=== PATIENT | male | born 1950 | race Caucasian/White ===

== ENCOUNTER → 2017-03-21 10:11 | Day surgery (SDC) | payer OTHER ==
[~2017-03-21 10:11] MED LIST: Adenosine* 3 MG/ML VIAL ONE; Heparin 2 UNITS/ML IVPREMIX* 1,000 ML IV ONE; Heparin 2 UNITS/ML IVPREMIX* 3,000 ML IV ONE; Heparin(*) 1000 UNIT/ML 10 ML VIAL CATH LAB IV ONE; Iohexol 350 (CONTRAST) 200 ML MDV IV ONE; Lidocaine 1% INJ* 10 MG/ML 30 ML SDV ONE; Midazolam* 1 MG/ML 10 ML VIAL (10 MG) ONE; NS 0.9% 1000 ML* 1,000 ML IV SCH; VERAPAMIL 2.5 MG/ML 4 ML VIAL ONE; fentaNYL* 50 MCG/ML 2 ML VIAL (100 MCG VIAL) ONE; nitroGLYCERIN DRIP* 25,000 MCG/250 ML BTL ONE
[2017-03-21 17:07] VITALS: BP 148/91
--- NOTE | 2017-03-28 17:22 | CATH ---
CC: Terry Aguirre DO; Dr. Kathia Flor, * CATH REPORT: DATE OF PROCEDURE: 03/21/17 - [facility] CATH PRIMARY CARE PROVIDER: Dr. Jacobson. PLATEN BUILDER UP: Terry Aguirre DO PROCEDURE: 1. Right radial artery access. 2. Bilateral selective coronary cineangiography. 3. Left heart catheterization. 4. Left ventriculography. 5. Right heart catheterization. 6. FFR evaluation distal LAD, FFR evaluation ramus branch. HISTORY: A 67-year-old male with prior coronary intervention, 1 year ago he had moderate left main with normal FFR of 0.85, had FFR-guided revascularization of the LAD and ramus. LV gram then showed EF of approximately 50%. He now returns with progressively increasing exertional dyspnea, high burden of PVCs, he is anticipating EP ablation. Because of his progressive exertional dyspnea and the known moderate previous left main, he is referred for repeat catheterization to rule out progressional left main disease and to rule out restenosis. PROCEDURE ACCESS: Right radial artery, right antecubital vein. Sheath; 6F Slender right radial artery, 5F right antecubital vein. Catheters; 5F [place] Good catheter, 5F TIG4, 6FL4. MEDICATIONS: 1. Subcu lidocaine. 2. IV Versed. 3. IV fentanyl. 4. Heparin 3000 units. 5. Verapamil 3 mg. 6. Nitroglycerin 300 mcg IA. 7. Heparin 2000 units IV for FFR. 8. Intraarterial nitroglycerin LCA 150 mcg pre-FFR. 9. FFR of distal LAD and ramus was evaluated using a Comet pressure wire with IV adenosine infusion. After the distal LAD lesion was crossed, IV infusion was started, after 3 minutes FFR was recorded. The wire was then redirected into the ramus branch, adenosine was restarted, after 3 minutes FFR was recorded. HEMODYNAMICS: Initial BP 181/117. Resting right-sided pressures RA mean 7, RV 51/8-10, wedge mean 18, PA 51/23, mean 36. FFR in LAD 0.99. FFR ramus with IV adenosine . LV pressure 133/9-18, no aortic valve gradient on pullback. ANGIOGRAPHY: RCA: The RCA is large, dominant, with a large distribution, it has minor luminal irregularity, supplies a large PDA and several moderate posterolaterals. There is a right ventricular free wall branch that is occluded which is unchanged. The RCA has no significant flow limiting stenosis. Left Main: The left main is relatively long, has proximal half 50% stenosis as before. LAD: The LAD is large, extends past the apex, the previously placed proximal LAD stents are widely patent, there is a 60% stenosis in the LAD at the junction of the mid and distal thirds, which was evaluated with FFR. Circumflex: The circumflex is not dominant, supplies a very large ramus which bifurcates, the proximal ramus has a 50% to 60% stenosis which was evaluated with FFR, the side branch of the ramus stented last year is patent without restenosis. continuation of the circumflex has an eccentric 60% stenosis before a small marginal branch which has proximal 60% stenosis, it supplies a relatively small amount of myocardium, reference diameter is approximately 2 mm , this was not treated and is unchanged. Anatomy is unchanged after FFR evaluation of the ramus and LAD. LV Gram: There was ectopy with the ventriculogram, there is global hypokinesis , I estimated LVEF around 35%. Decreased from 1 year ago. CONCLUSION: 1. Moderate left main and distal LAD stenosis, insignificant by FFR. 2. Moderate proximal ramus stenosis, insignificant by FFR. 3. The circumflex has a moderate proximal stenosis, was not evaluated with FFR as it supplies a very small amount of myocardium. 4. Severe left ventricular systolic dysfunction. 5. Moderate pulmonary hypertension with upper limit of normal filling pressures. [id number]/[facility] #: [id number] [facility] HOSPITALValerie
== END | disposition home or self-care (01) ==
LOC: CHICATH 10:11
PROVIDERS: ATTEND Internal Medicine Cardiovascular Disease
DX: I25.10 Atherosclerotic heart disease of native coronary artery without angina pectoris (principal); I25.2 Old myocardial infarction; Z95.5 Presence of coronary angioplasty implant and graft; Z95.1 Presence of aortocoronary bypass graft; I10 Essential (primary) hypertension; I51.9 Heart disease, unspecified; I27.20 Pulmonary hypertension, unspecified; Z79.82 Long term (current) use of aspirin; Z79.899 Other long term (current) drug therapy; E78.5 Hyperlipidemia, unspecified; E03.9 Hypothyroidism, unspecified; I42.9 Cardiomyopathy, unspecified
CPT/HCPCS: 93460; 99156; 99157; C1887; J0153; J1644; J2250; J3010

== ENCOUNTER 2017-10-19 11:13 | Emergency (ER) | payer OTHER ==
[2017-10-19] MEDS ORDERED: Cefepime(*) 2 GM in NS 0.9% 50 ML* 50 ML IVPB ONE (11:44)
[2017-10-19] MEDS ORDERED: metroNIDAZOLE IV 500 MG/100ML* 500 MG/100 ML BAG IVPB ONE (11:44)
[2017-10-19] MEDS ORDERED: NS 0.9% 1000 ML* 1,000 ML IV ONE ×2 (11:45→13:23)
--- NOTE | 2017-10-19 11:51 | ED ---
Skin Complaint - HPI Summary HPI Summary: Patient is a 67-year-old male with a history of diabetes presenting to the ED with right foot and ankle erythema, warmth, swelling and weeping. Symptoms have been present 2 days. He endorses not wearing shoes 4 days ago and sustained a series of very small abrasions to the right heel. He has 2 chronic wounds to the anterior portion of the right lower leg. He states he has several complications with his right leg in general and recently received a steroid injection by Dr. Lopez on Saturday. Denies any history of RA/OA or gout. Denies any fevers, sweats, chills. He states he is feeling otherwise at his baseline. - History of Current Complaint Chief Complaint: EDExtremityLower Time Seen by Provider: 10/19/17 11:37 Stated Complaint: RT FOOT SWELLING Hx Obtained From: Patient Onset/Duration: Started Days Ago Skin Exposure Onset/Duration: Days Ago Timing: Constant Onset Severity: Moderate Current Severity: Moderate Pain Intensity: 6 Pain Scale Used: 0-10 Numeric Aggravating Symptom(s): Nothing Alleviating Symptom(s): Nothing Related History: Trauma - small abrasions to the area - since healed - Allergy/Home Medications Allergies/Adverse Reactions: Allergies Allergy/AdvReac Type Severity Reaction Status Date / Time atorvastatin [From Lipitor] Allergy Pain Verified 10/19/17 11:31 hydrochlorothiazide Allergy Swelling Verified 10/19/17 11:31 Of Face,Lips,& Throat simvastatin [From Zocor] Allergy Rash Verified 10/19/17 11:31 spironolactone Allergy Swelling Verified 10/19/17 11:31 Of Face,Lips,& Throat sumatriptan [From Imitrex] Allergy Shakes Verified 10/19/17 11:31 valsartan Allergy Headache Verified 10/19/17 11:31 Home Medications: Home Medications Candesartan Cilexetil 1 tab PO DAILY 10/19/17 [History Confirmed 10/19/17] Hydrocodone/Acetaminophen [Hydrocodone-Acetamin 7.5-300] 1 tab PO BID PRN [History Confirmed 10/19/17] Metformin HCl 500 mg PO BID 10/19/17 [History Confirmed 10/19/17] Omeprazole 20 mg PO DAILY 10/19/17 [History Confirmed 10/19/17] Prasugrel (NF) [Effient (NF)] 5 mg PO DAILY 10/19/17 [History Confirmed 10/19/17 ] Vitamin B12 TAB* 1,000 mg PO DAILY 10/19/17 [History Confirmed 10/19/17] amLODIPine TAB* [Norvasc 5 mg TAB*] 5 mg PO DAILY 10/19/17 [History Confirmed ] predniSONE TAB* [Deltasone 10 MG TAB*] 30 mg PO DAILY 10/19/17 [History Confirmed 10/19/17] PMH/Surg Hx/FS Hx/Imm Hx Previously Healthy: No - comorbidities include diabetes and pvd Endocrine/Hematology History: Reports: Hx Diabetes Cardiovascular History: Reports: Hx Angina, Hx Coronary Artery Disease - Stent LAd,RCA, Hx Hypercholesterolemia, Hx Hypertension, Hx Myocardial Infarction Denies: Hx Valvular Heart Disease History: Reports: Hx Benign Prostatic Hyperplasia Denies: Hx Dialysis, Hx Renal Disease Musculoskeletal History: Reports: Hx Arthritis - neck, back, knees, shoulders, Hx Back Problems Sensory History: Reports: Hx Contacts or Glasses - reading glasses Opthamlomology History: Reports: Hx Contacts or Glasses - reading glasses Neurological History: Reports: Hx Headaches - Surgical History Surgery Procedure, Year, and Place: femur fracture repair , bladder biopsy (benign) Cardiac stents. lop sensor implanted one week ago. heart cath done one week ago-- - Immunization History Hx Pertussis Vaccination: No Immunizations Up to Date: Unable to Obtain/Confirm Infectious Disease History: No Infectious Disease History: Denies: Traveled Outside the [place] in Last 30 Days - Family History Known Family History: Positive: Cardiac Disease - Social History Occupation: Unemployed Lives: With Family Alcohol Use: Rare Hx Substance Use: No Substance Use Type: Reports: None Hx Tobacco Use: Yes Smoking Status (MU): Former Smoker Type: Cigarettes Amount Used/How Often: 1pck/d Length of Time of Smoking/Using Tobacco: 27 Have You Smoked in the Last Year: No Review of Systems Constitutional: Negative Negative: Fever, Chills, Fatigue Negative: Palpitations, Chest Pain Negative: Shortness Of Breath, Cough Genitourinary: Negative Positive: no symptoms reported, see HPI Positive: Arthralgia - baseline - R hip Positive: Other Neurological: Negative All Other Systems Reviewed And Are Negative: Yes Physical Exam Triage Information Reviewed: Yes Vital Signs On Initial Exam: Initial Vitals Temp Pulse Resp BP Pulse Ox 97.9 F 86 18 175/104 93 10/19/17 11:14 10/19/17 11:14 10/19/17 11:14 10/19/17 11:14 10/19/17 11:14 Vital Signs Reviewed: Yes Appearance: Positive: Well-Appearing, Well-Nourished Skin: Positive: Warm, Skin Color Reflects Adequate Perfusion, Other - erythema, warmth and swelling over the medial malleolus extending just superiorly to above the ankle with small 1cm round area to the anterior lower chau with white epithelialization overlying purulent material. Head/Face: Positive: Normal Head/Face Inspection Eyes: Positive: EOMI, YULIYA, Conjunctiva Clear Neck: Positive: Supple, No Lymphadenopathy Respiratory/Lung Sounds: Positive: Clear to Auscultation, Breath Sounds Present Cardiovascular: Positive: RRR, Pulses are Symmetrical in both Upper and Lower Extremities Musculoskeletal: Positive: Normal, Strength/ROM Intact - baseline for patient - chronic hip pain Neurological: Positive: Sensory/Motor Intact, Speech Normal Psychiatric: Positive: Normal, Affect/Mood Appropriate Diagnostics - Vital Signs Vital Signs Temp Pulse Resp BP Pulse Ox 10/19/17 11:14 97.9 F 86 18 175/104 93 - Laboratory Result Diagrams: 10/19/17 12:05 10/19/17 12:05 Lab Statement: Any lab studies that have been ordered have been reviewed, and results considered in the medical decision making process. Course/Dx - Course Course Of Treatment: During the course treatment, the patient's evaluated for acute cellulitis to the right lower extremity 4 days. He states he feels otherwise at his baseline, only he endorses pain, swelling, erythema and warmth to the area without streaking up the leg. X-ray obtained which shows no acute findings consistent with osteomyelitis. Labs obtained which show a 12.0 leukocytosis without fever, sweats, chills. CRP 148, ESR 51. Lactic is 2.9 and patient is given 1.5 bolus NS. Wound culture grew staph aureus positive, MRSA negative. Patient is placed on Keflex 500 mg 4 times daily 10 days. He will follow up with his PCP, Dr. Jacobson on Saturday. He is to elevate the leg, the area was gauze and Jeet wraps to apply pressure. VS remain stable. Vancomycin and cefepime given in ED. His first dose of Keflex will be this evening. He has comorbidities of diabetes, COPD, hypertension and possibly some undiagnosed PVD based on exam, however at this time I feel he is safe for discharge with by mouth antibiotics and he is given strict return precautions and voices no concerns. - Differential Diagnoses - Skin Complaint Differential Diagnoses: Other - Cellulitis, chronic wound, PVD, PAD, MRSA, MSSA - Diagnoses Provider Diagnoses: Cellulitis of right ankle Discharge - Sign-Out/Discharge Documenting (check all that apply): Discharge/Admit/Transfer - Discharge Plan Condition: Stable Disposition: HOME Prescriptions: Cephalexin CAP* [Keflex CAP*] 500 mg PO QID #40 cap MDD 4 Patient Education Materials: Cellulitis (ED) Referrals: Toya Jacobson MD [Primary Care Provider] - 1 Day (2-3 days for wound check) Additional Instructions: Elevate the leg as much as possible Keep the area Jeet wrapped Keflex 500mg four times daily Follow up with Dr. Jacobson on Saturday If he develop any streaking up the leg, fevers, sweats, chills, return to the ED immediately - Billing Disposition and Condition Condition: STABLE Disposition: Home
[2017-10-19] MEDS ORDERED: Vancomycin(*) 1,750 MG in NS 0.9% 500 ML* 500 ML IVPB ONE (12:00)
[2017-10-19] MEDS ORDERED: Vancomycin(*) 1,000 MG VIAL IVPB SCH (12:00)
[2017-10-19 12:15] LABS: Hematocrit 41 % (42-52); Hemoglobin 13.6 g/dl (14.0-18.0); Mean Corpuscular HGB Conc 33 g/dl (31-36); Mean Corpuscular Hemoglobin 30 pg (27-31); Mean Corpuscular Volume 93 fL (80-94); Mean Platelet Volume 6.8 um3 (7.4-10.4); Platelet Count 201 10^3/ul (150-450); Red Blood Count 4.46 10^6/ul (4.00-5.40); Red Cell Distribution Width 15 % (10.5-15)
[2017-10-19] MEDS ORDERED: CEFEPIME* 2 GM in Dextrose* 50 ml IV ONE (12:15)
[2017-10-19 12:34] LABS: EGFR Non-African American 106.5 (>60)
[2017-10-19 12:45] LABS: ABS Basophils 0 10^3/ul (0-0.2); ABS Eosinophils 0 10^3/ul (0-0.6); ABS Lymphocytes 0.5 10^3/ul (1.0-4.8); ABS Monocytes 0.3 10^3/ul (0-0.8); ABS Nucleated RBC 0 10^3/ul; Eosinophil % 0.3 % (0-6); Lymphocyte % 4.3 % (25-47); Nucleated Red Blood Cells % 0.1
--- NOTE | 2017-10-19 13:34 | RAD ---
Indication: Right ankle injury. 3 views of the right ankle demonstrates no fracture. Ankle mortise is intact. No other bone or joint abnormality is noted. IMPRESSION: No fracture of the right ankle is noted.
[2017-10-19 15:59] VITALS: BP 153/89
--- NOTE | 2017-10-21 08:47 | PN ---
Progress Note - Progress Note Date of Service: 10/19/17 Note: Wound culture grew MRSA negative, staph aureus positive as well as Enterobacter Patient was placed on Keflex prior to discharge We'll await sensitivities at this time
== END 2017-10-19 15:45 | disposition home or self-care (01) ==
LOC: ED 11:13
DX: L03.115 Cellulitis of right lower limb (principal)
CPT/HCPCS: 36415; 80053; 83605; 85025; 85652; 86140; 87040; 87070; 87077; 87186; 87205; 87640; 87641; 96365; 96366; 99284; J0692; J3370

== ENCOUNTER 2017-10-21 15:41 | Inpatient (IN) | payer OTHER ==
[2017-10-21] MEDS ORDERED: ceFAZolin 1 GM ADVAN(*) 1 GM in NS 0.9% 50 ML* 50 ML IVPB ONE (15:53)
[2017-10-21] MEDS ORDERED: Clindamycin 600 MG IVPREMIX(* 600 MG/50 ML SDV IV ONE (15:53)
[2017-10-21] MEDS ORDERED: Ondansetron INJ* 2 MG/ML VIAL IV ONE (15:56)
[2017-10-21] MEDS ORDERED: Morphine VIAL* 4 MG/ML VIAL (1 ml vial) IV ONE (15:56)
[2017-10-21 15:59] LABS: Hematocrit 43 % (42-52); Hemoglobin 14.1 g/dl (14.0-18.0); Mean Corpuscular HGB Conc 33 g/dl (31-36); Mean Corpuscular Hemoglobin 31 pg (27-31); Mean Corpuscular Volume 94 fL (80-94); Mean Platelet Volume 6.7 um3 (7.4-10.4); Platelet Count 224 10^3/ul (150-450); Red Blood Count 4.61 10^6/ul (4.00-5.40); Red Cell Distribution Width 15 % (10.5-15); White Blood Count 11.2 10^3/ul (3.5-10.8)
--- NOTE | 2017-10-21 16:05 | ED ---
Shortness of Breath - HPI Summary HPI Summary: Patient is a 67-year-old male with a history of significant pulmonary fibrosis who was seen here in the ED 2 days ago with a right lower extremity cellulitis presenting today from his doctor's office, Dr. Toya Jacobson with significant shortness of breath. He states he was moderately short of breath yesterday, but today severely worsened. At home O2 is typically at 2L, however at Dr. Jacobson's office, noted a drop to 84% and patient states at home he had dropped to a significant 56% and almost syncopized. Previously on visit he had an elevated lactic of 2.9 and given 1.5L bolus, and a CRP of 148. Admission was offered, however patient declined as we would try a course of PO abx and would have close follow up with PCP. He states the leg has drastically improved, but his SOB has worsened. On arrival he is at 79% on 4L and increased BP of 188/ 110. He is also in 10/10 pain to his left upper leg (baseline for patient) however he feels this has worsened just today since he began walking on the leg again d/t improvement of the lower extremity cellulitis. Denies chest pain, CHURCH , N/V/C/D/ or abd pain. Denies urinary symptoms. Period of bedrest d/t pain in his leg. - History of Current Complaint Chief Complaint: EDShortnessOfBreath Time Seen by Provider: 10/21/17 15:42 Hx Obtained From: Patient Onset/Duration: Gradual Onset Timing: Constant Current Severity: Mild Dyspnea At: Rest Alleviating Factors: Oxygen - 2L - Risk Factors Pulmonary Embolism: Negative Cardiac: Negative Pseudomonas: Chronic Lung Disease - and repeated abx - Allergy/Home Medications Allergies/Adverse Reactions: Allergies Allergy/AdvReac Type Severity Reaction Status Date / Time atorvastatin [From Lipitor] Allergy Pain Verified 10/21/17 16:05 hydrochlorothiazide Allergy Swelling Verified 10/21/17 16:05 Of Face,Lips,& Throat simvastatin [From Zocor] Allergy Rash Verified 10/21/17 16:05 spironolactone Allergy Swelling Verified 10/21/17 16:05 Of Face,Lips,& Throat sumatriptan [From Imitrex] Allergy Shakes Verified 10/21/17 16:05 valsartan Allergy Headache Verified 10/21/17 16:05 Home Medications: Home Medications [id number] Es (Nf) [Excedrin Extra Strength 250-250-65 mg (NF)] 3 tab PO DAILY PRN 10/21/17 [History Confirmed 10/21/17] Candesartan Cilexetil [Atacand] 8 mg PO DAILY 10/21/17 [History Confirmed ] Cyanocobalamin TAB* [Vitamin B12 TAB*] 1,000 mcg PO DAILY 10/21/17 [History Confirmed 10/21/17] Levothyroxine TAB* [Synthroid TAB*] 200 mcg PO DAILY 10/21/17 [History Confirmed 10/21/17] Omeprazole CAP* [Prilosec CAP* 20 MG] 20 mg PO DAILY 10/21/17 [History Confirmed 10/21/17] metFORMIN* [Glucophage 500 MG TAB *] 500 mg PO BID 10/21/17 [History Confirmed 10/21/17] PMH/Surg Hx/FS Hx/Imm Hx Previously Healthy: Yes Endocrine/Hematology History: Reports: Hx Diabetes Cardiovascular History: Reports: Hx Angina, Hx Coronary Artery Disease - Stent LAd,RCA, Hx Hypercholesterolemia, Hx Hypertension, Hx Myocardial Infarction Denies: Hx Valvular Heart Disease History: Reports: Hx Benign Prostatic Hyperplasia Denies: Hx Dialysis, Hx Renal Disease Musculoskeletal History: Reports: Hx Arthritis - neck, back, knees, shoulders, Hx Back Problems Sensory History: Reports: Hx Contacts or Glasses - reading glasses Opthamlomology History: Reports: Hx Contacts or Glasses - reading glasses Neurological History: Reports: Hx Headaches - Surgical History Surgery Procedure, Year, and Place: femur fracture repair , bladder biopsy (benign) Cardiac stents. lop sensor implanted one week ago. heart cath done one week ago-- - Immunization History Hx Pertussis Vaccination: No Immunizations Up to Date: Unable to Obtain/Confirm Infectious Disease History: No Infectious Disease History: Denies: Traveled Outside the [place] in Last 30 Days - Family History Known Family History: Positive: Cardiac Disease - Social History Occupation: Unemployed, Disabled Lives: With Family Alcohol Use: Rare Hx Substance Use: No Substance Use Type: Reports: None Hx Tobacco Use: Yes Smoking Status (MU): Former Smoker Type: Cigarettes Amount Used/How Often: 1pck/d Length of Time of Smoking/Using Tobacco: 27 Have You Smoked in the Last Year: No Review of Systems Constitutional: Negative Negative: Fever, Chills, Fatigue Negative: Palpitations, Chest Pain Positive: Shortness Of Breath. Negative: Cough Genitourinary: Negative Positive: no symptoms reported, see HPI Negative: Arthralgia, Myalgia Positive: Rash - erythematous warm area to the right lower extremity Neurological: Negative All Other Systems Reviewed And Are Negative: Yes Physical Exam Triage Information Reviewed: Yes Vital Signs On Initial Exam: Initial Vitals Temp Pulse Resp BP Pulse Ox 96.6 F 101 24 194/116 91 10/21/17 15:47 10/21/17 15:47 10/21/17 15:47 10/21/17 15:47 10/21/17 15:47 Vital Signs Reviewed: Yes Appearance: Positive: Well-Appearing, Well-Nourished Skin: Positive: Warm, Diaphoretic, Other - erythema and warmth to the R lower extremity Head/Face: Positive: Normal Head/Face Inspection Eyes: Positive: EOMI, YULIYA, Conjunctiva Clear Neck: Positive: Supple, No Lymphadenopathy Respiratory/Lung Sounds: Positive: Breath Sounds Present, Wheezes, Unable to speak in full sentences, Fatigue Cardiovascular: Positive: RRR, Pulses are Symmetrical in both Upper and Lower Extremities Musculoskeletal: Positive: Strength/ROM Intact Neurological: Positive: Speech Normal Psychiatric: Positive: Normal, Affect/Mood Appropriate AVPU Assessment: Alert Diagnostics - Vital Signs Vital Signs Temp Pulse Resp BP Pulse Ox 10/21/17 15:55 99 23 93 10/21/17 15:47 96.6 F 101 24 194/116 91 - Laboratory Result Diagrams: 10/21/17 15:52 10/21/17 15:52 Lab Statement: Any lab studies that have been ordered have been reviewed, and results considered in the medical decision making process. Re-Evaluation - Re-Evaluation First Eval Change: Improved - much improved after increase to 5L O2 Second Eval Change: Improved - pain improved after administration of morphine Third Eval Change: Unchanged - Denies SOB when lying still - this is improvement from DESIGN SPECIALIST Course/Dx - Course Course Of Treatment: ABG obtained which was unremarkable for metabolic/acid base distrubances. CO2 unremarkable. Lactic 3.7. Chest CTA shows: Spoke with hospitalist at 5:20p. EKG shows normal sinus rhythm with probable left atrial enlargement. Rate 92. O2 on arrival 79% 4L increased to 93% on 5L however he was moving around prior to taking the 79% sat. BP 189/110, patient notes an extreme amount of pain in the R upper leg/hip. He is given morphine and zofran. He meets septic criteria and is given 3L NS and Kefzol and Clindamycin for sepsis secondary to cellulitis. However, I believe his abnormal VS are secondary to severe resp distress following medication administration, will fall within lower values. D-dimer 304. WBC decreased from 2 days prior at 11.2. D/t increased BNP, 3rd Liter fluid cancelled and 2nd L fluid reduced to 250ml/hr. Awaiting CTA results. - Diagnoses Differential Diagnosis/HQI/PQRI: Positive: Chest Wall Pain, Pneumonia, Pulmonary Edema Provider Diagnoses: Respiratory distress Discharge - Sign-Out/Discharge Documenting (check all that apply): Discharge/Admit/Transfer Signing out patient TO: Renato Ragland - Awaiting CTA results - Discharge Plan Condition: Stable Disposition: ADMITTED TO [facility]charge Disposition Comment: signed out to Renato Ragland Referrals: Toya Jacobson MD [Primary Care Provider] - - Billing Disposition and Condition Condition: STABLE Disposition: Admitted to [facility]
[2017-10-21] MEDS ORDERED: NS 0.9% 50 ML* 50 ML ONE (16:08)
[2017-10-21] MEDS ORDERED: ceFAZolin 1 GM in Dextrose (*) 1 GM/50 ML BAG IVPB ONE (16:09)
[2017-10-21] MEDS: NS 0.9% 1000 ML* 3,000 ML IV ONE ×2 (16:18→17:22)
[2017-10-21 16:33] LABS: ABS Basophils 0.1 10^3/ul (0-0.2); ABS Eosinophils 0 10^3/ul (0-0.6); ABS Lymphocytes 0.5 10^3/ul (1.0-4.8); ABS Monocytes 0.3 10^3/ul (0-0.8); ABS Neutrophils 10.3 10^3/ul (1.5-7.7); ABS Nucleated RBC 0 10^3/ul; Eosinophil % 0.3 % (0-6); Lymphocyte % 4.6 % (25-47); Nucleated Red Blood Cells % 0.1
[2017-10-21] MEDS ORDERED: Iodixanol* (CONTRAST) 320 MG/ML 100 ML SDV IV ONE (17:27)
--- NOTE | 2017-10-21 18:15 | RAD ---
Indication: Respiratory distress. Contrast: Administered 84.0 ml of VISAPAQUE 320 mg/ml CTA of the chest was performed without IV contrast administration. Coronal and sagittal reconstructed images were obtained. Pulmonary arterial tree is well opacified. There are no filling defects present to suggest pulmonary embolus. There is cardiomegaly noted. Precarinal lymph node measuring up to 1.4 cm. Right hilar lymph nodes are noted measuring up to 1.5 cm. Subcarinal lymph nodes are noted measuring up to 1.4 cm. The trachea and major bronchi appear patent. Bilateral airspace disease is noted which may represent pneumonia in the left upper lobe. Underlying vascular congestion should be considered. There is small bilateral pleural effusions noted. Aorta demonstrates no evidence of aortic dissection. Cardiomegaly is noted. Visualized abdominal organs are unremarkable. IMPRESSION: There is no definite pulmonary embolus. Cardiomegaly with alveolar consolidation is noted in the left upper lobe. Possibility of CHF and/or left upper lobe pneumonia should BE considered. No aortic dissection. Small mediastinal lymph nodes.
[2017-10-21 18:54] LABS: Urine Appearance Clear; Urine Blood Negative (Negative); Urine Color Straw; Urine Ketones Trace (Negative); Urine Protein Negative (Negative); Urine Specific Gravity 1.032 (1.010-1.030); Urine Urobilinogen Negative (Negative)
[2017-10-21] MEDS ORDERED: Acetaminophen TAB* 325 MG PO PRN (19:26)
[2017-10-21] MEDS ORDERED: Al Hydrox/Mg Hydrox/Simet LIQ* 30 ML UDC PO PRN (19:26)
[2017-10-21] MEDS ORDERED: Dextrose 50% Syringe 50 ML* 25 GM/50 ML SYRINGE IV PUSH PRN (20:22)
[2017-10-21] MEDS: Heparin VIAL(*) 5000 UNITS/ML VIAL (FIVE THOUSAND) SUBCUT SCH (22:04)
[2017-10-21] MEDS: Insulin LISPRO* 1 UNITS UNIT SUBCUT SCH (22:04)
[2017-10-21] MEDS: metFORMIN* 500 MG TAB PO SCH (22:05)
[2017-10-21] MEDS: CMCS:Rosuvastatin (NF) 5 MG TAB PO SCH (22:05)
[2017-10-21] MEDS: Tamsulosin CAP* 0.4 MG PO SCH (22:06)
[2017-10-21] MEDS: Levofloxacin 750 MG IVPREMIX(* 750 MG/150 ML BAG IVPB SCH (22:41)
[2017-10-22] MEDS ORDERED: Melatonin 3 MG TAB PO ONE
--- NOTE | 2017-10-22 03:06 | HP ---
CC: Dr. Toya Jacobson * HISTORY AND PHYSICAL: DATE OF ADMISSION: 10/21/17 PROVIDER: Cherri Ambrocio NP. PRIMARY CARE PROVIDER: Dr. Toya Jacobson. ATTENDING PHYSICIAN WHILE IN THE HOSPITAL: Dr. Shola Metzger * (dictated by Cherri Ambrocio NP). CHIEF COMPLAINT: 1. Shortness of breath. 2. Cellulitis. HISTORY OF PRESENT ILLNESS: Mr. Correa is a 67-year-old male, who carries a past medical history significant for hypertension, diabetes, hyperlipidemia, and pulmonary fibrosis. The patient reports that he was recently seen and treated in the emergency room on 10/19/17, at that time for redness in his right lower extremity. During that visit in the emergency room, he qualified for sepsis criteria, but did not want to stay. He was diagnosed with cellulitis and discharged home on Keflex 500 mg q.i.d. and was instructed to follow up with his doctor, Dr. Jacobson, in the office today. The patient reports that the cellulitis has been improving since starting the antibiotics, but he has reported that over the last 2 to 3 days, he has had progressive worsening of shortness of breath. The patient reports that with the exertion, his O2 saturation dropped to 56%. He has severe shortness of breath with exertion and requires a long period of time to recover from his exertional shortness of breath. The patient was sent from Dr. Jacobson's office for further evaluation of his hypoxia and increasing shortness of breath. The patient does chronically wear 3 to 4 L of oxygen at home. He denies any chest pain. He does report chronic edema that has progressively gotten worse. He does report fever last night with some chills. Denies any cough or hemoptysis. He does report shortness of breath with exertion that is severe. He denies any nausea, vomiting, or diarrhea. Denies any abdominal pain. Denies any hematuria or dysuria. Denies any focal weakness or sensory loss. Denies any visual complaints. Denies any dysphagia. Denies any arthralgias. He does report a rash. He does report redness to his right ankle and lower leg. He also reports right hip pain that has been chronic for him. He does report he received a cortisone injection in his right hip last Saturday. He also reports his right leg being weak due to the pain in his right hip. While in the emergency room, the patient had routine lab work drawn. He was found to have lactic acidosis with a lactic acid level of 3.7. His WBCs were 11.2. Given his history of pulmonary fibrosis and recent diagnosis of cellulitis , we were asked to see and evaluate the patient for admission due to his shortness of breath and hypoxia. PAST MEDICAL HISTORY: Significant for: 1. Hypertension. 2. Diabetes. 3. Hyperlipidemia. 4. Pulmonary fibrosis. PAST SURGICAL HISTORY: He had surgical repair of a femur fracture. MEDICATIONS: Home medications include: 1. Flexeril 10 mg p.o. b.i.d. p.r.n. 2. Excedrin Extra Strength 3 tablets p.o. daily p.r.n. 3. Atacand 8 mg p.o. daily. 4. Keflex 500 mg q.i.d. 5. Synthroid mcg p.o. daily. 6. Hydrocodone/acetaminophen 7.5/300 one tablet p.o. b.i.d. p.r.n. 7. Metformin 500 mg p.o. b.i.d. 8. Omeprazole 20 mg p.o. daily. 9. Crestor 5 mg p.o. at bedtime. 10. Effient 5 mg p.o. daily. 11. Tamsulosin 0.4 mg p.o. daily. 12. Vitamin B12 of 1000 mcg p.o. daily. 13. Prednisone 30 mg p.o. daily. 14. Amlodipine 5 mg p.o. daily. ALLERGIES: He has allergy to: 1. ATORVASTATIN. 2. HYDROCHLOROTHIAZIDE. 3. SIMVASTATIN. 4. SPIRONOLACTONE. 5. SUMATRIPTAN. 6. VALSARTAN. SOCIAL HISTORY: He denies any tobacco. He does report rare alcohol use. Denies any illicit drug use. He is retired. He lives at home with his . Surrogate decision maker in the event he is unable to make his own decisions is his , Minoo. Her phone number is [phone]. He is a full code. REVIEW OF SYSTEMS: There was no documented fever in the emergency room. Denies any significant weight change. There is no double vision, no ear discharge. Denies any rhinorrhea. Denies sore throat. Denies any cough or congestion. He does report exertional shortness of breath. He denies any nausea, vomiting, or diarrhea. Denies any abdominal pain. He does report fever and chills last evening. He does report progressively worsening lower extremity edema. He denies any gross hematuria or dysuria. Denies any focal weakness or sensory loss. Denies any visual complaints. Denies any dysphagia. Denies any arthralgias or myalgias. He does report redness to the right lower extremity. He also complains of right hip pain that has progressively gotten worse. He did have a cortisone injection last Saturday. He also complains of some mild weakness in the right leg due to the pain in his right hip. PHYSICAL EXAMINATION GENERAL: At this time, Mr. Correa is a 67-year-old male. He appears his stated age. He is resting on a stretcher in the emergency room, he does not appear to be in any acute distress. VITAL SIGNS: Temperature was 96.6, heart rate was 74, respirations were 16 to 19, blood pressure was 138/92, and O2 saturation on 5 L is 94% to 96%. HEENT: Head is atraumatic, normocephalic. Eyes, EOMs intact. Sclerae anicteric and not pale. Oral mucosa appeared to be dry. NECK: Supple. LUNGS: With fine crackles half way up on the right, diminished on the left. There are no wheezes or rales. CARDIAC: S1 and S2. Regular rate and rhythm. There are no murmurs, rubs, or gallops. ABDOMEN: Obese, soft, nontender. Bowel sounds are present x4. EXTREMITIES: Pedal pulses are +2 bilaterally. He does have 2+ pitting edema to lower extremities bilaterally. He is able to move all 4 extremities, 4/5 strength. NEUROLOGIC: He is alert and oriented x3. His speech is clear. There are no neuro focal deficits. SKIN: His right lower extremity with erythema and mild swelling. There is some purple discoloration noted to his ankle, his posterior heel. There are a few scattered scabbed areas noted to his chau. DIAGNOSTIC STUDIES AND LABORATORY DATA: WBCs were 11.2, RBCs 4.61, hemoglobin 14.1, hematocrit was 43, platelet count was 224. D-dimer was 304. APTT was 32.7. Blood gas, pH of 7.39, pO2 was 36, pCO2 was 67, HCO3 was 22.7, O2 saturation was 94.3%. Sodium 137, potassium 3.9, chloride 102, and carbon dioxide was 21. Anion gap 14. BUN was 14 and creatinine 0.87. Glucose of 370. Lactic acid was 3.7. Calcium was 9.2. AST was 11. C-reactive protein was 141. BNP was 272 and procalcitonin was 0.1. He did have a CTA of the chest, radiologist's impression: There was no definite pulmonary embolism, cardiomegaly with alveolar consolidation was noted in the left upper lobe, possibly due to CHF or left upper lobe pneumonia. No aortic dissection. Electrocardiogram which showed sinus rhythm at a rate of 92. IMPRESSION AND PLAN: Mr. Correa is a 67-year-old male, who presented to the emergency room today with increased shortness of breath and hypoxia, we are asked to see and evaluate him due to his shortness of breath, hypoxia, lactic acidosis, and right lower extremity cellulitis. He will be admitted for: 1. Shortness of breath. I suspect that this is possibly related to left upper lobe pneumonia as the patient does have an underlying history of pulmonary fibrosis. He is extremely short of breath. He has a white count of 11.2. His procalcitonin was low at 0.1. I will treat him with Levaquin 750 mg q. 24 hours. He can have albuterol nebulizers as needed for increased shortness of breath. I will continue him on his home prednisone at 30 mg p.o. daily. He should continue on his routine home O2 at 3 to 6 L to maintain O2 saturations above 92%. If the patient does not improve or his shortness of breath becomes worse, and he develops rales, we should consider underlying congestive heart failure as the patient does have 2+ pitting edema to the lower extremities and does report that he stopped taking torsemide 5 mg approximately 1 week ago. The patient did have a CTA of the chest to rule out pulmonary embolism as the D- dimer was elevated at 304. 2. Cellulitis. We will place him on Levaquin to treat both the pneumonia and cellulitis as they will cover both infections and continue to monitor his right lower extremity. 3. Hypertension. We will continue him on his previous home hypertension medications of amlodipine 5 mg p.o. daily. 4. Diabetes. We will place him on fingersticks a.c. and h.s. I will place him on a lispro sliding scale. He will continue his metformin 500 mg p.o. b.i.d. I will check an A1c in the a.m. His blood sugar on admission to the emergency room was 370. I suspect this is elevated more due to his underlying infection. 5. Hyperlipidemia. We will continue on Crestor 5 mg. 6. FEN. I will place him on heart healthy, decaf okay diet. 7. Code status. He is a full code. 8. DVT prophylaxis. I will place him on heparin 5000 units subcu p.o. daily. I did not place him on mechanical SCDs due to the swelling and cellulitis in his right lower extremity and possibly underlying congestive heart failure. 9. Disposition. He will placed inpatient on telemetry. TIME SPENT: Time spent on this admission was approximately 60 minutes, greater than half the time was spent with the patient discussing his history and physical, the other half the time was spent going over my care of plan with the patient and implementing my plan of care. I have discussed with my attending, Dr. Shola Metzger. He is in agreement with my plan. CHERRI AMBROCIO, P[facility]LLER [id number]/[facility] #: [id number] MTDValerie
[2017-10-22] MEDS: Cyclobenzaprine TAB* 10 MG PO PRN (04:00)
[2017-10-22] MEDS: Heparin VIAL(*) 5000 UNITS/ML VIAL (FIVE THOUSAND) SUBCUT SCH ×3 (05:10→21:10)
[2017-10-22] MEDS: Levothyroxine TAB* 100 MCG TAB PO SCH (05:10)
[2017-10-22 07:08] LABS: Hematocrit 38 % (42-52); Hemoglobin 12.8 g/dl (14.0-18.0); Mean Corpuscular HGB Conc 34 g/dl (31-36); Mean Corpuscular Hemoglobin 31 pg (27-31); Mean Corpuscular Volume 92 fL (80-94); Mean Platelet Volume 6.8 um3 (7.4-10.4); Platelet Count 195 10^3/ul (150-450); Red Blood Count 4.12 10^6/ul (4.00-5.40); Red Cell Distribution Width 15 % (10.5-15); White Blood Count 8.5 10^3/ul (3.5-10.8)
[2017-10-22 07:27] LABS: EGFR Non-African American 103.3 (>60)
[2017-10-22] MEDS ORDERED: Insulin LISPRO* 1 UNITS UNIT SUBCUT SCH (07:30)
[2017-10-22 07:39] LABS: ABS Basophils 0 10^3/ul (0-0.2); ABS Eosinophils 0.1 10^3/ul (0-0.6); ABS Lymphocytes 0.8 10^3/ul (1.0-4.8); ABS Monocytes 0.4 10^3/ul (0-0.8); ABS Neutrophils 7.1 10^3/ul (1.5-7.7)
[2017-10-22 07:41] LABS: ABS Basophils 0 10^3/ul (0-0.2); ABS Neutrophils 6.5 10^3/ul (1.5-7.7); Monocytes % 10 % (0-7)
[2017-10-22] MEDS: Omeprazole CAP* 20 MG PO SCH (09:00)
[2017-10-22] MEDS: amLODIPine TAB* 5 MG PO SCH (09:00)
[2017-10-22] MEDS: Cyanocobalamin TAB* 500 MCG PO SCH (09:00)
[2017-10-22] MEDS ORDERED: predniSONE TAB* 10 MG PO SCH (09:00)
[2017-10-22] MEDS: metFORMIN* 500 MG TAB PO SCH (09:00)
[2017-10-22] MEDS: Insulin LISPRO* 1 UNITS UNIT SUBCUT SCH ×4 (09:01→21:09)
[2017-10-22] MEDS ORDERED: Docusate CAP* 100 MG PO PRN (09:49)
[2017-10-22] MEDS ORDERED: Senna TAB PO PRN (09:49)
--- NOTE | 2017-10-22 10:15 | PN ---
Subjective Date of Service: 10/22/17 Interval History: Mr. Correa reports feeling very short of breath with any exertion. He denies chest pain, nausea, or abdominal pain. He notes that he is abdomen is distended but is unable to clarify if this is worse than usual. He reports his last BM was 10/18/17. Objective Active Medications: Acetaminophen (Tylenol Tab*) 650 mg PO Q4H PRN Hydrocodone Bitart/Acetaminophen ([place]et 5-325 Tab*) 2 tab PO Q4H PRN Al Hydrox/Mg Hydrox/Simethicone (Maalox Plus*) 30 ml PO Q6H PRN Albuterol (Ventolin 2.5 Mg/3 Ml Neb.Jaida*) 2.5 mg INH [id number] AWAKE PRN Amlodipine Besylate (Norvasc Tab*) 5 mg PO DAILY RIVERA Cyanocobalamin (Vitamin B12 Tab*) 1,000 mcg PO DAILY RIVERA Cyclobenzaprine HCl (Flexeril Tab*) 10 mg PO BID PRN Dextrose (D50w Syringe 50 Ml*) 12.5 gm IV PUSH .FOR FS < 60 - SS PRN Docusate Sodium (Colace Cap*) 100 mg PO BID PRN Heparin Sodium (Porcine) (Heparin Vial(*)) 5,000 units SUBCUT Q8HR RIVERA Levofloxacin/Dextrose (Levaquin 750 Mg Ivpremix(*)) 750 mg in 150 mls @ 100 mls /hr IVPB Q24H RIVERA Insulin Human Lispro (Humalog*) 0 units SUBCUT ACHS RIVERA; Protocol Levothyroxine Sodium (Synthroid Tab*) 200 mcg PO DAILY@0600 RIVERA Metformin HCl (Glucophage*) 500 mg PO BID RIVERA Omeprazole (Prilosec Cap*) 20 mg PO DAILY@0730 RIVERA Polyethylene Glycol/Electrolytes (Miralax*) 17 gm PO DAILY PRN Prednisone (Deltasone Tab*) 30 mg PO DAILY RIVERA Rosuvastatin Calcium (Crestor (Nf)) 5 mg PO BEDTIME RIVERA; Protocol Senna (Senokot Tab*) 1 tab PO BEDTIME PRN Tamsulosin HCl (Flomax Cap*) 0.4 mg PO QPM RIVERA Vital Signs: Temp Pulse Resp BP Pulse Ox 97.5 F 82 17 151/87 94 10/22/17 08:14 10/22/17 08:14 10/22/17 08:14 10/22/17 08:14 10/22/17 08:14 Oxygen Devices in Use Now: Nasal Cannula Appearance: Male lying in bed, reports hip pain, NAD Eyes: No Scleral Icterus Neck: Trachea Midline Respiratory: Symmetrical Chest Expansion and Respiratory Effort, Clear to Auscultation Cardiovascular: NL Sounds; No Murmurs; No JVD, - - +1 edema to B LE Abdominal: - - Soft, distended, BS + Skin: - - Erythema to right calf, dark purple lesion to achilles tendon area, three small dry ulcerations to anterior aspect, no drainage Neurological: Alert and Oriented x 3 Nutrition: Taking PO's Result Diagrams: 10/22/17 06:26 10/22/17 06:26 Assess/Plan/Problems-Billing Assessment: Mr. Correa is a 67 yo male with a PMH of pulmonary fibrosis, CAD with multiple stents, hypertension, diabetes and recent diagnosis of right lower extremity cellulitis who was admitted on 10/21/17 for worsening shortness of breath of uncertain etiology. - Patient Problems (1) SOB (shortness of breath) Comment: - Persistent severe dypsnea on exertion. - History of significant pulmonary fibrosis on 4L NC at home with 6L for mobility, now with SpO2 into the 70s with 6L NC during mobility, put on 12L with SpO2 90s - CTA chest showed pulmonary fibrosis only, no PE or clear infiltrate. ? left upper lobe atelectasis vs infiltrate or CHF, difficult to interpret given severity of pulmonary fibrosis. - No clear evidence of infection. Mild leukocytosis on arrival resolved, CRP elevated but likely due to cellulitis, procalcitonin negative for bacterial infection. - ? if cardiac component, plan to obtain most recent echo from Dr. Arevalo in [place] and repeat echo now. - Continue nebulizers. Continue home prednisone for pulmonary fibrosis. - Dr. Vasquez (who follows him outpatient) consulted. (2) Pulmonary fibrosis Comment: - Follows with Dr. Vasquez, last visit 06/2017. - Noted to require up to 6L NC to maintain SpO2 > 90% at that point. - Continue prednisone. (3) CAD (coronary artery disease) Comment: - Chest pain free but SOB. - Trop 0.03, EKG without evidence of ischemia, unchanged from previous. Plan to repeat troponin now given that DM can mask symptoms and patient is significantly hypoxic. - Hx of stents x 5. (4) Hip pain Comment: - Right hip pain along the lateral aspect of hip, described as muscle spasms, since early September, improved after outpatient steroid injection but worsened with development of right lower extremity cellulitis. - Follows with rheumatology for history of polymyalgia. Xrays of hip, pelvis and knee outpatient showed no acute injury. Planned for outpatient MRI hip. - Continue pain meds prn. (5) Abdominal distension Comment: - Patient has significant abdominal distention but denies pain, states his last BM was 10/18/17. ? if abdomen is creating pressure and atelectasis. Plan for bowel regimen and xray abdomen now. (6) Diabetes Comment: - BGs 160-260. HgbA1c 10.9. - Hold metformin, continue lispro SSI coverage with meals. - Will need significant medication adjustments outpatient, diabetic teaching. (7) HTN (hypertension) Comment: - SBP 150s. - Continue losartan, metoprolol, & amlodipine (8) HLD (hyperlipidemia) Comment: - Continue statin. (9) Hypothyroidism Comment: - Continue levothyroxine. - TSH pending. (10) DVT prophylaxis Comment: - Heparin SQ. (11) Full code status Comment: Status and Disposition: Inpatient. Anticipate discharge to home when medically stable.
[2017-10-22] MEDS: Polyethylene Glycol 3350* 17 GM PACKET PO PRN (11:10)
[2017-10-22] MEDS: HYDROcodone/ACETAMIN 5-325 MG* 1 TAB PO PRN ×2 (12:34→21:13)
--- NOTE | 2017-10-22 15:22 | ECHO ---
Patient: LEDA HATCH [facility] Rec#: [id number] : 1950 Date: 10/22/2017 Age: 67y Height: 175.26 cm / 69.0 in Weight: 113.85 kg / 250.9 lbs Sex: M BSA: 2.27 Room#: [facility] Admit Date#: 10/21/2017 Type: Inpatient Referring: Naty Aguirre NP Reading: Italo Brewster MD Family Counselor: Amber Booker DAVIDA CC: Toya Jacobson MD Transthoracic Echocardiogram Indication: SOB BP: 151/87 HR: 87 Rhythm: NSR with PVCs Findings History: HTN,HLD,DM,pulmonary fibrosis,CAD,prior PCI. Technical Comments: The study is technically difficult. Completed at 1440. The study is technically limited due to patient body habitus. Left Ventricle: The left ventricular chamber size is normal. Posterior wall hypertrophy is observed. Mild global hypokinesis of the left ventricle is observed. Left ventricular systolic function is at the lower limits of normal. The estimated ejection fraction is 50-55%. Abnormal left ventricular diastolic function is observed. Left Atrium: The left atrium is mildly dilated. Right Ventricle: The right ventricular cavity size is normal. The right ventricular global systolic function is normal. Right Atrium: The right atrium is slightly dilated. Aortic Valve: The aortic valve is trileaflet. There is no evidence of aortic valve thickening. There is no evidence of aortic regurgitation. There is no evidence of aortic stenosis. Mitral Valve: The mitral valve leaflets are mildly thickened. There is no evidence of mitral regurgitation. There is no evidence of mitral stenosis. Tricuspid Valve: The tricuspid valve leaflets are normal. There is a physiologic tricuspid regurgitation. Unable to estimate the right ventricular systolic pressure. There is no tricuspid stenosis. Pulmonic Valve: The pulmonic valve appears normal. There is no evidence of pulmonic regurgitation. There is no pulmonic stenosis. Pericardium: There is no significant pericardial effusion. A pericardial fat pad is visualized. Aorta: There is moderate dilatation of the ascending aorta. There is no dilatation of the aortic arch. There is mild dilatation of the aortic root. Pulmonary Artery: The main pulmonary artery appears normal. Venous: The venous system is not well visualized. Summary: There are no significant changes when compared to the previous study done on 04/18/16 Conclusions Posterior wall hypertrophy is observed. Mild global hypokinesis of the left ventricle is observed. Left ventricular systolic function is at the lower limits of normal. The estimated ejection fraction is 50-55%. The right ventricular global systolic function is normal. There is no evidence of aortic stenosis. There is no evidence of mitral regurgitation. There is a physiologic tricuspid regurgitation. Unable to estimate the right ventricular systolic pressure. There is no significant pericardial effusion. Measurements Name Value Normal Range RVIDd (AP) 2D 3.7 cm (0.9 - 2.6) RVDdMajor (2D) 2.7 cm (2.2 - 4.4) RAd ISD 4CH 6 cm (3.4 - 4.9) RA (A4C)W 3.4 cm (2.9 - 4.6) IVSd (2D) 1 cm (0.6 - 1) LVPWd (2D) 1.4 cm (0.6 - 1) LVIDd (2D) 5 cm (3.6 - 5.4) LVIDs (2D) 3.3 cm - LV FS (2D) 34 % (25 - 45) Aortic Annulus 2.6 cm (1.4 - 2.6) Ao root diameter (2D) 3.9 cm (2.1 - 3.5) Ascending Ao 4 cm (2.1 - 3.4) Aortic arch 2.6 cm (1.8 - 3.4) Descending Ao 0.5 cm - LA dimension (AP) 2D 4.3 cm (2.3 - 3.8) LAd ISD 4CH 7.2 cm (2.9 - 5.3) LA ISD 4CH W 4.1 cm (2.5 - 4.5) Name Value Normal Range LA ESV SP 4CH (A/L) 62 ml - LA ESV SP 2CH (A/L) 33 ml - LA ESV BP (A/L) 46 ml - LA ESV BP (A/L) index 20.01 ml/m2 - LA ESV SP 4CH (MOD) 61 ml - LA ESV SP 2CH (MOD) 33 ml - Name Value Normal Range MV E-wave Vmax 0.7 m/sec - MV deceleration time 167 msec - MV A-wave Vmax 1.3 m/sec - MV E:A ratio 0.58 ratio - LV septal e' Vmax 0.08 m/sec - LV lateral e' Vmax 0.09 m/sec - LV E:e' septal ratio 8.75 ratio - LV E:e' lateral ratio 7.78 ratio - Name Value Normal Range AV Vmax 1.6 m/sec - AV VTI 35.2 cm - AV peak gradient 10.74 mmHg - AV mean gradient 5.58 mmHg - LVOT Vmax 1 m/sec - LVOT VTI 23 cm - LVOT peak gradient 4.31 mmHg - LVOT mean gradient 2.43 mmHg - Name Value Normal Range PV Vmax 0.9 m/sec - PV peak gradient 3.5 mmHg -
[2017-10-22] MEDS ORDERED: Furosemide IV* 10 MG/ML 2 ML VIAL (20 MG) IV ONE (16:16)
--- NOTE | 2017-10-22 17:20 | RAD ---
Indication: Abdominal distention. Flat and upright views of the abdomen demonstrates no free air. Moderately distended loops of small bowel and stomach are noted. This is in the nonspecific pattern. No organomegaly is noted. IMPRESSION: MODERATELY DISTENDED LOOPS OF SMALL BOWEL AND STOMACH ARE PRESENT. THIS IS IN A NONSPECIFIC PATTERN.
[2017-10-22] MEDS: Tamsulosin CAP* 0.4 MG PO SCH (17:50)
--- NOTE | 2017-10-22 18:17 | CONS ---
PULMONARY CONSULTATION REPORT: DATE OF CONSULTATION: 10/22/17. CONSULTATION REQUESTED BY: Naty Aguirre NP. REASON FOR CONSULTATION: Evaluation of shortness of breath, hypoxemia. HISTORY OF PRESENT ILLNESS: The patient is a 67-year-old male with history of hypertension, diabetes, hyperlipidemia, pulmonary fibrosis known to me from prior inpatient and outpatient evaluation for pulmonary fibrosis, which was thought to be secondary to inflammatory etiology. He has been following up with Dr. Lopez and has been on prednisone therapy. The patient has been on 30 mg prednisone. The patient has been in the hospital recently for right lower extremity cellulitis. He was discharged with antibiotics. The presented to the emergency room two days after discharge with significantly worsening shortness of breath. The patient has seen Dr. Lopez on 10/14/17, was found to be stable on current dose of prednisone, inflammatory marker was not significantly elevated. The patient is undergoing further testing to be started on immunosuppressive medication. The patient reports no fevers or chills. The patient reports significant abdominal distention. He recently was having issues with right hip pain and ankle pain. Bursitis was suspected and received steroid injections through Dr. Lopez. The patient also had x-rays of the hip which did not reveal any obvious etiology. Avascular necrosis was considered a possibility given the patient has been on steroids. Given negative imaging, it was attributed to bursitis and therefore received steroid injections. The patient reports no significant change in the pain. The patient reports being constipated for the past few days. He has significant abdominal distention. The patient reports significant worsening shortness of breath, having dyspnea with minimal ambulation. The patient denied chest pain, palpitations, dizziness. He has chronic lower extremity edema that has been worsening especially on the right leg. Denies cough or hemoptysis or sputum production. Reports dyspnea with minimal exertion, FiO2 requirements have been increasing. He went to his primary care physician and was sent into the hospital given significant hypoxemia. The patient was noted to have slightly elevated lactic acids levels on admission at 3.7. He was found to have slightly elevated white count at 11.2. PAST MEDICAL HISTORY: 1. Hypertension. 2. Diabetes. 3. Dyslipidemia. 4. Pulmonary fibrosis. PAST SURGICAL HISTORY: Surgical repair of femur fracture in the past. MEDICATIONS: At home: 1. Flexeril. 2. Excedrin. 3. Atacand. 4. Keflex. 5. Synthroid. 6. Hydrocodone. 7. Metformin. 8. Omeprazole. 9. Crestor. 10. Effient. 11. Flomax. 12. Vitamin B12. 13. Prednisone 30 mg. 14. Amlodipine 5 mg. 15. Cefuroxime. ALLERGIES: 1. ATORVASTATIN. 2. HYDROCHLOROTHIAZIDE. 3. SIMVASTATIN. 4. SPIRONOLACTONE. 5. SUMATRIPTAN. 6. VALSARTAN. SOCIAL HISTORY: Denies tobacco or alcohol abuse. Lives at home with his , Minoo. REVIEW OF SYSTEMS: All 14 systems reviewed and as per HPI. PHYSICAL EXAMINATION: The patient is in bed, in no apparent distress. Vital Signs: Temperature 97.5, pulse 86 beats per minute, respiratory rate 18 per minute, O2 sat 93% to 94% on 6 liters, blood pressure 162/87. HEENT: Pupils equal, reactive to light. Mucous membranes moist. Respiratory: Diminished air entry bilaterally. No wheeze on auscultation, crackles at bases. Cardiovascular: S1, S2 present. Abdomen: Significantly distended, no tenderness to palpation. Abdomen is tympanic to auscultation. Extremities: Significant lower extremity edema, right greater than left, erythema of the right lower extremity. Skin: Bruises in upper extremities from being on prednisone, slight purplish discoloration of second toe in the left lower extremity, skin changes and erythema of right lower extremity suggestive of possible cellulitis. Neuro: No focal deficits. Alert, awake and oriented x3. DIAGNOSTIC STUDIES/LAB DATA: Laboratory exam, WBC count 8.5, hemoglobin 12.8, hematocrit 38, platelet count 195. No evidence of eosinophilia, was found to have slight left shift on admission. Blood gas analysis did not reveal significant acidosis or hypercapnia. PO2 was low at 67. Sodium 141, potassium 3.4, bicarb is 26, BUN 14, creatinine 0.75. CRP significantly elevated at 114. Lactic acid normalized and was slightly elevated on admission. TSH within normal limits at 1.33. UA was negative. CTA was personally reviewed by me, evidence of significant air space opacities bilaterally. CTA of the chest showed no filling defects, evidence of significant air space opacities bilaterally, evidence of atelectasis and volume loss in left lung, evidence of mild mediastinal and hilar adenopathy, small bilateral pleural effusions, fibrotic changes and air space opacities and ground -glass opacities as seen before. IMPRESSION/RECOMMENDATIONS: 67-year-old male with history of pulmonary fibrosis likely secondary to inflammatory lung disease, has been on chronic prednisone therapy with improvement in symptoms until recently, started having worsening shortness of breath, worsening hypoxemia, found to have significantly worsening infiltrates, atelectasis of the left lung and small bilateral pleural effusions in the setting of chronic interstitial lung disease, unclear if it is suggestive of pneumonia or progression of interstitial disease with exacerbation , suspect component of fluid overload Patient also with distended abdomen which might be resulting in atelectasis and decreased reserve. He is receiving bowel regimen. Recommend abdominal x-ray to r /o SBO, no clinical signs suggestive of SBO at this time CT chest findings unclear if suggestive of progression of ILD, opportunistic infections given immunosuppressed state from being on chronic prednisone therapy , fungal and PCP also in consideration No overt signs of sepsis at this time, hemodynamically stable, however definitely cannot rule out the possibility Unclear reason for significant jump in CRP from mildly elevated few days ago to significantly elevated He is on Levaquin to cover for possible Pseudomonas given recent hospitalization. Will not broaden at this time as he is high risk for c.diff Will also need further imaging of hip with MRI, pt not able to lie down flat this time, x-ray didnot reveal any pathology Will use metanebs to help mobilize secretions and also help recruit the atelectatic lung on left side. c/w bowel regimen. Will monitor closely for change of status Thank you for allowing me to participate in the care of your patient. Will follow up with you. D/w Naty Aguirre SPECTROSCOPIST and above management plan was discussed [id number]/[facility] #: [id number] JAYJAY
[2017-10-22] MEDS: CMCS:Rosuvastatin (NF) 5 MG TAB PO SCH (21:13)
[2017-10-22] MEDS: Levofloxacin 750 MG IVPREMIX(* 750 MG/150 ML BAG IVPB SCH (21:14)
[2017-10-23] MEDS: HYDROcodone/ACETAMIN 5-325 MG* 1 TAB PO PRN ×3 (03:05→17:26)
[2017-10-23] MEDS: Cyclobenzaprine TAB* 10 MG PO PRN ×2 (03:05→23:31)
[2017-10-23] MEDS: Heparin VIAL(*) 5000 UNITS/ML VIAL (FIVE THOUSAND) SUBCUT SCH ×3 (05:47→21:52)
[2017-10-23] MEDS: Levothyroxine TAB* 100 MCG TAB PO SCH (05:47)
[2017-10-23] MEDS: Omeprazole CAP* 20 MG PO SCH (07:34)
--- NOTE | 2017-10-23 07:36 | PN ---
Subjective Date of Service: 10/23/17 Interval History: Mr Correa reports feeling better today. He feels that he is less of short of breath though he has not been up out of bed yet. He denies nausea or vomiting. He has had no bowel movement. He had pain in his right hip with a severe muscle cramp this AM, which has been ongoing since early September. Objective Active Medications: Acetaminophen (Tylenol Tab*) 650 mg PO Q4H PRN Hydrocodone Bitart/Acetaminophen ([place] 5-325 Tab*) 2 tab PO Q4H PRN Al Hydrox/Mg Hydrox/Simethicone (Maalox Plus*) 30 ml PO Q6H PRN Albuterol (Ventolin 2.5 Mg/3 Ml Neb.Jaida*) 2.5 mg INH [id number] AWAKE PRN Amlodipine Besylate (Norvasc Tab*) 5 mg PO DAILY RIVERA Cyanocobalamin (Vitamin B12 Tab*) 1,000 mcg PO DAILY RIVERA Cyclobenzaprine HCl (Flexeril Tab*) 10 mg PO BID PRN Dextrose (D50w Syringe 50 Ml*) 12.5 gm IV PUSH .FOR FS < 60 - SS PRN Docusate Sodium (Colace Cap*) 100 mg PO BID PRN Heparin Sodium (Porcine) (Heparin Vial(*)) 5,000 units SUBCUT Q8HR RIVERA Levofloxacin/Dextrose (Levaquin 750 Mg Ivpremix(*)) 750 mg in 150 mls @ 100 mls /hr IVPB Q24H RIVERA Insulin Human Lispro (Humalog*) 0 units SUBCUT ACHS RIVERA; Protocol Levothyroxine Sodium (Synthroid Tab*) 200 mcg PO DAILY@0600 RIVERA Omeprazole (Prilosec Cap*) 20 mg PO DAILY@0730 RIVERA Polyethylene Glycol/Electrolytes (Miralax*) 17 gm PO DAILY PRN Prednisone (Deltasone Tab*) 40 mg PO DAILY RIVERA Rosuvastatin Calcium (Crestor (Nf)) 5 mg PO BEDTIME RIVERA; Protocol Senna (Senokot Tab*) 1 tab PO BEDTIME PRN Tamsulosin HCl (Flomax Cap*) 0.4 mg PO QPM [facility] Vital Signs: Temp Pulse Resp BP Pulse Ox 97.5 F 65 26 141/86 96 10/23/17 07:11 10/23/17 07:11 10/23/17 07:33 10/23/17 07:11 10/23/17 07:11 Oxygen Devices in Use Now: Nasal Cannula Appearance: Male lying in bed in NAD, at bedside Eyes: No Scleral Icterus Ears/Nose/Mouth/Throat: Mucous Membranes Moist Neck: Trachea Midline Respiratory: - - Inspiratory crackles bilaterally Cardiovascular: NL Sounds; No Murmurs; No JVD, - - + 1 edema, improved Abdominal: - - Soft, distended, nontender, BS + Skin: - - erythema to right lower extremity improving Neurological: Alert and Oriented x 3, NL Muscle Strength and Tone Nutrition: Taking PO's Result Diagrams: 10/22/17 06:26 10/22/17 06:26 Assess/Plan/Problems-Billing Assessment: Mr. Correa is a 67 yo male with a PMH of pulmonary fibrosis, CAD with multiple stents, hypertension, diabetes and recent diagnosis of right lower extremity cellulitis who was admitted on 10/21/17 for worsening shortness of breath of uncertain etiology. - Patient Problems (1) SOB (shortness of breath) Comment: - Patient reports feeling better but has not been out of bed, plan to OOB to chair TID as can tolerated. - Appreciate consultation from Dr. Vasquez. - History of significant pulmonary fibrosis on 4L NC at home with 6L for mobility. Continue increased dose prednisone. Continue metanebs per RT. - CTA chest showed pulmonary fibrosis only, no PE or clear infiltrate. ? left upper lobe atelectasis vs infiltrate or CHF, difficult to interpret given severity of pulmonary fibrosis. - Questionable component of pneumonia. Mild leukocytosis on arrival resolved, CRP elevated but likely due to cellulitis, procalcitonin negative for bacterial infection. Continue levaquin. - Echo unchanged from baseline, EF 50-55%. Was given one time dose of lasix per Pedro on 10/22/17. - Question if abdominal distention with constipation is contributing by causing atelectasis and poor diaphramatic excursion. Increase bowel regimen. (2) Pulmonary fibrosis Comment: - Recent diagnosis. Follows with Dr. Vasquez, last visit 06/2017. ? if secondary to exposure to photography chemicals, workup negative for alternate etiology outpatient. - Noted to require up to 6L NC to maintain SpO2 > 90% at that point. - Continue prednisone as per above. (3) CAD (coronary artery disease) Comment: - Chest pain free but SOB. - Trop 0.03 x 2, EKG without evidence of ischemia, unchanged from previous. - Hx of stents x 5. (4) Hip pain Comment: - Right hip pain along the lateral aspect of hip, described as muscle spasms, since early September, improved after outpatient steroid injection but worsened with development of right lower extremity cellulitis. - Follows with rheumatology for history of polymyalgia. Xrays of hip, pelvis and knee outpatient showed no acute injury. Planned for outpatient MRI hip. - Continue pain meds prn. (5) Abdominal distension Comment: - No BM overnight. Abd xray with stool but no evidence SBO. - Patient has significant abdominal distention but denies pain, states his last BM was 10/18/17. ? if abdomen is creating pressure and atelectasis. - Increase bowel regimen, with miralax, colace, and senna per routine. (6) Diabetes Comment: - BGs 160-260. HgbA1c 10.9. Likely exacerbated by chronic steroid use. - Hold metformin, continue lispro SSI coverage with meals. - Patient not checking blood sugar outpatient, thought his diabetes was well controlled. Will need significant medication adjustments outpatient, diabetic teaching. (7) HTN (hypertension) Comment: - SBP 120-150s. - Continue losartan, metoprolol, & amlodipine (8) HLD (hyperlipidemia) Comment: - Continue statin. (9) Hypothyroidism Comment: - Continue levothyroxine. - TSH 1.33. (10) DVT prophylaxis Comment: - Heparin SQ. (11) Full code status Comment: Status and Disposition: Inpatient. Anticipate discharge to home when medically stable.
[2017-10-23] MEDS ORDERED: Morphine INJ* 10 MG/ML 1 ML CARPUJECT IV PRN (07:38)
[2017-10-23] MEDS: Insulin LISPRO* 1 UNITS UNIT SUBCUT SCH ×4 (07:51→20:38)
[2017-10-23] MEDS: amLODIPine TAB* 5 MG PO SCH (10:06)
[2017-10-23] MEDS: predniSONE TAB* 20 MG PO SCH (10:06)
[2017-10-23] MEDS: Cyanocobalamin TAB* 500 MCG PO SCH (10:07)
[2017-10-23] MEDS ORDERED: Polyethylene Glycol 3350* 17 GM PACKET PO ONE (13:24)
[2017-10-23] MEDS: Polyethylene Glycol 3350* 17 GM PACKET PO PRN (13:29)
[2017-10-23] MEDS: Albuterol 2.5 MG/3 ML NEB.SOL* (0.083%) INH PRN ×2 (13:50→19:45)
--- NOTE | 2017-10-23 15:05 | PN ---
Progress Note - Progress Note Date of Service: 10/23/17 - Pulm f/u note Note: Pt seen and examined at bedside. Pt reports feeling slightly better. Didnot have BM. Had severe pain and cramping of RLE this am that improved with Morphine. Was able to bear weight on RLE Active Medications Generic Name Dose Route Start Last Admin Trade Name Freq PRN Reason Stop Dose Admin Acetaminophen 650 mg 10/21/17 19:26 10/22/17 04:00 Tylenol Tab* PO 650 mg Q4H PRN Administration FEVER/PAIN Hydrocodone Bitart/Acetaminophen 2 tab 10/22/17 09:49 10/23/17 07:33 [place] 5-325 Tab* PO 2 tab Q4H PRN Administration PAIN Al Hydrox/Mg Hydrox/Simethicone 30 ml 10/21/17 19:26 Maalox Plus* PO Q6H PRN INDIGESTION Albuterol 2.5 mg 10/21/17 19:26 10/23/17 13:50 Ventolin 2.5 Mg/3 Ml Neb.Jaida* INH 2.5 mg [id number] AWAKE PRN Administration sob/wheezing Amlodipine Besylate 5 mg 10/22/17 09:00 10/23/17 10:06 Norvasc Tab* PO 5 mg DAILY RIVERA Administration Cyanocobalamin 1,000 mcg 10/22/17 09:00 10/23/17 10:07 Vitamin B12 Tab* PO 1,000 mcg DAILY RIVERA Administration Cyclobenzaprine HCl 10 mg 10/21/17 19:30 10/23/17 03:05 Flexeril Tab* PO 10 mg BID PRN Administration SPASMS - MUSCLE Dextrose 12.5 gm 10/21/17 20:22 D50w Syringe 50 Ml* IV PUSH .FOR FS < 60 - SS PRN FS < 60 Docusate Sodium 100 mg 10/23/17 21:00 Colace Cap* PO BID RIVERA Heparin Sodium (Porcine) 5,000 units 10/21/17 22:00 10/23/17 13:28 Heparin Vial(*) SUBCUT 5,000 units Q8HR RIVERA Administration Levofloxacin/Dextrose 750 mg in 150 mls @ 100 mls/hr 10/21/17 22:00 10/22/17 21:14 Levaquin 750 Mg Ivpremix(*) IVPB 10/28/17 21:59 100 mls/hr Q24H RIVERA Administration Insulin Human Lispro 0 units 10/22/17 10:35 10/23/17 13:27 Humalog* SUBCUT 9 units ACHS RIVERA Administration Protocol Levothyroxine Sodium 200 mcg 10/22/17 06:00 10/23/17 05:47 Synthroid Tab* PO 200 mcg DAILY@0600 RIVERA Administration Morphine Sulfate 5 mg 10/23/17 07:38 10/23/17 07:48 Morphine Inj (Syringe)* IV 5 mg Q6H PRN Administration PAIN Omeprazole 20 mg 10/22/17 07:30 10/23/17 07:34 Prilosec Cap* PO 20 mg DAILY@0730 RIVERA Administration Polyethylene Glycol/Electrolytes 17 gm 10/22/17 09:50 10/23/17 13:29 Miralax* PO 17 gm DAILY PRN Administration CONSTIPATION Polyethylene Glycol/Electrolytes 17 gm 10/23/17 21:00 Miralax* PO 0800,2100 RIVERA Prednisone 40 mg 10/23/17 09:00 10/23/17 10:06 Deltasone Tab* PO 40 mg DAILY RIVERA Administration Rosuvastatin Calcium 5 mg 10/21/17 21:00 10/22/17 21:13 Crestor (Nf) PO 5 mg BEDTIME RIVERA Administration Protocol Senna 1 tab 10/23/17 21:00 Senokot Tab* PO BEDTIME RIVERA Tamsulosin HCl 0.4 mg 10/21/17 20:00 10/22/17 17:50 Flomax Cap* PO 0.4 mg QPM RIVERA Administration Vital Signs Temp Pulse Resp BP Pulse Ox 97.5 F 90 17 123/70 92 10/23/17 11:28 10/23/17 14:02 10/23/17 14:02 10/23/17 11:28 10/23/17 14:02 O/E: Pt in NAD HEENT: PERRLA, No JVD Lungs: Diminished air entry, no wheeze, fine crackles + CVS: S1, S2 + Abd: Distended, BS+, diminished Ext: Cellulitis of RLE, discoloration of 2nd toe of LLE Neuro: NO focal defecits Skin: Bruises of UE, cellulitis of RLE Laboratory Results - last 24 hr 07/03/18 07/03/18 07/03/18 16:06 16:44 21:01 POC Glucose (mg/dL) 235 H 251 H Magnesium Cancelled Troponin I 0.03 10/23/17 10/23/17 07:22 11:26 POC Glucose (mg/dL) 152 H 260 H Magnesium Troponin I I/R: 67 y o m with polymyalgia, with occupational exposures, ILD, pulm fibrosis on chronic prednisone therapy a/w worsening SOB. He has received steroid injection to rt hip recently for possible bursisits, also being treated for cellulitis of RLE Worsening SOB unclear etiology- worsening ILD sec to acute exacerbation versus PNA -bacterial versus fungal versus atelectasis sec to pain, abd distention and resulting V/Q mismatch Lasix was given yesterday for possible fluid overload Steroid dose was slightly increased On Abx cvoverage with Levaquin at Pseudomonal dosage, procalcitonin is normal making infectious etiology less likely Continues to have abd distention inspite of bowel regimen Ordered metanebs to help with lung recruitement given lingular segment atelectasis and basal atelectasis, was not initiated yet Has been needing 6L O2, as remained stable Will consider BiPAP if increased work of breathing Pain control, check electrolytes c/w prednisone D/w Naty laurent NP
[2017-10-23] MEDS: Tamsulosin CAP* 0.4 MG PO SCH (17:22)
[2017-10-23] MEDS: CMCS:Rosuvastatin (NF) 5 MG TAB PO SCH (20:38)
[2017-10-23] MEDS: Docusate CAP* 100 MG PO SCH (20:38)
[2017-10-23] MEDS: Senna TAB PO SCH (20:38)
[2017-10-23] MEDS: Polyethylene Glycol 3350* 17 GM PACKET PO SCH (20:39)
[2017-10-23] MEDS: Levofloxacin 750 MG IVPREMIX(* 750 MG/150 ML BAG IVPB SCH (21:49)
[2017-10-24] MEDS: HYDROcodone/ACETAMIN 5-325 MG* 1 TAB PO PRN (04:40)
[2017-10-24] MEDS: Levothyroxine TAB* 100 MCG TAB PO SCH (06:04)
[2017-10-24] MEDS: Heparin VIAL(*) 5000 UNITS/ML VIAL (FIVE THOUSAND) SUBCUT SCH ×3 (06:04→22:01)
[2017-10-24 07:16] LABS: EGFR Non-African American 121.8 (>60)
[2017-10-24] MEDS: Cyclobenzaprine TAB* 10 MG PO PRN (08:21)
[2017-10-24] MEDS: Polyethylene Glycol 3350* 17 GM PACKET PO SCH ×2 (08:22→21:58)
[2017-10-24] MEDS: Docusate CAP* 100 MG PO SCH ×2 (08:24→21:58)
[2017-10-24] MEDS: predniSONE TAB* 20 MG PO SCH (08:25)
[2017-10-24] MEDS: amLODIPine TAB* 5 MG PO SCH (08:25)
[2017-10-24] MEDS: Omeprazole CAP* 20 MG PO SCH (08:26)
[2017-10-24] MEDS: Cyanocobalamin TAB* 500 MCG PO SCH (08:26)
[2017-10-24] MEDS: Insulin LISPRO* 1 UNITS UNIT SUBCUT SCH ×4 (08:27→21:37)
--- NOTE | 2017-10-24 09:18 | PN ---
Subjective Date of Service: 10/24/17 Interval History: Patient seen and examined at bedside. Denies fever, chills, chest discomfort, N/ V/D. Pt states that his shortness of breath is improving, but not yet back to his baseline. He has an occasional non-productive cough. Right LE continues to have swelling (been present for about a week). Abdomen continues to be distended , no BM since ~ 10/18. Tele: Sinus tach, rate 100's. Few PVCs noted Family History: Unchanged from Admission Social History: Unchanged from Admission Past Medical History: Unchanged from Admission Objective Active Medications: Acetaminophen (Tylenol Tab*) 650 mg PO Q4H PRN Reason: FEVER/PAIN Hydrocodone Bitart/Acetaminophen ([place] 5-325 Tab*) 2 tab PO Q4H PRN Reason: PAIN Al Hydrox/Mg Hydrox/Simethicone (Maalox Plus*) 30 ml PO Q6H PRN Reason: INDIGESTION Albuterol (Ventolin 2.5 Mg/3 Ml Neb.Jaida*) 2.5 mg INH [id number] AWAKE PRN Reason: sob/wheezing Amlodipine Besylate (Norvasc Tab*) 5 mg PO DAILY [facility] Cyanocobalamin (Vitamin B12 Tab*) 1,000 mcg PO DAILY [facility] Cyclobenzaprine HCl (Flexeril Tab*) 10 mg PO BID PRN Reason: SPASMS - MUSCLE Dextrose (D50w Syringe 50 Ml*) 12.5 gm IV PUSH .FOR FS < 60 - SS PRN Reason: FS < 60 Docusate Sodium (Colace Cap*) 100 mg PO BID [facility] Heparin Sodium (Porcine) (Heparin Vial(*)) 5,000 units SUBCUT Q8HR [facility] Levofloxacin/Dextrose (Levaquin 750 Mg Ivpremix(*)) 750 mg in 150 mls @ 100 mls /hr IVPB Q24H [facility] Stop: 10/28/17 21:59 Insulin Human Lispro (Humalog*) 0 units SUBCUT ACHS [facility]; Protocol Levothyroxine Sodium (Synthroid Tab*) 200 mcg PO DAILY@0600 [facility] Morphine Sulfate (Morphine Inj (Syringe)*) 5 mg IV Q6H PRN Reason: PAIN Omeprazole (Prilosec Cap*) 20 mg PO DAILY@0730 [facility] Polyethylene Glycol/Electrolytes (Miralax*) 17 gm PO DAILY PRN Reason: CONSTIPATION Polyethylene Glycol/Electrolytes (Miralax*) 17 gm PO 0800,2100 [facility] Prednisone (Deltasone Tab*) 40 mg PO DAILY [facility] Rosuvastatin Calcium (Crestor (Nf)) 5 mg PO BEDTIME [facility]; Protocol Senna (Senokot Tab*) 1 tab PO BEDTIME [facility] Tamsulosin HCl (Flomax Cap*) 0.4 mg PO QPM [facility] Vital Signs - 8 hr 10/24/17 10/24/17 10/24/17 03:50 04:18 04:30 Temperature 97.5 F Pulse Rate 80 Respiratory 18 19 Rate Blood Pressure 152/84 (mmHg) O2 Sat by Pulse 94 Oximetry 10/24/17 10/24/17 10/24/17 04:40 07:10 07:19 Temperature 97.7 F Pulse Rate 73 Respiratory 19 18 16 Rate Blood Pressure 150/87 (mmHg) O2 Sat by Pulse 94 Oximetry 10/24/17 10/24/17 07:26 08:21 Temperature Pulse Rate Respiratory 16 19 Rate Blood Pressure (mmHg) O2 Sat by Pulse Oximetry Oxygen Devices in Use Now: Nasal Cannula - 6L Appearance: NAD, sitting up in a chair Ears/Nose/Mouth/Throat: Mucous Membranes Moist Respiratory: Symmetrical Chest Expansion and Respiratory Effort, Clear to Auscultation - , diminished Cardiovascular: NL Sounds; No Murmurs; No JVD, RRR Abdominal: - - ABD large and distended, slightly firm. Hypoactive bowel sounds present Extremities: - - 1-2 + pitting edema to right LE Skin: - - Erythema to right lower leg Neurological: Alert and Oriented x 3, NL Muscle Strength and Tone Lines/Tubes/Other Access: Clean, Dry and Intact Peripheral IV - site benign Nutrition: Taking PO's Result Diagrams: 10/22/17 06:26 10/24/17 07:55 Microbiology and Other Data: Microbiology 10/21/17 15:54 Aerobic Blood Culture - Preliminary Blood Venous No Growth Day 2 Anaerobic Blood Culture - Preliminary No Growth Day 2 10/21/17 15:54 Aerobic Blood Culture - Preliminary Blood Venous No Growth Day 2 Anaerobic Blood Culture - Preliminary No Growth Day 2 Assess/Plan/Problems-Billing Assessment: Mr. Correa is a 67 yo male with a PMH of pulmonary fibrosis, CAD with multiple stents, hypertension, diabetes and recent diagnosis of right lower extremity cellulitis who was admitted on 10/21/17 for worsening shortness of breath of uncertain etiology. - Patient Problems (1) SOB (shortness of breath) Code(s): R06.02 - SHORTNESS OF BREATH SNOMED Code(s): 398263431 Comment: - Patient reports feeling better but has not been out of bed, plan to OOB to chair TID as can tolerated. - Appreciate consultation from Dr. Vasquez - History of significant pulmonary fibrosis on 4L NC at home with 6L for mobility. - CTA chest showed pulmonary fibrosis only, no PE or clear infiltrate. ? left upper lobe atelectasis vs infiltrate or CHF, difficult to interpret given severity of pulmonary fibrosis. - Questionable component of pneumonia. Mild leukocytosis on arrival resolved, CRP elevated but likely due to cellulitis, procalcitonin negative for bacterial infection - Echo unchanged from baseline, EF 50-55%. Was given one time dose of lasix per Pedro on 10/22/17 - Question if abdominal distention with constipation is contributing by causing atelectasis and poor diaphramatic excursion. Increase bowel regimen - Continue levaquin, increased dose prednisone and metanebs per RT (2) Cellulitis Code(s): L03.90 - CELLULITIS, UNSPECIFIED SNOMED Code(s): 848244759 Comment: - Right lower leg - Leukocytosis resolved, afebrile - Continue levaquin (change to PO), day 4 (3) Abdominal distension Code(s): R14.0 - ABDOMINAL DISTENSION (GASEOUS) SNOMED Code(s): 76278494 Comment: - No BM overnight - Abd xray with stool but no evidence SBO - Patient has significant abdominal distention but denies pain, states his last BM was 10/18/17. ? if abdomen is creating pressure and atelectasis. - Continue increased bowel regimen with miralax, colace, and senna per routine (4) Pulmonary fibrosis Code(s): J84.10 - PULMONARY FIBROSIS, UNSPECIFIED SNOMED Code(s): 77868117 Comment: - Recent diagnosis. Follows with Dr. Vasquez, last visit 06/2017. ? if secondary to exposure to photography chemicals, workup negative for alternate etiology outpatient. - Noted to require up to 6L NC to maintain SpO2 > 90% at that point. - Continue prednisone as per above. (5) Hip pain Code(s): M25.559 - PAIN IN UNSPECIFIED HIP SNOMED Code(s): 27189354 Comment: - Right hip pain along the lateral aspect of hip, described as muscle spasms, since early September, improved after outpatient steroid injection but worsened with development of right lower extremity cellulitis - Follows with rheumatology for history of polymyalgia. Xrays of hip, pelvis and knee outpatient showed no acute injury. Planned for outpatient MRI hip - Continue pain meds prn (6) CAD (coronary artery disease) Code(s): I25.10 - ATHSCL HEART DISEASE OF [place] CORONARY ARTERY W/O ANG PCTRS SNOMED Code(s): 60352725 Comment: - Hx of stents x 5 - Chest pain free but SOB - Trop 0.03 x 2, EKG without evidence of ischemia, unchanged from previous - Continue statin (7) Diabetes Code(s): E11.9 - TYPE 2 DIABETES MELLITUS WITHOUT COMPLICATIONS SNOMED Code(s) : 71078210 Comment: - Glucose 160-250's - HgbA1c 10.9, likely exacerbated by chronic steroid use - Patient was not checking blood sugar outpatient, thought his DM was well controlled - Continue to hold metformin - Continue lispro SSI coverage - Will need significant medication adjustments outpatient, diabetic teaching. (8) Hypothyroidism Code(s): E03.9 - HYPOTHYROIDISM, UNSPECIFIED SNOMED Code(s): 98091058 Comment: - TSH 1.33 - Continue levothyroxine (9) HLD (hyperlipidemia) Code(s): E78.5 - HYPERLIPIDEMIA, UNSPECIFIED SNOMED Code(s): 48933928 Comment: - Continue statin (10) HTN (hypertension) Code(s): I10 - ESSENTIAL (PRIMARY) HYPERTENSION SNOMED Code(s): 19891630 Comment: - SBP 120-150s - Continue losartan, metoprolol, and amlodipine (11) Obesity (BMI 30-39.9) Code(s): E66.9 - OBESITY, UNSPECIFIED SNOMED Code(s): 314083979 Comment: - BMI ~ 37 (12) DVT prophylaxis Code(s): QZE0163 - SNOMED Code(s): 973483481 Comment: - Heparin SQ. (13) Full code status Code(s): Z78.9 - OTHER SPECIFIED HEALTH STATUS SNOMED Code(s): 437616535 Status and Disposition: Inpatient. Anticipate discharge to home when medically stable.
[2017-10-24] MEDS: Albuterol 2.5 MG/3 ML NEB.SOL* (0.083%) INH PRN ×2 (10:09→20:03)
[2017-10-24] MEDS ORDERED: Bisacodyl SUPP* 10 MG SUPP PR PRN (14:17)
[2017-10-24] MEDS ORDERED: Sodium Phosphate ADULT ENEMA* 118 ml bottle PR PRN (14:17)
[2017-10-24] MEDS: Tamsulosin CAP* 0.4 MG PO SCH (17:13)
[2017-10-24] MEDS: Senna TAB PO SCH (21:58)
[2017-10-24] MEDS ORDERED: Levofloxacin TAB* 250 MG PO SCH (22:00)
[2017-10-24] MEDS: CMCS:Rosuvastatin (NF) 5 MG TAB PO SCH (22:06)
[2017-10-25] MEDS: HYDROcodone/ACETAMIN 5-325 MG* 1 TAB PO PRN (01:08)
[2017-10-25] MEDS: Cyclobenzaprine TAB* 10 MG PO PRN (01:09)
[2017-10-25] MEDS: Heparin VIAL(*) 5000 UNITS/ML VIAL (FIVE THOUSAND) SUBCUT SCH ×2 (06:15→14:07)
[2017-10-25] MEDS: Levothyroxine TAB* 100 MCG TAB PO SCH (06:16)
[2017-10-25] MEDS: Albuterol 2.5 MG/3 ML NEB.SOL* (0.083%) INH PRN (08:15)
[2017-10-25] MEDS: Insulin LISPRO* 1 UNITS UNIT SUBCUT SCH ×2 (08:39→12:39)
[2017-10-25] MEDS: amLODIPine TAB* 5 MG PO SCH (08:41)
[2017-10-25] MEDS: Docusate CAP* 100 MG PO SCH (08:41)
[2017-10-25] MEDS: predniSONE TAB* 20 MG PO SCH (08:42)
[2017-10-25] MEDS: Omeprazole CAP* 20 MG PO SCH (08:42)
[2017-10-25] MEDS: Cyanocobalamin TAB* 500 MCG PO SCH (08:42)
[2017-10-25] MEDS: Polyethylene Glycol 3350* 17 GM PACKET PO SCH (08:43)
--- NOTE | 2017-10-25 10:32 | PN ---
Subjective Date of Service: 10/25/17 Interval History: Patient seen and examined at bedside. Denies fever, chills, shortness of breath (at baseline), chest discomfort, N/V/D. Pt states that the redness and swelling in his right LE continues to improve. Family History: Unchanged from Admission Social History: Unchanged from Admission Past Medical History: Unchanged from Admission Objective Active Medications: Acetaminophen (Tylenol Tab*) 650 mg PO Q4H PRN Reason: FEVER/PAIN Hydrocodone Bitart/Acetaminophen ([place] 5-325 Tab*) 2 tab PO Q4H PRN Reason: PAIN Al Hydrox/Mg Hydrox/Simethicone (Maalox Plus*) 30 ml PO Q6H PRN Reason: INDIGESTION Albuterol (Ventolin 2.5 Mg/3 Ml Neb.Jaida*) 2.5 mg INH [id number] AWAKE PRN Reason: sob/wheezing Amlodipine Besylate (Norvasc Tab*) 5 mg PO DAILY [facility] Bisacodyl (Dulcolax Supp*) 10 mg [place] DAILY PRN Reason: CONSTIPATION Cyanocobalamin (Vitamin B12 Tab*) 1,000 mcg PO DAILY [facility] Cyclobenzaprine HCl (Flexeril Tab*) 10 mg PO BID PRN Reason: SPASMS - MUSCLE Dextrose (D50w Syringe 50 Ml*) 12.5 gm IV PUSH .FOR FS < 60 - SS PRN Reason: FS < 60 Docusate Sodium (Colace Cap*) 100 mg PO BID [facility] Heparin Sodium (Porcine) (Heparin Vial(*)) 5,000 units SUBCUT Q8HR [facility] Insulin Human Lispro (Humalog*) 0 units SUBCUT ACHS [facility]; Protocol Levofloxacin (Levaquin Tab*) 750 mg PO Q24H [facility] Stop: 10/27/17 23:00 Levothyroxine Sodium (Synthroid Tab*) 200 mcg PO DAILY@0600 [facility] Morphine Sulfate (Morphine Inj (Syringe)*) 5 mg IV Q6H PRN Reason: PAIN Omeprazole (Prilosec Cap*) 20 mg PO DAILY@0730 [facility] Polyethylene Glycol/Electrolytes (Miralax*) 17 gm PO DAILY PRN Reason: CONSTIPATION Polyethylene Glycol/Electrolytes (Miralax*) 17 gm PO 0800,2100 [facility] Prednisone (Deltasone Tab*) 40 mg PO DAILY [facility] Rosuvastatin Calcium (Crestor (Nf)) 5 mg PO BEDTIME [facility]; Protocol Senna (Senokot Tab*) 1 tab PO BEDTIME [facility] Sodium Biphosphate/Sodium Phosphate (Fleet Enema*) 1 bottle [place] DAILY PRN Reason : CONSTIPATION Tamsulosin HCl (Flomax Cap*) 0.4 mg PO QPM [facility] Vital Signs - 8 hr 10/25/17 10/25/17 10/25/17 03:04 03:23 07:19 Temperature 97.7 F 97.9 F Pulse Rate 71 74 Respiratory 18 20 23 Rate Blood Pressure 115/83 150/78 (mmHg) O2 Sat by Pulse 99 91 Oximetry 10/25/17 10/25/17 10/25/17 07:55 08:00 08:20 Temperature Pulse Rate 86 Respiratory 18 20 20 Rate Blood Pressure (mmHg) O2 Sat by Pulse 93 94 Oximetry Oxygen Devices in Use Now: Nasal Cannula - 6L Appearance: NAD, laying in a chair Ears/Nose/Mouth/Throat: Mucous Membranes Moist Respiratory: Symmetrical Chest Expansion and Respiratory Effort, Clear to Auscultation Cardiovascular: NL Sounds; No Murmurs; No JVD, RRR Abdominal: NL Sounds; No Tenderness; No Distention Extremities: - - 1+ right LE edema (improving) Skin: - - Slight erythema to right LE Neurological: Alert and Oriented x 3 Lines/Tubes/Other Access: Clean, Dry and Intact Peripheral IV - site benign Nutrition: Taking PO's Result Diagrams: 10/22/17 06:26 10/24/17 07:55 Microbiology and Other Data: Microbiology 10/21/17 15:54 Aerobic Blood Culture - Preliminary Blood Venous No Growth Day 2 Anaerobic Blood Culture - Preliminary No Growth Day 2 10/21/17 15:54 Aerobic Blood Culture - Preliminary Blood Venous No Growth Day 2 Anaerobic Blood Culture - Preliminary No Growth Day 2 Assess/Plan/Problems-Billing Assessment: Mr. Correa is a 67 yo male with a PMH of pulmonary fibrosis, CAD with multiple stents, hypertension, diabetes and recent diagnosis of right lower extremity cellulitis who was admitted on 10/21/17 for worsening shortness of breath of uncertain etiology. - Patient Problems (1) SOB (shortness of breath) Code(s): R06.02 - SHORTNESS OF BREATH SNOMED Code(s): 206034394 Comment: - Patient reports feeling better - Appreciate consultation from Dr. Vasquez - History of significant pulmonary fibrosis on 4L NC at home with 6L for mobility. - CTA chest showed pulmonary fibrosis only, no PE or clear infiltrate. ? left upper lobe atelectasis vs infiltrate or CHF, difficult to interpret given severity of pulmonary fibrosis. - Questionable component of pneumonia. Mild leukocytosis on arrival resolved, CRP elevated but likely due to cellulitis, procalcitonin negative for bacterial infection - Echo unchanged from baseline, EF 50-55%. Was given one time dose of lasix per Pedro on 10/22/17 - Question if abdominal distention with constipation is contributing by causing atelectasis and poor diaphramatic excursion. Increase bowel regimen - Continue levaquin and prednisone taper (2) Cellulitis Code(s): L03.90 - CELLULITIS, UNSPECIFIED SNOMED Code(s): 703517789 Comment: - Right lower leg - Leukocytosis resolved, afebrile - Continue levaquin, day 5/7 (3) Abdominal distension Code(s): R14.0 - ABDOMINAL DISTENSION (GASEOUS) SNOMED Code(s): 99468158 Comment: - BM yesterday - Abd xray with stool but no evidence SBO - Patient has significant abdominal distention but denies pain, states his last BM was 10/18/17. ? if abdomen is creating pressure and atelectasis. - Continue increased bowel regimen with miralax, colace, and senna per routine (4) Pulmonary fibrosis Code(s): J84.10 - PULMONARY FIBROSIS, UNSPECIFIED SNOMED Code(s): 45348416 Comment: - Recent diagnosis. Follows with Dr. Vasquez, last visit 06/2017. ? if secondary to exposure to photography chemicals, workup negative for alternate etiology outpatient. - Noted to require up to 6L NC to maintain SpO2 > 90% at that point. - Continue prednisone as per above. (5) Hip pain Code(s): M25.559 - PAIN IN UNSPECIFIED HIP SNOMED Code(s): 71266489 Comment: - Right hip pain along the lateral aspect of hip, described as muscle spasms, since early September, improved after outpatient steroid injection but worsened with development of right lower extremity cellulitis - Follows with rheumatology for history of polymyalgia. Xrays of hip, pelvis and knee outpatient showed no acute injury. Planned for outpatient MRI hip - Continue pain meds prn (6) CAD (coronary artery disease) Code(s): I25.10 - ATHSCL HEART DISEASE OF [place] CORONARY ARTERY W/O ANG PCTRS SNOMED Code(s): 52117508 Comment: - Hx of stents x 5 - Chest pain free but SOB - Trop 0.03 x 2, EKG without evidence of ischemia, unchanged from previous - Continue statin (7) Diabetes Code(s): E11.9 - TYPE 2 DIABETES MELLITUS WITHOUT COMPLICATIONS SNOMED Code(s) : 73060040 Comment: - Glucose 160-250's - HgbA1c 10.9, likely exacerbated by chronic steroid use - Patient was not checking blood sugar outpatient, thought his DM was well controlled - Resume Metformin (increased), start Glipizide and at discharge (8) Hypothyroidism Code(s): E03.9 - HYPOTHYROIDISM, UNSPECIFIED SNOMED Code(s): 20441287 Comment: - TSH 1.33 - Continue levothyroxine (9) HLD (hyperlipidemia) Code(s): E78.5 - HYPERLIPIDEMIA, UNSPECIFIED SNOMED Code(s): 17703787 Comment: - Continue statin (10) HTN (hypertension) Code(s): I10 - ESSENTIAL (PRIMARY) HYPERTENSION SNOMED Code(s): 51580713 Comment: - SBP 110-150s - Continue losartan, metoprolol, and amlodipine (11) Obesity (BMI 30-39.9) Code(s): E66.9 - OBESITY, UNSPECIFIED SNOMED Code(s): 337958497 Comment: - BMI ~ 37 (12) DVT prophylaxis Code(s): DQF5052 - SNOMED Code(s): 048319046 Comment: - Heparin SQ. (13) Full code status Code(s): Z78.9 - OTHER SPECIFIED HEALTH STATUS SNOMED Code(s): 981810246 Status and Disposition: Inpatient. Anticipate discharge to home when medically stable, possibly later today.
[2017-10-25] MEDS ORDERED: glipiZIDE TAB* 5 MG PO SCH (12:00)
[2017-10-25 12:22] VITALS: BP 151/92
--- NOTE | 2017-10-26 04:54 | DS ---
CC: Dr. Toya Jacobson * DISCHARGE SUMMARY: DATE OF ADMISSION: 10/21/17 DATE OF DISCHARGE: 10/25/17 ATTENDING PHYSICIAN: Dr. Belkys Garcia * (dictated by Viry Bethea NP). PRIMARY CARE PROVIDER: Dr. Toya Jacobson. PRIMARY DIAGNOSES: 1. Shortness of breath, suspect multifactorial including constipation, possible pneumonia and pulmonary fibrosis. 2. Right lower extremity cellulitis. 3. Constipation. 4. Right hip pain. 5. Acute on chronic hypoxic respiratory failure. SECONDARY DIAGNOSES: 1. Pulmonary fibrosis. 2. Coronary artery disease. 3. Diabetes mellitus. 4. Hypothyroidism. 5. Hyperlipidemia. 6. Hypertension. 7. Obesity with BMI approximately 37. 8. Chronic respiratory failure. 9. Chronic hypoxic respiratory failure. CONSULTATIONS WHILE IN THE HOSPITAL: Dr. Meseret Vasquez with Pulmonology. STUDIES WHILE IN THE HOSPITAL: Chest thoracic CTA on 10/21/17. Radiologist's impression: There is no definite pulmonary embolus. Cardiomegaly with alveolar consolidation is noted in the left upper lobe. Possibility of CHF and/ or left upper lobe pneumonia should be considered. No aortic dissection. Small mediastinal lymph nodes. Transthoracic echocardiogram on 10/22/17. [facility]'s conclusion: Posterior wall hypertrophy is observed. Mild global hypokinesis of the left ventricle is observed. Left ventricular systolic function is at the lower limits of normal. The estimated ejection fraction is 50% to 55%. The right ventricular global systolic function is normal. There is no evidence of aortic stenosis, no evidence of mitral regurgitation, there is physiologic tricuspid regurgitation. Unable to estimate the right ventricular systolic pressure. There is no significant pericardial effusion. Abdominal x-ray on 10/22/17. Radiologist's impression: Moderately distended loops of small bowel and stomach are present. This is in a nonspecific pattern. DISCHARGE MEDICATIONS: New home medications: 1. Acetaminophen 650 mg oral every 4 hours as needed for fever or pain. 2. Glipizide 5 mg oral once daily with meals. 3. MiraLAX 17 g oral daily as needed. 4. Senna 1 tablet oral daily at bedtime. 5. Levaquin 750 mg oral for 24 hours for 3 days. 6. Prednisone 40 mg oral daily for 4 days. 7. Glucometer test strips. 8. Glucometer. 9. Lancets. 10. Colace 100 mg oral twice daily as needed for constipation. Continued home medications: 1. Tamsulosin 0.4 mg oral every evening. 2. Crestor 5 mg oral daily at bedtime. 3. Amlodipine 5 mg oral daily. 4. Hydrochlorothiazide/acetaminophen 7.5 mg/300 one tablet oral twice daily as needed for pain. 5. Effient 5 mg oral daily. 6. Atacand 8 mg oral daily. 7. Levothyroxine 200 mcg oral daily. 8. Omeprazole 20 mg oral daily. 9. Vitamin B12 1000 mcg oral daily. 10. Excedrin extra strength 3 tablets oral every day as needed for headache. 11. Flexeril 10 mg oral daily as needed for muscle spasms. Changed home medications: 1. Metformin increased from 500 mg twice daily to 1000 mg oral twice daily. 2. The patient is currently on an increased prednisone and he will resume his 30 mg daily prednisone after his 1-week of 40 mg has ended. HISTORY OF PRESENT ILLNESS/HOSPITAL COURSE: Mr. Correa is a 67-year-old male with past medical history significant for hypertension, diabetes, hyperlipidemia and pulmonary fibrosis, who was seen in the emergency room on with redness of his lower extremities. During that emergency room visit, he was meeting sepsis criteria, but did not want to stay. He was diagnosed with cellulitis and discharged home with Keflex 500 mg 4 times daily and was instructed to follow up with Dr. Jacobson in the office on 10/21/17. The patient feels that the cellulitis is improving since starting the antibiotics, but over the 2 to 3 days prior to his presentation, he felt progressive worsening of his shortness of breath with oxygen saturations down to 56. He was requiring a long time to recover after exertion with his dyspnea. The patient was also reporting right hip pain that has been chronic. He had a cortisone injection approximately a week prior to his presentation. Dr. Jacobson's office referred the patient to the emergency room for further evaluation due to his hypoxia and increased shortness of breath. While in the emergency room, the patient had routine lab work showing lactic acidosis with a lactic acid of 3.7, leukocytosis with a WBC count of 11.2. He had a CTA of his chest showing some consolidation, possible pneumonia and the hospitalists were asked to evaluate the patient for admission. During the patient's hospitalization, his shortness of breath eventually improved. He was seen in consultation by Dr. Vasquez, who felt that his shortness of breath was likely multifactorial. She recommended continuing him on Levaquin for pseudomonal coverage. His procalcitonin was negative. It was felt that his leukocytosis and elevated CRP were likely secondary to his cellulitis. He had an echocardiogram that was essentially unchanged. He was given one dose of Lasix on 10/22/17. The patient's left lower extremity cellulitis, erythema, and swelling improved. While in the hospital, he completed 4 days of IV and oral Levaquin. During his stay, he was also reporting no BM for several days. His abdomen was distended. He had an abdominal x-ray showing no evidence of a small bowel obstruction, but stool present. He was eventually able to move his bowels with some improvement in his shortness of breath and abdominal distention. The patient had acute on chronic hypoxic respiratory failure during his stay needing up to 6 L of oxygen to maintain his oxygen saturation greater than 90%. He had his prednisone increased to 40 mg daily. His right hip pain continued as described his muscle spasms that he had some improvement with Flexeril. He follows with Rheumatology for his polymyalgia and is planned for an outpatient MRI scan. He is continued on pain medication. His hemoglobin A1c was found to be 10.9 likely exacerbated by chronic steroid use with his glucoses in the 100s to 300s. The patient was not checking his glucoses outpatient. He was on lispro insulin during his hospitalization with plans to be discharged with diabetic education and changes in his medication. Mr. Correa is stable for discharge home today. Vital signs are as follows: Temperature 98.8, heart rate 83, respiratory rate 23, O2 sat 94% on 4 L via nasal cannula, blood pressure 151/92. DISCHARGE PLAN: Mr. Correa will be discharged to home, activity as tolerated. He should be on a consistent carbohydrate, heart-healthy diet. The patient's shortness of breath has improved and he is almost back to his baseline. He should be continued on prednisone taper. The plan is for him to take prednisone 40 mg oral daily for 4 more days and then return to his 30 mg daily dosing at which time Dr. Vasquez and Dr. Lopez will adjust his prednisone to further taper that. In regards to his cellulitis, his leukocytosis has resolved and he is afebrile. He should be continued on Levaquin for 3 more days. For his constipation, this appears to be resolved. I encouraged him to continue to take MiraLAX daily as needed for constipation, senna daily at bedtime, milk of magnesia as needed for constipation. In regards to his diabetes, his hemoglobin A1c is 10.9 and is uncontrolled. He will increase his metformin to 1000 mg oral twice daily and has been started on 5 mg of glipizide daily. He should be seen at the [facility] to help him manage his diabetes and other medical comorbidities. The patient has been asked to call the [facility] to setup an appointment. They state that they have missed 2 previous appointments, [facility] has also been left a message to call the patient to setup an appointment. He has a followup appointment with Dr. Vasquez on 10/28/17 at 1:15 p.m. and an appointment with Dr. Jacobson on 10/31/17 at 9:20. The patient has been resumed on his other usual medications. He has been instructed to check his glucoses with meals and at bedtime and keep a record and bring it to Kavon' s office at his followup into the [facility]. The patient has been asked to return to the emergency room for any increased shortness of breath or chest discomfort. POINTS OF DISCUSSION: At followup, please ensure the patient gets MRI of his hip. Also continue to taper the patient's prednisone as able per Dr. Vasquez and Dr. Lopez. In regards to the patient's diabetes, please assist in making sure that he gets into the [facility] for support with getting his diabetes under control. I suspect he will need insulin added into his diabetes regime, but please continue to closely follow this with the patient. This is a summarized report of a complex medical history and hospital stay. For further details, please see the entire medical record. TIME SPENT: Time for this discharge was approximately 50 minutes, greater than half of that was spent with the patient and his discussing discharge plans and instructions. CONDITION ON DISCHARGE: Stable. Reviewed by GERALD VÁSQUEZ 10/28/17 [id number]/[facility] #: [id number] JAYJAY
== END 2017-10-25 15:05 | disposition home or self-care (01) | DRG 193 ==
LOC: ED 15:41 → MED 19:26
PROVIDERS: ADMIT Internal Medicine; ATTEND Internal Medicine
DX: J18.9 Pneumonia, unspecified organism (principal); J96.21 Acute and chronic respiratory failure with hypoxia; L03.115 Cellulitis of right lower limb; E87.2 Acidosis; J84.10 Pulmonary fibrosis, unspecified; I25.10 Atherosclerotic heart disease of native coronary artery without angina pectoris; E78.00 Pure hypercholesterolemia, unspecified; N40.0 Benign prostatic hyperplasia without lower urinary tract symptoms; M35.3 Polymyalgia rheumatica; M47.812 Spondylosis without myelopathy or radiculopathy, cervical region; M47.899 Other spondylosis, site unspecified; M19.012 Primary osteoarthritis, left shoulder; E11.9 Type 2 diabetes mellitus without complications; M19.011 Primary osteoarthritis, right shoulder; M17.0 Bilateral primary osteoarthritis of knee; K59.00 Constipation, unspecified; I10 Essential (primary) hypertension; I07.1 Rheumatic tricuspid insufficiency; E66.9 Obesity, unspecified; M62.838 Other muscle spasm; G89.29 Other chronic pain; I49.3 Ventricular premature depolarization; E03.9 Hypothyroidism, unspecified; Z68.39 Body mass index [BMI] 39.0-39.9, adult; Z99.81 Dependence on supplemental oxygen; Z88.8 Allergy status to other drugs, medicaments and biological substances; Z95.5 Presence of coronary angioplasty implant and graft; Z68.37 Body mass index [BMI] 37.0-37.9, adult; Z79.84 Long term (current) use of oral hypoglycemic drugs; Z79.52 Long term (current) use of systemic steroids; Z79.4 Long term (current) use of insulin; I25.2 Old myocardial infarction; Z72.89 Other problems related to lifestyle; Z87.891 Personal history of nicotine dependence; Z82.49 Family history of ischemic heart disease and other diseases of the circulatory system
CPT/HCPCS: 36415; 71275; 74018; 80048; 80053; 81003; 82550; 82803; 83036; 83605; 83735; 83874; 83880; 84145; 84443; 84484; 85025; 85379; 85730; 86140; 87040; 93005; 93306; 94667; 94668; 99283; A9270-GY; G8978-GP-CJ; G8979-GP-CI; J0690; J1644; J1940; J2270; J2405; J7512; Q9967

== ENCOUNTER 2017-11-27 11:36 | Inpatient (IN) | payer OTHER ==
[2017-11-27] MEDS ORDERED: NS 0.9% 1000 ML* 1,000 ML IV ONE ×2 (12:22→14:40)
[2017-11-27] MEDS ORDERED: Cefepime(*) 2 GM in NS 0.9% 50 ML* 50 ML IVPB ONE (12:27)
[2017-11-27] MEDS ORDERED: metroNIDAZOLE IV 500 MG/100ML* 500 MG/100 ML BAG IVPB ONE (12:27)
[2017-11-27] MEDS ORDERED: NS 0.9% 50 ML* 50 ML ONE (12:34)
--- NOTE | 2017-11-27 12:41 | ED ---
Skin Complaint - HPI Summary HPI Summary: Patient is a 67-year-old male with a history of cellulitis, shortness of breath secondary to pulmonary fibrosis, ACS and diabetes presenting to the ED with right lower leg cellulitis from an open wound. He was seen 2 months ago for cellulitis of the ankle of which she was discharged home at that time with Keflex and return to days later in severe respiratory distress and worsening infection. He spent one week hospital and was discharged with continuing antibiotics for another week. Since being discharged from the hospital he has remained at approximately 4.5 L at home, which is baseline has always been [address] Vasquez for his shortness of breath who sent him in today due to his symptoms. He endorses fevers, sweats, chills since last evening, however denies this currently. He remains ambulatory, but with a mild amount of pain. Full ROM in the ankle joint. PCP is Dr. Jacobson. - History of Current Complaint Chief Complaint: EDExtremityLower Time Seen by Provider: 11/27/17 12:02 Stated Complaint: POSS INFECTION IN RT LOWER EXTREMITY Hx Obtained From: Patient, Family/Newspaper Publisher Onset/Duration: Started Hours Ago Skin Exposure Onset/Duration: Hours Ago Timing: Constant Onset Severity: Moderate Current Severity: Moderate Pain Intensity: 5 Pain Scale Used: 0-10 Numeric - As if there is a consult is now last Skin Location: Discrete - right lower extremity Character: Pain, Redness, Painful Aggravating Symptom(s): Exercise Alleviating Symptom(s): Nothing Associated Signs & Symptoms: Tenderness, Red Streaks - Additional Pertinent History Primary Care Physician: BERNY - Allergy/Home Medications Allergies/Adverse Reactions: Allergies Allergy/AdvReac Type Severity Reaction Status Date / Time atorvastatin [From Lipitor] Allergy Pain Verified 11/27/17 12:00 gabapentin Allergy Altered Verified 11/27/17 16:37 Mental Status hydrochlorothiazide Allergy Swelling Verified 11/27/17 12:00 Of Face,Lips,& Throat simvastatin [From Zocor] Allergy Rash Verified 11/27/17 12:00 spironolactone Allergy Swelling Verified 11/27/17 12:00 Of Face,Lips,& Throat sumatriptan [From Imitrex] Allergy Shakes Verified 11/27/17 12:00 valsartan Allergy Headache Verified 11/27/17 12:00 Home Medications: Home Medications Bumetanide TAB* [Bumex 1 MG TAB*] 1 mg PO DAILY 11/27/17 [History Confirmed 12/07] Cephalexin CAP* [Keflex CAP*] 500 mg PO BID 11/27/17 [History Confirmed 11/27/17 ] Polyethylene Glycol 3350* [Miralax*] 17 gm PO EVERY OTHER DAY 11/27/17 [History Confirmed 11/27/17] azaTHIOprine TAB(*) [Imuran TAB(*)] 50 mg PO DAILY 11/27/17 [History Confirmed 11/27/17] predniSONE TAB* [Deltasone 20 MG TAB*] 30 mg PO DAILY 11/27/17 [History Confirmed 11/27/17] PMH/Surg Hx/FS Hx/Imm Hx Previously Healthy: No Endocrine/Hematology History: Reports: Hx Diabetes Cardiovascular History: Reports: Hx Angina, Hx Coronary Artery Disease - Stent LAd,RCA, Hx Hypercholesterolemia, Hx Hypertension, Hx Myocardial Infarction Denies: Hx Valvular Heart Disease History: Reports: Hx Benign Prostatic Hyperplasia Denies: Hx Dialysis, Hx Renal Disease Musculoskeletal History: Reports: Hx Arthritis - neck, back, knees, shoulders, Hx Back Problems Sensory History: Reports: Hx Contacts or Glasses - reading glasses Denies: Hx Hearing Aid Opthamlomology History: Reports: Hx Contacts or Glasses - reading glasses Neurological History: Reports: Hx Headaches - Surgical History Surgery Procedure, Year, and Place: femur fracture repair , bladder biopsy (benign) Cardiac stents. lop sensor implanted one week ago. heart cath done one week ago-- - Immunization History Hx Pertussis Vaccination: No Immunizations Up to Date: Unable to Obtain/Confirm Infectious Disease History: No Infectious Disease History: Denies: Traveled Outside the [place] in Last 30 Days - Family History Known Family History: Positive: Cardiac Disease - Social History Occupation: Unemployed Lives: With Family Alcohol Use: None Hx Substance Use: No Substance Use Type: Reports: None Hx Tobacco Use: Yes Smoking Status (MU): Former Smoker Type: Cigarettes Amount Used/How Often: 1pck/d Length of Time of Smoking/Using Tobacco: 27 Have You Smoked in the Last Year: No Review of Systems Constitutional: Negative Negative: Fever, Chills, Skin Diaphoresis Negative: Palpitations, Chest Pain Positive: Shortness Of Breath. Negative: Cough Negative: Abdominal Pain, Vomiting Genitourinary: Negative Positive: no symptoms reported, see HPI Positive: Arthralgia Positive: Rash - lower extremity erythema and and warmth from the ankle extending up into just inferior to the knee with a small 0.7 cm ulceration open wound to the anterior lower leg Neurological: Negative All Other Systems Reviewed And Are Negative: Yes Physical Exam Triage Information Reviewed: Yes Vital Signs On Initial Exam: Initial Vitals Temp Pulse Resp BP Pulse Ox 97.1 F 93 20 118/72 94 11/27/17 11:53 11/27/17 11:53 11/27/17 11:53 11/27/17 11:53 11/27/17 11:53 Vital Signs Reviewed: Yes Appearance: Positive: Well-Appearing, Well-Nourished Skin: Positive: Other - lower extremity erythema and and warmth from the ankle extending up into just inferior to the knee with a small 0.7 cm ulceration open wound to the anterior lower leg Head/Face: Positive: Normal Head/Face Inspection Eyes: Positive: EOMI, YULIYA, Conjunctiva Clear Neck: Positive: Supple, No Lymphadenopathy Respiratory/Lung Sounds: Positive: Wheezes Cardiovascular: Positive: Pulses are Symmetrical in both Upper and Lower Extremities Musculoskeletal: Positive: Pain @ - right lower extremity with warmth. Negative : Edema Left, Edema Right Neurological: Positive: Speech Normal Psychiatric: Positive: Normal, Affect/Mood Appropriate Diagnostics - Vital Signs Vital Signs Temp Pulse Resp BP Pulse Ox 11/27/17 11:53 97.1 F 93 20 118/72 94 - Laboratory Result Diagrams: 11/28/17 06:45 11/28/17 06:45 Lab Statement: Any lab studies that have been ordered have been reviewed, and results considered in the medical decision making process. Course/Dx - Course Course Of Treatment: During the course of treatment, the patient is evaluated for right lower extremity cellulitis secondary to small ulceration measuring approximately 0.7 cm. Patient has multiple comorbidities and requires 4.5 L oxygen at home. He is a patient of Dr. Vasquez and Dr. Jacobson. On arrival, labs obtained including blood cultures. Wound culture obtained Vanco, cefepime , metronidazole given IV as well as 1 L fluids. His vital signs are stable. Discussed case with Dr. Piña who agrees to admit. - Differential Diagnoses - Skin Complaint Differential Diagnoses: Cellulitis, Other - Skin ulcer, MRSA, staph, SOB, sepsis - Diagnoses Provider Diagnoses: Cellulitis Discharge - Sign-Out/Discharge Documenting (check all that apply): Patient Departure - Discharge Plan Condition: Stable Disposition: ADMITTED TO [facility] - Billing Disposition and Condition Condition: STABLE Disposition: Admitted to [facility]
[2017-11-27 12:54] LABS: ABS Basophils 0.1 10^3/ul (0-0.2); ABS Eosinophils 0.2 10^3/ul (0-0.6); ABS Lymphocytes 1.3 10^3/ul (1.0-4.8); ABS Monocytes 0.5 10^3/ul (0-0.8); ABS Neutrophils 10.1 10^3/ul (1.5-7.7); ABS Nucleated RBC 0 10^3/ul; Eosinophil % 1.4 % (0-6); Hematocrit 39 % (42-52); Hemoglobin 12.9 g/dl (14.0-18.0); Lymphocyte % 10.7 % (25-47); Mean Corpuscular HGB Conc 33 g/dl (31-36); Mean Corpuscular Hemoglobin 30 pg (27-31); Mean Corpuscular Volume 92 fL (80-94); Mean Platelet Volume 6.7 um3 (7.4-10.4); Nucleated Red Blood Cells % 0.1; Platelet Count 203 10^3/ul (150-450); Red Blood Count 4.26 10^6/ul (4.00-5.40); Red Cell Distribution Width 16 % (10.5-15); White Blood Count 12.1 10^3/ul (3.5-10.8)
[2017-11-27] MEDS ORDERED: VANCOMYCIN IVPB ONE (13:00)
[2017-11-27] MEDS ORDERED: NS 0.9% IVPB ONE (13:00)
[2017-11-27] MEDS ORDERED: Vancomycin(*) 1,000 MG VIAL IVPB SCH (13:00)
[2017-11-27 13:11] LABS: EGFR Non-African American 69.3 (>60)
[2017-11-27] MEDS ORDERED: Cefepime 2 GM in Dextrose(*) 2 GM/50 ML BAG IV ONE (14:00)
[2017-11-27] MEDS ORDERED: Dextrose 50% Syringe 50 ML* 25 GM/50 ML SYRINGE IV PUSH PRN (14:40)
[2017-11-27] MEDS ORDERED: Ondansetron INJ* 2 MG/ML VIAL IV PRN (14:40)
[2017-11-27] MEDS ORDERED: Albuterol 2.5 MG/3 ML NEB.SOL* (0.083%) INH PRN (14:40)
--- NOTE | 2017-11-27 15:48 | RAD ---
INDICATION: RIGHT calf edema, redness, and pain for one day. Fever. COMPARISON: No relevant prior exams available on the [facility] [place] [place] PACS for comparison. TECHNIQUE: Constantino scale, color Doppler, and spectral analysis of the deep veins of the RIGHT lower extremity. Vessel compression, phasicity, and augmentation assessed. REPORT: The RIGHT common femoral, great saphenous, profunda femoral, femoral, popliteal, peroneal, and posterior tibial veins are patent. Subcutaneous edema noted at the RIGHT calf. Patency of the LEFT common femoral vein documented. IMPRESSION: No evidence for RIGHT lower extremity deep venous thrombosis.
[2017-11-27] MEDS: Insulin LISPRO* 1 UNITS UNIT SUBCUT SCH (17:40)
[2017-11-27] MEDS: PRASUGREL 5 MG PO SCH (17:41)
[2017-11-27] MEDS: Tamsulosin CAP* 0.4 MG PO SCH (17:41)
--- NOTE | 2017-11-27 18:59 | HP ---
CC: Dr. Jacobson * HISTORY AND PHYSICAL: DATE OF ADMISSION: 11/27/17 PRIMARY CARE PROVIDER: Dr. Jacobson. ATTENDING PHYSICIAN WHILE IN THE HOSPITAL: Dr. Cindy Piña * (report dictated by Jaya Deluna NP). CHIEF COMPLAINT: 1. Right lower extremity erythema and swelling. 2. Fever. HISTORY OF PRESENT ILLNESS: Mr. Correa is a 67-year-old male, who is chronically immunosuppressed, on prednisone. He has a history of hypertension, diabetes, hyperlipidemia, pulmonary fibrosis for which he wears 4 L of oxygen at all time, hypothyroidism. He has a history of CAD, chronic respiratory failure, and history of OR. He also was recently started on Imuran. He recently was started on Bumex, which he takes 1 mg daily. He is presenting today because he noticed yesterday he had a little bit of redness and swelling around his right leg. He was here about a month and half ago, was diagnosed with cellulitis. He finished his antibiotics. He has been doing well, but then the last couple days the redness has returned to that right lower extremity. He started to feel hot. The redness when he went to bed last night was mostly localized in his ankle and just the top part of his foot and then when he woke up this morning, it was spreading up towards his knee. It was getting worse. They actually called Dr. Vasquez, who recommended that he come into the ER today to be further evaluated. He tried taking 2 leftover Keflex that he had from his previous hospitalization, but despite this things were not getting any better. He did admit to feeling weak the last few days, in addition to this admit to having chills and a fever last night. There has been no coughing, no shortness of breath. He denied having any abdominal pain. There has been no nausea, no vomiting, no dysuria, no frequency. There have been no reports of chest pain or shortness of breath. He says his breathing is actually the best he has felt in the long time, but again there was concern given the underlying cellulitis and we were asked to evaluate for admission. PAST MEDICAL HISTORY: Significant for: 1. Hypertension. 2. Diabetes. 3. Hyperlipidemia. 4. Pulmonary fibrosis. 5. Hypothyroidism. 6. CAD. 7. Chronic respiratory failure. 8. History of OR. PAST SURGICAL HISTORY: 1. He has had femur fracture repaired. 3. Has had had a heart catheterization. MEDICATIONS: Home meds according to the list provided include: 1. Bumex 1 mg p.o. daily. 2. Senna 1 tablet p.o. at bedtime. 3. MiraLAX 17 g p.o. every other day. 4. Keflex, he took 500 mg 2 times yesterday. 5. Imuran 50 mg daily. 6. Excedrin 3 tablets daily as needed. 7. Glipizide 5 mg daily with meals. 8. Amlodipine 5 mg daily. 9. Flexeril 10 mg b.i.d. as needed. 10. B12 1000 mcg p.o. daily. 11. Prednisone 30 mg daily. 12. Crestor 5 mg p.o. at bedtime. 13. Effient 5 mg p.o. daily. 14. Prilosec 20 mg p.o. daily. 15. Candesartan 8 mg p.o. daily. 16. Metformin 1000 mg p.o. b.i.d. 17. Flomax 0.4 mg p.o. daily. 18. Synthroid 200 mcg p.o. daily. ALLERGIES TO MEDICATIONS: Include ATORVASTATIN, HYDROCHLOROTHIAZIDE, SIMVASTATIN, SPIRONOLACTONE, IMITREX, and VALSARTAN. FAMILY HISTORY: Mother had a history of CHF and Parkinson's. Father had a history of CAD and OR. SOCIAL HISTORY: He is a former smoker. He rarely drinks alcohol. The surrogate decision maker is his . REVIEW OF SYSTEMS: There was a documented fever at home. He is denying any significant weight change. There is no double vision. He denies having any ear discharge. He denies having any rhinorrhea. He denied having any sore throat. There was no thyroid enlargement. He denies having any chest pain. There was no orthopnea. There was no nocturnal dyspnea. He denied having any abdominal pain. There was no nausea, no vomiting. No dysuria, no frequency. There was no seizure, no loss of consciousness. No pruritus and no skin ulcerations. Review of 14 systems was completed, all others negative. PHYSICAL EXAMINATION GENERAL: At this time, Mr. Correa is a 67-year-old male patient. He is sitting in the ED stretcher. He does not appear to be in any acute distress. VITAL SIGNS: Blood pressure 118/72 with a pulse of 93, respirations 20, O2 sat 94%, temperature 97.1. HEENT: Head: Atraumatic and normocephalic. Eyes: EOMs are intact. Sclerae anicteric and not pale. Throat: Oral mucosa appears to be moist. No oropharyngeal erythema. NECK: Supple. LUNGS: Diminished in the bases, but otherwise clear. No wheezes, rales, or rhonchi. HEART: Sounds S1, S2. He had a regular rate and rhythm. No murmurs, rubs, or gallops. ABDOMEN: Soft, flat. It was nontender. Bowel sounds were present. EXTREMITIES: Pulses were 2+ throughout. Distal CSM checks were intact to the right lower extremity. He had 5/5 strength to all extremities. NEUROLOGICAL: He is awake. He is alert. He is oriented x3. Tongue midline. Button Reclaimer were equal. He had no gross focal deficits. SKIN: He has erythema noted to the right ankle extending up just to the right knee. There is an open wound, small abrasion noted to the pretibial area just between the knee and ankle. The leg is hot to touch. No other open areas were noted. DIAGNOSTIC STUDIES/LAB DATA: His labs today revealing a WBC of 12.1, RBC of 4.26, hemoglobin 12.9, hematocrit 39, platelet count of 203. His sodium was 137 , potassium was 3.6, chloride 102, bicarb 25, BUN 23, creatinine 1.06, his lactate was 3.2, calcium 9.1. His CRP was 143. AST 10, ALT 15. Albumin was 3.4. Old medical records were reviewed. He had an echo the last time he was here, which showed EF of 50% to 55%. ASSESSMENT AND PLAN: Mr. Correa is a 67-year-old male patient with a complex medical history, coming into the ED today with complaints of redness and swelling to the right lower extremity with associated fever and was found to have elevated white count, elevated lactic acid. We were asked to evaluate for admission. He will be admitted under observation status for: 1. Cellulitis. At this point, he does not appear to be septic. He does have a little bit of white count and the lactic is up a little bit, but he is not hypotensive, he is mentating well, his heart rate is a little elevated at 93, no fever here. My plan will be to go ahead and put him on Ancef 2 g every 8 hours, in addition to this elevate the extremity. I will go ahead and continue to follow. If it does not improve, I will consider broadening coverage to vancomycin. He did receive vanco and Flagyl here in the ED and cefepime. He received IV bolus here in the ED. His blood pressure is stable. My plan will be to continue with fluids and continue to follow him and again increase antibiotics as needed. He has been pancultured. I will get serial lactic as well. I am checking an ultrasound of the lower extremity to make sure there is no blood clot, but I suspect this is mostly infection. 2. Hypertension. In the setting of acute illness, we will hold the Bumex, we will also hold his ARB. I have continued his amlodipine for tomorrow with hold parameters and we will continue to follow. 3. Diabetes. I put him on a lispro sliding scale. 4. History of hyperlipidemia. Continue his statin therapy. He takes Crestor. 5. Pulmonary fibrosis. Continue meds as prescribed. I have ordered p.r.n. albuterol. He is on prednisone. If he becomes hypotensive, I would consider adding on stress dose steroids, but at this point I think we can hold off. 6. Hypothyroidism. Continue his Synthroid. 7. Coronary artery disease. He is on Effient and statin. We will continue these medications. He is also on Norvasc, but no beta cony. 8. Chronic respiratory failure. Appears to be stable at this point. We will monitor. 9. DVT prophylaxis: He will be on heparin subcu. 10. Code status: Full code. 11. Fluids, electrolytes, and nutrition: He can have a consistent carb diet. TIME SPENT: Time spent on the admission was 60 minutes, greater than half the time was spent [id number] with the patient obtaining my history and physical, other half of the time was spent going over the plan of care with the patient and implementing the plan of care. I did discuss the plan of care with my attending, Dr. Piña; she is in agreement. JAYA DELUNA, SARMAD [id number]/CPS #: [id number] JAYJAY
[2017-11-27] MEDS: NS 0.9% 1000 ML* 1,000 ML IV SCH (19:08)
[2017-11-27] MEDS: ceFAZolin 2 GM PREMIX (*) 2 GM/50 ML BAG IVPB SCH (20:27)
[2017-11-27] MEDS: Senna TAB PO SCH (20:28)
[2017-11-27] MEDS: Cyclobenzaprine TAB* 10 MG PO PRN (20:28)
[2017-11-27] MEDS: CMC:Rosuvastatin (NF) 5 MG TAB PO SCH (20:28)
[2017-11-27] MEDS: Acetaminophen TAB* 325 MG PO PRN (20:29)
[2017-11-27] MEDS: Heparin VIAL(*) 5000 UNITS/ML VIAL (FIVE THOUSAND) SUBCUT SCH (20:30)
[2017-11-28] MEDS ORDERED: NS 0.9% 1000 ML* 1,000 ML IV SCH (01:00)
[2017-11-28] MEDS: ceFAZolin 2 GM PREMIX (*) 2 GM/50 ML BAG IVPB SCH ×3 (05:51→21:29)
[2017-11-28] MEDS: NS 0.9% 1000 ML* 1,000 ML IV SCH ×2 (05:51→19:29)
[2017-11-28] MEDS: Levothyroxine TAB* 100 MCG TAB PO SCH (05:57)
[2017-11-28] MEDS: Acetaminophen TAB* 325 MG PO PRN (05:57)
[2017-11-28] MEDS: Cyclobenzaprine TAB* 10 MG PO PRN ×2 (05:57→21:29)
[2017-11-28] MEDS: Heparin VIAL(*) 5000 UNITS/ML VIAL (FIVE THOUSAND) SUBCUT SCH ×3 (06:00→21:30)
[2017-11-28 07:25] LABS: ABS Basophils 0.1 10^3/ul (0-0.2); ABS Eosinophils 0.2 10^3/ul (0-0.6); ABS Lymphocytes 0.8 10^3/ul (1.0-4.8); ABS Monocytes 0.4 10^3/ul (0-0.8); ABS Neutrophils 7.9 10^3/ul (1.5-7.7); ABS Nucleated RBC 0 10^3/ul; Eosinophil % 1.7 % (0-6); Hematocrit 38 % (42-52); Hemoglobin 12.6 g/dl (14.0-18.0); Lymphocyte % 8.8 % (25-47); Mean Corpuscular HGB Conc 33 g/dl (31-36); Mean Corpuscular Hemoglobin 31 pg (27-31); Mean Corpuscular Volume 93 fL (80-94); Mean Platelet Volume 7.1 um3 (7.4-10.4); Nucleated Red Blood Cells % 0.1; Platelet Count 191 10^3/ul (150-450); Red Blood Count 4.09 10^6/ul (4.00-5.40); Red Cell Distribution Width 16 % (10.5-15); White Blood Count 9.4 10^3/ul (3.5-10.8)
[2017-11-28 07:34] LABS: INR 1.09 (0.77-1.02)
[2017-11-28 07:39] LABS: EGFR Non-African American 85.9 (>60)
[2017-11-28] MEDS: Insulin LISPRO* 1 UNITS UNIT SUBCUT SCH ×3 (07:47→17:04)
[2017-11-28] MEDS: predniSONE TAB* 10 MG PO SCH (08:03)
[2017-11-28] MEDS: CMC:Pantoprazole TAB (NF) 40 MG TAB PO SCH (08:03)
[2017-11-28] MEDS: amLODIPine TAB* 5 MG PO SCH (08:03)
[2017-11-28] MEDS ORDERED: amLODIPine TAB* 5 MG PO SCH (09:00)
--- NOTE | 2017-11-28 11:28 | PN ---
Subjective Date of Service: 11/28/17 Interval History: Patient seen and examined. States he had chills overnight and still with fevers , somewhat short of breath, but this is his baseline. No chest pain, no n/v. Has pain in right ankle with plantar and dorsi-flexion Objective Active Medications: Acetaminophen (Tylenol Tab*) 650 mg PO Q4H PRN PRN Reason: FEVER/PAIN Last Admin: 11/28/17 05:57 Dose: 650 mg Albuterol (Ventolin 2.5 Mg/3 Ml Neb.Jaida*) 2.5 mg INH Q2H PRN PRN Reason: SOB/WHEEZING Amlodipine Besylate (Norvasc Tab*) 5 mg PO DAILY [facility] Last Admin: 11/28/17 08:03 Dose: 5 mg Cyclobenzaprine HCl (Flexeril Tab*) 10 mg PO BID PRN PRN Reason: SPASMS - MUSCLE Last Admin: 11/28/17 05:57 Dose: 10 mg Dextrose (D50w Syringe 50 Ml*) 12.5 gm IV PUSH .FOR FS < 60 - SS PRN PRN Reason: FS < 60 Heparin Sodium (Porcine) (Heparin Vial(*)) 5,000 units SUBCUT Q8HR [facility] Last Admin: 11/28/17 06:00 Dose: 5,000 units Cefazolin Sodium/Dextrose (Kefzol 2 Gm Premix(*)) 2 gm in 50 mls @ 100 mls/hr IVPB Q8H [facility] Last Admin: 11/28/17 05:51 Dose: 100 mls/hr Sodium Chloride (Ns 0.9% 1000 Ml*) 1,000 mls @ 100 mls/hr IV PER RATE [facility] Last Admin: 11/28/17 05:51 Dose: 100 mls/hr Insulin Human Lispro (Humalog*) 0 units SUBCUT AC [facility]; Protocol Last Admin: 11/28/17 07:47 Dose: Not Given Levothyroxine Sodium (Synthroid Tab*) 200 mcg PO DAILY@0600 [facility] Last Admin: 11/28/17 05:57 Dose: 200 mcg Ondansetron HCl (Zofran Inj*) 4 mg IV Q6H PRN PRN Reason: NAUSEA Pantoprazole Sodium (Protonix Tab (Nf)) 40 mg PO DAILY [facility] Last Admin: 11/28/17 08:03 Dose: 40 mg Polyethylene Glycol/Electrolytes (Miralax*) 17 gm PO EVERY OTHER DAY [facility] Prasugrel (Effient (Nf)) 5 mg PO QPM [facility] Last Admin: 11/27/17 17:41 Dose: 5 mg Prednisone (Deltasone Tab*) 30 mg PO DAILY [facility] Last Admin: 11/28/17 08:03 Dose: 30 mg Rosuvastatin Calcium (Crestor (Nf)) 5 mg PO BEDTIME [facility]; Protocol Last Admin: 11/27/17 20:28 Dose: 5 mg Senna (Senokot Tab*) 1 tab PO BEDTIME [facility] Last Admin: 11/27/17 20:28 Dose: 1 tab Tamsulosin HCl (Flomax Cap*) 0.4 mg PO QPM [facility] Last Admin: 11/27/17 17:41 Dose: 0.4 mg Vital Signs - 8 hr 11/28/17 11/28/17 11/28/17 05:57 07:15 10:48 Temperature 99.0 F Pulse Rate 95 Respiratory 22 30 28 Rate Blood Pressure 132/71 (mmHg) O2 Sat by Pulse 94 Oximetry Oxygen Devices in Use Now: Nasal Cannula Appearance: Alert, NAD Eyes: No Scleral Icterus, PERRLA Ears/Nose/Mouth/Throat: NL Teeth, Lips, Gums, Mucous Membranes Moist Neck: NL Appearance and Movements; NL JVP, Trachea Midline Respiratory: - - shallow resps, mild tachypnea, no wheeze, diminished throughout lung swan Cardiovascular: NL Sounds; No Murmurs; No JVD, RRR Abdominal: - - obese, distended, soft, pos BS x4 quad Extremities: - - RLE circumferential erythema, edema extending to the right ankle and dorsum, left anterior chau with discoloration and one small area of scabbing Neurological: Alert and Oriented x 3, NL Sensation, NL Muscle Strength and Tone Nutrition: Taking PO's Result Diagrams: 11/28/17 06:45 11/28/17 06:45 Microbiology and Other Data: Microbiology 11/27/17 12:15 Skin and Soft Tissue MRSA/MSSA (PCR - Final Leg Right Mrsa Negative S.aureus Positive Gram Stain - Final Diagnostic Imaging: Patient Name: LEDA HATCH Medical Record#: [id number] Ordering Physician: Jaya Deluna GRINDING WHEEL OPERATOR Acct.#: [id number] : 1950 Age: 67 Sex: M Location: [address] [place] [address] - MEDICAL Exam Date: 11/27/17 144 ADM Status: ADM Christopher Order Information: VL LOWER EXT VEINS RIGHT Accession Number: [id number] CPT: 92302 INDICATION: RIGHT calf edema, redness, and pain for one day. Fever. COMPARISON: No relevant prior exams available on the [facility] [place]. TECHNIQUE: Constantino scale, color Doppler, and spectral analysis of the deep veins of the RIGHT lower extremity. Vessel compression, phasicity, and augmentation assessed. REPORT: The RIGHT common femoral, great saphenous, profunda femoral, femoral, popliteal, peroneal, and posterior tibial veins are patent. Subcutaneous edema noted at the RIGHT calf. Patency of the LEFT common femoral vein documented. IMPRESSION: No evidence for RIGHT lower extremity deep venous thrombosis. <Electronically signed by Charles Fontana MD in OV> 11/27/17 1545 Dictated By: Charles Fontana MD Dictated Date/Time: 11/27/17 1545 Transcribed Date/Time: 11/27/17 154 Copy to: Assess/Plan/Problems-Billing Assessment: This is a 67 year old male patient with history of chronic resp failure 2/2 pulmonary fibrosis, CAD, DM and cellulitis that has been admitted for cellulitis of the RLE that failed outpatient treatment, now with fever and leukocytosis. - Patient Problems (1) Cellulitis Current Visit: No Status: Acute Code(s): L03.90 - CELLULITIS, UNSPECIFIED SNOMED Code(s): 627501564 Comment: - Recurrent/unresolved from October of this year - Started on ancef - Non-toxic appearing, no hypotension or tachycardia, leukocytosis improving and lactic acid WNL - Will send for plain films of the right ankle to r/u septic arthritis, if any changes will CT or MRI and consult ortho and ID - Tylenol PRN fever (2) Chronic respiratory failure Code(s): J96.10 - CHRONIC RESPIRATORY FAILURE, UNSP W HYPOXIA OR HYPERCAPNIA SNOMED Code(s): 94416491 Comment: - continue NC 4LPM and titrate to comfort (3) Diabetes Code(s): E11.9 - TYPE 2 DIABETES MELLITUS WITHOUT COMPLICATIONS SNOMED Code(s) : 38473612 Comment: - Lispro SS, BG stable (4) HTN (hypertension) Code(s): I10 - ESSENTIAL (PRIMARY) HYPERTENSION SNOMED Code(s): 73495960 Comment: - normotensive - Continue losartan, metoprolol, and amlodipine (5) Hypothyroidism Code(s): E03.9 - HYPOTHYROIDISM, UNSPECIFIED SNOMED Code(s): 46957118 Comment: - Continue levothyroxine (6) Pulmonary fibrosis Code(s): J84.10 - PULMONARY FIBROSIS, UNSPECIFIED SNOMED Code(s): 02735096 Comment: - Diagnosed a few months ago and follows with Dr. Vasquez - Intermittent mild tachypnea, continue to titrate O2 - Continue home meds (7) DVT prophylaxis Code(s): WVI3820 - SNOMED Code(s): 802707145 Comment: - HSQ (8) Full code status Code(s): Z78.9 - OTHER SPECIFIED HEALTH STATUS SNOMED Code(s): 008518501 Comment: Status and Disposition: Remain inpatient.
--- NOTE | 2017-11-28 15:26 | RAD ---
Indication: Possible soft tissue infection RIGHT lower leg and ankle. Comparison: October 19, 2017 Technique: AP and lateral views mid to distal RIGHT lower leg and ankle. Report: Diffuse soft tissue swelling. No subcutaneous emphysema evident. Peripheral vascular calcifications. Negative for fracture or articular malalignment. Mild talocrural joint osteophytosis. Negative for significant joint space narrowing. Small Achilles tendon insertion bone spur. No periosteal reaction or focal osteolysis evident. IMPRESSION: #. Diffuse soft tissue swelling. #. No compelling radiographic findings of osteomyelitis. #. Mild osteoarthritis.
[2017-11-28] MEDS: Tamsulosin CAP* 0.4 MG PO SCH (17:04)
[2017-11-28] MEDS: PRASUGREL 5 MG PO SCH (17:04)
[2017-11-28] MEDS: Senna TAB PO SCH (21:29)
[2017-11-28] MEDS: CMC:Rosuvastatin (NF) 5 MG TAB PO SCH (21:29)
[2017-11-28] MEDS: traMADol TAB* 50 MG PO PRN (23:22)
[2017-11-29] MEDS: ceFAZolin 2 GM PREMIX (*) 2 GM/50 ML BAG IVPB SCH (05:47)
[2017-11-29] MEDS: Heparin VIAL(*) 5000 UNITS/ML VIAL (FIVE THOUSAND) SUBCUT SCH ×3 (05:48→21:23)
[2017-11-29] MEDS: Levothyroxine TAB* 100 MCG TAB PO SCH (05:48)
[2017-11-29] MEDS: traMADol TAB* 50 MG PO PRN ×2 (05:48→21:29)
[2017-11-29] MEDS: Insulin LISPRO* 1 UNITS UNIT SUBCUT SCH ×3 (07:54→17:28)
[2017-11-29] MEDS: CMC:Pantoprazole TAB (NF) 40 MG TAB PO SCH (07:55)
[2017-11-29] MEDS: NS 0.9% 1000 ML* 1,000 ML IV SCH ×2 (07:55→23:25)
[2017-11-29] MEDS: Polyethylene Glycol 3350* 17 GM PACKET PO SCH (07:55)
[2017-11-29] MEDS: predniSONE TAB* 10 MG PO SCH (07:55)
[2017-11-29] MEDS: amLODIPine TAB* 5 MG PO SCH (08:00)
[2017-11-29] MEDS: Levofloxacin 750 MG IVPREMIX(* 750 MG/150 ML BAG IVPB SCH (12:05)
--- NOTE | 2017-11-29 14:15 | PN ---
Subjective Date of Service: 11/29/17 Interval History: Patient seen and examined. Feeling much better, had some chills earlier but no fever, no chest pain. Pain in RLE improving. Was able to ambulate better after dressing removed. States his baseline SOB and dyspnea with exertion are stable with no acute SOB. Objective Active Medications: Acetaminophen (Tylenol Tab*) 650 mg PO Q4H PRN PRN Reason: FEVER/PAIN Last Admin: 11/28/17 05:57 Dose: 650 mg Albuterol (Ventolin 2.5 Mg/3 Ml Neb.Jaida*) 2.5 mg INH Q2H PRN PRN Reason: SOB/WHEEZING Amlodipine Besylate (Norvasc Tab*) 5 mg PO DAILY [facility] Last Admin: 11/29/17 08:00 Dose: 5 mg Cyclobenzaprine HCl (Flexeril Tab*) 10 mg PO BID PRN PRN Reason: SPASMS - MUSCLE Last Admin: 11/28/17 21:29 Dose: 10 mg Dextrose (D50w Syringe 50 Ml*) 12.5 gm IV PUSH .FOR FS < 60 - SS PRN PRN Reason: FS < 60 Heparin Sodium (Porcine) (Heparin Vial(*)) 5,000 units SUBCUT Q8HR [facility] Last Admin: 11/29/17 12:05 Dose: 5,000 units Sodium Chloride (Ns 0.9% 1000 Ml*) 1,000 mls @ 100 mls/hr IV PER RATE [facility] Last Admin: 11/29/17 07:55 Dose: 100 mls/hr Levofloxacin/Dextrose (Levaquin 750 Mg Ivpremix(*)) 750 mg in 150 mls @ 100 mls /hr IVPB Q24H [facility] Last Admin: 11/29/17 12:05 Dose: 100 mls/hr Insulin Human Lispro (Humalog*) 0 units SUBCUT AC [facility]; Protocol Last Admin: 11/29/17 12:05 Dose: 6 units Levothyroxine Sodium (Synthroid Tab*) 200 mcg PO DAILY@0600 [facility] Last Admin: 11/29/17 05:48 Dose: 200 mcg Ondansetron HCl (Zofran Inj*) 4 mg IV Q6H PRN PRN Reason: NAUSEA Pantoprazole Sodium (Protonix Tab (Nf)) 40 mg PO DAILY [facility] Last Admin: 11/29/17 07:55 Dose: 40 mg Polyethylene Glycol/Electrolytes (Miralax*) 17 gm PO EVERY OTHER DAY [facility] Last Admin: 11/29/17 07:55 Dose: 17 gm Prasugrel (Effient (Nf)) 5 mg PO QPM [facility] Last Admin: 11/28/17 17:04 Dose: 5 mg Prednisone (Deltasone Tab*) 30 mg PO DAILY [facility] Last Admin: 11/29/17 07:55 Dose: 30 mg Rosuvastatin Calcium (Crestor (Nf)) 5 mg PO BEDTIME [facility]; Protocol Last Admin: 11/28/17 21:29 Dose: 5 mg Senna (Senokot Tab*) 1 tab PO BEDTIME [facility] Last Admin: 11/28/17 21:29 Dose: 1 tab Tamsulosin HCl (Flomax Cap*) 0.4 mg PO QPM [facility] Last Admin: 11/28/17 17:04 Dose: 0.4 mg Tramadol HCl (Ultram*) 50 mg PO Q6H PRN PRN Reason: PAIN Last Admin: 11/29/17 05:48 Dose: 50 mg Vital Signs - 8 hr 11/29/17 11/29/17 11/29/17 07:19 09:28 11:06 Temperature 96.7 F 97.5 F Pulse Rate 78 72 Respiratory 19 22 23 Rate Blood Pressure 132/75 131/85 (mmHg) O2 Sat by Pulse 97 97 Oximetry 11/29/17 11:53 Temperature 97.3 F Pulse Rate 81 Respiratory 22 Rate Blood Pressure 133/71 (mmHg) O2 Sat by Pulse 93 Oximetry Oxygen Devices in Use Now: Nasal Cannula Appearance: Alert, NAD Eyes: No Scleral Icterus, PERRLA Ears/Nose/Mouth/Throat: NL Teeth, Lips, Gums, Mucous Membranes Moist Neck: NL Appearance and Movements; NL JVP, Trachea Midline Respiratory: Symmetrical Chest Expansion and Respiratory Effort, - - diminished throughout lung swan, no wheeze or rhonchi Abdominal: NL Sounds; No Tenderness; No Distention, - - protuberant abdomen Neurological: Alert and Oriented x 3 Nutrition: Taking PO's Result Diagrams: 11/28/17 06:45 11/28/17 06:45 Microbiology and Other Data: Microbiology 11/27/17 12:15 Skin and Soft Tissue MRSA/MSSA (PCR - Final Leg Right Mrsa Negative S.aureus Positive Gram Stain - Final Diagnostic Imaging: Patient Name: LEDA HATCH Medical Record#: [id number] Ordering Physician: Jaya Deluna PROJECT SURVEYOR Acct.#: [id number] : 1950 Age: 67 Sex: M Location: [address] [place] [address] - MEDICAL Exam Date: 11/27/171448 ADM Status: ADM Christopher Order Information: VL LOWER EXT VEINS RIGHT Accession Number: [id number] CPT: 75383 INDICATION: RIGHT calf edema, redness, and pain for one day. Fever. COMPARISON: No relevant prior exams available [place] the [facility] [place]. TECHNIQUE: Constantino scale, color Doppler, and spectral analysis of the deep veins of the RIGHT lower extremity. Vessel compression, phasicity, and augmentation assessed. REPORT: The RIGHT common femoral, great saphenous, profunda femoral, femoral, popliteal, peroneal, and posterior tibial veins are patent. Subcutaneous edema noted at the RIGHT calf. Patency of the LEFT common femoral vein documented. IMPRESSION: No evidence for RIGHT lower extremity deep venous thrombosis. <Electronically signed by Charles Fontana MD in OV> 11/27/171544 Dictated By: Charles Fontana MD Dictated Date/Time: 11/27/171544 Transcribed Date/Time: 11/27/171543 Copy to: Assess/Plan/Problems-Billing Assessment: This is a 67 year old male patient with history of chronic resp failure 2/2 pulmonary fibrosis, CAD, DM and cellulitis that has been admitted for cellulitis of the RLE that failed outpatient treatment, now with fever and leukocytosis. - Patient Problems (1) Cellulitis Current Visit: No Status: Acute Code(s): L03.90 - CELLULITIS, UNSPECIFIED SNOMED Code(s): 875447385 Comment: - Recurrent/unresolved from October of this year but with marked improvement last 24 hours - Blood cultures NTD - Started on ancef at admission - Non-toxic appearing, no hypotension or tachycardia, leukocytosis resolved and lactic acid WNL - Changed to levaquin this AM pending susceptibilities, may be able to DC on Bactrim to cover staph and aeromonas - Xray right ankle with no osteo - Tylenol PRN fever (2) Chronic respiratory failure Code(s): J96.10 - CHRONIC RESPIRATORY FAILURE, UNSP W HYPOXIA OR HYPERCAPNIA SNOMED Code(s): 94660772 Comment: - continue NC 4LPM and titrate to comfort (3) Diabetes Code(s): E11.9 - TYPE 2 DIABETES MELLITUS WITHOUT COMPLICATIONS SNOMED Code(s) : 64372671 Comment: - Lispro SS, BG stable (4) HTN (hypertension) Code(s): I10 - ESSENTIAL (PRIMARY) HYPERTENSION SNOMED Code(s): 28817495 Comment: - normotensive - Continue losartan, metoprolol, and amlodipine (5) Hypothyroidism Code(s): E03.9 - HYPOTHYROIDISM, UNSPECIFIED SNOMED Code(s): 51929112 Comment: - Continue levothyroxine (6) Pulmonary fibrosis Code(s): J84.10 - PULMONARY FIBROSIS, UNSPECIFIED SNOMED Code(s): 36863322 Comment: - Diagnosed a few months ago and follows with Dr. Vasquez - Intermittent mild tachypnea, continue to titrate O2 - Continue home meds (7) DVT prophylaxis Code(s): HXP6157 - SNOMED Code(s): 621568399 Comment: - HSQ (8) Full code status Code(s): Z78.9 - OTHER SPECIFIED HEALTH STATUS SNOMED Code(s): 030049559 Comment: Status and Disposition: Remain inpatient, pending PT/OT evals for dispo.
[2017-11-29] MEDS: Tamsulosin CAP* 0.4 MG PO SCH (17:29)
[2017-11-29] MEDS: PRASUGREL 5 MG PO SCH (17:29)
[2017-11-29] MEDS: CMC:Rosuvastatin (NF) 5 MG TAB PO SCH (21:23)
[2017-11-29] MEDS: Senna TAB PO SCH (21:23)
[2017-11-30] MEDS: Heparin VIAL(*) 5000 UNITS/ML VIAL (FIVE THOUSAND) SUBCUT SCH ×2 (06:04→13:49)
[2017-11-30] MEDS: Levothyroxine TAB* 100 MCG TAB PO SCH (06:04)
[2017-11-30 06:23] LABS: Hematocrit 34 % (42-52); Hemoglobin 11.5 g/dl (14.0-18.0); Mean Corpuscular HGB Conc 33 g/dl (31-36); Mean Corpuscular Hemoglobin 31 pg (27-31); Mean Corpuscular Volume 93 fL (80-94); Mean Platelet Volume 7.2 um3 (7.4-10.4); Platelet Count 224 10^3/ul (150-450); Red Blood Count 3.71 10^6/ul (4.00-5.40); Red Cell Distribution Width 15 % (10.5-15); White Blood Count 7.8 10^3/ul (3.5-10.8)
[2017-11-30 06:47] LABS: ABS Basophils 0.1 10^3/ul (0-0.2); ABS Eosinophils 0.1 10^3/ul (0-0.6); ABS Lymphocytes 1.2 10^3/ul (1.0-4.8); ABS Monocytes 0.5 10^3/ul (0-0.8); ABS Neutrophils 5.9 10^3/ul (1.5-7.7); ABS Nucleated RBC 0 10^3/ul; Eosinophil % 1.9 % (0-6); Lymphocyte % 15.4 % (25-47); Nucleated Red Blood Cells % 0.1
[2017-11-30] MEDS: predniSONE TAB* 10 MG PO SCH (08:32)
[2017-11-30] MEDS: amLODIPine TAB* 5 MG PO SCH (08:32)
[2017-11-30] MEDS: CMC:Pantoprazole TAB (NF) 40 MG TAB PO SCH (08:32)
[2017-11-30] MEDS: Insulin LISPRO* 1 UNITS UNIT SUBCUT SCH ×2 (08:33→12:26)
[2017-11-30] MEDS: Polyethylene Glycol 3350* 17 GM PACKET PO SCH (08:36)
[2017-11-30] MEDS: NS 0.9% 1000 ML* 1,000 ML IV SCH (10:36)
[2017-11-30] MEDS: Levofloxacin 750 MG IVPREMIX(* 750 MG/150 ML BAG IVPB SCH (10:37)
[2017-11-30 12:47] VITALS: BP 134/87
--- NOTE | 2017-11-30 19:55 | DS ---
CC: Dr. Lopez; Dr. Vasquez; Dr. Jacobson* DISCHARGE SUMMARY: DATE OF ADMISSION: 11/28/17 DATE OF DISCHARGE: 11/30/17. DISPOSITION: The patient is being discharged home. PRIMARY CARE PROVIDER: Dr. Jacobson. DISCHARGE DIAGNOSES: 1. Right lower extremity cellulitis. 2. Venous stasis and edema due to that. SECONDARY DIAGNOSES: 1. Hypertension. 2. Diabetes. 3. Hyperlipidemia. 4. History of pulmonary fibrosis. 5. Hypothyroidism. 6. Coronary artery disease. 7. Chronic respiratory failure. The patient is on chronic oxygen at 4 L at home. 8. History of myocardial infarction. MEDICATIONS AT DISCHARGE: Include Bactrim DS 1 tablet p.o. b.i.d. for a total 5 days, then stop. Remaining medications are unchanged and include: 1. Norvasc 5 mg daily. 2. Excedrin on a p.r.n. basis. 3. Imuran 50 mg daily. 4. Bumex 1 mg daily. 5. Atacand 8 mg daily. 6. Vitamin B12 of 1000 mcg daily. 7. Synthroid 200 mcg daily. 8. Omeprazole 20 mg daily. 9. MiraLAX 17 g daily p.r.n. 10. Prasugrel 5 mg q.p.m. 11. Prednisone 30 mg daily. 12. Crestor 5 mg daily. 13. Flomax 0.4 mg daily. 14. Flexeril 10 mg b.i.d. p.r.n. 15. Glipizide 5 mg daily. 16. Metformin 1000 mg b.i.d. 17. Senokot on a p.r.n. basis. LABORATORY DATA AND STUDIES PERFORMED DURING THE HOSPITAL STAY: Included: On 11/30/17, white blood cell count of 7.8, hemoglobin of 11.5, hematocrit of 34 , and platelets of 224. The patient's glucose level was 222 on 11/30/17. His C-reactive protein was 81.8. Cultures of wound obtained from right lower extremity were positive for Staphylococcus aureus that was MRSA negative and Aeromonas hydrophila. Sensitivities were reported prior to the patient's discharge and both of the microorganisms were sensitive to Bactrim. Blood cultures obtained on admission were negative and the day of discharge. Ankle x-ray on 11/28/17, impression: "Diffuse soft tissue swelling. No compelling radiographic evidence of osteomyelitis. Mild osteoarthritis." Venous Doppler studies obtained on 11/27/17 showed no DVT in either of the lower extremities. HOSPITALIZATION COURSE: Cayden Correa is a 67-year-old male who presented to the hospital on 11/27/17 with right lower extremity cellulitis. He noted that he had an abrasion on the distal right lower extremity, which was nonhealing. He treated himself with Keflex that he had from prior hospital stay for a couple of days and it did not improve. He developed fever at home and he came into the hospital for evaluation. In the hospital, he was originally treated with cefazolin and then switched to Levaquin. By the time of discharge, abrasion was covered eschar without evidence of cellulitis and his cellulitis changes also resolved. The patient noted that he has leg edema that is worse when he is standing up and was educated about the chronic venous insufficiency and edema due to that. Although, his bumetanide was held during his hospital stay, it is going to restarted at discharge. The patient had been on bumetanide for the past several weeks. By the time of discharge, he is afebrile. His leg edema is nearly resolved and he is going to be discharged home with recommendations to follow up with his primary care provider in 4 to 7 days. PHYSICAL EXAMINATION AT THE TIME OF DISCHARGE: Blood pressure of 134/87, heart rate of 78 and regular, respiratory rate 20, oxygen saturation 98% on 5 L of oxygen nasal cannula, temperature 97.8. General: The patient is a very pleasant 67-year- old male, who is in no acute distress. Alert, awake, and oriented x3. HEENT: Head atraumatic, normocephalic. Eyes: Pupils are equal, reactive to light and accommodation. Oropharynx clear. Mucosa moist. Neck: Supple. No JVD, no bruits bilaterally. Cardiovascular: Regular rate and rhythm. No murmur. Respiratory: Dry crackles at bilateral bases noted. Abdomen: Soft, nontender. Bowel sounds are present in all 4 quadrants. Extremities: There is trace bilateral pedal edema. Pulses +2 bilaterally. There is no clubbing or cyanosis. There is noted venous stasis discoloration of bilateral lower extremities, right foot more than left. There is a small area of an excoriation that is covered with eschar of approximately 1 to 2 cm with no evidence of cellulitis. Neuro Evaluation: Speech clear. Cranial nerves II through XII grossly intact. Motor strength is 5/5 bilaterally. Please note that this is a short summary of the patient's hospitalization. Please refer to further medical records for details. TIME SPENT: Approximately 35 minutes was spent on the patient's discharge. [id number]/[facility] #: [id number] MTDD
== END 2017-11-30 15:40 | disposition home or self-care (01) | DRG 603 ==
LOC: ED 11:36 → MED 14:35 → OBSVTOIN 11-28 09:00
PROVIDERS: ADMIT Hospitalist; ATTEND Internal Medicine
DX: L03.115 Cellulitis of right lower limb (principal); J96.10 Chronic respiratory failure, unspecified whether with hypoxia or hypercapnia; I87.8 Other specified disorders of veins; I10 Essential (primary) hypertension; E11.9 Type 2 diabetes mellitus without complications; E78.5 Hyperlipidemia, unspecified; J84.10 Pulmonary fibrosis, unspecified; E03.9 Hypothyroidism, unspecified; I25.10 Atherosclerotic heart disease of native coronary artery without angina pectoris; B95.61 Methicillin susceptible Staphylococcus aureus infection as the cause of diseases classified elsewhere; B96.89 Other specified bacterial agents as the cause of diseases classified elsewhere; M19.071 Primary osteoarthritis, right ankle and foot; S80.811A Abrasion, right lower leg, initial encounter; X58.XXXA Exposure to other specified factors, initial encounter; N40.0 Benign prostatic hyperplasia without lower urinary tract symptoms; M19.012 Primary osteoarthritis, left shoulder; M19.011 Primary osteoarthritis, right shoulder; M17.0 Bilateral primary osteoarthritis of knee; M47.9 Spondylosis, unspecified; Z99.81 Dependence on supplemental oxygen; I25.2 Old myocardial infarction; Z79.02 Long term (current) use of antithrombotics/antiplatelets; Z79.52 Long term (current) use of systemic steroids; Z79.84 Long term (current) use of oral hypoglycemic drugs; Y92.9 Unspecified place or not applicable; Z88.8 Allergy status to other drugs, medicaments and biological substances; Z82.49 Family history of ischemic heart disease and other diseases of the circulatory system; Z82.0 Family history of epilepsy and other diseases of the nervous system; Z87.891 Personal history of nicotine dependence; Z95.5 Presence of coronary angioplasty implant and graft
CPT/HCPCS: 36415; 80048; 80053; 83605; 85025; 85610; 85652; 86140; 87040; 87070; 87077; 87186; 87205; 87640; 87641; 94640; 99283; A9270-GY; G0378; J0690; J0692; J1644; J3370; J3490; J7512

== ENCOUNTER 2018-04-19 11:45 | Inpatient (IN) | payer OTHER ==
[2018-04-19] MEDS ORDERED: Bumetanide IV* 0.25 MG/ML 4 ML VIAL IV ONE (11:57)
--- NOTE | 2018-04-19 12:01 | ED ---
Shortness of Breath - HPI Summary HPI Summary: A 68 y/o M presents to ED with c/o SOB onset last night. Per , pt has not been feeling well since 04/15/18. Pt states he wheezes a lot at night, and whenever he gets up to walk around his O2 sat drops to 50-60%. If he sits down it improves but is still not great. Pt is on 4.5 L O2 at home. Pt is on diuretics. PMHx: DM, CAD, 7 stents, HTN, LA. - History of Current Complaint Chief Complaint: EDShortnessOfBreath Hx Obtained From: Patient, Family/Relocation Commissioner Onset/Duration: Still Present Timing: Constant Current Severity: Moderate Dyspnea At: Rest Aggrevating Factors: Movement Associated Signs & Symptoms: Wheezing - Allergy/Home Medications Allergies/Adverse Reactions: Allergies Allergy/AdvReac Type Severity Reaction Status Date / Time atorvastatin [From Lipitor] Allergy Pain Verified 11/27/17 12:00 hydrochlorothiazide Allergy Swelling Verified 11/27/17 12:00 Of Face,Lips,& Throat simvastatin [From Zocor] Allergy Rash Verified 11/27/17 12:00 spironolactone Allergy Swelling Verified 11/27/17 12:00 Of Face,Lips,& Throat gabapentin AdvReac Altered Verified 11/28/17 21:36 Mental Status sumatriptan [From Imitrex] AdvReac Shakes Verified 11/28/17 21:36 valsartan AdvReac Headache Verified 11/28/17 21:36 PMH/Surg Hx/FS Hx/Imm Hx Previously Healthy: No Endocrine/Hematology History: Reports: Hx Diabetes Cardiovascular History: Reports: Hx Angina, Hx Coronary Artery Disease - Stent LAd,RCA, Hx Hypercholesterolemia, Hx Hypertension, Hx Myocardial Infarction Denies: Hx Valvular Heart Disease History: Reports: Hx Benign Prostatic Hyperplasia Denies: Hx Dialysis, Hx Renal Disease Musculoskeletal History: Reports: Hx Arthritis - neck, back, knees, shoulders, Hx Back Problems Sensory History: Reports: Hx Contacts or Glasses - reading glasses Denies: Hx Hearing Aid Opthamlomology History: Reports: Hx Contacts or Glasses - reading glasses Neurological History: Reports: Hx Headaches - Surgical History Surgery Procedure, Year, and Place: femur fracture repair 1969', bladder biopsy (benign) Cardiac stents. lop sensor implanted one week ago. heart cath done one week ago-- - Family History Known Family History: Positive: Cardiac Disease - Social History Occupation: Retired Lives: With Family Alcohol Use: None Hx Substance Use: No Substance Use Type: Reports: None Hx Tobacco Use: Yes Smoking Status (MU): Former Smoker Type: Cigarettes Amount Used/How Often: 1pck/d Length of Time of Smoking/Using Tobacco: 27 Have You Smoked in the Last Year: No Review of Systems Negative: Fever Positive: Shortness Of Breath, Other - pos: wheezing All Other Systems Reviewed And Are Negative: Yes Physical Exam - Summary Physical Exam Summary: Appearance: The patient is well-nourished in no acute distress and in no acute pain. Skin: The skin is warm and dry and skin color reflects adequate perfusion. HEENT: The head is normocephalic and atraumatic. The pupils are equal and reactive. The conjunctivae are clear and without drainage. Nares are patent and without drainage. Mouth reveals moist mucous membranes and the throat is without erythema and exudate. The external ears are intact. The ear canals are patent and without drainage. The tympanic membranes are intact. Neck: the neck is supple with full range of motion and non-tender. There are no carotid bruits. There is no neck vein distension. Respiratory: Chest is non-tender. Inspiratory crackales way up in both lung swan. Tachypneic. Cardiovascular: Heart is borderline tachycardic. There is no murmur or rub auscultated. There is bilateral peripheral edema. Pulses are symmetrical and equal. Abdomen: The abdomen is soft and non-tender. There are normal bowel sounds heard in all four quadrants and there is no organomegaly palpated. Musculoskeletal: There is no back tenderness noted. Extremities are non-tender with full range of motion. There is good capillary refill. There is bilateral peripheral edema. No calf tenderness elicited. Neurological: Patient is alert and oriented to person, place and time. The patient has symmetrical motor strength in all four extremities. Cranial nerves are grossly intact. Deep tendon reflexes are symmetrical and equal in all four extremities. Psychiatric: The patient has an appropriate affect and does not exhibit any anxiety or depression. Triage Information Reviewed: Yes Vital Signs Reviewed: Yes Diagnostics - Laboratory Result Diagrams: 04/19/18 12:00 04/19/18 12:00 Lab Statement: Any lab studies that have been ordered have been reviewed, and results considered in the medical decision making process. - Radiology CXR Radiology Interpretation Completed By: Radiologist Summary of Radiographic Findings: IMPRESSION: #. The constellation of findings is most consistent with alveolar and interstitial edema. superimposed on chronic obstructive pulmonary disease with interstitial fibrosis. ED provider has reviewed this report. - EKG 1201 Cardiac Rate: NL - 88 bpm EKG Rhythm: Sinus Rhythm Summary of EKG Findings: No STEMI. LAFB. PVCs. Re-Evaluation - Re-Evaluation 1 Re-Evaluation Time: 13:37 Course/Dx - Course Course Of Treatment: Mr. Correa presented to the emergency department clinically looking like fluid overload. He is on Bumex at home 1 mg a day and was given 2 mg IV here. He did begin to diurese and his chest x-ray confirmed CHF as well as COPD. The hospitalist service was asked to admit him for further treatment. - Diagnoses Provider Diagnoses: CHF (congestive heart failure) - Physician Notifications Discussed Care of Patient With: Cindy Piña Time Discussed With Above Provider: 13:47 Instructed by Provider To: Admit As Inpatient - Critical Care Time Critical Care Time: 30-74 min Discharge - Sign-Out/Discharge Documenting (check all that apply): Patient Departure - ADMIT - Discharge Plan Condition: Stable Disposition: ADMITTED TO [facility] Referrals: Toya Jacobson MD [Primary Care Provider] - - Billing Disposition and Condition Condition: STABLE Disposition: Admitted to [facility] - Attestation Statements Document Initiated by Amritibe: Yes Documenting Scribe: Edyta Denton Provider For Whom Amritibe is Documenting (Include Credential): Dr. Giovani Nava MD Scribe Attestation: Edyta Davidson, scribed for Dr. Giovani Nava MD on 04/19/18 at 1726. Scribe Documentation Reviewed: Yes Provider Attestation: The documentation as recorded by the Edyta king accurately reflects the service I personally performed and the decisions made by me, Dr. Giovani Nava MD Status of Scribe Document: Viewed
[2018-04-19 12:24] LABS: ABS Basophils 0.1 10^3/ul (0-0.2); ABS Eosinophils 0.2 10^3/ul (0-0.6); ABS Lymphocytes 1.7 10^3/ul (1.0-4.8); ABS Monocytes 0.8 10^3/ul (0-0.8); ABS Neutrophils 8.6 10^3/ul (1.5-7.7); ABS Nucleated RBC 0 10^3/ul; Hematocrit 43 % (42-52); Lymphocyte % 14.9 %; Mean Corpuscular HGB Conc 32 g/dl (31-36); Mean Corpuscular Hemoglobin 29 pg (27-31); Mean Corpuscular Volume 91 fL (80-94); Mean Platelet Volume 7.3 fL (7.4-10.4); Nucleated Red Blood Cells % 0.1; Platelet Count 217 10^3/ul (150-450); Red Blood Count 4.75 10^6/ul (4.00-5.40); Red Cell Distribution Width 16 % (10.5-15); White Blood Count 11.4 10^3/ul (3.5-10.8)
[2018-04-19 12:29] LABS: INR 0.99 (0.77-1.02)
[2018-04-19 12:42] LABS: Albumin 3.9 g/dL (3.2-5.2); Albumin/Globulin Ratio 1.4 (1-3); BUN/Creatinine Ratio 17.9 (8-20); C Reactive Protein 28.14 mg/L (<8.01); Calcium 8.9 mg/dL (8.6-10.3); EGFR Non-African American 90.3 (>60); Globulin 2.8 g/dL (2-4); Potassium 3.2 mmol/L (3.5-5.0); Total Bilirubin 0.4 mg/dL (0.2-1.0); Total Protein 6.7 g/dL (6.4-8.9)
[2018-04-19] MEDS ORDERED: Cyclobenzaprine TAB* 10 MG PO PRN (14:43)
[2018-04-19] MEDS ORDERED: Dextrose 50% Syringe 50 ML* 25 GM/50 ML SYRINGE IV PUSH PRN (14:44)
[2018-04-19] MEDS ORDERED: Potassium Chlor TAB* 20 MEQ TAB.ER PO ONE (14:45)
--- NOTE | 2018-04-19 16:14 | HP ---
CC: Dr. Jacobson* [facility] MEDICINE HISTORY AND PHYSICAL: DATE OF ADMISSION: 04/19/18 PRIMARY CARE PHYSICIAN: Dr. Jacobson. ATTENDING PHYSICIAN: Dr. Cindy Piña* (dictation provided by Naty Aguirre NP) . CHIEF COMPLAINT: Shortness of breath. HISTORY OF PRESENT ILLNESS: Mr. Correa is a 68-year-old male with a past medical history of pulmonary fibrosis and chronic hypoxic respiratory failure, on 4.5 L of oxygen at all times, hypertension, itp-csulxot-ftppblxur diabetes, and history of coronary artery disease with SC, who presented to the hospital today with concern for shortness of breath. Mr. Correa states that he has been feeling unwell for well over a year or more; however, over the past 4 weeks , it seems that his shortness of breath has become precipitously worse culminating in extreme shortness of breath today. The patient states that he got up to walk to the bathroom and felt that he was going to pass out because he was so short of breath. He denies any new cough. He denies any fever. He reports lower extremity edema, but it does not seem to be worse than usual and has been a chronic issue for him. He states he is able to lay flat at times to sleep, but often he has to sit up in a chair due to shortness of breath. He denies any other complaints and specifically denies chest pain, nausea, vomiting , diarrhea, abdominal pain. He states that he tries to avoid salt in his diet. In the emergency room, Mr. Correa had labs, which showed a BNP of 365 which is the highest we have seen for him, potassium is 3.2 and a chest x-ray that showed concern for pulmonary vascular congestion. PAST MEDICAL HISTORY: 1. Type 2 diabetes, non-insulin dependent. 2. Hypertension. 3. Hyperlipidemia. 4. Pulmonary fibrosis and chronic hypoxic respiratory failure, on 4.5 L of oxygen at home. 5. Hypothyroidism. 6. Coronary artery disease with history of SC. PAST SURGICAL HISTORY: 1. History of femur fracture that has been repaired. 2. History of a heart catheterization. MEDICATIONS: Outpatient are: 1. Polyethylene glycol 17 g p.o. every other day. 2. Cyclobenzaprine 10 mg p.o. b.i.d. p.r.n. 3. Excedrin Extra Strength 3 tabs p.o. daily p.r.n. 4. Amlodipine 5 mg p.o. daily. 5. Senna 1 tab p.o. at bedtime. 6. Cyanocobalamin 1000 mcg p.o. daily. 7. Bumex 1 mg p.o. daily. 8. Rosuvastatin 5 mg p.o. at bedtime. 9. Tamsulosin 0.4 mg p.o. q.p.m. 10. Prasugrel 5 mg p.o. q.p.m. 11. Levothyroxine 200 mcg p.o. daily. 12. Candesartan 8 mg p.o. daily. 13. Metformin 1000 mg p.o. b.i.d. 14. Glipizide 5 mg p.o. daily with meals. 15. Prednisone 20 mg p.o. daily. ALLERGIES: To ATORVASTATIN, HYDROCHLOROTHIAZIDE, SIMVASTATIN, SPIRONOLACTONE, GABAPENTIN, SUMATRIPTAN, and VALSARTAN. FAMILY HISTORY: Mother had a history of CHF and Parkinson's. Father had history of CAD and SC. SOCIAL HISTORY: The patient is a former smoker. He rarely drinks alcohol. Surrogate decision maker is his . REVIEW OF SYSTEMS: A 14-point review of systems was completed with Mr. Correa and all those not mentioned above were negative. PHYSICAL EXAMINATION GENERAL: Mr. Correa is sitting up in the bed with his at the bedside. He appears winded at rest, but able to speak in complete sentences. VITAL SIGNS: Temperature 98.6, pulse rate 89, respiratory rate 28, O2 saturation 96% on 5 L nasal cannula, blood pressure 127/89. LUNGS: Have crackles in the bases, but are clear otherwise. There is no wheezing or rhonchi noted. HEART: S1, S2. No murmur, rub, or gallop is appreciated. ABDOMEN: Very protuberant, but soft and nontender with bowel sounds positive x4. EXTREMITIES: Positive for 1 to 2+ pitting edema bilateral lower extremities. NEURO: He is alert. He is oriented x3. He moves all extremities equally. There is no facial asymmetry or focal weakness. Extraocular movements are intact. SKIN: Intact. DIAGNOSTIC STUDIES/LAB DATA: WBC 11.4, hemoglobin 14.0, hematocrit 43, platelet count 217. INR 0.99. Sodium 141, potassium 3.2, chloride 107, serum bicarbonate 24, BUN 15, creatinine 0.84, glucose 156, lactic acid 2.3. Troponin 0.04. CRP 28.14. BNP 365. Chest x-ray shows, "the constellation of findings is most consistent with alveolar and interstitial edema superimposed on chronic obstructive pulmonary disease with interstitial fibrosis." ASSESSMENT AND PLAN: Mr. Correa is a 68-year-old male with a past medical history of pulmonary fibrosis with chronic hypoxic respiratory failure, on 4.5 L of oxygen at home, as well as [id number] type 2 diabetes, coronary artery disease with history of myocardial infarction and hypertension, who presents today to the hospital with concern for shortness of breath, suspected to be due to acute on chronic diastolic congestive heart failure exacerbation. Our plans are for observation in the hospital for the followin. [id number]-[id number] diastolic congestive heart failure exacerbation. The patient has never been admitted here or at another hospital per his report for congestive heart failure exacerbation. I note that his last echocardiogram was from October of 2017, and it showed an intact ejection fraction with no significant valvular abnormality. At that point, they were not able to estimate his right ventricular systolic pressure, though I suspect he has a significant component of pulmonary hypertension due to his history of pulmonary fibrosis. Plan to treat with additional doses of Bumex. He has received 2 mg IV in the ED and we will re-dose that in the a.m. as he seems to be having good urine output thus far. We will check I's and O's. We will check daily weight. We will check basic metabolic panel in the a.m. I note that the patient is hypokalemic now. He is being repleted, and we will monitor that closely given his need for diuresis. I note that his BUN and creatinine are normal, and we will monitor that closely as well. 2. Lcxca-nw-obnidls hypoxic respiratory failure. The patient is requiring 5 L of oxygen today, and even at rest is winded. We will continue titrate oxygen as needed both at rest and with mobility. I see no evidence of other acute issue including no evidence of pneumonia. 3. Type 2 diabetes. Plan to hold glipizide and metformin. The patient will have blood glucoses q.a.c. with lispro sliding scale. 4. Hypertension. Plan to hold his amlodipine and candesartan while we are diuresing to allow for the diuresis. 5. Hypothyroidism. Continue levothyroxine. 6. History of coronary artery disease. Continue prasugrel. 7. History of pulmonary fibrosis. Continue prednisone. The patient is not wheezing today. 8. Code status is DNR and a MOLST form was completed with the patient. He would accept a trial of intubation and this has been noted there. 9. Disposition: To telemetry floor. TIME SPENT: Approximately 60 minutes was spent on the admission of this patient , more than half of the time was spent with the patient at the bedside reviewing the events leading up to this hospitalization, performing the physical examination, and reviewing the plan of care. NATY AGUIRRE NP [id number]/[facility] #: [id number] JAYJAY
[2018-04-19] MEDS: Insulin LISPRO* 1 UNITS UNIT SUBCUT SCH (16:45)
[2018-04-19] MEDS ORDERED: Bumetanide IV* 0.25 MG/ML 4 ML VIAL SLOW PUSH ONE (17:26)
[2018-04-19] MEDS: PRASUGREL 5 MG PO SCH (19:22)
[2018-04-19] MEDS: Tamsulosin CAP* 0.4 MG PO SCH (19:22)
[2018-04-19] MEDS: Acetaminophen TAB* 325 MG PO PRN (19:51)
[2018-04-19] MEDS: Heparin VIAL(*) 5000 UNITS/ML VIAL (FIVE THOUSAND) SUBCUT SCH (21:30)
[2018-04-19] MEDS: Senna TAB PO SCH (21:30)
[2018-04-20] MEDS: Levothyroxine TAB* 100 MCG TAB PO SCH (05:26)
[2018-04-20] MEDS: Heparin VIAL(*) 5000 UNITS/ML VIAL (FIVE THOUSAND) SUBCUT SCH ×3 (05:27→20:58)
[2018-04-20] MEDS ORDERED: Bumetanide IV* 0.25 MG/ML 4 ML VIAL SLOW PUSH ONE (06:00)
[2018-04-20 06:04] LABS: BUN/Creatinine Ratio 11.2 (8-20); Calcium 8.6 mg/dL (8.6-10.3); EGFR Non-African American 84.5 (>60); Potassium 3.5 mmol/L (3.5-5.0)
[2018-04-20] MEDS: Insulin LISPRO* 1 UNITS UNIT SUBCUT SCH ×3 (08:13→16:55)
[2018-04-20] MEDS: Acetaminophen TAB* 325 MG PO PRN ×2 (08:14→20:58)
[2018-04-20] MEDS: predniSONE TAB* 20 MG PO SCH (08:14)
[2018-04-20] MEDS: Cyanocobalamin TAB* 500 MCG PO SCH (08:15)
[2018-04-20] MEDS ORDERED: Potassium Chlor TAB* 20 MEQ TAB.ER PO ONE (10:09)
--- NOTE | 2018-04-20 10:11 | ECHO ---
Patient: LEDA HATCH [facility] Rec#: [id number] : 1950 Date: 04/20/2018 Age: 68y Height: 175 cm / 68.9 in Weight: 103 kg / 227.0 lbs Sex: M BSA: 2.18 Room#: ICU 2 Admit Date#: 04/19/2018 Type: Inpatient Referring: Naty Aguirre NP Reading: Dirk Rollins MD Leasing Coordinator: Precious Glover RN RDCS CC: Toya Jacobson MD Transthoracic Echocardiogram Indication: CHF BP: 151/98 HR: 98 Rhythm: NSR with PACs Findings History: CAD, PCI, HTN, HLD, DM, pulmonary fibrosis, hypothyroid, former smoker. Technical Comments: The study is technically limited due to poor parasternal windows. The study is technically limited due to patient body habitus. The study is technically limited due to the patient's smoking history. Left Ventricle: The left ventricular chamber size is mildly dilated. Mild to moderate concentric left ventricular hypertrophy is observed. There is global hypokinesis of the left ventricle with minor regional variation. There is severely decreased left ventricular systolic function. The estimated ejection fraction is 25-30%. Abnormal left ventricular diastolic function is observed. Left Atrium: The left atrium is mildly dilated. Right Ventricle: The right ventricular cavity size is normal. The right ventricular global systolic function is low normal. Right Atrium: The right atrium is mildly dilated. Aortic Valve: The aortic valve leaflets are mildly thickened. There is no evidence of aortic regurgitation. There is no evidence of aortic stenosis. Mitral Valve: The mitral valve leaflets are mildly thickened. There is trace to mild mitral regurgitation. Tricuspid Valve: The tricuspid valve leaflets are normal. There is trace tricuspid regurgitation. Unable to estimate the right ventricular systolic pressure. Pulmonic Valve: The pulmonic valve structure is not well visualized. There is no evidence of pulmonic regurgitation. There is no pulmonic stenosis. Pericardium: There is no significant pericardial effusion. A pericardial fat pad is visualized. Aorta: There is mild dilatation of the ascending aorta. The aortic arch is not well visualized. There is mild dilatation of the aortic root. Pulmonary Artery: The main pulmonary artery is not well visualized. Venous: The inferior vena cava is dilated. There is a greater than 50% respiratory change in the inferior vena cava dimension. Conclusions There is severely decreased left ventricular systolic function. The estimated ejection fraction is 25-30%. There is global hypokinesis of the left ventricle with minor regional variation. The left ventricular chamber size is mildly dilated. Mild to moderate concentric left ventricular hypertrophy is observed. Abnormal left ventricular diastolic function is observed. The left atrium is mildly dilated. The right atrium is mildly dilated. Functionally benign heart valves. There is mild dilatation of the aortic root. There is mild dilatation of the ascending aorta. Since the prior echocardiogram completed 10/22/17, pertinent changes are prior normal left ventricular size and prior low normal left ventricular function reported. Measurements Name Value Normal Range RVDdMajor (2D) 4.4 cm (2.2 - 4.4) RAd ISD 4CH 5.4 cm (3.4 - 4.9) RA (A4C)W 4.2 cm (2.9 - 4.6) IVSd (2D) 1.4 cm (0.6 - 1) LVPWd (2D) 1.3 cm (0.6 - 1) LVIDd (2D) 5.6 cm (3.6 - 5.4) LVIDs (2D) 4.8 cm - LV FS (2D) 14 % (25 - 45) Aortic Annulus 2.4 cm (1.4 - 2.6) Ao root diameter (2D) 3.6 cm (2.1 - 3.5) Ascending Ao 3.6 cm (2.1 - 3.4) LA dimension (AP) 2D 3.1 cm (2.3 - 3.8) LAd ISD 4CH 5.9 cm (2.9 - 5.3) LA ISD 4CH W 4 cm (2.5 - 4.5) Name Value Normal Range LA ESV BP (A/L) index 27.8 ml/m2 - Name Value Normal Range MV E-wave Vmax 0.86 m/sec - MV deceleration time 282 msec - MV A-wave Vmax 1.3 m/sec - LV septal e' Vmax 0.05 m/sec - LV lateral e' Vmax 0.08 m/sec - LV E:e' septal ratio 17.2 ratio - LV E:e' lateral ratio 10.8 ratio - Name Value Normal Range AV Vmax 1.5 m/sec - AV VTI 26.4 cm - AV peak gradient 9 mmHg - AV mean gradient 5 mmHg - LVOT Vmax 0.92 m/sec - LVOT VTI 15.6 cm - LVOT peak gradient 3 mmHg - LVOT mean gradient 2 mmHg - Name Value Normal Range IVC diameter 2.5 cm - Name Value Normal Range PV Vmax 0.67 m/sec -
--- NOTE | 2018-04-20 10:17 | PN ---
Subjective Date of Service: 04/20/18 Interval History: patient continues to c/o of shortness of breath, worse with exertion. appears mildly short of breath at rest. Vapo on at 60%. Patient reports that he had chest tightness yesterday , no chest pain today. Denies n/v/d. c/o burning at the lion cath insertion site. reports feeling drowsy after taking flexeril this AM. Family History: Unchanged from Admission Social History: Unchanged from Admission Past Medical History: Unchanged from Admission Objective Active Medications: Acetaminophen (Tylenol Tab*) 650 mg PO Q6H PRN PRN Reason: PAIN Last Admin: 04/20/18 08:14 Dose: 650 mg Cyanocobalamin (Vitamin B12 Tab*) 1,000 mcg PO DAILY [facility] Last Admin: 04/20/18 08:15 Dose: 1,000 mcg Cyclobenzaprine HCl (Flexeril Tab*) 10 mg PO BID PRN PRN Reason: SPASMS - MUSCLE Last Admin: 04/20/18 04:51 Dose: 10 mg Dextrose (D50w Syringe 50 Ml*) 12.5 gm IV PUSH .FOR FS < 60 - SS PRN PRN Reason: FS < 60 Heparin Sodium (Porcine) (Heparin Vial(*)) 5,000 units SUBCUT Q8HR [facility] Last Admin: 04/20/18 05:27 Dose: 5,000 units Insulin Human Lispro (Humalog*) 0 units SUBCUT AC [facility]; Protocol Last Admin: 04/20/18 08:13 Dose: Not Given Levothyroxine Sodium (Synthroid Tab*) 200 mcg PO DAILY@0600 [facility] Last Admin: 04/20/18 05:26 Dose: 200 mcg Polyethylene Glycol/Electrolytes (Miralax*) 17 gm PO EVERY OTHER DAY [facility] Potassium Chloride (Klor Con Er Tab*) 40 meq PO ONCE ONE Stop: 04/20/18 10:10 Prasugrel (Effient (Nf)) 5 mg PO QPM [facility] Last Admin: 04/19/18 19:22 Dose: 5 mg Prednisone (Deltasone Tab*) 20 mg PO DAILY [facility] Last Admin: 04/20/18 08:14 Dose: 20 mg Senna (Senokot Tab*) 1 tab PO BEDTIME [facility] Last Admin: 04/19/18 21:30 Dose: 1 tab Tamsulosin HCl (Flomax Cap*) 0.4 mg PO QPM [facility] Last Admin: 04/19/18 19:22 Dose: 0.4 mg Vital Signs - 8 hr 04/20/18 04/20/18 04/20/18 02:15 02:31 02:46 Temperature Pulse Rate 97 92 103 Respiratory 19 21 16 Rate Blood Pressure 158/99 149/94 146/88 (mmHg) O2 Sat by Pulse 98 95 91 Oximetry 04/20/18 04/20/18 04/20/18 03:00 03:16 03:30 Temperature Pulse Rate 103 84 92 Respiratory 20 24 12 Rate Blood Pressure 140/94 155/107 149/100 (mmHg) O2 Sat by Pulse 94 95 96 Oximetry 04/20/18 04/20/18 04/20/18 03:45 03:52 04:00 Temperature 99 F Pulse Rate 91 93 Respiratory 23 22 Rate Blood Pressure 170/108 156/110 (mmHg) O2 Sat by Pulse 95 91 Oximetry 04/20/18 04/20/18 04/20/18 04:16 04:29 04:32 Temperature Pulse Rate 93 103 96 Respiratory 20 31 18 Rate Blood Pressure 141/95 (mmHg) O2 Sat by Pulse 94 91 91 Oximetry 04/20/18 04/20/18 04/20/18 04:45 04:53 04:58 Temperature Pulse Rate 96 94 Respiratory 19 21 16 Rate Blood Pressure 149/94 (mmHg) O2 Sat by Pulse 92 94 Oximetry 04/20/18 04/20/18 04/20/18 05:00 05:01 05:15 Temperature Pulse Rate 96 96 93 Respiratory 29 28 29 Rate Blood Pressure 147/97 157/98 (mmHg) O2 Sat by Pulse 96 95 94 Oximetry 04/20/18 04/20/18 04/20/18 05:30 05:45 06:00 Temperature Pulse Rate 95 81 91 Respiratory 29 26 28 Rate Blood Pressure 149/93 140/90 (mmHg) O2 Sat by Pulse 92 92 93 Oximetry 04/20/18 04/20/18 04/20/18 06:01 06:15 06:30 Temperature Pulse Rate 95 85 89 Respiratory 25 15 18 Rate Blood Pressure 151/98 142/93 (mmHg) O2 Sat by Pulse 93 92 92 Oximetry 04/20/18 04/20/18 04/20/18 06:45 07:00 07:01 Temperature Pulse Rate 98 94 96 Respiratory 16 19 Rate Blood Pressure 150/93 145/90 (mmHg) O2 Sat by Pulse 89 91 92 Oximetry 04/20/18 04/20/18 04/20/18 07:15 07:30 07:45 Temperature Pulse Rate 98 92 98 Respiratory 27 Rate Blood Pressure 143/89 142/105 146/93 (mmHg) O2 Sat by Pulse 93 92 95 Oximetry 04/20/18 04/20/18 04/20/18 08:00 08:01 08:15 Temperature 100.3 F Pulse Rate 100 100 94 Respiratory 32 19 Rate Blood Pressure 144/108 145/86 (mmHg) O2 Sat by Pulse 92 93 91 Oximetry 04/20/18 04/20/18 04/20/18 08:30 08:45 09:00 Temperature Pulse Rate 86 92 110 Respiratory 27 24 22 Rate Blood Pressure 117/74 121/81 (mmHg) O2 Sat by Pulse 90 92 90 Oximetry 04/20/18 04/20/18 04/20/18 09:01 09:04 09:17 Temperature Pulse Rate 105 103 96 Respiratory 18 19 26 Rate Blood Pressure 143/81 128/83 (mmHg) O2 Sat by Pulse 91 88 93 Oximetry 04/20/18 04/20/18 09:30 09:45 Temperature Pulse Rate 96 89 Respiratory 25 26 Rate Blood Pressure 131/79 120/72 (mmHg) O2 Sat by Pulse 93 94 Oximetry Oxygen Devices in Use Now: High Flow Heated Nasal Cannula Appearance: appears fatigued , mild respiratory distress at rest Ears/Nose/Mouth/Throat: NL Teeth, Lips, Gums, Mucous Membranes Moist Neck: Trachea Midline Respiratory: Symmetrical Chest Expansion and Respiratory Effort, - - diminshed with crackles in the bases bilat Cardiovascular: NL Sounds; No Murmurs; No JVD, - - +2 pitting edema in bilat legs Abdominal: NL Sounds; No Tenderness; No Distention Extremities: No Clubbing, Cyanosis, - - +2 pitting edema bilat lower legs Skin: No Rash or Ulcers Neurological: Alert and Oriented x 3 Lines/Tubes/Other Access: Clean, Dry and Intact Lion - patent clear light yellow urine Nutrition: Taking PO's Result Diagrams: 04/19/18 12:00 04/20/18 05:37 Microbiology and Other Data: Microbiology 04/19/18 17:40 Nasal Screen MRSA (PCR) - Final Nasal Mrsa Not Detected Assess/Plan/Problems-Billing Assessment: Mr. Correa is a 68 y.o male with hx of dm-2 , htn, hld, chronic hypoxic respiratory failure hypothyroid who presented to the ER with increased shortness of breath for 4 weeks and lower extremity leg swelling. Admitted for diastolic chf exacerbation. - Patient Problems (1) Acute and chronic respiratory failure with hypoxia Current Visit: Yes Status: Acute Code(s): J96.21 - ACUTE AND CHRONIC RESPIRATORY FAILURE WITH HYPOXIA SNOMED Code(s): 33447879 Comment: Suspect this could be related to underlying diastolic CHF - Will continue with bumex- monitor bun/creatinine , potassium and magnesium - strict i/o's, daily weights (2) Diastolic CHF Current Visit: Yes Status: Acute Code(s): I50.30 - UNSPECIFIED DIASTOLIC ( CONGESTIVE) HEART FAILURE SNOMED Code(s): 981615740 Comment: - Echo today showed EF of 25- 30% , global hypokinesis of the left ventricle - seen by Dr. jackson in consult - recommended cardiac cath, order placed at Dr. jackson request - will make NPO after Midnight (3) HTN (hypertension) Current Visit: No Status: Chronic Priority: Low Code(s): I10 - ESSENTIAL ( PRIMARY) HYPERTENSION SNOMED Code(s): 86337979 Comment: - normotensive - will contiue to hol d BP medication while diuresing. - will monitor blood pressure closely and resume BP medications when able (4) Diabetes Current Visit: No Status: Chronic Code(s): E11.9 - TYPE 2 DIABETES MELLITUS WITHOUT COMPLICATIONS SNOMED Code(s): 75555768 Comment: - Lispro SS, BG stable (5) HLD (hyperlipidemia) Current Visit: No Status: Chronic Priority: Low Code(s): E78.5 - HYPERLIPIDEMIA, UNSPECIFIED SNOMED Code(s): 49953727 Comment: - Continue statin (6) Hypothyroidism Current Visit: No Status: Chronic Code(s): E03.9 - HYPOTHYROIDISM, UNSPECIFIED SNOMED Code(s): 10618559 Comment: - Continue levothyroxine (7) DVT prophylaxis Current Visit: No Status: Acute Code(s): RNH5100 - SNOMED Code(s): 995460748 Comment: - HSQ Status and Disposition: remain in ICU on vapotherm today
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
[2018-04-20] MEDS: PRASUGREL 5 MG PO SCH (16:56)
[2018-04-20] MEDS: Tamsulosin CAP* 0.4 MG PO SCH (16:56)
[2018-04-20] MEDS: Melatonin 3 MG TAB PO PRN (20:58)
[2018-04-20] MEDS: Senna TAB PO SCH (20:58)
[2018-04-20] MEDS ORDERED: Furosemide IV* 10 MG/ML VIAL (40 MG) IV ONE (21:33)
[2018-04-21] MEDS: Levothyroxine TAB* 100 MCG TAB PO SCH (05:37)
[2018-04-21 05:50] LABS: ABS Basophils 0 10^3/ul (0-0.2); ABS Eosinophils 0.2 10^3/ul (0-0.6); ABS Lymphocytes 1.4 10^3/ul (1.0-4.8); ABS Monocytes 0.6 10^3/ul (0-0.8); ABS Neutrophils 7.9 10^3/ul (1.5-7.7); ABS Nucleated RBC 0 10^3/ul; Eosinophil % 2.1 %; Hematocrit 41 % (42-52); Hemoglobin 13.6 g/dl (14.0-18.0); Lymphocyte % 13.8 %; Mean Corpuscular HGB Conc 33 g/dl (31-36); Mean Corpuscular Hemoglobin 30 pg (27-31); Mean Corpuscular Volume 91 fL (80-94); Mean Platelet Volume 7.1 fL (7.4-10.4); Nucleated Red Blood Cells % 0; Platelet Count 218 10^3/ul (150-450); Red Blood Count 4.55 10^6/ul (4.00-5.40); Red Cell Distribution Width 16 % (10.5-15); White Blood Count 10.2 10^3/ul (3.5-10.8)
[2018-04-21 06:16] LABS: BUN/Creatinine Ratio 19.3 (8-20); Calcium 8.8 mg/dL (8.6-10.3); EGFR Non-African American 85.6 (>60); Magnesium 2.3 mg/dL (1.9-2.7); Potassium 3.7 mmol/L (3.5-5.0)
[2018-04-21] MEDS ORDERED: NS 0.9% 1000 ML* 1,000 ML IV SCH (07:00)
[2018-04-21] MEDS: Insulin LISPRO* 1 UNITS UNIT SUBCUT SCH ×3 (08:06→17:21)
[2018-04-21] MEDS ORDERED: amLODIPine TAB* 5 MG PO SCH (09:00)
--- NOTE | 2018-04-21 09:12 | PN ---
Subjective Date of Service: 04/21/18 Interval History: Patient continues to have increased o2 requirement. Currently on 60% high flow 02. O2 saturations 88-90%. shortness of breath with minimal exertion denies chest pain. denies abd pain n/v/d. Family History: Unchanged from Admission Social History: Unchanged from Admission Past Medical History: Unchanged from Admission Objective Active Medications: Acetaminophen (Tylenol Tab*) 650 mg PO Q6H PRN PRN Reason: PAIN Last Admin: 04/20/18 20:58 Dose: 650 mg Bumetanide (Bumex*) 2 mg SLOW PUSH ONCE [facility] Cyanocobalamin (Vitamin B12 Tab*) 1,000 mcg PO DAILY [facility] Last Admin: 04/20/18 08:15 Dose: 1,000 mcg Cyclobenzaprine HCl (Flexeril Tab*) 10 mg PO BID PRN PRN Reason: SPASMS - MUSCLE Last Admin: 04/20/18 04:51 Dose: 10 mg Dextrose (D50w Syringe 50 Ml*) 12.5 gm IV PUSH .FOR FS < 60 - SS PRN PRN Reason: FS < 60 Sodium Chloride (Ns 0.9% 1000 Ml*) 1,000 mls @ 100 mls/hr IV .per rate [facility] Insulin Human Lispro (Humalog*) 0 units SUBCUT [facility]; Protocol Last Admin: 04/21/18 08:06 Dose: Not Given Levothyroxine Sodium (Synthroid Tab*) 200 mcg PO DAILY@0600 [facility] Last Admin: 04/21/18 05:37 Dose: 200 mcg Melatonin (Melatonin) 3 mg PO BEDTIME PRN PRN Reason: INSOMNIA Last Admin: 04/20/18 20:58 Dose: 3 mg Polyethylene Glycol/Electrolytes (Miralax*) 17 gm PO EVERY OTHER DAY [facility] Prasugrel (Effient (Nf)) 5 mg PO QPM [facility] Last Admin: 04/20/18 16:56 Dose: 5 mg Prednisone (Deltasone Tab*) 40 mg PO DAILY [facility] Senna (Senokot Tab*) 1 tab PO BEDTIME [facility] Last Admin: 04/20/18 20:58 Dose: 1 tab Tamsulosin HCl (Flomax Cap*) 0.4 mg PO QPM [facility] Last Admin: 04/20/18 16:56 Dose: 0.4 mg Vital Signs - 8 hr 04/21/18 04/21/1818 02:00 03:00 04:00 Temperature 97.3 F Pulse Rate 83 79 79 Respiratory 20 22 19 Rate Blood Pressure 128/71 129/80 136/101 (mmHg) O2 Sat by Pulse 90 93 90 Oximetry 04/21/18 04/21/18 04/21/18 05:00 05:59 06:00 Temperature Pulse Rate 84 82 Respiratory 22 27 25 Rate Blood Pressure 146/91 140/94 (mmHg) O2 Sat by Pulse 94 92 Oximetry 04/21/18 04/21/18 07:00 08:00 Temperature 98.5 F Pulse Rate 90 83 Respiratory 25 22 Rate Blood Pressure 144/92 (mmHg) O2 Sat by Pulse 93 90 Oximetry Oxygen Devices in Use Now: High Flow Heated Nasal Cannula Appearance: alert and oriented x 3 , mild respiratory distress at rest Eyes: No Scleral Icterus Ears/Nose/Mouth/Throat: Clear Oropharnyx, Mucous Membranes Moist Neck: NL Appearance and Movements; NL JVP, Trachea Midline Respiratory: Symmetrical Chest Expansion and Respiratory Effort, - - crackles up 1/2 bilat with rales in the bases bilat Cardiovascular: - - +1 pitting edema to bilat lower legs Abdominal: NL Sounds; No Tenderness; No Distention Extremities: No Edema, No Clubbing, Cyanosis Skin: No Rash or Ulcers Neurological: Alert and Oriented x 3 Nutrition: Taking PO's Result Diagrams: 04/21/18 05:36 04/21/18 05:36 Microbiology and Other Data: Microbiology 04/19/18 17:40 Nasal Screen MRSA (PCR) - Final Nasal Mrsa Not Detected Assess/Plan/Problems-Billing Assessment: Mr. Correa is a 68 y.o male with hx of dm-2 , htn, hld, chronic hypoxic respiratory failure hypothyroid who presented to the ER with increased shortness of breath for 4 weeks and lower extremity leg swelling. Admitted for diastolic chf exacerbation. - Patient Problems (1) Acute and chronic respiratory failure with hypoxia Current Visit: Yes Status: Acute Code(s): J96.21 - ACUTE AND CHRONIC RESPIRATORY FAILURE WITH HYPOXIA SNOMED Code(s): 89019630 Comment: Suspect this could be related to underlying diastolic CHF - Will continue with bumex- ordered 1 dose today , will reassess volume status in the AM - monitor bun/creatinine , potassium and magnesium - strict i/o's, daily weights (2) Diastolic CHF Current Visit: Yes Status: Acute Code(s): I50.30 - UNSPECIFIED DIASTOLIC ( CONGESTIVE) HEART FAILURE SNOMED Code(s): 141551519 Comment: - Echo today showed EF of 25- 30% , global hypokinesis of the left ventricle - seen by Dr. jackson in consult - recommended cardiac cath- breathing poor today - decreased o2 saturation with minimal movement add ARB - valsartan , continue bumex (3) Pulmonary fibrosis Current Visit: No Status: Chronic Code(s): J84.10 - PULMONARY FIBROSIS, UNSPECIFIED SNOMED Code(s): 68345733 Comment: - Intermittent tachypnea,much worse with excertion, continue O2 support -will increase prednisone to 40 mg today - continues to require high flow o2 60% for oxygen support. - if patient continues to show minimal improvement - will consider consultation to Dr. Vasquez (4) HTN (hypertension) Current Visit: No Status: Chronic Priority: Low Code(s): I10 - ESSENTIAL ( PRIMARY) HYPERTENSION SNOMED Code(s): 98205845 Comment: - normotensive - will contiue to hold BP medication while diuresing. - will monitor blood pressure closely and resume BP medications when able - valsartan added today (5) Diabetes Current Visit: No Status: Chronic Code(s): E11.9 - TYPE 2 DIABETES MELLITUS WITHOUT COMPLICATIONS SNOMED Code(s): 52280471 Comment: - Lispro SS, BG stable (6) HLD (hyperlipidemia) Current Visit: No Status: Chronic Priority: Low Code(s): E78.5 - HYPERLIPIDEMIA, UNSPECIFIED SNOMED Code(s): 60982641 Comment: - Continue statin (7) Hypothyroidism Current Visit: No Status: Chronic Code(s): E03.9 - HYPOTHYROIDISM, UNSPECIFIED SNOMED Code(s): 23012043 Comment: - Continue levothyroxine (8) DVT prophylaxis Current Visit: No Status: Acute Code(s): RUX2911 - SNOMED Code(s): 197942812 Comment: - HSQ Status and Disposition: remain in ICU on vapotherm today
[2018-04-21] MEDS ORDERED: Potassium Chlor TAB* 10 MEQ TAB.ER PO ONE (09:15)
[2018-04-21] MEDS ORDERED: Bumetanide IV* 0.25 MG/ML 4 ML VIAL SLOW PUSH SCH (10:00)
[2018-04-21] MEDS: predniSONE TAB* 20 MG PO SCH ×2 (10:54→12:33)
[2018-04-21] MEDS: Cyanocobalamin TAB* 500 MCG PO SCH (10:54)
[2018-04-21] MEDS: Polyethylene Glycol 3350* 17 GM PACKET PO SCH (10:55)
[2018-04-21] MEDS: Valsartan TAB* 80 MG PO SCH (11:30)
[2018-04-21] MEDS: Acetaminophen TAB* 325 MG PO PRN ×2 (11:30→21:19)
[2018-04-21] MEDS: Heparin VIAL(*) 5000 UNITS/ML VIAL (FIVE THOUSAND) SUBCUT SCH ×2 (14:18→21:14)
[2018-04-21] MEDS ORDERED: Bumetanide IV* 0.25 MG/ML 4 ML VIAL SLOW PUSH ONE (15:15)
[2018-04-21] MEDS: PRASUGREL 5 MG PO SCH (17:22)
[2018-04-21] MEDS: Tamsulosin CAP* 0.4 MG PO SCH (17:22)
[2018-04-21] MEDS: Melatonin 3 MG TAB PO PRN (21:14)
[2018-04-21] MEDS: Senna TAB PO SCH (21:14)
[2018-04-22 05:11] LABS: BUN/Creatinine Ratio 26.5 (8-20); Calcium 8.7 mg/dL (8.6-10.3); EGFR Non-African American 91.6 (>60); Magnesium 2.3 mg/dL (1.9-2.7); Potassium 3.9 mmol/L (3.5-5.0)
[2018-04-22] MEDS: Heparin VIAL(*) 5000 UNITS/ML VIAL (FIVE THOUSAND) SUBCUT SCH ×3 (05:32→20:55)
[2018-04-22] MEDS: Levothyroxine TAB* 100 MCG TAB PO SCH (05:33)
[2018-04-22] MEDS: Cyanocobalamin TAB* 500 MCG PO SCH (09:12)
[2018-04-22] MEDS: Valsartan TAB* 80 MG PO SCH (09:12)
[2018-04-22] MEDS: predniSONE TAB* 20 MG PO SCH (09:12)
[2018-04-22] MEDS: Insulin LISPRO* 1 UNITS UNIT SUBCUT SCH ×3 (09:45→18:15)
[2018-04-22] MEDS: Acetaminophen TAB* 325 MG PO PRN (11:40)
[2018-04-22] MEDS ORDERED: Bumetanide IV* 0.25 MG/ML 4 ML VIAL SLOW PUSH ONE (11:55)
--- NOTE | 2018-04-22 12:00 | PN ---
Subjective Date of Service: 04/22/18 Interval History: reports breathing is a little better today. remains short of breath with exertion. reports brief episode of difficulty breathing during the night but has resolved. High flow 02 decreased to 50% today denies abd pain n/v/d denies fever Family History: Unchanged from Admission Social History: Unchanged from Admission Past Medical History: Unchanged from Admission Objective Active Medications: Acetaminophen (Tylenol Tab*) 650 mg PO Q6H PRN PRN Reason: PAIN Last Admin: 04/22/18 11:40 Dose: 650 mg Cyanocobalamin (Vitamin B12 Tab*) 1,000 mcg PO DAILY [facility] Last Admin: 04/22/18 09:12 Dose: 1,000 mcg Cyclobenzaprine HCl (Flexeril Tab*) 10 mg PO BID PRN PRN Reason: SPASMS - MUSCLE Last Admin: 04/20/18 04:51 Dose: 10 mg Dextrose (D50w Syringe 50 Ml*) 12.5 gm IV PUSH .FOR FS < 60 - SS PRN PRN Reason: FS < 60 Heparin Sodium (Porcine) (Heparin Vial(*)) 5,000 units SUBCUT Q8HR [facility] Last Admin: 04/22/18 05:32 Dose: 5,000 units Sodium Chloride (Ns 0.9% 1000 Ml*) 1,000 mls @ 100 mls/hr IV .per rate [facility] Insulin Human Lispro (Humalog*) 0 units SUBCUT [facility]; Protocol Last Admin: 04/22/18 09:45 Dose: 3 units Levothyroxine Sodium (Synthroid Tab*) 200 mcg PO DAILY@0600 [facility] Last Admin: 04/22/18 05:33 Dose: 200 mcg Melatonin (Melatonin) 3 mg PO BEDTIME PRN PRN Reason: INSOMNIA Last Admin: 04/21/18 21:14 Dose: 3 mg Polyethylene Glycol/Electrolytes (Miralax*) 17 gm PO EVERY OTHER DAY [facility] Last Admin: 04/21/18 10:55 Dose: Not Given Prasugrel (Effient (Nf)) 5 mg PO QPM [facility] Last Admin: 04/21/18 17:22 Dose: 5 mg Prednisone (Deltasone Tab*) 40 mg PO DAILY [facility] Last Admin: 04/22/18 09:12 Dose: 40 mg Senna (Senokot Tab*) 1 tab PO BEDTIME [facility] Last Admin: 04/21/18 21:14 Dose: 1 tab Tamsulosin HCl (Flomax Cap*) 0.4 mg PO QPM [facility] Last Admin: 04/21/18 17:22 Dose: 0.4 mg Valsartan (Diovan Tab*) 80 mg PO DAILY [facility] Last Admin: 04/22/18 09:12 Dose: 80 mg Vital Signs - 8 hr 04/22/18 04/22/18 04/22/18 04:00 05:00 06:00 Temperature Pulse Rate 79 72 75 Respiratory 20 21 12 Rate Blood Pressure 139/93 128/88 117/81 (mmHg) O2 Sat by Pulse 91 96 96 Oximetry 04/22/18 04/22/18 04/22/18 07:00 08:00 08:01 Temperature 97.8 F Pulse Rate 92 76 76 Respiratory 13 12 24 Rate Blood Pressure 141/92 141/97 (mmHg) O2 Sat by Pulse 87 91 93 Oximetry 04/22/18 04/22/18 04/22/18 09:00 10:00 10:01 Temperature Pulse Rate 85 100 90 Respiratory 25 24 26 Rate Blood Pressure 148/109 137/81 (mmHg) O2 Sat by Pulse 92 93 93 Oximetry 04/22/18 04/22/18 04/22/18 11:00 11:01 11:42 Temperature 97.5 F Pulse Rate 94 94 Respiratory 14 19 Rate Blood Pressure 125/82 (mmHg) O2 Sat by Pulse 92 94 Oximetry Oxygen Devices in Use Now: None, High Flow Heated Nasal Cannula Appearance: appears comfortable sitting in the chair, continues to have mild tachypnea Eyes: No Scleral Icterus Ears/Nose/Mouth/Throat: Clear Oropharnyx, Mucous Membranes Moist Neck: NL Appearance and Movements; NL JVP, Trachea Midline Respiratory: Symmetrical Chest Expansion and Respiratory Effort, Clear to Auscultation Cardiovascular: NL Sounds; No Murmurs; No JVD, No Edema Abdominal: NL Sounds; No Tenderness; No Distention Extremities: No Edema, No Clubbing, Cyanosis Skin: No Rash or Ulcers Neurological: Alert and Oriented x 3 Nutrition: Taking PO's Result Diagrams: 04/23/18 05:48 04/23/18 05:48 Microbiology and Other Data: Microbiology 04/19/18 17:40 Nasal Screen MRSA (PCR) - Final Nasal Mrsa Not Detected Assess/Plan/Problems-Billing Assessment: Mr. Correa is a 68 y.o male with hx of dm-2 , htn, hld, chronic hypoxic respiratory failure hypothyroid who presented to the ER with increased shortness of breath for 4 weeks and lower extremity leg swelling. Admitted for diastolic chf exacerbation. - Patient Problems (1) Acute and chronic respiratory failure with hypoxia Current Visit: Yes Status: Acute Code(s): J96.21 - ACUTE AND CHRONIC RESPIRATORY FAILURE WITH HYPOXIA SNOMED Code(s): 42666868 Comment: slight improvement today Suspect this could be related to underlying diastolic CHF complicated by pulmoary fibrosis - Will continue with bumex- ordered 1 dose for today - will reassess volume status daily - will continue prednisone at 40mg - monitor bun/creatinine , potassium and magnesium - strict i/o's, daily weights (2) Diastolic CHF Current Visit: Yes Status: Acute Code(s): I50.30 - UNSPECIFIED DIASTOLIC ( CONGESTIVE) HEART FAILURE SNOMED Code(s): 986199063 Comment: - Echo today showed EF of 25- 30% , global hypokinesis of the left ventricle - seen by Dr. jackson in consult - recommended cardiac cath- breathing poor today - decreased o2 saturations with minimal movement, unable to lay flat continue ARB - valsartan , continue bumex with reasseassment daily (3) Pulmonary fibrosis Current Visit: No Status: Chronic Code(s): J84.10 - PULMONARY FIBROSIS, UNSPECIFIED SNOMED Code(s): 44156445 Comment: - Intermittent tachypnea,much worse with excertion, continue O2 support -will continue prednisone to 40 mg today - continues to require high flow o2 able to decrease to 50% oxygen support today. - if patient continues to show minimal improvement - will consider consultation to Dr. Vasquez (4) HTN (hypertension) Current Visit: No Status: Chronic Priority: Low Code(s): I10 - ESSENTIAL ( PRIMARY) HYPERTENSION SNOMED Code(s): 56481591 Comment: - normotensive - will contiue to hold BP medication while diuresing. - will monitor blood pressure closely and resume BP medications when able - valsartan added today (5) Diabetes Current Visit: No Status: Chronic Code(s): E11.9 - TYPE 2 DIABETES MELLITUS WITHOUT COMPLICATIONS SNOMED Code(s): 15436334 Comment: - Lispro SS, finger sticks AC - suspect the mild elevation is related to increase of steriods (6) HLD (hyperlipidemia) Current Visit: No Status: Chronic Priority: Low Code(s): E78.5 - HYPERLIPIDEMIA, UNSPECIFIED SNOMED Code(s): 41930690 Comment: - Continue statin (7) Hypothyroidism Current Visit: No Status: Chronic Code(s): E03.9 - HYPOTHYROIDISM, UNSPECIFIED SNOMED Code(s): 45798997 Comment: - Continue levothyroxine (8) DVT prophylaxis Current Visit: No Status: Acute Code(s): QLW9870 - SNOMED Code(s): 979582724 Comment: - HSQ Status and Disposition: remain in ICU on vapotherm today
[2018-04-22] MEDS: Tamsulosin CAP* 0.4 MG PO SCH (18:15)
[2018-04-22] MEDS: PRASUGREL 5 MG PO SCH (18:15)
[2018-04-22] MEDS: Melatonin 3 MG TAB PO PRN (20:56)
[2018-04-22] MEDS: Senna TAB PO SCH (20:56)
[2018-04-23] MEDS: Levothyroxine TAB* 100 MCG TAB PO SCH (05:42)
[2018-04-23] MEDS: Heparin VIAL(*) 5000 UNITS/ML VIAL (FIVE THOUSAND) SUBCUT SCH ×3 (05:42→21:19)
[2018-04-23 06:09] LABS: Hematocrit 40 % (42-52); Hemoglobin 13.1 g/dl (14.0-18.0); Mean Corpuscular HGB Conc 33 g/dl (31-36); Mean Corpuscular Hemoglobin 30 pg (27-31); Mean Corpuscular Volume 91 fL (80-94); Mean Platelet Volume 7.3 fL (7.4-10.4); Platelet Count 254 10^3/ul (150-450); Red Blood Count 4.44 10^6/ul (4.00-5.40); Red Cell Distribution Width 16 % (10.5-15); White Blood Count 9.4 10^3/ul (3.5-10.8)
[2018-04-23 07:27] LABS: Calcium 8.7 mg/dL (8.6-10.3); Potassium 3.7 mmol/L (3.5-5.0)
[2018-04-23 07:33] LABS: BUN/Creatinine Ratio 27.1 (8-20); EGFR Non-African American 89.1 (>60)
[2018-04-23] MEDS: Insulin LISPRO* 1 UNITS UNIT SUBCUT SCH ×5 (07:58→17:38)
[2018-04-23] MEDS: Cyanocobalamin TAB* 500 MCG PO SCH (08:57)
[2018-04-23] MEDS: Valsartan TAB* 80 MG PO SCH (08:57)
[2018-04-23] MEDS: predniSONE TAB* 20 MG PO SCH (08:57)
[2018-04-23] MEDS: Acetaminophen TAB* 325 MG PO PRN (09:07)
[2018-04-23] MEDS: Polyethylene Glycol 3350* 17 GM PACKET PO SCH (09:12)
--- NOTE | 2018-04-23 09:17 | PN ---
Subjective Date of Service: 04/23/18 Interval History: Patient reports that breathing is improving slightly. Patient remains on high flow 02 at 50%. Denies chest pain, does have increased shortness of breath with exertion. denies abd pain n/v/d. Family History: Unchanged from Admission Social History: Unchanged from Admission Past Medical History: Unchanged from Admission Objective Active Medications: Acetaminophen (Tylenol Tab*) 650 mg PO Q6H PRN PRN Reason: PAIN Last Admin: 04/23/18 09:07 Dose: 650 mg Cyanocobalamin (Vitamin B12 Tab*) 1,000 mcg PO DAILY [facility] Last Admin: 04/23/18 08:57 Dose: 1,000 mcg Cyclobenzaprine HCl (Flexeril Tab*) 10 mg PO BID PRN PRN Reason: SPASMS - MUSCLE Last Admin: 04/20/18 04:51 Dose: 10 mg Dextrose (D50w Syringe 50 Ml*) 12.5 gm IV PUSH .FOR FS < 60 - SS PRN PRN Reason: FS < 60 Heparin Sodium (Porcine) (Heparin Vial(*)) 5,000 units SUBCUT Q8HR [facility] Last Admin: 04/23/18 05:42 Dose: 5,000 units Sodium Chloride (Ns 0.9% 1000 Ml*) 1,000 mls @ 100 mls/hr IV .per rate [facility] Insulin Human Lispro (Humalog*) 0 units SUBCUT [facility]; Protocol Last Admin: 04/23/18 07:58 Dose: Not Given Levothyroxine Sodium (Synthroid Tab*) 200 mcg PO DAILY@0600 [facility] Last Admin: 04/23/18 05:42 Dose: 200 mcg Melatonin (Melatonin) 3 mg PO BEDTIME PRN PRN Reason: INSOMNIA Last Admin: 04/22/18 20:56 Dose: 3 mg Polyethylene Glycol/Electrolytes (Miralax*) 17 gm PO EVERY OTHER DAY [facility] Last Admin: 04/21/18 10:55 Dose: Not Given Prasugrel (Effient (Nf)) 5 mg PO QPM [facility] Last Admin: 04/22/18 18:15 Dose: 5 mg Prednisone (Deltasone Tab*) 40 mg PO DAILY [facility] Last Admin: 04/23/18 08:57 Dose: 40 mg Senna (Senokot Tab*) 1 tab PO BEDTIME [facility] Last Admin: 04/22/18 20:56 Dose: 1 tab Tamsulosin HCl (Flomax Cap*) 0.4 mg PO QPM [facility] Last Admin: 04/22/18 18:15 Dose: 0.4 mg Valsartan (Diovan Tab*) 80 mg PO DAILY [facility] Last Admin: 04/23/18 08:57 Dose: 80 mg Vital Signs - 8 hr 04/23/18 04/23/18 04/23/18 01:54 02:00 03:00 Temperature Pulse Rate 93 76 Respiratory 22 30 21 Rate Blood Pressure 136/97 139/95 (mmHg) O2 Sat by Pulse 98 96 Oximetry 04/23/18 04/23/18 04/23/18 03:21 04:00 05:00 Temperature 98.3 F Pulse Rate 75 80 Respiratory 21 24 Rate Blood Pressure 118/80 123/86 (mmHg) O2 Sat by Pulse 94 93 Oximetry 04/23/18 04/23/18 04/23/18 05:01 06:00 07:00 Temperature Pulse Rate 74 77 73 Respiratory 21 14 21 Rate Blood Pressure 136/87 136/94 (mmHg) O2 Sat by Pulse 95 95 95 Oximetry 04/23/18 04/23/18 04/23/18 07:47 07:59 08:00 Temperature 97.8 F Pulse Rate 83 Respiratory 20 24 Rate Blood Pressure (mmHg) O2 Sat by Pulse 93 Oximetry 04/23/18 04/23/18 08:01 09:00 Temperature Pulse Rate 77 84 Respiratory 12 18 Rate Blood Pressure 135/98 143/99 (mmHg) O2 Sat by Pulse 95 96 Oximetry Oxygen Devices in Use Now: None, High Flow Heated Nasal Cannula Appearance: appears comfortable resting in bed, no acute distress. Eyes: No Scleral Icterus Ears/Nose/Mouth/Throat: Clear Oropharnyx, Mucous Membranes Moist Neck: NL Appearance and Movements; NL JVP, Trachea Midline Respiratory: Symmetrical Chest Expansion and Respiratory Effort, - - fine dry crackles in the bases bilat, scattered exp wheezing bilat Cardiovascular: NL Sounds; No Murmurs; No JVD, No Edema Abdominal: NL Sounds; No Tenderness; No Distention Extremities: No Edema, No Clubbing, Cyanosis Skin: No Rash or Ulcers Neurological: Alert and Oriented x 3 Nutrition: Taking PO's Result Diagrams: 04/23/18 05:48 04/23/18 05:48 Microbiology and Other Data: Microbiology 04/19/18 17:40 Nasal Screen MRSA (PCR) - Final Nasal Mrsa Not Detected Assess/Plan/Problems-Billing Assessment: Mr. Correa is a 68 y.o male with hx of dm-2 , htn, hld, chronic hypoxic respiratory failure hypothyroid who presented to the ER with increased shortness of breath for 4 weeks and lower extremity leg swelling. Admitted for diastolic chf exacerbation. - Patient Problems (1) Acute and chronic respiratory failure with hypoxia Current Visit: Yes Status: Acute Code(s): J96.21 - ACUTE AND CHRONIC RESPIRATORY FAILURE WITH HYPOXIA SNOMED Code(s): 99818673 Comment: continues to show some slow improvement Suspect this could be related to underlying diastolic CHF complicated by pulmoary fibrosis - will reassess volume status daily- will hold bumex today and resume tomorrow as per cardiology recomendations - will continue prednisone at 40mg - monitor labs - strict i/o's, daily weights (2) Diastolic CHF Current Visit: Yes Status: Acute Code(s): I50.30 - UNSPECIFIED DIASTOLIC ( CONGESTIVE) HEART FAILURE SNOMED Code(s): 916666350 Comment: - Echo today showed EF of 25- 30% , global hypokinesis of the left ventricle - seen by Dr. jackson in consult - recommended cardiac cath- breathing better today - will go for heart cath today - reports of decreased o2 saturations exertion movement - unable to lay flat - continue ARB - valsartan - continue bumex with re-evaluate daily - holding today d/t cath - will resume bumex tomorrow - confirmed with patient that he has facial swelling with aldactone and hctz- reports this occurred on 2 different occasions per the . so i believe that the patient does have a true allergy to aldactone - will check with pulmonology in regards to beta cony (3) Pulmonary fibrosis Current Visit: No Status: Chronic Code(s): J84.10 - PULMONARY FIBROSIS, UNSPECIFIED SNOMED Code(s): 76422885 Comment: - continues to have intermittent tachypnea, much worse with excertion, continue O2 support - will wean -will continue prednisone to 40 mg - decrease 30mg tomorrow - continues to require high flow o2 able remains at 50% oxygen support - will consult Dr. Vasquez (4) HTN (hypertension) Current Visit: No Status: Chronic Priority: Low Code(s): I10 - ESSENTIAL ( PRIMARY) HYPERTENSION SNOMED Code(s): 17700965 Comment: - normotensive - will monitor blood pressure closely and resume BP medications when able - valsartan continued tolerating well (5) Diabetes Current Visit: No Status: Chronic Code(s): E11.9 - TYPE 2 DIABETES MELLITUS WITHOUT COMPLICATIONS SNOMED Code(s): 34821864 Comment: - Lispro SS, finger sticks AC - suspect the mild elevation is related to increase of steriods (6) HLD (hyperlipidemia) Current Visit: No Status: Chronic Priority: Low Code(s): E78.5 - HYPERLIPIDEMIA, UNSPECIFIED SNOMED Code(s): 63341957 Comment: - Continue statin (7) Hypothyroidism Current Visit: No Status: Chronic Code(s): E03.9 - HYPOTHYROIDISM, UNSPECIFIED SNOMED Code(s): 08767657 Comment: - Continue levothyroxine (8) DVT prophylaxis Current Visit: No Status: Acute Code(s): PGW8342 - SNOMED Code(s): 117762549 Comment: - HSQ Status and Disposition: remain in ICU on vapotherm today
--- NOTE | 2018-04-23 09:43 | PN ---
Subjective Date of Service: 04/23/18 - CC: SOB Interval History: Breathing is at baseline, per patient he slept with one pillow, nearly flat last evening. Not sleeping well, but due to being in the hospital, denies orthopnea or PND. No chest pain, dizziness or other problems per patient. DNR status discussed re: planned cardiac catheterization. The patient expressed his desire for full code other than intubation/CPAP being documented as on a trial basis. Medications Active Medications: Acetaminophen (Tylenol Tab*) 650 mg PO Q6H PRN PRN Reason: PAIN Last Admin: 04/23/18 09:07 Dose: 650 mg Cyanocobalamin (Vitamin B12 Tab*) 1,000 mcg PO DAILY [facility] Last Admin: 04/23/18 08:57 Dose: 1,000 mcg Cyclobenzaprine HCl (Flexeril Tab*) 10 mg PO BID PRN PRN Reason: SPASMS - MUSCLE Last Admin: 04/20/18 04:51 Dose: 10 mg Dextrose (D50w Syringe 50 Ml*) 12.5 gm IV PUSH .FOR FS < 60 - SS PRN PRN Reason: FS < 60 Heparin Sodium (Porcine) (Heparin Vial(*)) 5,000 units SUBCUT Q8HR [facility] Last Admin: 04/23/18 05:42 Dose: 5,000 units Sodium Chloride (Ns 0.9% 1000 Ml*) 1,000 mls @ 100 mls/hr IV .per rate [facility] Insulin Human Lispro (Humalog*) 0 units SUBCUT [facility]; Protocol Last Admin: 04/23/18 07:58 Dose: Not Given Levothyroxine Sodium (Synthroid Tab*) 200 mcg PO DAILY@0600 [facility] Last Admin: 04/23/18 05:42 Dose: 200 mcg Melatonin (Melatonin) 3 mg PO BEDTIME PRN PRN Reason: INSOMNIA Last Admin: 04/22/18 20:56 Dose: 3 mg Polyethylene Glycol/Electrolytes (Miralax*) 17 gm PO EVERY OTHER DAY [facility] Last Admin: 04/23/18 09:12 Dose: Not Given Prasugrel (Effient (Nf)) 5 mg PO QPM [facility] Last Admin: 04/22/18 18:15 Dose: 5 mg Prednisone (Deltasone Tab*) 40 mg PO DAILY [facility] Last Admin: 04/23/18 08:57 Dose: 40 mg Senna (Senokot Tab*) 1 tab PO BEDTIME [facility] Last Admin: 04/22/18 20:56 Dose: 1 tab Tamsulosin HCl (Flomax Cap*) 0.4 mg PO QPM [facility] Last Admin: 04/22/18 18:15 Dose: 0.4 mg Valsartan (Diovan Tab*) 80 mg PO DAILY [facility] Last Admin: 04/23/18 08:57 Dose: 80 mg Objective Vital Signs: Temp Pulse Resp BP Pulse Ox 97.8 F 84 18 143/99 96 04/23/18 07:47 04/23/18 09:00 04/23/18 09:00 04/23/18 09:00 04/23/18 09:00 Oxygen Devices in Use Now: None, High Flow Heated Nasal Cannula Appearance: overweight, older gentlman, lyinhg 30 degrees, comfortable. HF cannula on. Eyes: PERRLA Ears/Nose/Mouth/Throat: Clear Oropharnyx, Mucous Membranes Moist Neck: Trachea Midline, No Thyroid Enlargement, Masses Respiratory: Symmetrical Chest Expansion and Respiratory Effort - crackles in the bases bilaterally, clear upper swan, symetrical. Cardiovascular: NL Sounds; No Murmurs; No JVD, RRR Abdominal: No Hepatosplenomegaly - obese, active bowel sounds, non tender. Extremities: No Edema, No Clubbing, Cyanosis - good R radial pulse, L radial less prominant. Palpable DPP left. Skin: No Rash or Ulcers Neurological: Alert and Oriented x 3 Lines/Tubes/Other Access: Clean, Dry and Intact Arterial Line Laboratory Results: 04/23/18 05:48 04/23/18 05:48 INR (Anticoag Therapy) 0.99 (0.77-1.02) 04/19/18 12:00 Total Bilirubin 0.40 mg/dL (0.2-1.0) 04/19/18 12:00 AST 19 U/L (13-39) 04/19/18 12:00 ALT 37 U/L (7-52) 04/19/18 12:00 Alkaline Phosphatase 42 U/L (34-104) 04/19/18 12:00 B-Natriuretic Peptide 365 pg/mL (<=100) H 04/19/18 12:00 Total Protein 6.7 g/dL (6.4-8.9) 04/19/18 12:00 Albumin 3.9 g/dL (3.2-5.2) 04/19/18 12:00 Globulin 2.8 g/dL (2-4) 04/19/18 12:00 Albumin/Globulin Ratio 1.4 (1-3) 04/19/18 12:00 04/19/18 04/19/18 04/20/18 12:00 22:25 01:05 Troponin I 0.04 H* 0.05 H* 0.05 H* 04/20/18 05:37 Troponin I 0.05 H* Diagnostic Imaging: Echo this admission: mild LVH, EF 25-30%, good valve function. EKG Data: Monitor: Sinus rhythm. Assessment/Plan 68 yo with increased SOB at admission, improved. Found to have EF 30% ( decreased from normal). PMHx pulmonary fibrosis, moderate multivessel CAD on medical management since last year, HTN, DM, dylipidemia, hypothyroid, BPH. Tentative plan for cardiac catheterization today to determine if progression in CAD as a cause for drop in EF, Dr Best to evaluate. CM: Continue Diovan, may be able to increase, diagnostic cath. I don't see updated thyroid function in our lab, will order as could impact EF. CAD: Continue with risk factor optimization. Statin intolerance noted, no lipids in [facility], will update. Fibrosis: Per hospitalists, O2 and steroids noted. Await heart catheterization for additional recommendations.
[2018-04-23] MEDS ORDERED: Lidocaine 1% INJ* 10 MG/ML 30 ML SDV ONE (10:50)
[2018-04-23] MEDS ORDERED: Heparin 2 UNITS/ML IVPREMIX* 2,000 ML IV ONE (10:50)
[2018-04-23] MEDS ORDERED: Iohexol 350 (CONTRAST) 200 ML MDV IV ONE (10:50)
[2018-04-23] MEDS ORDERED: Heparin(*) 1000 UNIT/ML 10 ML VIAL CATH LAB IV ONE (11:13)
[2018-04-23] MEDS ORDERED: VERAPAMIL 2.5 MG/ML 2 ML VIAL ** 5 mg/2 ml ONE (11:13)
[2018-04-23] MEDS ORDERED: Heparin 2 UNITS/ML IVPREMIX* 1,000 ML IV ONE (11:14)
[2018-04-23] MEDS ORDERED: nitroGLYCERIN DRIP* 25,000 MCG/250 ML BTL ONE (11:14)
[2018-04-23] MEDS ORDERED: Midazolam* 1 MG/ML 10 ML VIAL (10 MG) ONE (11:18)
[2018-04-23] MEDS ORDERED: fentaNYL* 50 MCG/ML 2 ML VIAL (100 MCG VIAL) ONE (11:18)
[2018-04-23] MEDS ORDERED: NS 0.9% 1000 ML* 1,000 ML IV SCH (12:30)
--- NOTE | 2018-04-23 17:34 | CONS ---
PULMONARY CONSULTATION REPORT: DATE OF CONSULT: 04/23/18 CONSULTATION REQUESTED BY: Cherri Ambrocio NP REASON FOR CONSULT: Evaluation of pulmonary fibrosis. HISTORY OF PRESENT ILLNESS: The patient is a 68-year-old male with history of hypertension, diabetes, pulmonary fibrosis with chronic hypoxemic respiratory failure, known to me from multiple prior outpatient evaluations when he was admitted for shortness of breath and also from outpatient evaluation for pulmonary fibrosis. The patient was brought into the hospital for evaluation of worsening shortness of breath, gradually worsening for the past 4 weeks. The patient reports increasing dyspnea with exertion that progressed too with minimal exertion. The patient denies recent URI symptoms. The patient denies change in cough. He always had chronic cough productive of clear phlegm. The patient reports that the cough had become more moist in the past 2 days since admission. The patient, however, reports gradually worsening lower extremity edema. The patient also reports edema into the lower extremities, into his face , and also his belly. The patient could not lie down flat due to the dyspnea and he reports 3 to 4-pillow orthopnea. The patient denies chest pain, nausea, vomiting, abdominal pain, diarrhea, headaches, rash, joint pains, recent travel. He reports generalized malaise. The patient has been on diuretic at home, however, has been having progressively worsening edema in spite. Further evaluation in the emergency room revealed elevated BNP of 365, low potassium. The patient had chest x-ray on admission. I have personally reviewed the images and with the patient and his today. The patient noted to have pulmonary vascular congestion with airspace opacities bilaterally. The patient also with evidence of chronic interstitial changes which seemed to be unchanged. Echocardiogram performed during the hospitalization also revealed drop in ejection fraction in comparison to prior echo. The patient was admitted to regular medical floor initially for management of acute on chronic diastolic heart failure, at which point the EF was not known to be dropped. While on the floor, he continued to worsen, developed hypoxemic respiratory failure, requiring high-flow O2. He was subsequently transferred to the ICU. The patient has been noted to requiring high FiO2. Given the recent change in ejection fraction, he underwent right and left heart catheterization today. The patient has been doing well post catheterization. The patient was diuresed and is on the dry side. The patient reports feeling better since diuresis. The patient also reports improvement in shortness of breath. He has not exerted much; however, overall feels better. PAST MEDICAL HISTORY: 1. Type 2 diabetes. 2. Hypertension. 3. Dyslipidemia. 4. Pulmonary fibrosis from possible inflammatory disease process/connective tissue disease, on chronic prednisone therapy, was on 20 mg at home, was increased to 40 mg on admission. 5. Chronic hypoxemic respiratory failure secondary to pulmonary fibrosis, on O2. 6. Pulmonary hypertension. 7. Diastolic dysfunction. 8. Hypothyroidism. 9. Coronary artery disease, status post RI in the past. PAST SURGICAL HISTORY: 1. History of femur fracture. 2. History of heart catheterization in the past. MEDICATIONS: 1. Polyethylene glycol. 2. Cyclobenzaprine. 3. Excedrin. 4. Amlodipine. 5. Senna. 6. Cyanocobalamin. 7. Bumex. 8. Rosuvastatin. 9. Flomax. 10. Prasugrel. 11. Levothyroxine. 12. Candesartan. 13. Metformin. 14. Glipizide. 15. Prednisone. ALLERGIES: ATORVASTATIN, HYDROCHLOROTHIAZIDE, SIMVASTATIN, SPIRONOLACTONE, GABAPENTIN, SUMATRIPTAN, VALSARTAN. FAMILY HISTORY: CHF and Parkinson's. Father has history of CAD and RI. SOCIAL HISTORY: Former smoker. Rarely drinks alcohol. REVIEW OF SYSTEMS: All 14 systems reviewed and as per HPI. PHYSICAL EXAM: The patient is lying in bed, in no apparent distress. Vital Signs: Temperature 97.5, pulse 87 beats per minute, respiratory rate 16 per minute, O2 sat 97% on 8 L, blood pressure 123/82. HEENT: Pupils equal, reactive to light. Mucous membranes moist. Lungs: Good air entry bilaterally, crackles at bases bilaterally. Cardiovascular: S1, S2 present, regular. Abdomen: Distended. Bowel sounds present. Extremities: Normal range of motion. Trace edema. Neurologic: Alert, awake, oriented x3. No focal deficits. Skin: No rash or bruises. DIAGNOSTIC STUDIES/LAB DATA: WBC count 9.4, hemoglobin 13.1, hematocrit 40, platelet count 254. INR within normal limits. Sodium 143, potassium 3.7, chloride 105, bicarb 27, BUN 23, creatinine 0.85, calcium within normal limits. Chest x-ray as described above in HPI. Echocardiogram as described above in HPI. Cardiac catheterization performed today, report pending. IMPRESSION AND RECOMMENDATIONS: 68-year-old male, former smoker, with a history of occupational exposures in the past with pulmonary fibrosis likely resulting from inflammatory lung disease. The patient was admitted with worsening shortness of breath, found to have acute congestive heart failure exacerbation. The patient underwent cardiac catheterization for further evaluation given evidence of acute drop in ejection fraction. He does have history of coronary artery disease. No obstruction noted in coronaries as per preliminary report. Also underwent right heart catheterization, the report is pending. If he does have evidence of pulmonary hypertension noted on cardiac catheterization with normal wedge pressure, he would be a candidate for medications for management of pulmonary hypertension. He is also being treated for inflammatory disease with prednisone and he follows up with Dr. Lopez as an outpatient. There is a plan to switch him to Imuran as a steroid-sparing agent. He has currently increased prednisone dose at 40 mg which needs to be tapered further to his baseline dose of 20 mg. The patient with no exacerbation of interstitial pulmonary fibrosis at this time. He does have acute systolic heart failure which improved with diuresis. He needs adjustments of his cardiac medications. Titrate FiO2 as tolerated. Negative fluid balance. Monitor I's and O's. Thank you for allowing me to participate in the care of your patient. Will follow up with you. [id number]/[place] #: [id number] JAYJAY
[2018-04-23] MEDS: PRASUGREL 5 MG PO SCH (17:38)
[2018-04-23] MEDS: Tamsulosin CAP* 0.4 MG PO SCH (17:38)
[2018-04-23] MEDS: Melatonin 3 MG TAB PO PRN (21:19)
[2018-04-23] MEDS: Senna TAB PO SCH (21:19)
[2018-04-24] MEDS ORDERED: Morphine VIAL* 4 MG/ML VIAL (1 ml vial) ONE (00:20)
[2018-04-24] MEDS ORDERED: Metoprolol Tartrate IV* 1 MG/ML 5 ML VIAL ONE (00:20)
--- NOTE | 2018-04-24 00:20 | PN ---
Progress Note - Progress Note Date of Service: 04/24/18 Note: Patient sustaining HR in 140's - EKG: Junctional Tachycardia. Lopressor 5 mg IV and Morphine 2 mg ordered. Has some slight chest discomfort. Had cath today that showed stents patent.
[2018-04-24] MEDS ORDERED: Morphine VIAL* 4 MG/ML VIAL (1 ml vial) IV ONE (00:50)
[2018-04-24] MEDS ORDERED: Metoprolol Tartrate IV* 1 MG/ML 5 ML VIAL IV ONE (00:50)
[2018-04-24] MEDS: Levothyroxine TAB* 100 MCG TAB PO SCH (05:49)
[2018-04-24] MEDS: Heparin VIAL(*) 5000 UNITS/ML VIAL (FIVE THOUSAND) SUBCUT SCH ×3 (05:49→21:38)
[2018-04-24 06:18] LABS: BUN/Creatinine Ratio 25.3 (8-20); Calcium 8.9 mg/dL (8.6-10.3); EGFR Non-African American 86.8 (>60); HDL Cholesterol 42.3 mg/dL; Potassium 4.2 mmol/L (3.5-5.0)
--- NOTE | 2018-04-24 08:51 | PN ---
Subjective Date of Service: 04/24/18 - shf, cad Interval History: Breathing is at baseline, per patient he slept well last night. Before falling asleep he had trouble getting urinal in position. He felt his heart race and developed chest tightness. On telemetry he had junctional tachycardia. He was given IV morphine and Bblocker and went back into NSR with no reoccurrence. Appears to be exertional. He otherwise offers no complaints at this time. Currently denies chest pain, palpitations, orthopnea. Adds that breathing is back to baseline. Upon entering the room he was ambulating to chair to sit and eat breakfast. Medications Active Medications: Acetaminophen (Tylenol Tab*) 650 mg PO Q6H PRN PRN Reason: PAIN Last Admin: 04/23/18 09:07 Dose: 650 mg Bumetanide (Bumex Tab*) 1 mg PO DAILY [facility] Cyanocobalamin (Vitamin B12 Tab*) 1,000 mcg PO DAILY [facility] Last Admin: 04/23/18 08:57 Dose: 1,000 mcg Cyclobenzaprine HCl (Flexeril Tab*) 10 mg PO BID PRN PRN Reason: SPASMS - MUSCLE Last Admin: 04/20/18 04:51 Dose: 10 mg Dextrose (D50w Syringe 50 Ml*) 12.5 gm IV PUSH .FOR FS < 60 - SS PRN PRN Reason: FS < 60 Heparin Sodium (Porcine) (Heparin Vial(*)) 5,000 units SUBCUT Q8HR [facility] Last Admin: 04/24/18 05:49 Dose: 5,000 units Insulin Human Lispro (Humalog*) 0 units SUBCUT AC [facility]; Protocol Last Admin: 04/23/18 17:38 Dose: 9 units Levothyroxine Sodium (Synthroid Tab*) 200 mcg PO DAILY@0600 [facility] Last Admin: 04/24/18 05:49 Dose: 200 mcg Melatonin (Melatonin) 3 mg PO BEDTIME PRN PRN Reason: INSOMNIA Last Admin: 04/23/18 21:19 Dose: 3 mg Polyethylene Glycol/Electrolytes (Miralax*) 17 gm PO EVERY OTHER DAY [facility] Last Admin: 04/23/18 09:12 Dose: Not Given Prasugrel (Effient (Nf)) 5 mg PO QPM [facility] Last Admin: 04/23/18 17:38 Dose: 5 mg Prednisone (Deltasone Tab*) 30 mg PO DAILY [facility] Senna (Senokot Tab*) 1 tab PO BEDTIME [facility] Last Admin: 04/23/18 21:19 Dose: 1 tab Tamsulosin HCl (Flomax Cap*) 0.4 mg PO QPM [facility] Last Admin: 04/23/18 17:38 Dose: 0.4 mg Valsartan (Diovan Tab*) 80 mg PO DAILY [facility] Last Admin: 04/23/18 08:57 Dose: 80 mg Objective Vital Signs: Temp Pulse Resp BP Pulse Ox 97.5 F 77 21 127/78 93 04/24/18 07:30 04/24/18 06:02 04/24/18 06:02 04/24/18 06:02 04/24/18 06:02 Oxygen Devices in Use Now: Nasal Cannula, High Flow Nasal Cannula Appearance: overweight, older gentlman, lyinhg 30 degrees, comfortable. HF cannula on. Eyes: PERRLA Ears/Nose/Mouth/Throat: Clear Oropharnyx, Mucous Membranes Moist Neck: Trachea Midline, No Thyroid Enlargement, Masses Respiratory: Symmetrical Chest Expansion and Respiratory Effort - crackles in the bases bilaterally, clear upper swan, symetrical. Cardiovascular: NL Sounds; No Murmurs; No JVD, RRR Abdominal: No Hepatosplenomegaly - obese, active bowel sounds, non tender. Extremities: No Edema, No Clubbing, Cyanosis - good R radial pulse, L radial less prominant. Palpable DPP left. Skin: No Rash or Ulcers Neurological: Alert and Oriented x 3 Lines/Tubes/Other Access: Clean, Dry and Intact Peripheral IV Laboratory Results: 04/23/18 05:48 04/24/18 05:46 INR (Anticoag Therapy) 0.99 (0.77-1.02) 04/19/18 12:00 Total Bilirubin 0.40 mg/dL (0.2-1.0) 04/19/18 12:00 AST 19 U/L (13-39) 04/19/18 12:00 ALT 37 U/L (7-52) 04/19/18 12:00 Alkaline Phosphatase 42 U/L (34-104) 04/19/18 12:00 B-Natriuretic Peptide 365 pg/mL (<=100) H 04/19/18 12:00 Total Protein 6.7 g/dL (6.4-8.9) 04/19/18 12:00 Albumin 3.9 g/dL (3.2-5.2) 04/19/18 12:00 Globulin 2.8 g/dL (2-4) 04/19/18 12:00 Albumin/Globulin Ratio 1.4 (1-3) 04/19/18 12:00 Triglycerides 159 mg/dL 04/24/18 05:46 Cholesterol 180 mg/dL 04/24/18 05:46 LDL Cholesterol 106 mg/dL 04/24/18 05:46 HDL Cholesterol 42.3 mg/dL 04/24/18 05:46 04/19/18 04/19/18 04/20/18 12:00 22:25 01:05 Troponin I 0.04 H* 0.05 H* 0.05 H* 04/20/18 05:37 Troponin I 0.05 H* Laboratory Results - last 24 hr 04/23/18 04/23/18 04/23/18 12:05 13:04 17:30 POC Activ Clotting Time 164 Sodium Potassium Chloride Carbon Dioxide Anion Gap BUN Creatinine Est GFR ( Amer) Est GFR (Non-Af Amer) BUN/Creatinine Ratio Glucose POC Glucose (mg/dL) 202 H 269 H Calcium Triglycerides Cholesterol LDL Cholesterol HDL Cholesterol 04/24/18 05:46 POC Activ Clotting Time Sodium 142 Potassium 4.2 Chloride 108 Carbon Dioxide 29 Anion Gap 5 BUN 22 Creatinine 0.87 Est GFR ( Amer) 105.0 Est GFR (Non-Af Amer) 86.8 BUN/Creatinine Ratio 25.3 H Glucose 122 H POC Glucose (mg/dL) Calcium 8.9 Triglycerides 159 Cholesterol 180 LDL Cholesterol 106 HDL Cholesterol 42.3 Diagnostic Imaging: Echo this admission: mild LVH, EF 25-30%, good valve function. EKG Data: Monitor: Sinus rhythm rate 70's. Last night from 1055pm to [id number] he had narrow complex tachycardia rates 130's Assessment/Plan #1 h/o SHF with near normalization of LVEF based on October 2017 echo. Echo from this admit revealed LVEF 25-30%. LHC did not reveal significant CAD. he has a h/ o failed PVC ablation in June 2016. He appears compensated on echo today. He reports anaphylaxsis to aldactone. I did ask if I could confirm this with his pharmacy or primary quality assurance director however the patient states it happened so long ago he doesn't think they would have that information. He is not on Bblocker due to pulmonary fibrosis with COPD exacerbation during this admit. Will speak to Dr. Vasquez about tentatively starting cardioselective bblocker. Will continue Valsartan 80mg PO daily. Thyroid panel is currently pending will await results. Etiology of recurrent LV dysfunction not clear. #2 h/o CAD; chest pain free. He had chest pain last night with narrow complex tachycardia. per note Dr. Best did not feel that the patient had significant CAD. He is on Effient 5mg Po daily? Last PCI was > 1 year ago. Will speak to Dr. Sanchez about stopping Effient and instead placing patient on ASA 81/day. DAPT score is tentatively 4, however for sake of accuracy and continuity of care will request reports from [facility] which is also where he had prior ablation. Not on Bblocker due to lung disease. On statin therapy. LDL was 106 not on statin due to allergy. Unclear if he has had a trial of Zetia. #3 Narrow Complex tachycardia; appear to be related to exertion. Had 1.5 hour episode last night. will continue to monitor on telemetry. #4 h/o Pulmonary HTN; [facility] report pending. Pulmonary following and managing. #5 disposition pending course. Will d/w Dr. Houston starting ASA stopping effient given > 1 year since PCI. Will first obtain [facility] report from 2016 when he had intervention. Attending: Enrique Sanchez
[2018-04-24] MEDS: Cyanocobalamin TAB* 500 MCG PO SCH (08:55)
[2018-04-24] MEDS: Insulin LISPRO* 1 UNITS UNIT SUBCUT SCH ×3 (08:55→18:08)
[2018-04-24] MEDS: Valsartan TAB* 80 MG PO SCH (08:56)
[2018-04-24] MEDS: Bumetanide TAB* 1 MG PO SCH (08:56)
[2018-04-24] MEDS: predniSONE TAB* 20 MG PO SCH (08:56)
--- NOTE | 2018-04-24 09:47 | CATH ---
CC: Dr. Toya Jacobson; Dr. Flor, Department of Electrophysiology at [facility], in [place], [place] * CARDIAC CATHETERIZATION REPORT: DATE OF PROCEDURE: 04/23/18 - ROOM #ICU-02 INDICATION FOR THE PROCEDURE: The patient presents with progressive congestive heart failure symptoms with worsening left ventricular systolic function and EF felt to be 25% to 30% with a flat minimally elevated troponin levels, assess for progression of coronary artery disease with prior history of stent placement. PROCEDURES: Coronary arteriography, left heart catheterization, left ventriculography, right heart catheterization for pressures only. CONSENT: The patient was interviewed and examined on the floor of the hospital where the risks and benefits were explained. He understood them and wished to proceed. PRE-CARDIAC CATHETERIZATION LABORATORY RESULTS: Hemoglobin and hematocrit of 13.1 and 40, platelet count of 254,000. BUN and creatinine of 23 and 0.8, INR of 0.99. Sodium 143, potassium 3.7, chloride 105, bicarb 27. MEDICATIONS GIVEN DURING THE PROCEDURE: Included Versed 0.5 mg IV, radial artery cocktail (described below) intraarterial. APPROACH UTILIZED: The right femoral vein was utilized for right heart catheterization and the right radial artery was utilized for arterial access. EQUIPMENT: 1. Right femoral vein sheath - a 7-[place] Aaliyah 11 cm sheath. 2. Right heart catheterization catheter was a 7-[place] balloon-tipped floating [place]-Good catheter. 3. Right radial artery sheath was a 6-[place] Glidesheath. 4. Diagnostic coronary arterial catheters - 5-[place] TIG-4 curved catheter and 5- [place] FL4 catheter for the left coronary artery. 5. Diagnostic guidewire was a 260 length [place] guidewire also with a [place] 145 length guidewire. 6. The left heart catheterization catheter was a 5-[place] PIG Performa radial catheter. DESCRIPTION OF PROCEDURE: The patient was interviewed and examined on the floor of the hospital where the risks and benefits were explained. The right radial artery was assessed for eligibility to utilize this as an approach and was found to be acceptable. The patient was brought of the cardiovascular laboratory. A formal timeout was performed. He was prepped and draped in sterile fashion. The right groin area was anesthetized with 1% lidocaine. The right femoral vein was cannulated with an anterior wall only stick and the 7- [place] sheath was placed. Right heart catheterization was performed. Following this, right radial artery area was prepped and draped, and was anesthetized with 1% lidocaine. The right radial artery was cannulated and sheath was placed. The radial artery cocktail including 3000 units of heparin, 3 mg of verapamil, and 300 mcg of nitroglycerin were given intraarterially. Diagnostic catheterization was performed followed by left heart catheterization. Left ventriculography was performed utilizing a total of 28 cc of Omnipaque dye at a rate of 14 cc per second. The catheter was pulled back across the aortic valve to check gradient. Following this, the radial artery sheath was removed and hemostasis was obtained with a Vasc Band. The reverse Barbeau was AB. The right femoral vein sheath was left in place to be pulled in the intensive care unit. The total contrast used was 100 cc of Omnipaque dye. The radiation exposure included 9.9 minutes of fluoro time. The air kerma radiation was 2374 mg. The DAP radiation was 14,769 micrograms per meter squared. RESULTS: HEMODYNAMIC DATA: A. Left heart catheterization: Revealed central aortic pressure of 117/73 with a mean of 94. Left ventricular pressure 116 over left ventricular end- diastolic pressure of 25 mmHg. B. Right heart catheterization: RA mean of 7, RV 60 over right ventricular end- diastolic pressure of 13, PA pressure was 63/23 with a mean of 39, wedge mean was 13 with A waves to 19, B waves to 15. LEFT VENTRICULOGRAPHY: Performed in the TRAN projection revealed a brief run of ventricular ectopy with a post PVC beat showing an ejection fraction approximately 30% with global left ventricular hypokinesis. CORONARY ARTERIOGRAPHY: A. Right coronary artery - the right coronary artery was a dominant vessel supplying the PDA as well as 2 posterior left ventricular branches. The ostium of the right coronary artery had a 45% narrowing noted with calcium. Past this point in the proximal portion of the right coronary artery, there was a second 35% lesion. The artery had mild luminal irregularities in the mid segment and turning on to the inferior surface. The posterior descending artery had a proximal narrowing of 30%. B. Left coronary artery 1. Left main - has a long proximal segment with the degree of luminal reduction noted to be approximately as much as 40%. 2. LAD - The proximal and mid left anterior descending artery had the presence of stents placed that are widely patent. Past this point in the left anterior descending artery, the mid to distal area had a hazy area with a luminal reduction noted to be approximately 60% eccentric in nature. Past this point, the distal portion of the vessel prior to turning out to the inferior surface of the heart, it had a 70% lesion and a small caliber section of the artery subtending a small area of apical myocardium. 3. Circumflex artery - a nondominant vessel supplying a bifurcating trifurcation marginal branch. There was a prior stent placed in the superior branch of this. That branch now appears to be totally occluded in its origin and gets retrograde collateralization to the vessel. From prior studies, it was noted to be a small caliber vessel and the distal vessel appeared to be a small caliber as well. The proximal portion of the trifurcation marginal branch has an area of 50% stenosis. After the trifurcation marginal branch, the [place] circumflex supplies a mid obtuse marginal branch. There is a hazy 75% lesion noted prior to the obtuse marginal branch. The proximal trifurcation marginal lesion and continued circumflex lesion are unchanged from prior study. OVERALL ASSESSMENT: Global left ventricular systolic dysfunction with overall EF of 30% with respected change compared to prior study of 2017. The stented superior branch of the bifurcating trifurcation marginal branch is now totally obstructed and appears to be getting retrograde filling. Of note, this was a small caliber vessel distal to the area of stent placement. The left main does not appear to have had significant change. The ostium of the right coronary artery now shows moderate obstruction in it with no critical lesion throughout the right coronary artery system. Clearly, the left ventricular systolic function appears to be out of proportion for the degree of coronary atherosclerotic disease. Aggressive medical management of left ventricular systolic dysfunction should be pursued and this information was shared with Dr. Katarina Maddox, the primary patient service associate involved in his care on the day of the cardiac catheterization. Of note interestingly, the wedge pressure is in normal range at this point with the presence of moderate pulmonary hypertension. He does have a history of fibrotic lung disease and clearly this may be playing into some of his symptomatology with respected deterioration of his respiratory status. [id number]/[facility] #: [id number] JAYJAY
[2018-04-24] MEDS: Clopidogrel TAB* 75 MG PO SCH (18:24)
[2018-04-24] MEDS: Tamsulosin CAP* 0.4 MG PO SCH (18:24)
[2018-04-24] MEDS: Melatonin 3 MG TAB PO PRN (20:54)
[2018-04-24] MEDS: Metoprolol Tartrate TAB* 25 MG PO SCH (20:54)
[2018-04-24] MEDS: Senna TAB PO SCH (20:54)
[2018-04-25] MEDS: Acetaminophen TAB* 325 MG PO PRN ×2 (05:49→21:00)
[2018-04-25] MEDS: Levothyroxine TAB* 100 MCG TAB PO SCH (05:49)
[2018-04-25] MEDS: Heparin VIAL(*) 5000 UNITS/ML VIAL (FIVE THOUSAND) SUBCUT SCH ×3 (05:50→21:00)
[2018-04-25] MEDS: Insulin LISPRO* 1 UNITS UNIT SUBCUT SCH ×3 (07:31→17:26)
--- NOTE | 2018-04-25 08:44 | PN ---
Subjective Date of Service: 04/24/18 Interval History: Patient seen and examined. Feeling well, OOB to chair, no complaints today. States his breathing is much improved and he does not have chest pain. Tolerating PO. No fevers or chills. Family History: Unchanged from Admission Social History: Unchanged from Admission Past Medical History: Unchanged from Admission Objective Active Medications: Acetaminophen (Tylenol Tab*) 650 mg PO Q6H PRN PRN Reason: PAIN Last Admin: 04/25/18 05:49 Dose: 650 mg Aspirin (Aspirin 81 Mg Chew Tab*) 81 mg PO DAILY [facility] Bumetanide (Bumex Tab*) 1 mg PO DAILY [facility] Last Admin: 04/24/18 08:56 Dose: 1 mg Clopidogrel Bisulfate (Plavix Tab*) 75 mg PO DAILY [facility] Last Admin: 04/24/18 18:24 Dose: 75 mg Cyanocobalamin (Vitamin B12 Tab*) 1,000 mcg PO DAILY [facility] Last Admin: 04/24/18 08:55 Dose: 1,000 mcg Cyclobenzaprine HCl (Flexeril Tab*) 10 mg PO BID PRN PRN Reason: SPASMS - MUSCLE Last Admin: 04/20/18 04:51 Dose: 10 mg Dextrose (D50w Syringe 50 Ml*) 12.5 gm IV PUSH .FOR FS < 60 - SS PRN PRN Reason: FS < 60 Heparin Sodium (Porcine) (Heparin Vial(*)) 5,000 units SUBCUT Q8HR [facility] Last Admin: 04/25/18 05:50 Dose: 5,000 units Insulin Human Lispro (Humalog*) 0 units SUBCUT AC [facility]; Protocol Last Admin: 04/25/18 07:31 Dose: 2 units Levothyroxine Sodium (Synthroid Tab*) 200 mcg PO DAILY@0600 [facility] Last Admin: 04/25/18 05:49 Dose: 200 mcg Melatonin (Melatonin) 3 mg PO BEDTIME PRN PRN Reason: INSOMNIA Last Admin: 04/24/18 20:54 Dose: 3 mg Metoprolol Tartrate (Lopressor Tab*) 12.5 mg PO BID [facility] Last Admin: 04/24/18 20:54 Dose: 12.5 mg Polyethylene Glycol/Electrolytes (Miralax*) 17 gm PO EVERY OTHER DAY [facility] Last Admin: 04/23/18 09:12 Dose: Not Given Prednisone (Deltasone Tab*) 30 mg PO DAILY [facility] Last Admin: 04/24/18 08:56 Dose: 30 mg Senna (Senokot Tab*) 1 tab PO BEDTIME [facility] Last Admin: 04/24/18 20:54 Dose: 1 tab Tamsulosin HCl (Flomax Cap*) 0.4 mg PO QPM [facility] Last Admin: 04/24/18 18:24 Dose: 0.4 mg Valsartan (Diovan Tab*) 80 mg PO DAILY [facility] Last Admin: 04/24/18 08:56 Dose: 80 mg Vital Signs - 8 hr 04/25/18 04/25/18 04/25/18 01:00 02:00 03:00 Temperature Pulse Rate 81 67 64 Respiratory 25 22 20 Rate Blood Pressure (mmHg) O2 Sat by Pulse 89 97 99 Oximetry 04/25/18 04/25/18 04/25/18 03:41 03:54 04:00 Temperature 98.1 F Pulse Rate 65 Respiratory 0 Rate Blood Pressure 107/69 (mmHg) O2 Sat by Pulse 92 98 Oximetry 04/25/18 04/25/18 04/25/18 05:00 06:00 07:00 Temperature Pulse Rate 65 73 79 Respiratory 15 23 21 Rate Blood Pressure (mmHg) O2 Sat by Pulse 94 92 96 Oximetry 04/25/18 07:33 Temperature 97.8 F Pulse Rate Respiratory Rate Blood Pressure (mmHg) O2 Sat by Pulse Oximetry Oxygen Devices in Use Now: Nasal Cannula - 4.5liters Appearance: alert, NAD Eyes: No Scleral Icterus, PERRLA Ears/Nose/Mouth/Throat: NL Teeth, Lips, Gums, Mucous Membranes Moist Neck: NL Appearance and Movements; NL JVP, Trachea Midline Respiratory: Symmetrical Chest Expansion and Respiratory Effort, - - good air entry, no wheeze or rhonchi Cardiovascular: NL Sounds; No Murmurs; No JVD, RRR Abdominal: NL Sounds; No Tenderness; No Distention Extremities: No Clubbing, Cyanosis - bilateral LE edema improving Skin: No Rash or Ulcers Neurological: Alert and Oriented x 3, NL Gait Nutrition: Taking PO's Result Diagrams: 04/23/18 05:48 04/24/18 05:46 Microbiology and Other Data: Microbiology 04/19/18 17:40 Nasal Screen MRSA (PCR) - Final Nasal Mrsa Not Detected Assess/Plan/Problems-Billing Assessment: This is a 68 y.o male with hx of dm-2 , htn, hld, chronic hypoxic respiratory failure hypothyroid who presented to the ER with increased shortness of breath for 4 weeks and lower extremity leg swelling. Admitted for diastolic chf exacerbation. - Patient Problems (1) Acute and chronic respiratory failure with hypoxia Code(s): J96.21 - ACUTE AND CHRONIC RESPIRATORY FAILURE WITH HYPOXIA SNOMED Code(s): 79025039 Comment: - Combination of pulmonary fibrosis and CHF - 10lb weight loss since 04/20, appears euvolemic - will continue prednisone at 40mg - Appreciate continued input from cardiology and pulmonology - strict i/o's, daily weights (2) Pulmonary fibrosis Code(s): J84.10 - PULMONARY FIBROSIS, UNSPECIFIED SNOMED Code(s): 76591277 Comment: - Oxygen holding in low 90's on 4 liters which is his baseline - continue steroid taper - Supportive care (3) Diastolic CHF Code(s): I50.30 - UNSPECIFIED DIASTOLIC (CONGESTIVE) HEART FAILURE SNOMED Code (s): 753516269 Comment: - Echo showed EF of 25-30% , global hypokinesis of the left ventricle - s/p LHC, please see note from Dr. Best - Continue valsartan and diuresis with bumex, metoprolol - Per patient, has facial swelling with aldactone and hctz (4) CAD (coronary artery disease) Code(s): I25.10 - ATHSCL HEART DISEASE OF [place] CORONARY ARTERY W/O ANG PCTRS SNOMED Code(s): 37924103 Comment: - Hx of multiple stents, most of which are patent with one fully occluded, please see report from Dr. Best for full evaluation by cardiac cath - No chest pain - Continue to optimize medical managememt with primary cardiology, appreciate further recs (5) HLD (hyperlipidemia) Code(s): E78.5 - HYPERLIPIDEMIA, UNSPECIFIED SNOMED Code(s): 89592532 Comment: - Continue statin (6) HTN (hypertension) Code(s): I10 - ESSENTIAL (PRIMARY) HYPERTENSION SNOMED Code(s): 73174380 Comment: - BP stable (7) Full code status Code(s): Z78.9 - OTHER SPECIFIED HEALTH STATUS SNOMED Code(s): 691457054 Comment: Status and Disposition: Downgrade from ICU to tele.
[2018-04-25] MEDS: Valsartan TAB* 80 MG PO SCH (08:49)
[2018-04-25] MEDS: Bumetanide TAB* 1 MG PO SCH (08:49)
[2018-04-25] MEDS: Polyethylene Glycol 3350* 17 GM PACKET PO SCH (08:49)
[2018-04-25] MEDS: Clopidogrel TAB* 75 MG PO SCH (08:50)
[2018-04-25] MEDS: Aspirin 81 mg CHEW TAB* 81 MG TAB.CHEW PO SCH (08:50)
[2018-04-25] MEDS: predniSONE TAB* 20 MG PO SCH (08:50)
[2018-04-25] MEDS: Cyanocobalamin TAB* 500 MCG PO SCH (08:50)
[2018-04-25] MEDS: Metoprolol Tartrate TAB* 25 MG PO SCH ×2 (08:50→21:00)
--- NOTE | 2018-04-25 14:45 | PN ---
Progress Note - Progress Note Date of Service: 04/25/18 - Pulm f/u note Note: Pt seen and examined at bedside, pt reports feeling better, FiO2 requirement significantly improved to 4L now. denies significant cough. Active Medications Generic Name Dose Route Start Last Admin Trade Name Freq PRN Reason Stop Dose Admin Acetaminophen 650 mg 04/19/18 14:46 04/25/18 05:49 Tylenol Tab* PO 650 mg Q6H PRN Administration PAIN Aspirin 81 mg 04/25/18 09:00 04/25/18 08:50 Aspirin 81 Mg Chew Tab* PO 81 mg DAILY [facility] Administration Bumetanide 1 mg 04/24/18 09:00 04/25/18 08:49 Bumex Tab* PO 1 mg DAILY [facility] Administration Clopidogrel Bisulfate 75 mg 04/24/18 17:30 04/25/18 08:50 Plavix Tab* PO 75 mg DAILY [facility] Administration Cyanocobalamin 1,000 mcg 04/20/18 09:00 04/25/18 08:50 Vitamin B12 Tab* PO 1,000 mcg DAILY [facility] Administration Cyclobenzaprine HCl 10 mg 04/19/18 14:43 04/20/18 04:51 Flexeril Tab* PO 10 mg BID PRN Administration SPASMS - MUSCLE Dextrose 12.5 gm 04/19/18 14:44 D50w Syringe 50 Ml* IV PUSH .FOR FS < 60 - SS PRN FS < 60 Heparin Sodium (Porcine) 5,000 units 04/21/18 14:00 04/25/18 05:50 Heparin Vial(*) SUBCUT 5,000 units Q8HR [facility] Administration Insulin Human Lispro 0 units 04/19/18 16:30 04/25/18 11:51 Humalog* SUBCUT 9 units AC [facility] Administration Protocol Levothyroxine Sodium 200 mcg 04/20/18 06:00 04/25/18 05:49 Synthroid Tab* PO 200 mcg DAILY@0600 [facility] Administration Melatonin 3 mg 04/20/18 16:19 04/24/18 20:54 Melatonin PO 3 mg BEDTIME PRN Administration INSOMNIA Metoprolol Tartrate 12.5 mg 04/24/18 21:00 04/25/18 08:50 Lopressor Tab* PO 12.5 mg BID [facility] Administration Polyethylene Glycol/Electrolytes 17 gm 04/21/18 09:00 04/25/18 08:49 Miralax* PO 17 gm EVERY OTHER DAY [facility] Administration Prednisone 30 mg 04/24/18 09:00 04/25/18 08:50 Deltasone Tab* PO 30 mg DAILY [facility] Administration Senna 1 tab 04/19/18 21:00 04/24/18 20:54 Senokot Tab* PO 1 tab BEDTIME [facility] Administration Tamsulosin HCl 0.4 mg 04/19/18 18:00 04/24/18 18:24 Flomax Cap* PO 0.4 mg QPM [facility] Administration Valsartan 80 mg 04/21/18 11:00 04/25/18 08:49 Diovan Tab* PO 80 mg DAILY [facility] Administration Vital Signs Temp Pulse Resp BP Pulse Ox 97.9 F 77 14 123/81 93 04/25/18 12:58 04/25/18 13:00 04/25/18 13:00 04/25/18 12:01 04/25/18 13:00 O/E: Pt in NAD HEENT: PERRLA, no JVD Lungs: Crackles at bases CVS: S1, S2+, regular Abd: Obese, distended Ext; Trace edema Neuro: Alert, awake, no focal deficits Skin: Chronic changes in LE Laboratory Results - last 24 hr 04/24/18 04/24/18 04/25/18 17:57 20:50 07:25 POC Glucose (mg/dL) 260 H 164 H 133 H 04/25/18 11:41 POC Glucose (mg/dL) 290 H I/R: 68 y.o m with h/o of DM ,HTN, dyslipidemia, chronic hypoxic respiratory failure hypothyroidism who presented to the ER with increased shortness of breath for 4 weeks and lower extremity leg swelling. Pt found to have acute systolic CHF exacerbation resulting in acute on chronic hypoxic resp failure Pt improved with diuresis Pt noted to have significant drop in systolic function of unclear etiology No evidence of significant obstruction noted in coronaries Pt with intermittent episodes of SVT, had failed ablation in past Has loop recorder in place Was noted to have normal wedge on rt heart cath Has pulm HTN that could be secondary to Pulm fibrosis with chronic hypoxia, COPD Is on prednisone for inflammatory disease affecting lungs resulting in ILD He follows with Dr Lopez as out pt and is to be started on Imuran and to have prednisone tapered off Currently on 4L O2 which is his baseline Agree with low dose beta cony Taper prednisone to 20mg which is his baseline dose and to continue with further taper Cardiology f/u Dr Holley noted D/w patient and at bedside
--- NOTE | 2018-04-25 14:46 | PN ---
Subjective Date of Service: 04/25/18 Interval History: Patient seen and examined. OOB to chair, states he does get winded from time to time but no acute SOB. Denies chest pain, no fevers or chills. No further constitutional complaints. Family History: Unchanged from Admission Social History: Unchanged from Admission Past Medical History: Unchanged from Admission Objective Active Medications: Acetaminophen (Tylenol Tab*) 650 mg PO Q6H PRN PRN Reason: PAIN Last Admin: 04/25/18 05:49 Dose: 650 mg Aspirin (Aspirin 81 Mg Chew Tab*) 81 mg PO DAILY [facility] Last Admin: 04/25/18 08:50 Dose: 81 mg Bumetanide (Bumex Tab*) 1 mg PO DAILY [facility] Last Admin: 04/25/18 08:49 Dose: 1 mg Clopidogrel Bisulfate (Plavix Tab*) 75 mg PO DAILY [facility] Last Admin: 04/25/18 08:50 Dose: 75 mg Cyanocobalamin (Vitamin B12 Tab*) 1,000 mcg PO DAILY [facility] Last Admin: 04/25/18 08:50 Dose: 1,000 mcg Cyclobenzaprine HCl (Flexeril Tab*) 10 mg PO BID PRN PRN Reason: SPASMS - MUSCLE Last Admin: 04/20/18 04:51 Dose: 10 mg Dextrose (D50w Syringe 50 Ml*) 12.5 gm IV PUSH .FOR FS < 60 - SS PRN PRN Reason: FS < 60 Heparin Sodium (Porcine) (Heparin Vial(*)) 5,000 units SUBCUT Q8HR [facility] Last Admin: 04/25/18 05:50 Dose: 5,000 units Insulin Human Lispro (Humalog*) 0 units SUBCUT [facility]; Protocol Last Admin: 04/25/18 11:51 Dose: 9 units Levothyroxine Sodium (Synthroid Tab*) 200 mcg PO DAILY@0600 [facility] Last Admin: 04/25/18 05:49 Dose: 200 mcg Melatonin (Melatonin) 3 mg PO BEDTIME PRN PRN Reason: INSOMNIA Last Admin: 04/24/18 20:54 Dose: 3 mg Metoprolol Tartrate (Lopressor Tab*) 12.5 mg PO BID [facility] Last Admin: 04/25/18 08:50 Dose: 12.5 mg Polyethylene Glycol/Electrolytes (Miralax*) 17 gm PO EVERY OTHER DAY [facility] Last Admin: 04/25/18 08:49 Dose: 17 gm Prednisone (Deltasone Tab*) 30 mg PO DAILY [facility] Last Admin: 04/25/18 08:50 Dose: 30 mg Senna (Senokot Tab*) 1 tab PO BEDTIME [facility] Last Admin: 04/24/18 20:54 Dose: 1 tab Tamsulosin HCl (Flomax Cap*) 0.4 mg PO QPM [facility] Last Admin: 04/24/18 18:24 Dose: 0.4 mg Valsartan (Diovan Tab*) 80 mg PO DAILY [facility] Last Admin: 04/25/18 08:49 Dose: 80 mg Vital Signs - 8 hr 04/25/18 04/25/18 04/25/18 07:00 07:33 08:00 Temperature 97.8 F Pulse Rate 79 83 Respiratory 21 28 Rate Blood Pressure (mmHg) O2 Sat by Pulse 96 98 Oximetry 04/25/18 04/25/18 04/25/18 08:01 08:42 08:59 Temperature Pulse Rate 81 80 Respiratory 22 25 23 Rate Blood Pressure 173/114 141/123 (mmHg) O2 Sat by Pulse 95 93 Oximetry 04/25/18 04/25/18 04/25/18 09:00 10:05 10:09 Temperature Pulse Rate 78 89 79 Respiratory 25 37 18 Rate Blood Pressure 147/91 (mmHg) O2 Sat by Pulse 94 74 92 Oximetry 04/25/18 04/25/18 04/25/18 11:00 12:00 12:01 Temperature Pulse Rate 77 81 80 Respiratory 13 20 22 Rate Blood Pressure 123/81 (mmHg) O2 Sat by Pulse 95 91 93 Oximetry 04/25/18 04/25/18 12:58 13:00 Temperature 97.9 F Pulse Rate 77 Respiratory 14 Rate Blood Pressure (mmHg) O2 Sat by Pulse 93 Oximetry Oxygen Devices in Use Now: Nasal Cannula - 4.5liters Appearance: alert, comfortable, NAD Eyes: No Scleral Icterus, PERRLA Ears/Nose/Mouth/Throat: NL Teeth, Lips, Gums, Mucous Membranes Moist Neck: Trachea Midline Respiratory: Symmetrical Chest Expansion and Respiratory Effort, - - diminished bases, good air entry, otherwise clear Cardiovascular: NL Sounds; No Murmurs; No JVD, RRR, - - edema improved, trace at ankles Abdominal: NL Sounds; No Tenderness; No Distention Extremities: No Clubbing, Cyanosis Skin: No Rash or Ulcers Neurological: Alert and Oriented x 3 Nutrition: Taking PO's Result Diagrams: 04/23/18 05:48 04/24/18 05:46 Microbiology and Other Data: Microbiology 04/19/18 17:40 Nasal Screen MRSA (PCR) - Final Nasal Mrsa Not Detected Assess/Plan/Problems-Billing Assessment: This is a 68 y.o male with hx of dm-2 , htn, hld, chronic hypoxic respiratory failure hypothyroid who presented to the ER with increased shortness of breath for 4 weeks and lower extremity leg swelling. Admitted for diastolic chf exacerbation. - Patient Problems (1) Acute and chronic respiratory failure with hypoxia Code(s): J96.21 - ACUTE AND CHRONIC RESPIRATORY FAILURE WITH HYPOXIA SNOMED Code(s): 31086168 Comment: - Combination of pulmonary fibrosis and CHF - 10lb weight loss since 04/20, appears euvolemic - will continue prednisone at 40mg - Appreciate continued input from cardiology and pulmonology - strict i/o's, daily weights (2) Pulmonary fibrosis Code(s): J84.10 - PULMONARY FIBROSIS, UNSPECIFIED SNOMED Code(s): 04369572 Comment: - Oxygen holding in low 90's on 4 liters which is his baseline - continue steroid taper - Supportive care (3) Diastolic CHF Code(s): I50.30 - UNSPECIFIED DIASTOLIC (CONGESTIVE) HEART FAILURE SNOMED Code (s): 916859246 Comment: - Echo showed EF of 25-30% , global hypokinesis of the left ventricle - s/p LHC, please see note from Dr. Best - Continue valsartan and diuresis with bumex, metoprolol - Per patient, has facial swelling with aldactone and hctz - Will order LifeVest today as per Dr. Lim recommendations (4) CAD (coronary artery disease) Code(s): I25.10 - ATHSCL HEART DISEASE OF [place] CORONARY ARTERY W/O ANG PCTRS SNOMED Code(s): 13062864 Comment: - Hx of multiple stents, most of which are patent with one fully occluded, please see report from Dr. Best for full evaluation by cardiac cath - No chest pain - Continue to optimize medical managememt with primary cardiology, appreciate further recs, on ARB and low dose BB, seems to be tolerating (5) HLD (hyperlipidemia) Code(s): E78.5 - HYPERLIPIDEMIA, UNSPECIFIED SNOMED Code(s): 07820459 Comment: - Continue statin (6) HTN (hypertension) Code(s): I10 - ESSENTIAL (PRIMARY) HYPERTENSION SNOMED Code(s): 90056323 Comment: - BP stable on ARB and BB (7) Full code status Code(s): Z78.9 - OTHER SPECIFIED HEALTH STATUS SNOMED Code(s): 258478043 Comment: Status and Disposition: Downgrade from ICU to tele, no beds available. PT eval for possible referral to STR, will also make referral to PMRU given addition of LifeVest today.
[2018-04-25] MEDS: Tamsulosin CAP* 0.4 MG PO SCH (17:26)
[2018-04-25] MEDS: Senna TAB PO SCH (21:00)
[2018-04-25] MEDS: Melatonin 3 MG TAB PO PRN (21:00)
[2018-04-26] MEDS: Levothyroxine TAB* 100 MCG TAB PO SCH (05:43)
[2018-04-26] MEDS: Heparin VIAL(*) 5000 UNITS/ML VIAL (FIVE THOUSAND) SUBCUT SCH ×3 (05:45→21:02)
[2018-04-26 06:04] LABS: ABS Basophils 0.1 10^3/ul (0-0.2); ABS Eosinophils 0.2 10^3/ul (0-0.6); ABS Lymphocytes 1.9 10^3/ul (1.0-4.8); ABS Monocytes 0.5 10^3/ul (0-0.8); ABS Neutrophils 5.8 10^3/ul (1.5-7.7); ABS Nucleated RBC 0 10^3/ul; Eosinophil % 2.7 %; Hematocrit 41 % (42-52); Hemoglobin 13.4 g/dl (14.0-18.0); Mean Corpuscular HGB Conc 33 g/dl (31-36); Mean Corpuscular Hemoglobin 29 pg (27-31); Mean Corpuscular Volume 90 fL (80-94); Mean Platelet Volume 7.2 fL (7.4-10.4); Nucleated Red Blood Cells % 0.1; Platelet Count 269 10^3/ul (150-450); Red Cell Distribution Width 15 % (10.5-15); White Blood Count 8.6 10^3/ul (3.5-10.8)
[2018-04-26 06:18] LABS: BUN/Creatinine Ratio 24.1 (8-20); Blood Urea Nitrogen 21 mg/dL (6-24); CO2 Carbon Dioxide 29 mmol/L (22-32); Calcium 8.8 mg/dL (8.6-10.3); Chloride 104 mmol/L (101-111); EGFR Non-African American 86.8 (>60); Glucose 134 mg/dL (70-100); Sodium 139 mmol/L (135-145)
[2018-04-26 06:37] LABS: Anion Gap 6 mmol/L (2-11)
[2018-04-26 07:01] LABS: TSH (Thyroid Stimulating Horm) 0.98 mcIU/mL (0.34-5.60)
[2018-04-26 07:03] LABS: Free T4 0.98 ng/dL (0.61-1.12)
[2018-04-26] MEDS: Insulin LISPRO* 1 UNITS UNIT SUBCUT SCH ×3 (08:27→17:36)
--- NOTE | 2018-04-26 08:29 | PN ---
Subjective Date of Service: 04/26/18 Interval History: Mr. Correa reports that he feels like he is getting a cold. He has a stuffy nose and a headache. He denies chest pain or SOB. He has not had a fever. He denies other complaint including nausea or abdominal pain. He reports that he was up walking in the [place] yesterday and felt pretty good on his feet. Physical Therapy is at the bedside now to do PT eval with him. Family History: Unchanged from Admission Social History: Unchanged from Admission Past Medical History: Unchanged from Admission Objective Active Medications: Acetaminophen (Tylenol Tab*) 650 mg PO Q6H PRN Aspirin (Aspirin 81 Mg Chew Tab*) 81 mg PO DAILY [facility] Bumetanide (Bumex Tab*) 1 mg PO DAILY [facility] Clopidogrel Bisulfate (Plavix Tab*) 75 mg PO DAILY [facility] Cyanocobalamin (Vitamin B12 Tab*) 1,000 mcg PO DAILY [facility] Cyclobenzaprine HCl (Flexeril Tab*) 10 mg PO BID PRN Dextrose (D50w Syringe 50 Ml*) 12.5 gm IV PUSH .FOR FS < 60 - SS PRN Heparin Sodium (Porcine) (Heparin Vial(*)) 5,000 units SUBCUT Q8HR [facility] Insulin Human Lispro (Humalog*) 0 units SUBCUT AC [facility]; Protocol Levothyroxine Sodium (Synthroid Tab*) 200 mcg PO DAILY@0600 [facility] Melatonin (Melatonin) 3 mg PO BEDTIME PRN Metoprolol Tartrate (Lopressor Tab*) 12.5 mg PO BID [facility] Polyethylene Glycol/Electrolytes (Miralax*) 17 gm PO EVERY OTHER DAY [facility] Prednisone (Deltasone Tab*) 30 mg PO DAILY [facility] Senna (Senokot Tab*) 1 tab PO BEDTIME [facility] Tamsulosin HCl (Flomax Cap*) 0.4 mg PO QPM [facility] Valsartan (Diovan Tab*) 80 mg PO DAILY [facility] Vital Signs: Temp Pulse Resp BP Pulse Ox 97.3 F 66 19 127/77 95 04/26/18 07:43 04/26/18 06:00 04/26/18 06:00 04/26/18 04:00 04/26/18 06:00 Oxygen Devices in Use Now: Nasal Cannula Appearance: Male lying in bed in NAD Eyes: No Scleral Icterus Ears/Nose/Mouth/Throat: Mucous Membranes Moist Neck: Trachea Midline Respiratory: Symmetrical Chest Expansion and Respiratory Effort, Clear to Auscultation Cardiovascular: NL Sounds; No Murmurs; No JVD, No Edema Abdominal: NL Sounds; No Tenderness; No Distention Skin: No Rash or Ulcers Neurological: Alert and Oriented x 3, NL Muscle Strength and Tone Nutrition: Taking PO's Result Diagrams: 04/26/18 05:40 04/26/18 05:40 Microbiology and Other Data: . Assess/Plan/Problems-Billing Assessment: This is a 68 yo male with PMH of Type 2 DM, HTN, HLD, and chronic hypoxic respiratory failure with pulmonary fibrosis who who was admitted on 04/19/18 with suspected diastolic chf exacerbation found to have new systolic CHF with EF 25-30% (previously normal) with vtach, awaiting life vest. - Patient Problems (1) Acute systolic (congestive) heart failure Comment: - Appears euvolemic s/p diuresis. - Echo showed EF of 25-30% , global hypokinesis of the left ventricle, new since 10/22/2017. - s/p LHC, minimal atherosclerosis with patent stents, out of proportion to degree of systolic dysfunction - Continue valsartan, metoprolol and diuresis with bumex - Per patient, has facial swelling with aldactone and hctz - Awaiting LifeVest today as per Dr. Lim recommendations - Continue strict I/Os and daily weights (2) Acute and chronic respiratory failure with hypoxia Comment: - Combination of pulmonary fibrosis and CHF - Now on home O2 level, 10lb weight loss since 04/20, appears euvolemic - Will continue prednisone at 40mg, on home 20mg. - Appreciate continued input from cardiology and pulmonology (3) CAD (coronary artery disease) Comment: - No chest pain - Hx of multiple stents, most of which are patent with one fully occluded, please see report from Dr. Best for full evaluation by cardiac cath - Continue to optimize medical managememt with cardiology, appreciate further recs, on ARB and low dose BB (4) HTN (hypertension) Comment: - BP stable on valsartan and metoprolol (5) HLD (hyperlipidemia) Comment: - Continue statin (6) Diabetes Comment: - BGs mildly elevated, suspect due to steroids - Continue Lispro SS, finger sticks AC - HgbA1C 7.0 on 04/09. (7) Pulmonary fibrosis Comment: - At baseline - Continue steroid taper (8) Hypothyroidism Comment: - Continue levothyroxine (9) Obesity (BMI 30-39.9) Comment: - BMI ~ 37 (10) DVT prophylaxis Comment: - HSQ (11) Full code status Comment: Status and Disposition: Downgrade from ICU to tele, no beds available. PT eval for possible referral to STR, will also make referral to PMRU.
[2018-04-26] MEDS: Acetaminophen TAB* 325 MG PO PRN ×2 (08:53→18:57)
[2018-04-26] MEDS: Valsartan TAB* 80 MG PO SCH (08:53)
[2018-04-26] MEDS: predniSONE TAB* 20 MG PO SCH (08:53)
[2018-04-26] MEDS: Aspirin 81 mg CHEW TAB* 81 MG TAB.CHEW PO SCH (08:54)
[2018-04-26] MEDS: Bumetanide TAB* 1 MG PO SCH (08:54)
[2018-04-26] MEDS: Metoprolol Tartrate TAB* 25 MG PO SCH ×2 (08:54→21:02)
[2018-04-26] MEDS: Cyanocobalamin TAB* 500 MCG PO SCH (08:54)
[2018-04-26] MEDS: Clopidogrel TAB* 75 MG PO SCH (08:54)
[2018-04-26] MEDS: Tamsulosin CAP* 0.4 MG PO SCH (17:39)
[2018-04-26] MEDS: Senna TAB PO SCH (21:02)
[2018-04-26] MEDS: Melatonin 3 MG TAB PO PRN (21:02)
[2018-04-27] MEDS: Levothyroxine TAB* 100 MCG TAB PO SCH (05:56)
[2018-04-27] MEDS: Heparin VIAL(*) 5000 UNITS/ML VIAL (FIVE THOUSAND) SUBCUT SCH (05:56)
[2018-04-27] MEDS: Acetaminophen TAB* 325 MG PO PRN (06:00)
[2018-04-27] MEDS: Insulin LISPRO* 1 UNITS UNIT SUBCUT SCH (08:25)
[2018-04-27] MEDS: Polyethylene Glycol 3350* 17 GM PACKET PO SCH (08:30)
--- NOTE | 2018-04-27 08:30 | PN ---
Subjective Date of Service: 04/27/18 Interval History: Mr. Correa reports that he feels well today. He feels that his breathing is at baseline and his confirms. He denies chest pain. He is eager for discharge to home. Family History: Unchanged from Admission Social History: Unchanged from Admission Past Medical History: Unchanged from Admission Objective Active Medications: Acetaminophen (Tylenol Tab*) 650 mg PO Q6H PRN Aspirin (Aspirin 81 Mg Chew Tab*) 81 mg PO DAILY [facility] Bumetanide (Bumex Tab*) 1 mg PO DAILY [facility] Clopidogrel Bisulfate (Plavix Tab*) 75 mg PO DAILY [facility] Cyanocobalamin (Vitamin B12 Tab*) 1,000 mcg PO DAILY [facility] Cyclobenzaprine HCl (Flexeril Tab*) 10 mg PO BID PRN Dextrose (D50w Syringe 50 Ml*) 12.5 gm IV PUSH .FOR FS < 60 - SS PRN Heparin Sodium (Porcine) (Heparin Vial(*)) 5,000 units SUBCUT Q8HR [facility] Insulin Human Lispro (Humalog*) 0 units SUBCUT AC [facility]; Protocol Levothyroxine Sodium (Synthroid Tab*) 200 mcg PO DAILY@0600 [facility] Melatonin (Melatonin) 3 mg PO BEDTIME PRN Metoprolol Tartrate (Lopressor Tab*) 12.5 mg PO BID [facility] Polyethylene Glycol/Electrolytes (Miralax*) 17 gm PO EVERY OTHER DAY [facility] Prednisone (Deltasone Tab*) 30 mg PO DAILY [facility] Senna (Senokot Tab*) 1 tab PO BEDTIME [facility] Tamsulosin HCl (Flomax Cap*) 0.4 mg PO QPM [facility] Valsartan (Diovan Tab*) 80 mg PO DAILY [facility] Vital Signs: Temp Pulse Resp BP Pulse Ox 98.4 F 75 22 141/90 94 04/27/18 08:00 04/27/18 08:00 04/27/18 08:00 04/27/18 08:00 04/27/18 08:00 Oxygen Devices in Use Now: Nasal Cannula Appearance: Male sitting up in bed in NAD, life vest on Eyes: No Scleral Icterus Ears/Nose/Mouth/Throat: Mucous Membranes Moist Neck: Trachea Midline Respiratory: Symmetrical Chest Expansion and Respiratory Effort, Clear to Auscultation Cardiovascular: NL Sounds; No Murmurs; No JVD, No Edema Abdominal: NL Sounds; No Tenderness; No Distention Extremities: No Edema Skin: No Rash or Ulcers Neurological: Alert and Oriented x 3, NL Muscle Strength and Tone Nutrition: Taking PO's Result Diagrams: 04/26/18 05:40 04/26/18 05:40 Microbiology and Other Data: . Assess/Plan/Problems-Billing Assessment: This is a 68 yo male with PMH of Type 2 DM, HTN, HLD, and chronic hypoxic respiratory failure with pulmonary fibrosis who who was admitted on 04/19/18 with suspected diastolic chf exacerbation found to have new systolic CHF with EF 25-30% (previously normal) with vtach, now s/p life vest. - Patient Problems (1) Acute systolic (congestive) heart failure Comment: - Appears euvolemic s/p diuresis. - Echo showed EF of 25-30% , global hypokinesis of the left ventricle, new since 10/22/2017. - s/p LHC, minimal atherosclerosis with patent stents, out of proportion to degree of systolic dysfunction - Continue optimal medical management with valsartan, metoprolol and diuresis with bumex - Per patient, has facial swelling with aldactone and hctz - LifeVest arrived 04/26/18 - Continue strict I/Os and daily weights. Patient bought digital scale for home. (2) Acute and chronic respiratory failure with hypoxia Comment: - Combination of pulmonary fibrosis and CHF - Now on home O2 level, ~ 10lb weight loss since 04/20, appears euvolemic - Continue steroid taper, on 20mg outpatient prior to admission - Appreciate continued input from cardiology and pulmonology (3) CAD (coronary artery disease) Comment: - No chest pain - Hx of multiple stents, most of which are patent with one fully occluded, please see report from Dr. Best for full evaluation by cardiac cath - Continue to optimize medical managememt with cardiology, appreciate further recs, on ARB and low dose BB (4) HTN (hypertension) Comment: - BP stable on valsartan and metoprolol (5) HLD (hyperlipidemia) Comment: - Continue statin (6) Diabetes Comment: - BGs mildly elevated, suspect due to steroids - Continue Lispro SS, finger sticks AC - HgbA1C 7.0 on 04/09. (7) Pulmonary fibrosis Comment: - At baseline - Continue steroid taper (8) Hypothyroidism Comment: - Continue levothyroxine (9) Obesity (BMI 30-39.9) Comment: - BMI ~ 37 (10) DVT prophylaxis Comment: - HSQ (11) Full code status Comment: Status and Disposition: Discharge to home. Close follow up with Dr. Vasquez and Dr. Aguirre. Please check weight each AM before breakfast. Call Dr. Aguirre's office with 2- 3 lb weight gain, leg swelling or shortness of breath. Don't hesitate to return to the ED with SOB or chest pain.
[2018-04-27] MEDS: Clopidogrel TAB* 75 MG PO SCH (08:31)
[2018-04-27] MEDS: Bumetanide TAB* 1 MG PO SCH (08:31)
[2018-04-27] MEDS ORDERED: Insulin LISPRO* 1 UNITS UNIT SUBCUT SCH (08:31)
[2018-04-27] MEDS: predniSONE TAB* 20 MG PO SCH (08:31)
[2018-04-27] MEDS: Valsartan TAB* 80 MG PO SCH (08:31)
[2018-04-27] MEDS: Cyanocobalamin TAB* 500 MCG PO SCH (08:34)
[2018-04-27] MEDS: Metoprolol Tartrate TAB* 25 MG PO SCH (08:34)
[2018-04-27] MEDS: Aspirin 81 mg CHEW TAB* 81 MG TAB.CHEW PO SCH (08:34)
[2018-04-27 12:07] VITALS: BP 137/84
--- NOTE | 2018-04-27 23:09 | DS ---
CC: Dr. Jacobson; Dr. Vasquez; Dr. Hartman; Dr. Aguirre.* DISCHARGE SUMMARY: DATE OF ADMISSION: 04/19/18 DATE OF DISCHARGE: 04/27/18 PRIMARY CARE PHYSICIAN: Dr. Jacobson. PARK RECREATION MANAGER: Dr. Vasquez. CARDIOLOGISTS: Dr. Hartman and Dr. Aguirre. ATTENDING PHYSICIAN: Dr. Sumner * (dictation provided by Naty Aguirre NP). PRIMARY DIAGNOSES: 1. Acute systolic congestive heart failure (new diagnosis). 2. [id number] hypoxic respiratory failure. SECONDARY DIAGNOSES: 1. History of type 2 diabetes, non-insulin dependant. 2. Hypertension. 3. Hyperlipidemia. 4. Pulmonary fibrosis with chronic hypoxic respiratory failure, on 4.5 L of oxygen at home. 5. Hypothyroidism. 6. Coronary artery disease with history of myocardial infarction. 7. Coronary artery disease with stent placement in the past. PAST SURGICAL HISTORY: 1. History of femur fracture. 2. History of heart cath during this hospitalization. MEDICATIONS: 1. MiraLAX 17 g p.o. every other day. 2. Cyclobenzaprine 10 mg p.o. b.i.d. p.r.n. 3. Excedrin Extra Strength 250/250/65 three tabs p.o. daily p.r.n. 4. Senna 1 tab p.o. at bedtime. 5. Cyanocobalamin 1000 mcg p.o. daily. 6. Bumex 1 mg p.o. daily. 7. Rosuvastatin 5 mg p.o. at bedtime. 8. Tamsulosin 0.4 mg p.o. q.p.m. 9. Levothyroxine 200 mcg p.o. daily. 10. Metformin 1000 mg p.o. b.i.d. 11. Glipizide 5 mg p.o. daily with meal. 12. Prednisone 20 mg p.o. daily. 13. Valsartan 80 mg p.o. daily. 14. Metoprolol tartrate 12.5 mg p.o. b.i.d. 15. Clopidogrel 75 mg p.o. daily. 16. Aspirin 81 mg p.o. daily. New Medications are: 1. Clopidogrel. 2. Metoprolol. 3. Valsartan. HOSPITAL COURSE: Mr. Correa is a 68-year-old male with a past medical history of chronic hypoxic respiratory failure secondary to pulmonary fibrosis, medically managed coronary artery disease, and type 2 diabetes who presented to the hospital on 04/19/18 with concern for shortness of breath. Please see the dictated H and P from myself for complete details. In brief, the patient stated that for the past 4 weeks prior to admission, he had become more and more short of breath and had become much more significantly so on the day of admission. He in the emergency room had a BNP, it was 365; chest x-ray that showed concern for pulmonary vascular congestion. Mr. Correa was admitted to the hospital with concern for possible congestive heart failure. His last known echocardiogram was from 10/22/17, and at that time he had an intact ejection fraction with diastolic dysfunction observed and no significant valvular abnormalities. The patient did go on to have a repeat echocardiogram which showed an ejection fraction of 25% to 30% which was a significant decrease. The patient was seen in consultation by the cardiology team who recommended that the patient go for cardiac catheterization given the precipitous drop in his cardiac function. The patient went to the cardiac cardiac cath technologist on 04/24/18 and the findings there were of minimal coronary vascular disease and patent stents. Dr. Best felt that the mild degree of coronary artery disease did not explain the significant drop in his EF and recommended medical management. No stent was placed. Mr. Correa has remained in the intensive care unit. Since the day of admission, he has had aggressive diuresis and appears to have lost approximately 10 pounds. He has no lower extremity edema. He is satting well at rest on 4 L nasal cannula which is his baseline. He does have a drop in his O2 saturation with mobility. The patient's family states that this has been a chronic problem for him and that this has been observed by Dr. Vasquez in the outpatient setting and is secondary to his severe pulmonary fibrosis. The patient feels that he is at baseline with his breathing and mobility, his agrees. Mr. Correa is medically stable for discharge. He will be following up very closely with Dr. Hartman for evaluation status post catheterization. He has also been recommended to follow up with Dr. Vasquez and Dr. Aguirre, and Dr. Jacobson. The patient's has bought a scale for the home and will be helping to weigh the patient on a daily basis. She is aware that she should contact Dr. Aguirre if the patient has a 2 to 3 pound weight gain, lower extremity edema , or significant shortness of breath out of proportion to ordinary. I will note finally that Mr. Correa did have a LifeVest ordered and it has arrived yesterday and he has been wearing it for the past 24 hours. He has had no evidence of heart arrhythmia, but is a high risk given his low ejection fraction. In terms of medication changes, he is now on valsartan rather than candesartan. We have added a low-dose metoprolol which he has been tolerating thus far well despite his history of lung disease. We switched him from Effient to Plavix in the direction of the Cardiology recommendations. Mr. Correa is medically stable for discharge to home. DISPOSITION: To home. DIET: Low fat, low salt, low carb. ACTIVITY: As tolerated. FOLLOWUP PLANS: Please follow up with Dr. Hartman on 04/29/18 at 3:30 p.m. He has also been instructed to follow up with Dr. Aguirre within 1 month, Dr. Vasquez in 4 to 6 weeks, and Dr. Jacobson in 4 to 7 days. Mr. Correa is medically stable for discharge to home. TIME SPENT: Approximately 60 minutes were spent on the discharge of this patient. NATY AGUIRRE NP [id number]/[facility] #: [id number] JAYJAY
== END 2018-04-27 14:20 | disposition home or self-care (01) | DRG 286 ==
LOC: ED 11:45 → MEDTELE 14:32 → OBSVTOIN 14:33 → ICU 17:48
PROVIDERS: ADMIT Hospitalist; ATTEND Internal Medicine
PROC: 4A023N8 Measurement of Cardiac Sampling and Pressure, Bilateral, Percutaneous Approach (ICD-10-PCS; principal; 2018-04-19)
PROC: B2111ZZ Fluoroscopy of Multiple Coronary Arteries using Low Osmolar Contrast (ICD-10-PCS; 2018-04-19)
PROC: B2151ZZ Fluoroscopy of Left Heart using Low Osmolar Contrast (ICD-10-PCS; 2018-04-19)
DX: I11.0 Hypertensive heart disease with heart failure (principal); J96.21 Acute and chronic respiratory failure with hypoxia; E11.9 Type 2 diabetes mellitus without complications; E78.5 Hyperlipidemia, unspecified; E03.9 Hypothyroidism, unspecified; I25.10 Atherosclerotic heart disease of native coronary artery without angina pectoris; Z66 Do not resuscitate; N40.0 Benign prostatic hyperplasia without lower urinary tract symptoms; M47.9 Spondylosis, unspecified; M17.0 Bilateral primary osteoarthritis of knee; M19.012 Primary osteoarthritis, left shoulder; M19.011 Primary osteoarthritis, right shoulder; I42.9 Cardiomyopathy, unspecified; I50.43 Acute on chronic combined systolic (congestive) and diastolic (congestive) heart failure; J43.9 Emphysema, unspecified; I44.60 Unspecified fascicular block; J84.10 Pulmonary fibrosis, unspecified; I27.20 Pulmonary hypertension, unspecified; E66.9 Obesity, unspecified; I25.2 Old myocardial infarction; Z88.8 Allergy status to other drugs, medicaments and biological substances; Z87.891 Personal history of nicotine dependence; Z95.5 Presence of coronary angioplasty implant and graft; Z82.49 Family history of ischemic heart disease and other diseases of the circulatory system; Z82.0 Family history of epilepsy and other diseases of the nervous system; Z86.73 Personal history of transient ischemic attack (TIA), and cerebral infarction without residual deficits; Z87.442 Personal history of urinary calculi; Z79.82 Long term (current) use of aspirin; Z79.84 Long term (current) use of oral hypoglycemic drugs; Z79.52 Long term (current) use of systemic steroids; Z68.37 Body mass index [BMI] 37.0-37.9, adult; Z99.81 Dependence on supplemental oxygen; Z79.02 Long term (current) use of antithrombotics/antiplatelets
CPT/HCPCS: 36415; 71045; 76937; 80048; 80053; 80061; 83605; 83735; 83880; 84439; 84443; 84484; 85025; 85027; 85347; 85610; 86140; 87641; 93005; 93306; 93460; 99284; A9270-GY; C1887; G8978-GP-CJ; G8979-GP-CI; J1644; J1940; J2250; J2270; J3010; J3490; J7512

== ENCOUNTER 2018-11-04 07:32 | Inpatient (IN) | payer OTHER ==
--- NOTE | 2018-11-04 08:02 | ED ---
Lower Extremity - HPI Summary HPI Summary: This patient is a 68 year old M presenting to [facility] accompanied by with a chief complaint of burning pain in shins and right leg since 0500. Pt was mowing the lawn yesterday. Pt has a Hx of cellulitis, pulmonary fibrosis and diabetes. Pt has a head cold starting approx. 1 week ago. Patient reports SOB ( but pt reports he is SOB at baseline), cough, runny nose, edema in legs. Patient denies CP, abdominal pain. The patient rates the pain 7/10 in severity. - History of Current Complaint Chief Complaint: EDExtremityLower Stated Complaint: CELLULITIS PER PT Time Seen by Provider: 11/04/18 07:42 Hx Obtained From: Patient Onset of Pain: Hours Onset/Duration: Still Present Severity Currently: Severe Pain Intensity: 8 Pain Scale Used: 0-10 Numeric Timing: Constant Location: Is Diffuse - right chau Character Of Pain: Burning Associated Signs And Symptoms: Positive: Negative - CP, abdominal pain;, Swelling, Other - SOB, cough, nasal discharge - Allergies/Home Medications Allergies/Adverse Reactions: Allergies Allergy/AdvReac Type Severity Reaction Status Date / Time atorvastatin [From Lipitor] Allergy Pain Verified 11/04/18 07:38 hydrochlorothiazide Allergy Swelling Verified 11/04/18 07:38 Of Face,Lips,& Throat simvastatin [From Zocor] Allergy Rash Verified 11/04/18 07:38 spironolactone Allergy Swelling Verified 11/04/18 07:38 Of Face,Lips,& Throat gabapentin AdvReac Altered Verified 11/04/18 07:38 Mental Status sumatriptan [From Imitrex] AdvReac Shakes Verified 11/04/18 07:38 valsartan AdvReac Headache Verified 11/04/18 07:38 Home Medications: Home Medications Carvedilol TAB* [Coreg TAB*] 25 mg PO BID 11/04/18 [History Confirmed 11/04/18] Empagliflozin [Jardiance] 10 mg PO DAILY 11/04/18 [History Confirmed 11/04/18] Senna TAB* [Senokot TAB*] 1 tab PO DAILY 11/04/18 [History Confirmed 11/04/18] Valsartan TAB* [Diovan TAB*] 160 mg PO BID 11/04/18 [History Confirmed 11/04/18] PMH/Surg Hx/FS Hx/Imm Hx Endocrine/Hematology History: Reports: Hx Diabetes Cardiovascular History: Reports: Hx Angina, Hx Coronary Artery Disease - Stent LAd,RCA, Hx Hypercholesterolemia, Hx Hypertension, Hx Myocardial Infarction Denies: Hx Valvular Heart Disease History: Reports: Hx Benign Prostatic Hyperplasia Denies: Hx Dialysis, Hx Renal Disease Musculoskeletal History: Reports: Hx Arthritis - neck, back, knees, shoulders, Hx Back Problems Sensory History: Reports: Hx Contacts or Glasses - reading glasses Denies: Hx Hearing Aid Opthamlomology History: Reports: Hx Contacts or Glasses - reading glasses Neurological History: Reports: Hx Headaches - Surgical History Surgery Procedure, Year, and Place: femur fracture repair 1969', bladder biopsy (benign) Cardiac stents. lop sensor implanted one week ago. heart cath done one week ago-- - Immunization History Date of Influenza Vaccine: Mar 2018 Infectious Disease History: No Infectious Disease History: Denies: Traveled Outside the [place] in Last 30 Days - Family History Known Family History: Positive: Cardiac Disease - Social History Alcohol Use: None Hx Substance Use: No Substance Use Type: Reports: None Hx Tobacco Use: Yes Smoking Status (MU): Former Smoker Type: Cigarettes Amount Used/How Often: 1pck/d Length of Time of Smoking/Using Tobacco: 27 Have You Smoked in the Last Year: No Review of Systems Positive: Nasal Discharge Negative: Chest Pain Positive: Shortness Of Breath, Cough Negative: Abdominal Pain Positive: Edema All Other Systems Reviewed And Are Negative: Yes Physical Exam - Summary Physical Exam Summary: Constitutional: Well-developed, Well-nourished, Alert. (-) Distressed Skin: Warm, Dry HENT: Normocephalic; Atraumatic Eyes: Conjunctiva normal Neck: Musculoskeletal ROM normal neck. (-) JVD, (-) Stridor, (-) Tracheal deviation Cardio: Rhythm regular, rate normal, Heart sounds normal; Intact distal pulses; The pedal pulses are 2+ and symmetric. Radial pulses are 2+ and symmetric. (-) Murmur Pulmonary/Chest wall: Effort normal. (-) Respiratory distress, (-) Wheezes, fine bilateral basilar crackles Abd: Soft, (-) tenderness, (-) Distension, (-) Guarding, (-) Rebound Musculoskeletal: (-) Edema, 2+ pitting edema bilateral, Right lower extremity erythematous; tender, erythema and warmth extend up through the knee and distal thigh, small areas of skin desquamation .5 cm weeping; Warm bilaterally Lymph: (-) Cervical adenopathy Neuro: Alert, Oriented x3 Psych: Mood and affect Normal Triage Information Reviewed: Yes Vital Signs On Initial Exam: Initial Vitals Temp Pulse Resp BP Pulse Ox 98.3 F 92 33 153/89 86 11/04/18 07:35 11/04/18 07:35 11/04/18 07:35 11/04/18 07:35 11/04/18 07:35 Vital Signs Reviewed: Yes Diagnostics - Vital Signs Vital Signs Temp Pulse Resp BP Pulse Ox 11/04/18 07:35 98.3 F 92 33 153/89 86 - Laboratory Result Diagrams: 11/04/18 08:19 11/04/18 08:19 Lab Statement: Any lab studies that have been ordered have been reviewed, and results considered in the medical decision making process. - Radiology CXR Radiology Interpretation Completed By: Radiologist Summary of Radiographic Findings: CXR reveals, per radiologist, IMPRESSION: 1. FOCAL INCREASED DENSITY IN THE RIGHT HILAR REGION SUGGESTIVE OF A MASS OR INFILTRATE. RECOMMEND A CT OF THE CHEST WITH CONTRAST FOR FURTHER EVALUATION. 2. MILD CARDIOMEGALY UNCHANGED. 3. FINDINGS SUGGESTIVE OF CHRONIC INTERSTITIAL LUNG DISEASE. ED physician has reviewed this radiology report. - CT Chest CT CT Interpretation Completed By: Radiologist Summary of CT Findings: Chest CT reveals, per radiologist, #. No evidence for RIGHT hilar mass or perihilar infiltrate. Prominence of the santos is in part due to prominent pulmonary arteries most consistent with pulmonary arterial hypertension in setting of interstitial fibrosis. #. No significant interval change in interstitial fibrosis compared with the May 132018 exam. #. Concern for potential pulmonary embolism. Correlate with clinical assessment and. consider formal CT pulmonary angiogram for further assessment. ED physician has reviewed this radiology report. Chest/Thorax CTA CT Interpretation Completed By: Radiologist Summary of CT Findings: Chest/Thorax CTA reveals, per radiologist, IMPRESSION: Multiple filling defects present predominantly in the right pulmonary artery in the lower lobe branches as well as in the right middle lobe branches and right upper lobe branches. Findings are consistent with pulmonary emboli. Smaller subsegmental filling defects in the pulmonary arteries in the lung bases are not totally excluded due to motion. Pulmonary fibrosis is noted. ED physician has reviewed this radiology report. - EKG 1604 Cardiac Rate: NL - 92 bpm EKG Rhythm: Sinus Rhythm Summary of EKG Findings: EKG reveals normal sinus rhythm at 92 bpm, normal NJ, prolonged QRS, normal QTc, normal axis, ST-waves depressed in V6, T-waves inverted in V6, unspecified EKG. - Additional Comments Diagnostic Additional Comments: Venous Doppler Study reveals, per radiologist, IMPRESSION: 1. DVT EXTENDING FROM THE RIGHT COMMON FEMORAL TO POPLITEAL VEINS ABOVE. OCCLUSIVE IN THE FEMORAL AND POPLITEAL SEGMENTS. 2. NO LEFT-SIDED DVT. ED physician has reviewed this report. Re-Evaluation - Re-Evaluation First Eval Re-Evaluation Time: 13:03 Comment: Disscussed results and plan of care with pt. Lower Extremity Course/Dx - Course Course Of Treatment: This patient is a 68 year old M presenting to [facility] accompanied by with a chief complaint of burning pain in shins and right leg since 0500. Pt was mowing the lawn yesterday. Pt has a Hx of cellulitis, pulmonary fibrosis and diabetes. Pt has a head cold starting approx. 1 week ago. Patient reports SOB (but pt reports he is SOB at baseline), cough, runny nose, edema in legs. Patient denies CP, abdominal pain. The patient rates the pain 7/10 in severity. Physical Exam Findings is nml except for fine bilateral basilar crackles in the lungs, 2+ pitting edema bilateral, Right lower extremity erythematous; tender, erythema and warmth extend up through the knee and distal thigh, small areas of skin desquamation .5 cm weeping; Warm bilaterally. The patient likely has a cellulitis. However, he has a history of severe CHF requiring ICU admission in March 2018. He also has a history of severe pulmonary fibrosis causing shortness of breath. He was very short of breath with exertion here in the ED with increased work of breathing. However, when he was still, vital signs normalized. He has no evidence of sepsis at this point. Vitals are stable. WBC is normal. His elevated blood lactate is more likely due to the extreme work of breathing, especially on exertion. Given that and his severity of CHF, the sepsis fluid bolus will not be administered in the ED. Blood work obtained. Lactic Acid is 3.6. Troponin is 0.03, Anion Gap is 12, BUN is 33, BUN/Creatinine Ratio is 37.9, Glucose is 140, Lactic Acid is 3.6, B-Natriuretic Peptide is 197, Total Protein is 6.2. Second Lactic acid is 2.5. EKG reveals, Normal sinus rhythm at 92 bpm, normal NJ, prolonged QRS, normal QTc, normal axis, ST-waves depressed in V6, T-waves inverted in V6, unspecified EKG. CXR reveals, IMPRESSION: 1. FOCAL INCREASED DENSITY IN THE RIGHT HILAR REGION SUGGESTIVE OF A MASS OR INFILTRATE. RECOMMEND A CT OF THE CHEST WITH CONTRAST FOR FURTHER EVALUATION. 2. MILD CARDIOMEGALY UNCHANGED. 3. FINDINGS SUGGESTIVE OF CHRONIC INTERSTITIAL LUNG DISEASE. Radiology called because CXR demonstrated a possible new mass vs inflitrate in the right lung. Ct chest was recommended and ordered in the ED. Chest CT reveals, #. No evidence for RIGHT hilar mass or perihilar infiltrate. Prominence of the santos is in part due to prominent pulmonary arteries most consistent with pulmonary arterial hypertension in setting of interstitial fibrosis. #. No significant interval change in interstitial fibrosis compared with the May 132018 exam. #. Concern for potential pulmonary embolism. Correlate with clinical assessment and. consider formal CT pulmonary angiogram for further assessment. Chest/Thorax CTA reveals, per radiologist, IMPRESSION: Multiple filling defects present predominantly in the right pulmonary artery in the lower lobe branches as well as in the right middle lobe branches and right upper lobe branches. Findings are consistent with pulmonary emboli. Smaller subsegmental filling defects in the pulmonary arteries in the lung bases are not totally excluded due to motion. Pulmonary fibrosis is noted. Called by radiology, b/c the CT demonstrated PE; however it was not a PE protocol CAT scan , so they recommend repeating the CT but this time PE protocol. Venous Doppler Study reveals, per radiologist, IMPRESSION: 1. DVT EXTENDING FROM THE RIGHT COMMON FEMORAL TO POPLITEAL VEINS ABOVE. OCCLUSIVE IN THE FEMORAL AND POPLITEAL SEGMENTS. 2. NO LEFT-SIDED DVT. Radiology called and reported right -sided DVT. In the ED course the patient was given fluids, morphine 4 mg IV, and Zofran Inj 4mg. We discussed patient care with Dr. Piña and she accepts for admission after result of Ct scans. Dx is DVT and PE. Patient will be admitted. The patient is agreeable with this plan. - Diagnoses Provider Diagnoses: DVT (deep venous thrombosis), Pulmonary embolism - Physician Notifications Discussed Care Of Patient With: Radiology Time Discussed With Above Provider: 08:49 Instructed by Provider To: Other - Recommended ordering CT chest for pt due to CXR impression; 10:25 - radiology recommends PE protocal CAT scan.; 11:39 - radiology called and reported right-sided DVT; 13:15 - Discussed pt case with Dr. Piña, once patient's CAT scan comes back he can be admitted. - Critical Care Time Critical Care Time: 30-74 min - 60 Discharge - Sign-Out/Discharge Documenting (check all that apply): Patient Departure - Admit All imaging exams completed and their final reports reviewed: Yes Patient Received Moderate/Deep Sedation with Procedure: No - Discharge Plan Condition: Stable Disposition: ADMITTED TO [facility] - Billing Disposition and Condition Condition: STABLE Disposition: Admitted to [facility] - Attestation Statements Document Initiated by Inna: Yes Documenting Scribe: Soledad Vizcaino Provider For Whom Inna is Documenting (Include Credential): Dr. Annette Cartwright MD Scribe Attestation: Soledad Davidson scribed for Dr. Annette Cartwright MD on 11/04/18 at 1929. Scribe Documentation Reviewed: Yes Provider Attestation: The documentation as recorded by the Soledad king accurately reflects the service I personally performed and the decisions made by , Dr. Annette Cartwright MD Status of Scribe Document: Viewed
[2018-11-04 08:36] LABS: ABS Basophils 0.1 10^3/ul (0-0.2); ABS Eosinophils 0.1 10^3/ul (0-0.6); ABS Lymphocytes 0.8 10^3/ul (1.0-4.8); ABS Monocytes 0.2 10^3/ul (0-0.8); ABS Neutrophils 6.6 10^3/ul (1.5-7.7); Eosinophil % 1.1 %; Hematocrit 45 % (42-52); Hemoglobin 14.5 g/dL (14.0-18.0); Lymphocyte % 10.6 %; Mean Corpuscular HGB Conc 32 g/dL (31-36); Mean Corpuscular Hemoglobin 30 pg (27-31); Mean Corpuscular Volume 91 fL (80-94); Mean Platelet Volume 6.9 fL (7.4-10.4); Nucleated Red Blood Cells % 0.1; Platelet Count 154 10^3/uL (150-450); Red Blood Count 4.92 10^6 /uL (4.18-5.48); Red Cell Distribution Width 18 % (10-15); White Blood Count 7.7 10^3/uL (3.5-10.8)
[2018-11-04] MEDS ORDERED: Piperacillin/Tazobac ADVAN(*) 3.375 GM in NS 0.9% 100 ML* 100 ML IVPB ONE (08:49)
[2018-11-04 08:57] LABS: Albumin 3.9 g/dL (3.2-5.2); Albumin/Globulin Ratio 1.7 (1-3); BUN/Creatinine Ratio 37.9 (8-20); Calcium 9.2 mg/dL (8.6-10.3); EGFR Non-African American 86.8 (>60); Globulin 2.3 g/dL (2-4); Potassium 3.5 mmol/L (3.5-5.0); Total Bilirubin 0.5 mg/dL (0.2-1.0); Total Protein 6.2 g/dL (6.4-8.9); Troponin I 0.03 ng/mL (<0.04)
[2018-11-04 08:58] LABS: Activated Partial Thrombo Time 30.3 seconds (26.0-38.0); INR 1.01 (0.82-1.09)
[2018-11-04] MEDS ORDERED: NS 0.9% 1000 ML** 1,000 ML IV ONE (09:00)
[2018-11-04] MEDS ORDERED: Morphine 4 MG/ML VIAL (1 ml) 4 MG/ML VIAL IV ONE ×2 (09:35→11:22)
[2018-11-04] MEDS ORDERED: Iodixanol* (CONTRAST) 320 MG/ML 100 ML SDV IV ONE ×2 (09:51→12:09)
[2018-11-04] MEDS ORDERED: Ondansetron INJ* 2 MG/ML VIAL IV ONE ×2 (09:55→13:33)
[2018-11-04] MEDS ORDERED: Ondansetron INJ* 2 MG/ML VIAL ONE (09:56)
[2018-11-04] MEDS ORDERED: Enoxaparin(*) 100 MG/ML SYR SUBCUT ONE (11:52)
[2018-11-04] MEDS ORDERED: Ondansetron INJ* 2 MG/ML VIAL IV PRN (14:53)
[2018-11-04] MEDS ORDERED: Acetaminophen TAB* 325 MG PO PRN (14:53)
[2018-11-04] MEDS ORDERED: Enoxaparin(*) 100 MG/ML SYR SUBCUT SCH (15:00)
[2018-11-04 15:02] LABS: Urine Appearance Clear; Urine Bilirubin Negative (Negative); Urine Blood Negative (Negative); Urine Color Yellow; Urine Glucose 3+(>=500 mg/dL) (Negative); Urine Ketones Negative (Negative); Urine Nitrite Negative (Negative); Urine Protein Negative (Negative); Urine Specific Gravity 1.042 (1.010-1.030); Urine Urobilinogen Negative (Negative)
[2018-11-04] MEDS ORDERED: Dextrose 50% Syringe 50 ML* 25 GM/50 ML SYRINGE IV PUSH PRN (15:16)
[2018-11-04] MEDS: Insulin LISPRO* 1 UNITS UNIT SUBCUT SCH ×2 (16:43→20:37)
[2018-11-04] MEDS: PIRFENIDONE 267 MG PO SCH (16:44)
[2018-11-04] MEDS: Tamsulosin CAP* 0.4 MG PO SCH (16:49)
[2018-11-04] MEDS: oxyCODONE TAB* 5 MG TAB PO PRN (16:52)
--- NOTE | 2018-11-04 16:59 | ECHO ---
*[facility]* [place] [address] Fax #: [phone] Transthoracic Echocardiogram Patient: Cayden Correa : 1950 Study Date: 11/04/2018 Age: 68 Gender: M HR: 91 bpm Height: 71 in /180.3 cm BSA: 2.24 m^2 Weight: 229.5 lb /104.3 kg BMI: 32.1 kg/m^2 *Mechanical Press Operator: * Viry Calvo [facility] *Referring Physician: * Raghavendra Timmons *Reading Physician: * Dirk Rollins MD Indications: SOB. Pulmonary Embolism. History: Coronary artery disease. Congestive heart failure. Risk factors: Former tobacco use. Hypertension. Diabetes mellitus. Dyslipidemia. Labs, prior tests, procedures, and surgery: Catheterization. There was a stenosis which was treated with a stent. Conclusions Summary: 1. Left ventricle: The cavity size is normal. There is moderate concentric hypertrophy. Systolic function is normal. The estimated ejection fraction is 50-55%. Wall motion is normal; there are no regional wall motion abnormalities. Doppler parameters are consistent with abnormal left ventricular relaxation (grade 1 diastolic dysfunction). 2. Right ventricle: The cavity size is mildly dilated. Systolic function is moderately reduced. Systolic pressure is mildly to moderately increased. 3. Ventricular septum: There is septal flattening of the interventricular septum consistent with RV volume or pressure overload. 4. Right atrium: The atrium is moderately dilated. 5. Functionally benign heart valves. 6. Aortic root: The aortic root is mild to moderately dilated. 7. Ascending aorta: The ascending aorta is mildly dilated. 8. Since the prior echocardiogram completed 04/20/18, pertinent changes are prior LVEF reported severely decreased at 25-30%, prior mildly dilated left ventricle size reported, prior normal right ventricle size and function noted and prior mildly dilated aortic root to 3.6 cm reported. Study data: Transthoracic echocardiogram. Procedure: Transthoracic echocardiography was performed. Image quality was fair. The study was technically limited due to poor acoustic window availability and body habitus. Poor parasternal imaging view. Complete 2D, spectral Doppler, and color flow Doppler. Location: Emergency department. Patient status: Inpatient. Patient room number: ED-15. Rhythm: Normal sinus rhythm. Findings Left ventricle: The cavity size is normal. There is moderate concentric hypertrophy. Systolic function is normal. The estimated ejection fraction is 50-55%. Wall motion is normal; there are no regional wall motion abnormalities. Doppler parameters are consistent with abnormal left ventricular relaxation (grade 1 diastolic dysfunction). Right ventricle: The cavity size is mildly dilated. The moderator band is in a normal position. Systolic function is moderately reduced. Systolic pressure is mildly to moderately increased. Ventricular septum: There is septal flattening of the interventricular septum consistent with RV volume or pressure overload. Left atrium: The atrium is normal in size. Right atrium: The atrium is moderately dilated. Mitral valve: The leaflets are mildly thickened. There is trace regurgitation. Aortic valve: The valve is trileaflet. The leaflets are mildly thickened. There is no evidence of stenosis. There is no significant regurgitation. Tricuspid valve: The leaflets are normal thickness. There is trivial regurgitation. Pulmonic valve: The leaflets are normal thickness. There is no evidence of stenosis. There is trace regurgitation. Aorta: Aortic root: The aortic root is mild to moderately dilated. Ascending aorta: The ascending aorta is mildly dilated. Aortic arch: The aortic arch is appears normal. Pericardium: A prominent pericardial fat pad is present. There is no significant pericardial effusion. Pulmonary arteries: Poorly visualized. Systemic veins: Inferior vena cava: The vessel is dilated. The respirophasic diameter changes are in the normal range (>= 50%). Measurements Left ventricle Value Ref Aortic valve Value Ref TITA, LAX 4.9 cm 4.2 - 5.8 April diam, ED 2.3 cm ----- ESD, LAX 3.6 cm 2.5 - 4.0 April diam/bsa, ED 1.0 cm/m^2 ----- FS, LAX 27 % 25 - 43 Peak v, S 1.68 m/sec ----- PW, ED, LAX (H) 1.5 cm 0.6 - 1.0 VTI, S 27.7 cm ----- FS 27 % 25 - 43 Mean grad, S 6.0 mm Hg ----- PW, ED (H) 1.5 cm 0.6 - 1.0 Peak grad, S 11.0 mm Hg ----- E', lat april, TDI (L) 8.2 cm/sec >=10.0 LVOT/AV, VTI ratio 0.58 -- --- E/e', lat april, 9 TDI Mitral valve Value Ref E', med april, TDI (L) 4.2 cm/sec >=7.0 Peak E 0.7 m/sec -- --- E/e', med april, 17 Peak A 1.08 m/sec ----- TDI Decel time 204 ms ----- E', avg, TDI 6.2 cm/sec Peak E/A ratio 0.6 ----- E/e', avg, TDI 11 <=14 Pulmonic valve Value Ref LVOT Value Ref Peak v, S 1.16 m/sec ----- Peak christa, S 1 m/sec Peak grad, S 5.0 mm Hg ----- VTI, S 16.0 cm Mean grad, S 2 mm Hg Tricuspid valve Value Ref TR peak v (H) 2.9 m/sec <=2.8 Ventricular septum Value Ref Peak RV-RA grad, S 34 mm Hg ----- IVS, ED (H) 1.4 cm 0.6 - 1.0 Aortic root Value Ref Right ventricle Value Ref Root diam 4.1 cm <4.3 TITA, LAX 4.0 cm TITA minor ax, A4C (H) 5.0 cm 1.9 - 3.5 Ascending aorta Value Ref mid AAo AP diam, S 3.9 cm ----- Pressure, S 42 mm Hg Aortic arch Value Ref Left atrium Value Ref Arch diam 2.6 cm ----- AP dim, ES (H) 4.70 cm 3.00 - 4.00 Decending aorta Value Ref ML dim, A4C 3.4 cm Kelsey peak christa 0.59 m/sec ----- SI dim, A4C 5.4 cm Vol/bsa, ES, 1-p 18 ml/m^2 12 - 37 Pulmonary artery Value Ref A4C Pressure, S 37.0 mm Hg ----- Vol/bsa, ES, A/L 23 ml/m^2 16 - 34 Inferior vena cava Value Ref Right atrium Value Ref Diam 2.4 cm ----- SI dim, ES (H) 6.8 cm 3.4 - 5.3 ML dim, ES, A4C (H) 4.5 cm 2.6 - 4.4 SI dim, ES, A4C (H) 6.8 cm 3.4 - 5.3 SI dim/bsa, ES, 3.0 cm/m^2 1.8 - 3.0 A4C Estimated RAP 8 mm Hg Legend: (L) and (H) bridger values outside specified reference range. Prepared and electronically signed by Dirk Rollins MD 11/04/2018 16:59
--- NOTE | 2018-11-04 18:33 | HP ---
CC: Dr. Toya Jacobson * ADMISSION HISTORY AND PHYSICAL: DATE OF ADMISSION: 11/04/18 PRIMARY CARE PROVIDER: Dr. Toya Jacobson. MY ATTENDING WHILE IN THE HOSPITAL: Dr. Cindy Piña.* (DICTATED BY DANNY MCDANIELS) OUTPATIENT TRAY PACKER: Dr. Bauer. CHIEF COMPLAINT: Right lower extremity redness, pain, and swelling x1 day. HISTORY OF PRESENT ILLNESS: Mr. Correa is a 68-year-old male with a very complex past medical history significant for pulmonary fibrosis, believed to be due to chemical exposure; heart failure with reduced ejection fraction, EF most recently 45% to 50%; multiple MIs; polymyalgia rheumatica; diabetes mellitus type 2; hypertension; and hyperlipidemia who presents to the emergency department with relatively quick onset swelling and redness in his right lower extremity. The patient states that as of last Saturday he was feeling well when his grand kids came to visit and he contracted a cold with some slight diarrhea at that point. The patient, since then, has not been feeling relatively well with upper respiratory symptoms, but no significantly increased shortness of breath. The patient is on 4 L of oxygen at home due to his pulmonary fibrosis. His shortness of breath is improving since he has been on Esbriet therapy. He yesterday was out mowing the lawn riding the right partner marketing intern, came in, said he felt like his leg was stinging, but denied any changes to his skin at that point. When the patient woke up in the morning of 11/04/18, he stated that his leg was horribly red and swollen with some bruising on the medial aspect of the calf with increased pain and increased shortness of breath. The patient was brought into the hospital. They believed that the patient had cellulitis; however, given the concern for increased shortness of breath, the patient had an ultrasound of his leg as well as a CTA of his chest, which showed multiple pulmonary emboli. The patient never at any point had chest pain. The patient denied dizziness. The patient has significantly decreased exercise tolerance. The patient denies fevers, chills, recent changes in his medications, or other provoking symptoms. The patient has not been on any long car rides. The patient has not been out of the country. The patient has not been recently overly excessively immobile. The patient during his emergency department stay suddenly without apparent provocation developed severe band-like abdominal pain in his upper abdomen, which he rated as severe and it was associated with some nausea without vomiting. The patient states this pain got much better when he laid on his side. The patient and his state that a similar event happened when he was admitted to the hospital previously and had bladder outlet obstruction and that it was resolved with placement of a Hernández catheter. The patient does feel like he had to urinate, but did not feel as if he could go. The patient denies missing any recent doses of medications. In the emergency department, the patient was given morphine, Lovenox, and fluids. Due to concern for DVT with PE, we were asked to evaluate the patient for admission to the hospital. PAST MEDICAL HISTORY: Pulmonary fibrosis related to pneumonitis, on 4 L of oxygen chronically; diabetes mellitus type 2; hypertension; hyperlipidemia; polymyalgia rheumatica; BPH; heart failure with reduced ejection fraction, most recent EF 45% to 50%; multiple MIs; hypothyroidism. PAST SURGICAL HISTORY: Femur fracture, heart catheterization with 7 stents placed, cataract surgery, and possible AAA repair. MEDICATIONS: 1. Tylenol 500 mg p.o. q.6 hours as needed. 2. Aspirin 81 mg p.o. daily. 3. Bumex 2 mg p.o. daily. 4. Flomax 0.4 mg p.o. daily. 5. Jardiance 10 mg p.o. daily. 6. [place] 5/325 one tab p.o. q.6 hours as needed for pain. 7. Metformin 1000 mg p.o. b.i.d. 8. Esbriet 267 mg tab p.o. daily x3. 9. Crestor 10 mg p.o. daily. 10. Senna 8.6 mg p.o. daily. 11. Ultram 50 mg p.o. q.8 hours as needed. 12. Prednisone 30 mg p.o. daily. 13. Clopidogrel 75 mg p.o. daily. 14. Krill oil 500 mg p.o. b.i.d. 15. Valsartan 160 mg p.o. b.i.d. ALLERGIES: LIPITOR, SIMVASTATIN, SPIRONOLACTONE, HYDROCHLOROTHIAZIDE, GABAPENTIN, SUMATRIPTAN. FAMILY HISTORY: The patient's mother had CHF and Parkinson's. The patient's father had coronary artery disease and of an MT. SOCIAL HISTORY: The patient is a former smoker, smoked for approximately 30 years. The patient drinks rare alcohol. Never used illicit drugs. 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 The patient is and has 1 kid. The patient's surrogate decision maker will be his , Minoo. REVIEW OF SYSTEMS: A 14-point review of systems was reviewed and is negative, except as above in the HPI and for positive 8-pound weight loss in the last 6 months. PHYSICAL EXAMINATION GENERAL: The patient is a 68-year-old male, who appears stated age and sitting in the bed, in obvious significant abdominal pain. VITAL SIGNS: At the time of evaluation, temperature 98.3, pulse rate 91, respiratory rate 20, oxygen saturation 95% on 6 L, blood pressure 117/66. HEENT: Head: Normocephalic, atraumatic. Sclerae anicteric. No conjunctival injection. Nasal mucosa moist. Oral mucosa moist. No pharyngeal erythema, discharge, or exudate. NECK: Supple, nontender. No lymphadenopathy. No carotid bruits auscultated. No JVD. RESPIRATORY: Velcro rales heard in the bilateral lower lobes. No signs of consolidation. No other adventitious lung sounds. CARDIAC: Regular rate and rhythm. No clicks, murmurs, gallops, or rubs. Pulses are 2+ in the bilateral dorsalis pedis, posterior tibialis and radial areas. Trace left lower extremity edema and 2+ right lower extremity with weeping of the calf. ABDOMEN: Soft, tender to palpation in the right upper quadrant and suprapubic area. No palpable pulsatile mass. No hepatojugular reflux. GENITOURINARY: No CVA tenderness to palpation. NEURO: Cranial nerves II through XII intact. No focal deficits. Alert and oriented x3. PSYCHIATRIC: Pleasant and cooperative. SKIN: Right lower extremity with circumferential swelling, redness, and erythema spreading up the posterior aspect of the thigh. DIAGNOSTIC STUDIES/LAB DATA: White blood cell count 7.7, hemoglobin 14.5, platelet count 154. INR 1.01, APTT 30.3. VBG shows pH 7.4, pCO2 of 40, pO2 of 86, HCO3 of 24.9, oxygen saturation 81%, base excess 0. Sodium 141; potassium 3.5; chloride 103; carbon dioxide 26; anion gap 12; BUN 33; creatinine 0.87; glucose 140; lactic acid 3.6, repeat 2.5; calcium 9.2. Bilirubin 0.5, AST 15, ALT 21, alkaline phosphatase 43. Troponin I 0.03, BNP 197. Protein 6.2, albumin 3.9, globulin 2.3. Studies: Chest x-ray read as focal increased density in the right hilar region suggestive of mass or infiltrate. Recommend CT of the chest with contrast for further evaluation. Cardiomegaly unchanged, findings suggestive of chronic interstitial lung disease. Chest CT is read as no evidence of acute right hilar mass or pulmonary infiltrate. Prominence of the santos is in part due to prominent pulmonary arteries most consistent with pulmonary arterial hypertension in the setting of interstitial fibrosis. No significant interval change in interstitial fibrosis compared with 05/13/18 exam. Concern for potential pulmonary embolism, correlate with CT angiogram. Venous Doppler study read as DVT extending from the right femoral to popliteal veins as above, occlusive in the femoral and popliteal segments. Chest/thorax CTA read as multiple filling defects present predominantly in the right pulmonary artery and lower branches as well as the right middle lobe branches and the right upper lobe branches, findings consistent with pulmonary emboli. Smaller subsegmental filling defects in the pulmonary arteries and the lung bases are not totally excluded due to motion. Pulmonary fibrosis is noted. Abdomen and pelvis CT read as no evidence for acute finding, mild hepatomegaly unchanged, enlarged prostate gland, bladder wall thickening likely due to chronic bladder outlet obstruction. Findings suggestive of chronic interstitial lung disease. ASSESSMENT AND PLAN: Impression: Mr. Correa is a 68-year-old male with past medical history significant for pulmonary fibrosis due to chronic pneumonitis; diabetes mellitus type 2; hypertension; hyperlipidemia; polymyalgia rheumatica; multiple premature ventricular contractions; hypothyroidism; heart failure with reduced ejection fraction, EF most recently 45% to 50% who presents to the emergency department with acute onset right lower extremity pain and swelling with worsening shortness of breath, found to have deep venous thrombosis and pulmonary embolism with ED course complicated by severe abdominal pain of unclear etiology. The patient will be admitted to the hospital for therapeutic anticoagulation, full evaluation, and for a more complete evaluation of his abdominal pain. 1. DVT, pulmonary embolism. The patient has a large occlusive DVT of unclear etiology. The patient has no provoking life events. The patient is on no medications that are prothrombotic. The patient had no trauma. We will anticoagulate at this time with Lovenox and likely transition to a NOAC once the patient is stabilized. The patient will have an echocardiogram. The patient's troponin is negative and his BNP is below where it was previously. Hypercoagulable workup at some point could be undertaken when the patient is not on anticoagulation and when his DVT and pulmonary embolism are resolved. Due to worse outcomes in patients who can tolerate anticoagulation who have filters placed, despite the patient's poor cardiopulmonary reserve, he will not have an IVC filter placed at this time. If the patient fails anticoagulation, this may be considered. 2. Abdominal pain. This is of unclear cause and came on suddenly. The description and physical exam are concerning due to his pain in the right upper quadrant. CT of the abdomen and pelvis was unrevealing. The patient has documentation in his records of an abdominal aortic aneurysm repair, though his who is not available at the time of dictation did not mention that this has happened when asked about previous surgeries. This will be queried at a later date. The patient is going to have an ultrasound of his right upper quadrant and his abdomen. The patient states he had previous pain when he had a previous urinary obstruction. Hernández catheter will be placed in an attempt to relieve abdominal pain. Pain control. We will repeat CMP in the morning for possible early gallbladder pathology. This could be due also to his pulmonary embolism, but it is unclear why it would have started, though this does not elucidate the timing. 3. Heart failure with reduced ejection fraction. The patient is not overtly fluid overloaded. The patient has edema in his right lower extremity likely related to his deep venous thrombosis. The patient's BNP is below normal, which is surprising due to his pulmonary embolism. The patient will receive gentle fluids for blood pressure support. The patient's Bumex will be held. The patient will have strict Is and Os and daily weights. 4. Hypertension. The patient is currently normotensive. Hold the patient's Bumex and valsartan. Continue the patient's carvedilol. 5. Pulmonary fibrosis. The patient has low cardiopulmonary reserve at this time. Continue the patient's Esbriet and steroids inpatient. The patient does not have wheezing, which may respond to inhalers. 6. Coronary artery disease, status post myocardial infarction. Continue secondary prevention with statin and aspirin as well as initiation of Lovenox. 7. Polymyalgia rheumatica. Continue steroids. 8. Benign prostatic hypertrophy. Hernández catheter placed. Continue Flomax. 9. Diabetes mellitus type 2. Sliding scale insulin while in the hospital. 10. DVT prophylaxis. Full-dose Lovenox. 11. FEN. The patient will have a consistent carbohydrate diet and fluids at 75 mL an hour. 12. Disposition. The patient will be admitted inpatient with estimated length of stay greater than 2 days. TIME SPENT: Approximately 75 minutes were spent on the admission of this patient, 30 of which were spent [id number] with the patient obtaining history and physical and discussing treatment plan. This plan was discussed with my attending, Dr. Cindy Piña, and she is in agreement. DANNY MCDANIELS [id number]/[facility] #: [id number] MTDValerie
[2018-11-04] MEDS: NS 0.9% 1000 ML** 1,000 ML IV SCH (19:26)
[2018-11-04] MEDS: Morphine 4 MG/ML VIAL (1 ml) 4 MG/ML VIAL IV PRN (19:36)
[2018-11-04] MEDS: Carvedilol TAB* 25 MG PO SCH (20:56)
[2018-11-04] MEDS ORDERED: Valsartan TAB* 80 MG PO SCH (21:00)
[2018-11-04] MEDS: Enoxaparin(*) 100 MG/ML SYR SUBCUT SCH (22:56)
[2018-11-05] MEDS: Morphine 4 MG/ML VIAL (1 ml) 4 MG/ML VIAL IV PRN ×3 (00:02→09:20)
[2018-11-05] MEDS: Levothyroxine TAB* 100 MCG TAB PO SCH (05:28)
[2018-11-05 06:56] LABS: ABS Eosinophils 0.1 10^3/ul (0-0.6); ABS Lymphocytes 0.9 10^3/ul (1.0-4.8); ABS Monocytes 0.4 10^3/ul (0-0.8); Eosinophil % 1.3 %; Hematocrit 40 % (42-52); Hemoglobin 13.5 g/dL (14.0-18.0); Lymphocyte % 8.6 %; Mean Corpuscular HGB Conc 34 g/dL (31-36); Mean Corpuscular Hemoglobin 31 pg (27-31); Mean Corpuscular Volume 90 fL (80-94); Mean Platelet Volume 7.3 fL (7.4-10.4); Nucleated Red Blood Cells % 0.2; Platelet Count 129 10^3/uL (150-450); Red Blood Count 4.41 10^6 /uL (4.18-5.48); Red Cell Distribution Width 18 % (10-15); White Blood Count 10.5 10^3/uL (3.5-10.8)
[2018-11-05 07:16] LABS: Albumin 3.1 g/dL (3.2-5.2); Albumin/Globulin Ratio 1.4 (1-3); BUN/Creatinine Ratio 33.3 (8-20); Calcium 8.3 mg/dL (8.6-10.3); EGFR African American 109.3 (>60); EGFR Non-African American 90.3 (>60); Globulin 2.2 g/dL (2-4); Potassium 3.7 mmol/L (3.5-5.0); Total Bilirubin 0.7 mg/dL (0.2-1.0); Total Protein 5.3 g/dL (6.4-8.9)
[2018-11-05] MEDS ORDERED: Empaglifozin (NF) 10 MG TABLET PO SCH (09:00)
[2018-11-05] MEDS: Carvedilol TAB* 25 MG PO SCH (09:19)
[2018-11-05] MEDS: Insulin LISPRO* 1 UNITS UNIT SUBCUT SCH ×4 (09:19→21:23)
[2018-11-05] MEDS: Senna TAB PO SCH (09:19)
[2018-11-05] MEDS: predniSONE TAB* 10 MG PO SCH (09:19)
[2018-11-05] MEDS: PIRFENIDONE 267 MG PO SCH ×3 (09:19→16:45)
[2018-11-05] MEDS: Aspirin 81 mg CHEW TAB* 81 MG TAB.CHEW PO SCH (09:19)
[2018-11-05] MEDS: NS 0.9% 1000 ML** 1,000 ML IV SCH (09:25)
[2018-11-05] MEDS ORDERED: Piperacillin/Tazobac ADVAN(*) 3.375 GM in NS 0.9% 100 ML* 100 ML IVPB ONE (11:30)
[2018-11-05] MEDS ORDERED: Zosyn per Pharmacy* NOTE FOLLOW UP SCH (12:00)
[2018-11-05] MEDS ORDERED: Vancomycin(*) 0 MG in NS 0.9% 250 ML* 250 ML IVPB SCH (12:00)
[2018-11-05] MEDS ORDERED: Vancomycin(*) 2,000 MG in NS 0.9% 500 ML* 500 ML IVPB ONE (12:00)
[2018-11-05 12:03] LABS: C Reactive Protein 286.64 mg/L (<8.01); Uric Acid 4.5 mg/dL (4.4-7.6)
[2018-11-05] MEDS: Enoxaparin(*) 100 MG/ML SYR SUBCUT SCH (13:02)
[2018-11-05] MEDS ORDERED: Vancomycin per Pharmacy* NOTE FOLLOW UP PRN (14:14)
--- NOTE | 2018-11-05 14:55 | PN ---
Subjective Date of Service: 11/05/18 Interval History: patient seen this morning with at bedside, complaining of increase leg pain and erythema since his ER admission. redness now extending above the knee. Past Medical History: Unchanged from Admission Objective Active Medications: Acetaminophen (Tylenol Tab*) 650 mg PO Q6H PRN PRN Reason: FEVER/PAIN Aspirin (Aspirin 81 Mg Chew Tab*) 81 mg PO DAILY [facility] Last Admin: 11/05/18 09:19 Dose: 81 mg Carvedilol (Coreg Tab*) 25 mg PO BID [facility] Last Admin: 11/05/18 09:19 Dose: 25 mg Dextrose (D50w Syringe 50 Ml*) 12.5 gm IV PUSH .FOR FS < 60 - SS PRN PRN Reason: FS < 60 Enoxaparin Sodium (Lovenox(*)) 100 mg SUBCUT Q12H [facility] Last Admin: 11/05/18 13:02 Dose: 100 mg Sodium Chloride (Ns 0.9% 1000 Ml) 1,000 mls @ 75 mls/hr IV PER RATE [facility] Last Admin: 11/05/18 09:25 Dose: 75 mls/hr Piperacillin Sod/Tazobactam (Sod 3.375 gm/ Sodium Chloride) 100 mls @ 25 mls/ hr IVPB Q8H [facility] Insulin Human Lispro (Humalog*) 0 units SUBCUT ACHS [facility]; Protocol Last Admin: 11/05/18 13:03 Dose: 6 units Levothyroxine Sodium (Synthroid Tab*) 200 mcg PO DAILY@0600 [facility] Last Admin: 11/05/18 05:28 Dose: 200 mcg Morphine Sulfate (Morphine 4 Mg/Ml Vial (1 Ml)) 4 mg IV Q4H PRN PRN Reason: PAIN - SEVERE Last Admin: 11/05/18 09:20 Dose: 4 mg Nft: *Pirfenidone ( Esbriet) 267mg Tablet* 1 dose PO TID WITH MEALS [facility] Last Admin: 11/05/18 13:04 Dose: Not Given Ondansetron HCl (Zofran Inj*) 4 mg IV Q6H PRN PRN Reason: NAUSEA Oxycodone HCl (Roxycodone Tab*) 5 mg PO Q6H PRN PRN Reason: PAIN - MODERATE Last Admin: 11/04/18 16:52 Dose: 5 mg Pharmacy Consult (Zosyn Per Pharmacy*) 1 note FOLLOW UP .ZOSYN PER PHARMACY [facility] Pharmacy Consult (Vancomycin Per Pharmacy*) 1 note FOLLOW UP . PRN PRN Reason: PER PROTOCOL Polyethylene Glycol/Electrolytes (Miralax*) 17 gm PO EVERY OTHER DAY [facility] Prednisone (Deltasone Tab*) 30 mg PO DAILY [facility] Last Admin: 11/05/18 09:19 Dose: 30 mg Rosuvastatin Calcium (Crestor (Nf)) 10 mg PO BEDTIME [facility]; Protocol Last Admin: 11/04/18 20:56 Dose: 10 mg Senna (Senokot Tab*) 1 tab PO DAILY [facility] Last Admin: 11/05/18 09:19 Dose: 1 tab Tamsulosin HCl (Flomax Cap*) 0.4 mg PO QPM [facility] Last Admin: 11/04/18 16:49 Dose: 0.4 mg Vital Signs - 8 hr 11/05/18 11/05/18 11/05/18 08:00 08:37 09:20 Temperature 98.9 F Pulse Rate 73 Respiratory 20 16 20 Rate Blood Pressure 114/61 (mmHg) O2 Sat by Pulse 97 97 Oximetry 11/05/18 11:21 Temperature 98.2 F Pulse Rate 71 Respiratory 16 Rate Blood Pressure 100/60 (mmHg) O2 Sat by Pulse 98 Oximetry Oxygen Devices in Use Now: Simple Face Mask Appearance: awake, alert no distress Eyes: No Scleral Icterus, - - EOMI Ears/Nose/Mouth/Throat: NL Teeth, Lips, Gums, Mucous Membranes Moist Neck: NL Appearance and Movements; NL JVP, Trachea Midline Respiratory: - - crackles diffuse Cardiovascular: NL Sounds; No Murmurs; No JVD Abdominal: NL Sounds; No Tenderness; No Distention Extremities: - - Right lower extremety weakness and tenderss. Neurological: Alert and Oriented x 3 Result Diagrams: 11/05/18 05:33 11/05/18 05:33 Microbiology and Other Data: Microbiology 11/04/18 08:19 Aerobic Blood Culture - Preliminary Blood Venous No Growth Day 1 Anaerobic Blood Culture - Preliminary No Growth Day 1 11/04/18 08:28 Aerobic Blood Culture - Preliminary Blood Venous No Growth Day 1 Anaerobic Blood Culture - Preliminary No Growth Day 1 Assess/Plan/Problems-Billing Assessment: - Patient Problems (1) Cellulitis Current Visit: Yes Status: Acute Code(s): L03.90 - CELLULITIS, UNSPECIFIED SNOMED Code(s): 963892317 Comment: - Right lower extremety - given his immunocompromized state, i will start zosyn and vanco pending clinical follow up and cultures (2) Pulmonary embolism Current Visit: Yes Status: Acute Code(s): I26.99 - OTHER PULMONARY EMBOLISM WITHOUT ACUTE COR PULMONALE SNOMED Code(s): 19403904 Comment: - Right pulmonary artery - Lovenox 1 mg/kg. will continue and will consider oral xaretlo in am (3) DVT (deep venous thrombosis) Current Visit: Yes Status: Acute Code(s): I82.409 - ACUTE EMBOLISM AND THOMBOS UNSP DEEP VN UNSP LOWER EXTREMITY SNOMED Code(s): 023244235 Comment: - right DVT - - Lovenox 1 mg/kg. will continue and will consider oral xaretlo in am (4) CAD (coronary artery disease) Current Visit: No Status: Acute Code(s): I25.10 - ATHSCL HEART DISEASE OF [place] CORONARY ARTERY W/O ANG PCTRS SNOMED Code(s): 80525618 Comment: - No chest pain - Hx of multiple stents, - Continue to optimize medical managememt with cardiology (5) Diabetes Current Visit: No Status: Chronic Code(s): E11.9 - TYPE 2 DIABETES MELLITUS WITHOUT COMPLICATIONS SNOMED Code(s): 96109346 Comment: - BGs mildly elevated, suspect due to steroids - Continue Lispro SS, finger sticks AC - HgbA1C 7.0 on 04/09. (6) HLD (hyperlipidemia) Current Visit: No Status: Chronic Priority: Low Code(s): E78.5 - HYPERLIPIDEMIA, UNSPECIFIED SNOMED Code(s): 62231808 Comment: - Continue Rovustatin (7) HTN (hypertension) Current Visit: No Status: Chronic Priority: Low Code(s): I10 - ESSENTIAL ( PRIMARY) HYPERTENSION SNOMED Code(s): 96953928 Comment: - BP stable coreg 25 mg bid, will decrease to 12.5 mg bid in the setting of acute PE (8) Hypothyroidism Current Visit: No Status: Chronic Code(s): E03.9 - HYPOTHYROIDISM, UNSPECIFIED SNOMED Code(s): 97573964 Comment: - Continue levothyroxine 200 mcg daily (9) Pulmonary fibrosis Current Visit: No Status: Chronic Code(s): J84.10 - PULMONARY FIBROSIS, UNSPECIFIED SNOMED Code(s): 51109037 Comment: - At baseline - Continue steroid
[2018-11-05 15:20] LABS: Erythrocyte Sed Rate 13 mm/Hr (0-19)
[2018-11-05] MEDS: Tamsulosin CAP* 0.4 MG PO SCH (16:56)
[2018-11-05] MEDS: ZOSYN 3.375 GM Q8H per EXTENDED INFUSION IVPB SCH ×2 (16:56)
[2018-11-05] MEDS: Carvedilol TAB* 6.25 MG PO SCH (21:22)
[2018-11-06] MEDS: oxyCODONE TAB* 5 MG TAB PO PRN ×3 (00:12→18:22)
[2018-11-06] MEDS: Vancomycin(*) 1,250 MG in NS 0.9% 250 ML* 250 ML IVPB SCH ×4 (00:14→21:36)
[2018-11-06] MEDS: Enoxaparin(*) 100 MG/ML SYR SUBCUT SCH (00:18)
[2018-11-06] MEDS: Morphine 4 MG/ML VIAL (1 ml) 4 MG/ML VIAL IV PRN (01:38)
[2018-11-06] MEDS: ZOSYN 3.375 GM Q8H per EXTENDED INFUSION IVPB SCH ×6 (02:30→17:32)
[2018-11-06] MEDS: Levothyroxine TAB* 100 MCG TAB PO SCH (05:40)
[2018-11-06 05:46] LABS: ABS Eosinophils 0.1 10^3/ul (0-0.6); ABS Lymphocytes 0.6 10^3/ul (1.0-4.8); ABS Monocytes 0.5 10^3/ul (0-0.8); ABS Neutrophils 9.4 10^3/ul (1.5-7.7); Eosinophil % 0.7 %; Hematocrit 37 % (42-52); Hemoglobin 12.4 g/dL (14.0-18.0); Lymphocyte % 5.7 %; Mean Corpuscular HGB Conc 33 g/dL (31-36); Mean Corpuscular Hemoglobin 30 pg (27-31); Mean Corpuscular Volume 91 fL (80-94); Mean Platelet Volume 7.1 fL (7.4-10.4); Platelet Count 127 10^3/uL (150-450); Red Blood Count 4.13 10^6 /uL (4.18-5.48); Red Cell Distribution Width 18 % (10-15); White Blood Count 10.5 10^3/uL (3.5-10.8)
[2018-11-06 06:06] LABS: BUN/Creatinine Ratio 27.4 (8-20); Calcium 8.5 mg/dL (8.6-10.3); EGFR African American 109.3 (>60); EGFR Non-African American 90.3 (>60); Magnesium 2.3 mg/dL (1.9-2.7); Potassium 3.9 mmol/L (3.5-5.0)
[2018-11-06] MEDS: NS 0.9% 1000 ML** 1,000 ML IV SCH (07:32)
[2018-11-06] MEDS: Insulin LISPRO* 1 UNITS UNIT SUBCUT SCH ×4 (08:38→21:37)
[2018-11-06] MEDS: Aspirin 81 mg CHEW TAB* 81 MG TAB.CHEW PO SCH (08:39)
[2018-11-06] MEDS: predniSONE TAB* 10 MG PO SCH (08:39)
[2018-11-06] MEDS: Rivaroxaban TAB(*) 15 MG PO SCH ×2 (08:39→21:37)
[2018-11-06] MEDS: Carvedilol TAB* 6.25 MG PO SCH ×2 (08:39→21:36)
[2018-11-06] MEDS: Polyethylene Glycol 3350* 17 GM PACKET PO SCH (08:40)
[2018-11-06] MEDS: Senna TAB PO SCH ×2 (08:40→09:19)
[2018-11-06] MEDS: PIRFENIDONE 267 MG PO SCH ×3 (08:45→17:21)
--- NOTE | 2018-11-06 13:41 | PN ---
Subjective Date of Service: 11/06/18 Interval History: Patient was seen today, awake, alert feels his leg pain and swelling is better. Erythema has decreased. He is complaining of pain of his right hip and groin. He continues to have hematuria from traumatic Lion. Unfortunately, he needs his anticoagulation given his acute PE and DVT. also can not give lasix as his blood pressure too soft still to tolerate Lasix (especially in the setting of Acute PE) Past Medical History: Unchanged from Admission Objective Active Medications: Acetaminophen (Tylenol Tab*) 650 mg PO Q6H PRN PRN Reason: FEVER/PAIN Aspirin (Aspirin 81 Mg Chew Tab*) 81 mg PO DAILY [facility] Last Admin: 11/06/18 08:39 Dose: 81 mg Carvedilol (Coreg Tab*) 12.5 mg PO BID [facility] Last Admin: 11/06/18 08:39 Dose: 12.5 mg Dextrose (D50w Syringe 50 Ml*) 12.5 gm IV PUSH .FOR FS < 60 - SS PRN PRN Reason: FS < 60 Sodium Chloride (Ns 0.9% 1000 Ml) 1,000 mls @ 75 mls/hr IV PER RATE [facility] Last Admin: 11/06/18 07:32 Dose: 75 mls/hr Piperacillin Sod/Tazobactam (Sod 3.375 gm/ Sodium Chloride) 100 mls @ 25 mls/ hr IVPB Q8H [facility] Last Admin: 11/06/18 11:37 Dose: 25 mls/hr Vancomycin HCl 1,250 mg/ (Sodium Chloride) 250 mls @ 166.667 mls/hr IVPB Q8H [facility] Last Admin: 11/06/18 07:32 Dose: 166.667 mls/hr Insulin Human Lispro (Humalog*) 0 units SUBCUT ACHS [facility]; Protocol Last Admin: 11/06/18 12:26 Dose: 6 units Levothyroxine Sodium (Synthroid Tab*) 200 mcg PO DAILY@0600 [facility] Last Admin: 11/06/18 05:40 Dose: 200 mcg Morphine Sulfate (Morphine 4 Mg/Ml Vial (1 Ml)) 4 mg IV Q4H PRN PRN Reason: PAIN - SEVERE Last Admin: 11/06/18 01:38 Dose: 4 mg Nft: *Pirfenidone ( Esbriet) 267mg Tablet* 1 dose PO TID WITH MEALS [facility] Last Admin: 11/06/18 12:22 Dose: Not Given Ondansetron HCl (Zofran Inj*) 4 mg IV Q6H PRN PRN Reason: NAUSEA Oxycodone HCl (Roxycodone Tab*) 5 mg PO Q6H PRN PRN Reason: PAIN - MODERATE Last Admin: 11/06/18 09:19 Dose: 5 mg Pharmacy Consult (Zosyn Per Pharmacy*) 1 note FOLLOW UP .ZOSYN PER PHARMACY [facility] Pharmacy Consult (Vancomycin Per Pharmacy*) 1 note FOLLOW UP . PRN PRN Reason: PER PROTOCOL Pharmacy Profile Note (Vancomycin Trough Check) 1 note FOLLOW UP 0600 ONE Stop: 11/07/18 06:01 Polyethylene Glycol/Electrolytes (Miralax*) 17 gm PO EVERY OTHER DAY [facility] Last Admin: 11/06/18 08:40 Dose: 17 gm Prednisone (Deltasone Tab*) 30 mg PO DAILY [facility] Last Admin: 11/06/18 08:39 Dose: 30 mg Rivaroxaban (Xarelto(*)) 15 mg PO BID [facility] Stop: 11/27/18 08:59 Last Admin: 11/06/18 08:39 Dose: 15 mg Rosuvastatin Calcium (Crestor (Nf)) 10 mg PO BEDTIME [facility]; Protocol Last Admin: 11/05/18 21:22 Dose: 10 mg Senna (Senokot Tab*) 1 tab PO DAILY [facility] Last Admin: 11/06/18 09:19 Dose: 1 tab Tamsulosin HCl (Flomax Cap*) 0.4 mg PO QPM [facility] Last Admin: 11/05/18 16:56 Dose: 0.4 mg Vital Signs - 8 hr 11/06/18 11/06/18 11/06/18 07:15 08:00 09:19 Temperature 98.3 F Pulse Rate 68 Respiratory 18 18 20 Rate Blood Pressure 113/68 (mmHg) O2 Sat by Pulse 99 99 Oximetry 11/06/18 11/06/18 11:15 11:38 Temperature 97.3 F Pulse Rate 71 Respiratory 16 18 Rate Blood Pressure 108/66 (mmHg) O2 Sat by Pulse 97 Oximetry Oxygen Devices in Use Now: Nasal Cannula Appearance: awake, alert no distress Eyes: No Scleral Icterus, - - EOMI Ears/Nose/Mouth/Throat: Clear Oropharnyx, Mucous Membranes Moist Neck: NL Appearance and Movements; NL JVP, Trachea Midline Respiratory: - - fine crackles, breathing normal rate Cardiovascular: NL Sounds; No Murmurs; No JVD, - - RLE edema improved Abdominal: NL Sounds; No Tenderness; No Distention Extremities: - - pain with passive ROM of right leg. increase edema, + 4. Neurological: Alert and Oriented x 3 Result Diagrams: 11/06/18 05:26 11/06/18 05:26 Microbiology and Other Data: Microbiology 11/04/18 08:19 Aerobic Blood Culture - Preliminary Blood Venous No Growth Day 1 Anaerobic Blood Culture - Preliminary No Growth Day 1 11/04/18 08:28 Aerobic Blood Culture - Preliminary Blood Venous No Growth Day 1 Anaerobic Blood Culture - Preliminary No Growth Day 1 Assess/Plan/Problems-Billing Assessment: 68 y/o male admitted for RLE swelling and shortness of breath. CTA positive for Right PE and Leg positive for R DVT on Xarelto with hematuria from traumatic lion. Unfortunately I explained to patient the importance of anticoagulation supercede the hematuria for now. Will monitor CBC daily and will transfuse if he needs in order to keep his anticoagulation on board - Patient Problems (1) Cellulitis Current Visit: Yes Status: Acute Code(s): L03.90 - CELLULITIS, UNSPECIFIED SNOMED Code(s): 165715545 Comment: - Right lower extremety. - Given his immunocompromized state, I started zosyn and vanco 11/05/18. This Abx day # 2. follow up BC - clinically his cellulitis improving. - If BC negative after 48 hrs will transition to oral therapy (2) Pulmonary embolism Current Visit: Yes Status: Acute Code(s): I26.99 - OTHER PULMONARY EMBOLISM WITHOUT ACUTE COR PULMONALE SNOMED Code(s): 84398377 Comment: - Right pulmonary artery - s/p Lovenox 1 mg/kg transitioned to xaretlo 15 mg bid today (3) DVT (deep venous thrombosis) Current Visit: Yes Status: Acute Code(s): I82.409 - ACUTE EMBOLISM AND THOMBOS UNSP DEEP VN UNSP LOWER EXTREMITY SNOMED Code(s): 633721158 Comment: - right DVTon oral xaretlo for acute PE (4) Hematuria Current Visit: Yes Status: Acute Code(s): R31.9 - HEMATURIA, UNSPECIFIED SNOMED Code(s): 99783393 Comment: - From Traumatic Lion - Unfortunately I explained to patient the importance of anticoagulation. Treatment for his acute PE and DVT supersede the hematuria for now. - Will monitor CBC daily and will transfuse as needed in order to keep his anticoagulation on board - I will hold off on CBI for now as I am hoping it should clears. Also his blood pressure is too soft for lasix especially in the setting of PE. If it remains as dark by am I will initiate lasix and CBI. (5) CAD (coronary artery disease) Current Visit: No Status: Acute Code(s): I25.10 - ATHSCL HEART DISEASE OF [place] CORONARY ARTERY W/O ANG PCTRS SNOMED Code(s): 10730279 Comment: - No chest pain - Hx of multiple stents, - Continue to optimize medical managememt with cardiology (6) Diabetes Current Visit: No Status: Chronic Code(s): E11.9 - TYPE 2 DIABETES MELLITUS WITHOUT COMPLICATIONS SNOMED Code(s): 35217362 Comment: - BGs mildly elevated, suspect due to steroids - Continue Lispro SS, finger sticks AC - HgbA1C 7.0 on 04/09. (7) HLD (hyperlipidemia) Current Visit: No Status: Chronic Priority: Low Code(s): E78.5 - HYPERLIPIDEMIA, UNSPECIFIED SNOMED Code(s): 09360241 Comment: - Continue Rovustatin (8) HTN (hypertension) Current Visit: No Status: Chronic Priority: Low Code(s): I10 - ESSENTIAL ( PRIMARY) HYPERTENSION SNOMED Code(s): 31502151 Comment: - BP stable coreg 25 mg bid, will decrease to 12.5 mg bid in the setting of acute PE (9) Hypothyroidism Current Visit: No Status: Chronic Code(s): E03.9 - HYPOTHYROIDISM, UNSPECIFIED SNOMED Code(s): 32589543 Comment: - Continue levothyroxine 200 mcg daily (10) Pulmonary fibrosis Current Visit: No Status: Chronic Code(s): J84.10 - PULMONARY FIBROSIS, UNSPECIFIED SNOMED Code(s): 18791317 Comment: - At baseline - Continue steroid
[2018-11-06] MEDS: Tamsulosin CAP* 0.4 MG PO SCH (18:23)
[2018-11-07] MEDS: oxyCODONE TAB* 5 MG TAB PO PRN ×3 (00:37→19:41)
[2018-11-07] MEDS: ZOSYN 3.375 GM Q8H per EXTENDED INFUSION IVPB SCH ×6 (00:39→16:41)
[2018-11-07] MEDS ORDERED: Vancomycin Trough Check NOTE FOLLOW UP ONE (06:00)
[2018-11-07] MEDS: Levothyroxine TAB* 100 MCG TAB PO SCH (06:26)
[2018-11-07] MEDS: Vancomycin(*) 1,250 MG in NS 0.9% 250 ML* 250 ML IVPB SCH ×3 (06:32→22:58)
[2018-11-07] MEDS: Insulin LISPRO* 1 UNITS UNIT SUBCUT SCH ×4 (08:39→21:36)
[2018-11-07] MEDS: predniSONE TAB* 10 MG PO SCH (08:41)
[2018-11-07] MEDS: Senna TAB PO SCH (08:41)
[2018-11-07] MEDS: PIRFENIDONE 267 MG PO SCH ×3 (08:41→18:38)
[2018-11-07] MEDS: Rivaroxaban TAB(*) 15 MG PO SCH ×2 (08:42→22:55)
[2018-11-07] MEDS: Aspirin 81 mg CHEW TAB* 81 MG TAB.CHEW PO SCH (08:42)
[2018-11-07] MEDS: Carvedilol TAB* 6.25 MG PO SCH ×2 (08:42→21:35)
[2018-11-07] MEDS ORDERED: Furosemide IV* 10 MG/ML VIAL (40 MG) IV ONE (10:16)
[2018-11-07] MEDS: Morphine 4 MG/ML VIAL (1 ml) 4 MG/ML VIAL IV PRN (12:13)
--- NOTE | 2018-11-07 16:11 | PN ---
Subjective Date of Service: 11/07/18 Interval History: patient was seen today and he was having increase rales and dyspnea. lion catheter in place voiding but remains bloody. He was taken off IVF and given lasix. shortly after that he developed urinary retention secondary to blood clot. three way lion was placed and several large blood clot were removed and CBI was initiated. Discussed case with Liliam on the phone, agrees with the current plan and will continue CBI for 24-48 hrs. Xarelto held for now and will reassess in am. Past Medical History: Unchanged from Admission Objective Active Medications: Acetaminophen (Tylenol Tab*) 650 mg PO Q6H PRN PRN Reason: FEVER/PAIN Aspirin (Aspirin 81 Mg Chew Tab*) 81 mg PO DAILY [facility] Last Admin: 11/07/18 08:42 Dose: 81 mg Carvedilol (Coreg Tab*) 12.5 mg PO BID [facility] Last Admin: 11/07/18 08:42 Dose: 12.5 mg Dextrose (D50w Syringe 50 Ml*) 12.5 gm IV PUSH .FOR FS < 60 - SS PRN PRN Reason: FS < 60 Piperacillin Sod/Tazobactam (Sod 3.375 gm/ Sodium Chloride) 100 mls @ 25 mls/ hr IVPB Q8H [facility] Last Admin: 11/07/18 09:06 Dose: 25 mls/hr Vancomycin HCl 1,250 mg/ (Sodium Chloride) 250 mls @ 166.667 mls/hr IVPB Q8H [facility] Last Admin: 11/07/18 14:29 Dose: 166.667 mls/hr Insulin Human Lispro (Humalog*) 0 units SUBCUT ACHS [facility]; Protocol Last Admin: 11/07/18 14:29 Dose: 9 units Levothyroxine Sodium (Synthroid Tab*) 200 mcg PO DAILY@0600 [facility] Last Admin: 11/07/18 06:26 Dose: 200 mcg Morphine Sulfate (Morphine 4 Mg/Ml Vial (1 Ml)) 4 mg IV Q4H PRN PRN Reason: PAIN - SEVERE Last Admin: 11/07/18 12:13 Dose: 4 mg Nft: *Pirfenidone ( Esbriet) 267mg Tablet* 1 dose PO TID WITH MEALS [facility] Last Admin: 11/07/18 14:26 Dose: Not Given Ondansetron HCl (Zofran Inj*) 4 mg IV Q6H PRN PRN Reason: NAUSEA Oxycodone HCl (Roxycodone Tab*) 5 mg PO Q6H PRN PRN Reason: PAIN - MODERATE Last Admin: 11/07/18 06:26 Dose: 5 mg Pharmacy Consult (Zosyn Per Pharmacy*) 1 note FOLLOW UP .ZOSYN PER PHARMACY [facility] Pharmacy Consult (Vancomycin Per Pharmacy*) 1 note FOLLOW UP . PRN PRN Reason: PER PROTOCOL Polyethylene Glycol/Electrolytes (Miralax*) 17 gm PO EVERY OTHER DAY [facility] Last Admin: 11/06/18 08:40 Dose: 17 gm Prednisone (Deltasone Tab*) 30 mg PO DAILY [facility] Last Admin: 11/07/18 08:41 Dose: 30 mg Rivaroxaban (Xarelto(*)) 15 mg PO BID [facility] Stop: 11/27/18 08:59 Last Admin: 11/07/18 08:42 Dose: 15 mg Rosuvastatin Calcium (Crestor (Nf)) 10 mg PO BEDTIME [facility]; Protocol Last Admin: 11/06/18 21:51 Dose: 10 mg Senna (Senokot Tab*) 1 tab PO DAILY [facility] Last Admin: 11/07/18 08:41 Dose: 1 tab Tamsulosin HCl (Flomax Cap*) 0.4 mg PO QPM [facility] Last Admin: 11/06/18 18:23 Dose: 0.4 mg Tamsulosin HCl (Flomax Cap*) 0.4 mg PO BEDTIME [facility] Vital Signs - 8 hr 11/07/18 11/07/18 11/07/18 08:44 12:13 14:30 Temperature Pulse Rate Respiratory 16 20 20 Rate Blood Pressure (mmHg) O2 Sat by Pulse Oximetry 11/07/18 15:19 Temperature 98.7 F Pulse Rate 75 Respiratory 20 Rate Blood Pressure 128/73 (mmHg) O2 Sat by Pulse 96 Oximetry Oxygen Devices in Use Now: Nasal Cannula - 6 Liters Appearance: awake, alert. moderate distress from his urinary retention, diaphoretic from urinary retention Eyes: No Scleral Icterus Ears/Nose/Mouth/Throat: NL Teeth, Lips, Gums, Mucous Membranes Moist Neck: NL Appearance and Movements; NL JVP, Trachea Midline Respiratory: - - rale. crackles Cardiovascular: NL Sounds; No Murmurs; No JVD, - - RLE edema, improving. Erythema improving Abdominal: NL Sounds; No Tenderness; No Distention Extremities: - - RLE edema, improving. Erythema improving Result Diagrams: 11/06/18 05:26 11/06/18 05:26 Microbiology and Other Data: Microbiology 11/04/18 08:19 Aerobic Blood Culture - Preliminary Blood Venous No Growth Day 1 Anaerobic Blood Culture - Preliminary No Growth Day 1 11/04/18 08:28 Aerobic Blood Culture - Preliminary Blood Venous No Growth Day 1 Anaerobic Blood Culture - Preliminary No Growth Day 1 Assess/Plan/Problems-Billing Assessment: 68 y/o male admitted for RLE swelling and shortness of breath. CTA positive for Right PE and Leg positive for R DVT on Xarelto with hematuria from traumatic lion. Unfortunately I explained to patient the importance of anticoagulation supercede the hematuria for now. Will monitor CBC daily and will transfuse if he needs in order to keep his anticoagulation on board - Patient Problems (1) Cellulitis Current Visit: Yes Status: Acute Code(s): L03.90 - CELLULITIS, UNSPECIFIED SNOMED Code(s): 198282335 Comment: - Right lower extremity. - Given his immunocompromized state, I started zosyn and vanco 11/05/18. This Abx day # 3. BC so far negative. Will plan to change to PO day 5 (2) Pulmonary embolism Current Visit: Yes Status: Acute Code(s): I26.99 - OTHER PULMONARY EMBOLISM WITHOUT ACUTE COR PULMONALE SNOMED Code(s): 65193702 Comment: - Right pulmonary artery - s/p Lovenox 1 mg/kg transitioned to xaretlo 15 mg bid 11/07/18. However his hematuria form admission persisted and develloped outflow obstructions due to several blood clots. I did discontinue xaretlo and place [address] lion, CBI (3) DVT (deep venous thrombosis) Current Visit: Yes Status: Acute Code(s): I82.409 - ACUTE EMBOLISM AND [place] UNSP DEEP VN UNSP LOWER EXTREMITY SNOMED Code(s): 109344657 Comment: - right DVTon oral xaretlo for acute PE (4) Hematuria Current Visit: Yes Status: Acute Code(s): R31.9 - HEMATURIA, UNSPECIFIED SNOMED Code(s): 06770827 Comment: - From Traumatic Lion v.s BPH, v.s bladder lesion - Unfortunately I explained to patient the importance of anticoagulation. Treatment for his acute PE and DVT supersede the hematuria for now but today he develloped urinary retention due to blood clots. I place [address] lion and started CBI - Urology consulted with Dr. Ricketts. Agreed with the above and will see the patient (5) CAD (coronary artery disease) Current Visit: No Status: Acute Code(s): I25.10 - ATHSCL HEART DISEASE OF [place] CORONARY ARTERY W/O ANG PCTRS SNOMED Code(s): 34930039 Comment: - No chest pain - Hx of multiple stents, - Continue to optimize medical managememt with cardiology (6) Diabetes Current Visit: No Status: Chronic Code(s): E11.9 - TYPE 2 DIABETES MELLITUS WITHOUT COMPLICATIONS SNOMED Code(s): 36428830 Comment: - BGs mildly elevated, suspect due to steroids - Continue Lispro SS, finger sticks AC - HgbA1C 7.0 on 04/09. (7) HLD (hyperlipidemia) Current Visit: No Status: Chronic Priority: Low Code(s): E78.5 - HYPERLIPIDEMIA, UNSPECIFIED SNOMED Code(s): 23274776 Comment: - Continue Rovustatin (8) HTN (hypertension) Current Visit: No Status: Chronic Priority: Low Code(s): I10 - ESSENTIAL ( PRIMARY) HYPERTENSION SNOMED Code(s): 91221699 Comment: - BP stable coreg 25 mg bid, will decrease to 12.5 mg bid in the setting of acute PE (9) Hypothyroidism Current Visit: No Status: Chronic Code(s): E03.9 - HYPOTHYROIDISM, UNSPECIFIED SNOMED Code(s): 39740100 Comment: - Continue levothyroxine 200 mcg daily (10) Pulmonary fibrosis Current Visit: No Status: Chronic Code(s): J84.10 - PULMONARY FIBROSIS, UNSPECIFIED SNOMED Code(s): 49757025 Comment: - At baseline - Continue steroid
[2018-11-07 17:30] LABS: ABS Lymphocytes 0.4 10^3/ul (1.0-4.8); ABS Monocytes 0.3 10^3/ul (0-0.8); Eosinophil % 0.3 %; Hematocrit 39 % (42-52); Hemoglobin 12.8 g/dL (14.0-18.0); Lymphocyte % 3.7 %; Mean Corpuscular HGB Conc 33 g/dL (31-36); Mean Corpuscular Hemoglobin 30 pg (27-31); Mean Corpuscular Volume 91 fL (80-94); Mean Platelet Volume 7.3 fL (7.4-10.4); Nucleated Red Blood Cells % 0.1; Platelet Count 165 10^3/uL (150-450); Red Blood Count 4.31 10^6 /uL (4.18-5.48); Red Cell Distribution Width 18 % (10-15); White Blood Count 9.7 10^3/uL (3.5-10.8)
[2018-11-07 17:46] LABS: BUN/Creatinine Ratio 22.7 (8-20); Calcium 8.6 mg/dL (8.6-10.3); EGFR African American 103.6 (>60); EGFR Non-African American 85.6 (>60)
[2018-11-07] MEDS ORDERED: Tamsulosin CAP* 0.4 MG PO SCH (21:00)
[2018-11-08] MEDS: ZOSYN 3.375 GM Q8H per EXTENDED INFUSION IVPB SCH ×4 (01:11→08:43)
[2018-11-08] MEDS: oxyCODONE TAB* 5 MG TAB PO PRN (01:45)
[2018-11-08] MEDS: Morphine 4 MG/ML VIAL (1 ml) 4 MG/ML VIAL IV PRN (05:20)
[2018-11-08] MEDS: Levothyroxine TAB* 100 MCG TAB PO SCH (05:51)
[2018-11-08] MEDS: Vancomycin(*) 1,250 MG in NS 0.9% 250 ML* 250 ML IVPB SCH (05:51)
[2018-11-08] MEDS ORDERED: oxyCODONE TAB* 5 MG TAB PO PRN (05:56)
[2018-11-08] MEDS ORDERED: Nitroglycerin TAB 0.4 MG* 0.4 MG TAB ONE (07:41)
[2018-11-08] MEDS ORDERED: Nitroglycerin TAB 0.4 MG* 0.4 MG TAB SL ONE (07:48)
[2018-11-08 08:26] LABS: Hematocrit 35 % (42-52); Hemoglobin 11.6 g/dL (14.0-18.0); Mean Corpuscular HGB Conc 33 g/dL (31-36); Mean Corpuscular Hemoglobin 30 pg (27-31); Mean Corpuscular Volume 91 fL (80-94); Mean Platelet Volume 6.7 fL (7.4-10.4); Platelet Count 186 10^3/uL (150-450); Red Blood Count 3.87 10^6 /uL (4.18-5.48); Red Cell Distribution Width 18 % (10-15); White Blood Count 7.7 10^3/uL (3.5-10.8)
--- NOTE | 2018-11-08 08:35 | PN ---
Subjective Date of Service: 11/08/18 Interval History: I was called by the jigman DANNY early this morning to notify me that his CBI was blocked and they are unable to flush it and no urine output coming out from his lion. I was able to coming to bedside earlier this morning. several attempts to flush the catheter were unsuccessful. Finally I removed the existing Lion and I place new [address] [place] Lion catheter back in. It worked initially than it stopped draining. I did flush it few times and I was able to restore the flow and CBI resumed. I discussed with family and patient the need to be transferred for urology evaluation as there no urology on weekend. Patient and at bedside are aware and agreed. transfer center contacted and the patient was accepted by Dr. Itzel Walter at [facility]. The patient did express some chest discomfort during all that and I just ordered stat NTG, EKG, CXR Trop results pending Past Medical History: Unchanged from Admission Objective Active Medications: Acetaminophen (Tylenol Tab*) 650 mg PO Q6H PRN PRN Reason: FEVER/PAIN Aspirin (Aspirin 81 Mg Chew Tab*) 81 mg PO DAILY [facility] Last Admin: 11/07/18 08:42 Dose: 81 mg Carvedilol (Coreg Tab*) 12.5 mg PO BID [facility] Last Admin: 11/07/18 21:35 Dose: 12.5 mg Dextrose (D50w Syringe 50 Ml*) 12.5 gm IV PUSH .FOR FS < 60 - SS PRN PRN Reason: FS < 60 Piperacillin Sod/Tazobactam (Sod 3.375 gm/ Sodium Chloride) 100 mls @ 25 mls/ hr IVPB Q8H [facility] Last Admin: 11/08/18 01:11 Dose: 25 mls/hr Vancomycin HCl 1,250 mg/ (Sodium Chloride) 250 mls @ 166.667 mls/hr IVPB Q8H [facility] Last Admin: 11/08/18 05:51 Dose: 166.667 mls/hr Insulin Human Lispro (Humalog*) 0 units SUBCUT ACHS [facility]; Protocol Last Admin: 11/07/18 21:36 Dose: 9 units Levothyroxine Sodium (Synthroid Tab*) 200 mcg PO DAILY@0600 [facility] Last Admin: 11/08/18 05:51 Dose: 200 mcg Morphine Sulfate (Morphine 4 Mg/Ml Vial (1 Ml)) 4 mg IV Q4H PRN PRN Reason: PAIN - SEVERE Last Admin: 11/08/18 05:20 Dose: 4 mg Nft: *Pirfenidone ( Esbriet) 267mg Tablet* 1 dose PO TID WITH MEALS [facility] Last Admin: 11/07/18 18:38 Dose: Not Given Ondansetron HCl (Zofran Inj*) 4 mg IV Q6H PRN PRN Reason: NAUSEA Oxycodone HCl (Roxycodone Tab*) 5 mg PO Q4H PRN PRN Reason: PAIN - MODERATE Pharmacy Consult (Zosyn Per Pharmacy*) 1 note FOLLOW UP .ZOSYN PER PHARMACY [facility] Pharmacy Consult (Vancomycin Per Pharmacy*) 1 note FOLLOW UP . PRN PRN Reason: PER PROTOCOL Polyethylene Glycol/Electrolytes (Miralax*) 17 gm PO EVERY OTHER DAY [facility] Last Admin: 11/06/18 08:40 Dose: 17 gm Prednisone (Deltasone Tab*) 30 mg PO DAILY [facility] Last Admin: 11/07/18 08:41 Dose: 30 mg Rosuvastatin Calcium (Crestor (Nf)) 10 mg PO BEDTIME [facility]; Protocol Last Admin: 11/07/18 22:14 Dose: 10 mg Senna (Senokot Tab*) 1 tab PO DAILY [facility] Last Admin: 11/07/18 08:41 Dose: 1 tab Tamsulosin HCl (Flomax Cap*) 0.4 mg PO BEDTIME [facility] Last Admin: 11/07/18 21:35 Dose: 0.4 mg Vital Signs - 8 hr 11/08/18 11/08/18 11/08/18 01:45 03:08 05:20 Temperature 97.6 F Pulse Rate 65 Respiratory 17 18 20 Rate Blood Pressure 136/85 (mmHg) O2 Sat by Pulse 97 Oximetry 11/08/18 11/08/18 07:44 07:55 Temperature 98.2 F Pulse Rate 73 Respiratory 20 20 Rate Blood Pressure 156/86 (mmHg) O2 Sat by Pulse 93 Oximetry Oxygen Devices in Use Now: Nasal Cannula Appearance: awake. alert. mild distress from his pain and bladder spasm Eyes: No Scleral Icterus Ears/Nose/Mouth/Throat: NL Teeth, Lips, Gums, Mucous Membranes Moist Neck: NL Appearance and Movements; NL JVP, Trachea Midline Respiratory: - - bibasilar crackles Cardiovascular: NL Sounds; No Murmurs; No JVD Extremities: - - Right lower extremity edema Neurological: Alert and Oriented x 3 Result Diagrams: 11/08/18 08:16 11/07/18 17:20 Microbiology and Other Data: Microbiology 11/04/18 08:19 Aerobic Blood Culture - Preliminary Blood Venous No Growth Day 1 Anaerobic Blood Culture - Preliminary No Growth Day 1 11/04/18 08:28 Aerobic Blood Culture - Preliminary Blood Venous No Growth Day 1 Anaerobic Blood Culture - Preliminary No Growth Day 1 Assess/Plan/Problems-Billing Assessment: 68 y/o male admitted for RLE swelling and shortness of breath. CTA positive for Right PE and Leg positive for R DVT on Xarelto with hematuria from traumatic lion. Unfortunately I explained to patient the importance of anticoagulation supercede the hematuria for now. Will monitor CBC daily and will transfuse if he needs in order to keep his anticoagulation on board - Patient Problems (1) Cellulitis Current Visit: Yes Status: Acute Code(s): L03.90 - CELLULITIS, UNSPECIFIED SNOMED Code(s): 690352265 Comment: - Right lower extremity. - Given his immunocompromized state, I started zosyn and vanco 7. This Abx day # 4. BC so far negative. Will plan to change to PO on day #5 (2) Pulmonary embolism Current Visit: Yes Status: Acute Code(s): I26.99 - OTHER PULMONARY EMBOLISM WITHOUT ACUTE COR PULMONALE SNOMED Code(s): 06181775 Comment: - Right pulmonary artery - s/p Lovenox 1 mg/kg transitioned to xaretlo 15 mg bid 11/07/18. However his hematuria from admission persisted and develloped outflow obstructions due to several blood clots on 11/07/18. I did discontinue xaretlo and placed 3 way lion, CBI 11/07/18. Last dose of xarelto 11/07/18 am. - On 11/08/18 he develloped outflow obstructions again with several blood clots. I was able to come in and replaced his 3 way lion and irrigated his blood with several blood clots removed. CBI resumed. Contacted [facility] and noah awaiting transfer to have urology service involved. Xarelto remains on hold. I will defer to the accepting physician to consider initiating heparin drip for his PE/DVT treatment, and or consider IVC filter for his persistent Right DVT (3) DVT (deep venous thrombosis) Current Visit: Yes Status: Acute Code(s): I82.409 - ACUTE EMBOLISM AND THOMBOS UNSP DEEP VN UNSP LOWER EXTREMITY SNOMED Code(s): 930987268 Comment: - right DVT s/p lovenox transionted to xaretlo for Right DVT and acute PE - Xarelto held as of 11/07/18 am due to worsening hematuria with outflow obstruction. This has reccured despite CBI - Being transferred to [facility] hospitalist service with urology service consultations (4) Hematuria Current Visit: Yes Status: Acute Code(s): R31.9 - HEMATURIA, UNSPECIFIED SNOMED Code(s): 13523036 Comment: - From Traumatic Lion v.s BPH, v.s bladder lesion! on further questioning, the patient states that he was having intermittent hematuria even at home before admissions - Unfortunately I explained to patient the importance of anticoagulation. Treatment for his acute PE and DVT supersede the hematuria but on 11/07/18 he develloped urinary retention due to blood clots. I place 3 [address] lion and started CBI - Urology consulted on the phone with Dr. Ricketts. Agreed with the above and will see the patient on Saturday (5) CAD (coronary artery disease) Current Visit: No Status: Acute Code(s): I25.10 - ATHSCL HEART DISEASE OF [place] CORONARY ARTERY W/O ANG PCTRS SNOMED Code(s): 12532044 Comment: - develloped chest pain now this morning post Lion irrigation. Stat NTG one time resolved his pain, stat EKG and CXR ordered. - Hx of multiple stents, - Continue to optimize medical managememt - Will need to resume his home lasix (placed on hold on admission due to hypotention), s/p IVF. Will need to reverse his IVF resucitation, but in the setting of hematuria and intermittent outflow obstruction, I am going to defer from giving him lasix before transporting him in the event he obstruct while diuresing from lasix. But he does need to have it resumed once at [facility] and urology available (6) Diabetes Current Visit: No Status: Chronic Code(s): E11.9 - TYPE 2 DIABETES MELLITUS WITHOUT COMPLICATIONS SNOMED Code(s): 11378076 Comment: - BGs mildly elevated, suspect due to steroids - Continue Lispro SS, finger sticks AC - HgbA1C 7.0 on 04/09. (7) HLD (hyperlipidemia) Current Visit: No Status: Chronic Priority: Low Code(s): E78.5 - HYPERLIPIDEMIA, UNSPECIFIED SNOMED Code(s): 28392194 Comment: - Continue Rovustatin (8) HTN (hypertension) Current Visit: No Status: Chronic Priority: Low Code(s): I10 - ESSENTIAL ( PRIMARY) HYPERTENSION SNOMED Code(s): 58032246 Comment: - BP stable coreg 25 mg bid, will decrease to 12.5 mg bid in the setting of acute PE (9) Hypothyroidism Current Visit: No Status: Chronic Code(s): E03.9 - HYPOTHYROIDISM, UNSPECIFIED SNOMED Code(s): 64946674 Comment: - Continue levothyroxine 200 mcg daily (10) Pulmonary fibrosis Current Visit: No Status: Chronic Code(s): J84.10 - PULMONARY FIBROSIS, UNSPECIFIED SNOMED Code(s): 08782409 Comment: - At baseline - Continue steroid, Oxygen 6 liters
[2018-11-08] MEDS: Insulin LISPRO* 1 UNITS UNIT SUBCUT SCH (08:45)
[2018-11-08 08:46] LABS: BUN/Creatinine Ratio 20.5 (8-20); Calcium 8.2 mg/dL (8.6-10.3); EGFR African American 103.6 (>60); EGFR Non-African American 85.6 (>60); Magnesium 2.1 mg/dL (1.9-2.7); Phosphorus 1.9 mg/dL (2.5-5.0); Potassium 4.3 mmol/L (3.5-5.0)
[2018-11-08] MEDS: PIRFENIDONE 267 MG PO SCH (08:47)
[2018-11-08] MEDS: Aspirin 81 mg CHEW TAB* 81 MG TAB.CHEW PO SCH (08:49)
[2018-11-08] MEDS: Polyethylene Glycol 3350* 17 GM PACKET PO SCH (08:51)
[2018-11-08] MEDS: Carvedilol TAB* 6.25 MG PO SCH (08:51)
[2018-11-08] MEDS: predniSONE TAB* 10 MG PO SCH (08:51)
[2018-11-08] MEDS: Senna TAB PO SCH (08:51)
[2018-11-08 08:59] LABS: ABS Basophils 0.1 10^3/ul (0-0.2); ABS Eosinophils 0.1 10^3/ul (0-0.6); ABS Lymphocytes 0.8 10^3/ul (1.0-4.8); ABS Monocytes 0.5 10^3/ul (0-0.8); ABS Neutrophils 6.2 10^3/ul (1.5-7.7); Eosinophil % 1.9 %; Lymphocyte % 10.4 %; Nucleated Red Blood Cells % 0.1
[2018-11-08 09:06] LABS: Rapid HIV 1 Nonreactive (Nonreactive)
[2018-11-08] MEDS ORDERED: Potassium & Sodium Phos 250MG* = 1 PACKET PO SCH (10:00)
[2018-11-08 10:07] VITALS: BP 138/70
--- NOTE | 2018-11-08 11:33 | DS ---
DISCHARGE SUMMARY: DATE OF ADMISSION: 11/04/18 DATE OF TRANSFER: 11/08/18 ACCEPTING FACILITY: [facility]. ACCEPTING PHYSICIAN: Dr. Itzel Walter. REASON FOR TRANSFER: Active hematuria with outflow obstruction requiring urology service, now not av ailable on-call this weekend at [facility]. FINAL DISCHARGE DIAGNOSES: 1. Active, recurrent gross hematuria with blood clots causing outflow obstruction despite continuous bladder irrigation 2. Right lower extremity cellulitis. 3. Right pulmonary embolism. 4. Right lower extremity deep vein thrombosis. 5. History of coronary artery disease. 6. Diabetes mellitus. 7. Hyperlipidemia. 8. Hypertension. 9. Hypothyroidism. 10. Pulmonary fibrosis, on chronic O2 at 5 L at home. HOSPITAL COURSE: The patient presented to [facility] Emergency Room on 11/04/18 with a [facility] complaint of right lower extremity redness, pain, and swelling for about a day before he presente d. He described that the swelling came on fairly sudden and fairly quickly. It was preceded with a URI symptoms few days prior, common cold and some diarrhea and it contributed to his symptoms of bein g ill and common cold requiring more oxygen, which was exacerbating his shortness of breath due to hi s pulmonary fibrosis. Then on 11/04/18 the day of admission, his leg got more painful, increasing re dness and swelling, and even more and more shortness of breath. Therefore, he was presented to the E D and was diagnosed with lower extremity cellulitis and given his shortness of breath in the emergenc y room, he had a CT of the chest, which shows right pulmonary emboli. While in the emergency room wi thout any provocation, he is still having significant abdominal pain and unable to urinate and Hernández catheter was placed in the emergency room and he did have blood clot upon insertion. Whether or not that was traumatic or to begin with there was blood clot caused outflow obstruction while in the [facility] room is not really clear at the time of this dictation, but, however, he had some hematuria in the ED shortly after placing the Hernández and he had symptomatic relief with good urine output at that t rajendra. The patient was seen and evaluated by me initially on day #2, 11/05/18 on the Medical Floor. A t that time, the patient was on Lovenox subcu shot. He was on IV fluid for soft blood pressure in th e emergency room and his Lasix was held and discontinued given his hypotension. Hospital day #2, 11/05/18, the patient was seen and evaluated by me. On evaluation, I did notice cody t his right lower extremity cellulitis was extensively warm and red and was streaking proximally to p roximal thigh with tenderness over his right knee. Given he is on chronic steroid, I started him emp irically on Zosyn and vancomycin at which time, he was not on antibiotic yet and blood cultures were pending. This is improved through the hospital stay and currently is on Zosyn and vancomycin. Day # 4 with the planned transition to p.o., if his blood culture remains negative x5 days. For his gross hematuria. On day #1, his hematuria lessened and he was having a clear urine outflow. I did explain to the family that given his chest discomfort, PE, hypoxia, DVT, anticoagulation is pr udent. We continued anticoagulation with a plan to transition to oral Xarelto and we will keep him a s an inpatient to evaluate if his hematuria resolved. Unfortunately on 11/07/18 a.m., his hematuria progressively got worse. He had an outflow obstruction and that was triggered actually after we resu med his Lasix, which increases urine output and his outflow was obstructed with some blood clot. At that time, urology service was not available. I was able to put in a 3-way Hernández catheter, irrigated his blood clot with good successful outcome and he was placed on CBI and today on 11/08/18 around 4 o'clock in the morning, he developed similar symptoms with outflow obstruction. I was able to come in , exchange the 3-way Hernández, put a new one, irrigated it and good output came out. The patient is mor e comfortable at this time, but however, given his recurrent hematuria, I did proceed with requesting transfer to [facility] where urology service is available and he was accepted by Dr. Itzel Walter, the hospitalist gas station attendant with urology service consultation. It should be noted that the omer son is not on any anticoagulation at this time. His last dose of Xarelto was 11/07/18 a.m. dose. I will defer to the accepting team on whether or not to initiate heparin drip at the time where his h ematuria resolved. Also, they need to consult with Interventional Radiology for IVC filter placement because he still has a right lower extremity DVT, any further blood clot, travel, which can cause mo re burden on his respiratory status at which he is decompensated at baseline given his pulmonary fibr osis requiring 6 L oxygen at baseline. For his DVT, the plan as pulmonary embolism above. Again, Xarelto is on hold since 11/07/18. I will defer to the accepting physician at [facility] on whether or not to consider heparin drip while being p lanned for urology consultation and possible IVC filter keeping in mind his hematuria, which is recur rent causing outflow obstruction. For his coronary artery disease, he had no chest pain throughout the hospital stay until this morning during the outflow obstruction. He developed one instance of chest pain, for which I gave him nitro glycerin which resolved it. A stat EKG was requested, did not reveal any evidence of ST or T wave change to suggest ischemia. Hi s rate was 65 with a NV interval 172, QTc slightly prolonged at 558. QRS 116 MS. He does have poor R-wave progression, however. A stat chest x-ray, 11/08/18 given his chest pain, showed interstitial markings in both lungs, worse on the right side. Otherwise, no acute pathology. His troponin 0.03, same as his admission on 11/04. Continue his carvedilol but his dose has been decreased to 12.5 b.i.d. given his soft blood pre ssure when he came in, which has since resolved. Therefore, I am going to increase it back to 25 b.i .d. For his diabetes mellitus, he is on sliding scale with coverage. May require Lantus if his sugar is uncontrolled due to steroids. For his hyperlipidemia, he is on rosuvastatin. For his hypothyroidism, we will continue levothyroxine. For his pulmonary fibrosis, continue the steroid and oxygen. TRANSFER MEDICATIONS: The patient will be transferred on the followin. Tylenol p.r.n. 2. Aspirin 81 daily. 3. Carvedilol, increased back to his regular home dose 25 b.i.d. up from 12.5 b.i.d. when he was adm itted due to low blood pressure. Now, he is back up to 25 b.i.d. 4. Insulin sliding scale. 5. Synthroid 200 mcg daily. 6. Morphine p.r.n. for severe pain. 7. Pirfenidone 267 mg t.i.d. with meals. 8. Zofran p.r.n. 9. Oxycodone p.r.n. 10. Zosyn as per pharmacy protocol. 11. Vancomycin as per pharmacy protocol. 12. Prednisone 30 daily. 13. Crestor 10 at bedtime. 14. Senokot. 15. Flomax 0.4 at bedtime. 16. Please make note that the patient probably will benefit from resuming his home dose of Bumex 2 m g daily, currently on hold when he was admitted due to hypotension. He is status post several IV flu ids due to hypotension, which will be due to resuming his Bumex, remains on hold and I did not initia te prior to his transport to avoid aggressive diuresis with the risk of outflow obstruction during th e transport to [facility]. 17. Plavix 75 mg is on hold. 18. Metformin on hold. INPATIENT DIAGNOSTIC STUDIES: He had an ultrasound of the lower extremity, 11/04/18 from the emergen cy room, shows DVT extending from the right common femoral to popliteal vein causing obstruction. No DVT on the left side. Chest thoracic angiogram reveals pulmonary fibrosis with multiple filling def ects predominantly in the right pulmonary artery and in the lower branch as well as in the right midd le lobe branches, consistent with pulmonary artery embolism. Abdominal and pelvic CT due to his abdominal pain that was acute in the emergency room reveals no rolando dence of acute finding, mild hepatomegaly. 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 Transthoracic echocardiogram on 11/04/18 reveals his echocardiogram has an ejection fraction of 55%. Normal systolic function. He does have abnormal LV dysfunction consistent with a grade 1 diastolic dysfunction. Right ventricle is dilated. Right atrium mildly dilated. It should be noted that his e jection fraction has improved from 25%-30% when compared to 04/20/18. Abdominal ultrasound, 11/04/18, right renal cyst. Otherwise normal upper quadrant ultrasound. DISCHARGE RECOMMENDATIONS/TRANSFER: The patient will be transferred via ALS. He does require tele b ed. We will hold the CBI during the transfers in case he develops outflow obstruction during the tra nsport. We will have vancomycin and Zosyn ordered to be continued and recommended to continue for ce llulitis. This is day #4. He will require urology service and possible cystoscopy. The patient will need to have his Lasix/diuretic resumed upon arrival and once deemed appropriate by the accepting physician. Consider starting heparin drip as he is off anticoagulation as of 11/07/18 for his DVT and PE and at the same time to consult interventional radiologist for IVC filter placement as he still have DVT in the right lower extremity to avoid any further burden clot travel to his lungs. DISCHARGE CONDITION: Stable. DISCHARGE DISPOSITION: [facility]. [id number]/[facility] #: [id number]
[2018-11-08 11:48] LABS: Hepatitis B Surface Antigen Negative (Negative)
[2018-11-08 12:05] LABS: Hepatitis B Surface Ab Not Immune (Immune); Hepatitis C Antibody Negative (Negative)
[2018-11-08] MEDS ORDERED: Carvedilol TAB* 6.25 MG PO SCH (21:00)
== END 2018-11-08 10:45 | disposition short-term general hospital (02) | DRG 176 ==
LOC: ED 07:32 → MEDTELE 14:53 → SSU 11-07 20:48
PROVIDERS: ADMIT Hospitalist; ATTEND Internal Medicine
DX: I26.99 Other pulmonary embolism without acute cor pulmonale (principal); I82.411 Acute embolism and thrombosis of right femoral vein; L03.115 Cellulitis of right lower limb; I82.431 Acute embolism and thrombosis of right popliteal vein; N13.8 Other obstructive and reflux uropathy; Z99.81 Dependence on supplemental oxygen; J84.10 Pulmonary fibrosis, unspecified; I11.0 Hypertensive heart disease with heart failure; R31.0 Gross hematuria; E11.9 Type 2 diabetes mellitus without complications; E78.5 Hyperlipidemia, unspecified; I25.10 Atherosclerotic heart disease of native coronary artery without angina pectoris; E03.9 Hypothyroidism, unspecified; N40.1 Benign prostatic hyperplasia with lower urinary tract symptoms; I50.9 Heart failure, unspecified; M35.3 Polymyalgia rheumatica; I25.2 Old myocardial infarction; Z95.5 Presence of coronary angioplasty implant and graft; Z79.84 Long term (current) use of oral hypoglycemic drugs; Z79.1 Long term (current) use of non-steroidal anti-inflammatories (NSAID); Z79.82 Long term (current) use of aspirin; Z79.52 Long term (current) use of systemic steroids; Z79.899 Other long term (current) drug therapy; Z88.8 Allergy status to other drugs, medicaments and biological substances; Z82.49 Family history of ischemic heart disease and other diseases of the circulatory system; Z87.891 Personal history of nicotine dependence
CPT/HCPCS: 36415; 71045; 71260; 71275; 74176; 76700; 80048; 80053; 80202; 81003; 82803; 83605; 83735; 83880; 84100; 84484; 84550; 85025; 85610; 85652; 85730; 86140; 86703; 86706; 86803; 87040; 87340; 93005; 93306; 93970; 99284; A9270-GY; J1650; J1940; J2270; J2405; J2543; J3370; J7512; Q9967

== ENCOUNTER 2019-08-31 13:00 | Inpatient (IN) ==
[2019-08-31] MEDS ORDERED: Cefepime 2 GM in NS 0.9% 50 ML 50 ML IVPB ONE (13:20)
[2019-08-31 13:54] LABS: ABS Basophils 0.1 10^3/ul (0-0.2); ABS Lymphocytes 0.5 10^3/ul (1.0-4.8); ABS Monocytes 0.4 10^3/ul (0-0.8); Eosinophil % 0.1 %; Hematocrit 41 % (42-52); Hemoglobin 12.7 g/dL (14.0-18.0); Lymphocyte % 3.6 %; Mean Corpuscular HGB Conc 31 g/dL (31-36); Mean Corpuscular Hemoglobin 27 pg (27-31); Mean Corpuscular Volume 86 fL (80-94); Mean Platelet Volume 7.1 fL (7.4-10.4); Platelet Count 213 10^3/uL (150-450); Red Cell Distribution Width 17 % (10-15); White Blood Count 13.7 10^3/uL (3.5-10.8)
[2019-08-31] MEDS ORDERED: Vancomycin 1,500 MG in NS 0.9% 250 ml 250 ML IVPB ONE (14:00)
[2019-08-31] MEDS ORDERED: Cefepime 2 GM in Dextrose 2 GM/50 ML BAG IV ONE (14:00)
[2019-08-31 14:20] LABS: Albumin 3.6 g/dL (3.2-5.2); Albumin/Globulin Ratio 1.2 (1-3); BUN/Creatinine Ratio 24.1 (8-20); C Reactive Protein 164.85 mg/L (<8.01); EGFR African American 104.7 (>60); EGFR Non-African American 86.5 (>60); Globulin 3.1 g/dL (2-4); Potassium 4.4 mmol/L (3.5-5.0); Total Bilirubin 0.3 mg/dL (0.2-1.0); Total Protein 6.7 g/dL (6.4-8.9)
[2019-08-31] MEDS ORDERED: NS 0.9% 1000 ml BAG 1,000 ML IV ONE (14:31)
[2019-08-31 15:02] LABS: Erythrocyte Sed Rate 35 mm/Hr (0-19)
[2019-08-31 15:34] LABS: Urine Appearance Cloudy; Urine Bilirubin Negative (Negative); Urine Blood 1+ (Negative); Urine Color Yellow; Urine Glucose 3+(>=500 mg/dL) (Negative); Urine Ketones Trace (Negative); Urine Nitrite Positive (Negative); Urine Protein Negative (Negative); Urine Specific Gravity 1.032 (1.010-1.030); Urine Urobilinogen Negative (Negative)
[2019-08-31] MEDS ORDERED: Vancomycin 1,000 MG in NS 0.9% 250 ml 250 ML IVPB ONE (15:47)
[2019-08-31] MEDS ORDERED: Dextrose 50% Syringe 50 ml 25 GM/50 ML SYRINGE IV PUSH PRN (15:47)
[2019-08-31 15:49] LABS: Urine Bacteria 1+ (Absent); Urine Red Blood Cell Trace(0-2/hpf) (Absent); Urine White Blood Cell 2+(11-20/hpf) (Absent)
[2019-08-31] MEDS ORDERED: Vancomycin per Pharmacy 1 EA NOTE FOLLOW UP SCH (16:00)
[2019-08-31] MEDS ORDERED: Polyethylene Glycol 3350 17 GM PACKET PO PRN (16:03)
[2019-08-31] MEDS: oxyCODONE/Acetamin 5/325 mg TAB PO PRN (18:51)
[2019-08-31] MEDS: Insulin GLARGINE 100 un/ml 10 ml VIAL SUBCUT SCH (18:52)
[2019-08-31] MEDS: cefTRIAXone ADVAN VIAL 1 GM in NS 0.9% 50 ML 50 ML IVPB SCH (19:24)
[2019-08-31] MEDS ORDERED: CMC: Rosuvastatin 10 mg TAB (NF) PO SCH (21:00)
[2019-08-31] MEDS: Vancomycin 1,250 MG in NS 0.9% 250 ml 250 ML IV SCH (21:15)
[2019-08-31] MEDS: PIRFENIDONE 801 MG PO SCH (21:40)
[2019-09-01 05:42] LABS: ABS Basophils 0.1 10^3/ul (0-0.2); ABS Eosinophils 0.1 10^3/ul (0-0.6); ABS Lymphocytes 1.2 10^3/ul (1.0-4.8); ABS Monocytes 0.6 10^3/ul (0-0.8); Eosinophil % 1.2 %; Hematocrit 37 % (42-52); Hemoglobin 11.5 g/dL (14.0-18.0); Lymphocyte % 11.7 %; Mean Corpuscular HGB Conc 32 g/dL (31-36); Mean Corpuscular Hemoglobin 27 pg (27-31); Mean Corpuscular Volume 87 fL (80-94); Mean Platelet Volume 6.8 fL (7.4-10.4); Nucleated Red Blood Cells % 0.1; Platelet Count 207 10^3/uL (150-450); Red Cell Distribution Width 17 % (10-15); White Blood Count 10.1 10^3/uL (3.5-10.8)
[2019-09-01] MEDS: Vancomycin 1,250 MG in NS 0.9% 250 ml 250 ML IV SCH ×3 (05:43→22:25)
[2019-09-01 05:59] LABS: Calcium 8.3 mg/dL (8.6-10.3); EGFR African American 122.3 (>60); EGFR Non-African American 101.1 (>60); Potassium 3.7 mmol/L (3.5-5.0)
[2019-09-01] MEDS: Senna TAB 8.6 mg TAB PO SCH (09:12)
[2019-09-01] MEDS: oxyCODONE/Acetamin 5/325 mg TAB PO PRN (10:10)
[2019-09-01] MEDS: PIRFENIDONE 801 MG PO SCH ×3 (11:14→17:40)
[2019-09-01] MEDS: Insulin GLARGINE 100 un/ml 10 ml VIAL SUBCUT SCH (17:40)
[2019-09-01] MEDS: ROSUVASTATIN 10 MG PO SCH (20:35)
[2019-09-01] MEDS: cefTRIAXone ADVAN VIAL 1 GM in NS 0.9% 50 ML 50 ML IVPB SCH (20:36)
[2019-09-02] MEDS ORDERED: Vancomycin Trough Check NOTE FOLLOW UP ONE (05:30)
[2019-09-02 05:58] LABS: EGFR African American 139.1 (>60)
[2019-09-02 06:17] LABS: Vancomycin Trough 13.6 mcg/mL
[2019-09-02] MEDS: Vancomycin 1,250 MG in NS 0.9% 250 ml 250 ML IV SCH ×3 (06:21→20:48)
[2019-09-02] MEDS: PIRFENIDONE 801 MG PO SCH ×3 (08:21→17:22)
[2019-09-02] MEDS: Senna TAB 8.6 mg TAB PO SCH (08:21)
[2019-09-02] MEDS: oxyCODONE/Acetamin 5/325 mg TAB PO PRN ×2 (11:31→20:49)
[2019-09-02] MEDS: Insulin GLARGINE 100 un/ml 10 ml VIAL SUBCUT SCH (17:22)
[2019-09-02] MEDS: ROSUVASTATIN 10 MG PO SCH (20:49)
[2019-09-03] MEDS: Vancomycin 1,250 MG in NS 0.9% 250 ml 250 ML IV SCH ×3 (05:15→20:12)
[2019-09-03] MEDS: PIRFENIDONE 801 MG PO SCH ×3 (08:31→17:20)
[2019-09-03] MEDS: Senna TAB 8.6 mg TAB PO SCH (08:32)
[2019-09-03 11:00] LABS: C Reactive Protein 119.77 mg/L (<8.01)
[2019-09-03] MEDS: Insulin GLARGINE 100 un/ml 10 ml VIAL SUBCUT SCH (17:23)
[2019-09-03] MEDS: ROSUVASTATIN 10 MG PO SCH (20:12)
[2019-09-04] MEDS ORDERED: Vancomycin Trough Check NOTE FOLLOW UP ONE (05:30)
[2019-09-04 06:34] LABS: Hematocrit 38 % (42-52); Hemoglobin 12.1 g/dL (14.0-18.0); Mean Corpuscular HGB Conc 32 g/dL (31-36); Mean Corpuscular Hemoglobin 27 pg (27-31); Mean Corpuscular Volume 85 fL (80-94); Mean Platelet Volume 6.6 fL (7.4-10.4); Platelet Count 221 10^3/uL (150-450); Red Blood Count 4.42 10^6 /uL (4.18-5.48); Red Cell Distribution Width 17 % (10-15); White Blood Count 7.6 10^3/uL (3.5-10.8)
[2019-09-04 06:55] LABS: BUN/Creatinine Ratio 23.3 (8-20); C Reactive Protein 64.34 mg/L (<8.01); Calcium 8.2 mg/dL (8.6-10.3); EGFR African American 128.2 (>60); EGFR Non-African American 105.9 (>60); Potassium 3.4 mmol/L (3.5-5.0)
[2019-09-04] MEDS: Vancomycin 1,250 MG in NS 0.9% 250 ml 250 ML IV SCH ×3 (07:51→22:05)
[2019-09-04] MEDS: Senna TAB 8.6 mg TAB PO SCH (07:57)
[2019-09-04] MEDS: PIRFENIDONE 801 MG PO SCH ×3 (08:55→17:40)
[2019-09-04 09:08] LABS: ABS Basophils 0.1 10^3/ul (0-0.2); ABS Eosinophils 0.2 10^3/ul (0-0.6); ABS Lymphocytes 1.4 10^3/ul (1.0-4.8); ABS Monocytes 0.7 10^3/ul (0-0.8); Eosinophil % 2.4 %; Lymphocyte % 18.3 %; Nucleated Red Blood Cells % 0.1
[2019-09-04] MEDS ORDERED: Magnesium Hydroxide LIQ 30 ML UDC PO PRN (11:09)
[2019-09-04 12:41] LABS: Urine Appearance Clear; Urine Bilirubin Negative (Negative); Urine Blood 1+ (Negative); Urine Color Straw; Urine Glucose 3+(>=500 mg/dL) (Negative); Urine Ketones Negative (Negative); Urine Nitrite Negative (Negative); Urine Protein Negative (Negative); Urine Specific Gravity 1.012 (1.010-1.030); Urine Urobilinogen Negative (Negative)
[2019-09-04 12:45] LABS: Urine Bacteria Absent (Absent); Urine Red Blood Cell Trace(0-2/hpf) (Absent); Urine White Blood Cell Trace(0-5/hpf) (Absent)
[2019-09-04] MEDS: Insulin GLARGINE 100 un/ml 10 ml VIAL SUBCUT SCH (17:51)
[2019-09-04] MEDS: oxyCODONE/Acetamin 5/325 mg TAB PO PRN (19:49)
[2019-09-04] MEDS: Polyethylene Glycol 3350 17 GM PACKET PO SCH (22:02)
[2019-09-04] MEDS: ROSUVASTATIN 10 MG PO SCH (22:04)
[2019-09-05 05:02] LABS: Hematocrit 37 % (42-52); Mean Corpuscular HGB Conc 32 g/dL (31-36); Mean Corpuscular Hemoglobin 27 pg (27-31); Mean Corpuscular Volume 85 fL (80-94); Mean Platelet Volume 6.6 fL (7.4-10.4); Platelet Count 227 10^3/uL (150-450); Red Blood Count 4.39 10^6 /uL (4.18-5.48); Red Cell Distribution Width 16 % (10-15); White Blood Count 6.1 10^3/uL (3.5-10.8)
[2019-09-05 05:09] LABS: BUN/Creatinine Ratio 27.4 (8-20); C Reactive Protein 37.63 mg/L (<8.01); Calcium 8.4 mg/dL (8.6-10.3); EGFR African American 128.2 (>60); EGFR Non-African American 105.9 (>60); Potassium 3.4 mmol/L (3.5-5.0)
[2019-09-05 05:37] LABS: ABS Basophils 0.1 10^3/ul (0-0.2); ABS Eosinophils 0.1 10^3/ul (0-0.6); ABS Lymphocytes 1.3 10^3/ul (1.0-4.8); ABS Monocytes 0.5 10^3/ul (0-0.8); Eosinophil % 2.3 %; Lymphocyte % 21.7 %; Nucleated Red Blood Cells % 0.2
[2019-09-05] MEDS: Vancomycin 1,250 MG in NS 0.9% 250 ml 250 ML IV SCH ×3 (06:20→21:50)
[2019-09-05 06:22] LABS: Erythrocyte Sed Rate 43 mm/Hr (0-19)
[2019-09-05 07:58] LABS: Magnesium 2.1 mg/dL (1.9-2.7)
[2019-09-05] MEDS: Polyethylene Glycol 3350 17 GM PACKET PO SCH ×2 (09:16→21:25)
[2019-09-05] MEDS: Potassium Chlor 20 meq TAB.ER PO SCH ×2 (09:17→13:39)
[2019-09-05] MEDS: Senna TAB 8.6 mg TAB PO SCH (09:18)
[2019-09-05] MEDS: PIRFENIDONE 801 MG PO SCH ×3 (09:19→17:35)
[2019-09-05] MEDS: Insulin GLARGINE 100 un/ml 10 ml VIAL SUBCUT SCH (17:34)
[2019-09-05] MEDS: oxyCODONE/Acetamin 5/325 mg TAB PO PRN (20:03)
[2019-09-05] MEDS: ROSUVASTATIN 10 MG PO SCH (22:13)
[2019-09-06] MEDS: Vancomycin 1,250 MG in NS 0.9% 250 ml 250 ML IV SCH ×3 (06:07→21:48)
[2019-09-06] MEDS: PIRFENIDONE 801 MG PO SCH ×3 (09:01→17:29)
[2019-09-06] MEDS: Senna TAB 8.6 mg TAB PO SCH (09:02)
[2019-09-06] MEDS: Polyethylene Glycol 3350 17 GM PACKET PO SCH ×2 (09:05→21:18)
[2019-09-06] MEDS: Insulin GLARGINE 100 un/ml 10 ml VIAL SUBCUT SCH (17:30)
[2019-09-06] MEDS: oxyCODONE/Acetamin 5/325 mg TAB PO PRN (21:16)
[2019-09-06] MEDS: ROSUVASTATIN 10 MG PO SCH (21:17)
[2019-09-07] MEDS ORDERED: Vancomycin Trough Check NOTE FOLLOW UP ONE (05:30)
[2019-09-07 05:56] LABS: Hematocrit 36 % (42-52); Hemoglobin 11.6 g/dL (14.0-18.0); Mean Corpuscular HGB Conc 32 g/dL (31-36); Mean Corpuscular Hemoglobin 27 pg (27-31); Mean Corpuscular Volume 85 fL (80-94); Mean Platelet Volume 6.2 fL (7.4-10.4); Platelet Count 238 10^3/uL (150-450); Red Blood Count 4.24 10^6 /uL (4.18-5.48); Red Cell Distribution Width 16 % (10-15); White Blood Count 6.6 10^3/uL (3.5-10.8)
[2019-09-07 06:00] LABS: ABS Basophils 0.1 10^3/ul (0-0.2); ABS Eosinophils 0.1 10^3/ul (0-0.6); ABS Lymphocytes 1.6 10^3/ul (1.0-4.8); ABS Monocytes 0.5 10^3/ul (0-0.8); Lymphocyte % 24.1 %; Nucleated Red Blood Cells % 0.1
[2019-09-07 06:19] LABS: BUN/Creatinine Ratio 23.2 (8-20); Calcium 8.4 mg/dL (8.6-10.3); EGFR African American 112.1 (>60); EGFR Non-African American 92.6 (>60); Potassium 3.6 mmol/L (3.5-5.0); Vancomycin Trough 18.2 mcg/mL
[2019-09-07] MEDS: Vancomycin 1,250 MG in NS 0.9% 250 ml 250 ML IV SCH (06:25)
[2019-09-07 06:33] LABS: TSH (Thyroid Stimulating Horm) 7.91 mcIU/mL (0.34-5.60)
[2019-09-07 06:35] LABS: Free T4 0.5 ng/dL (0.61-1.12)
[2019-09-07] MEDS ORDERED: Regadenoson 0.4 MG/5 ML SYRINGE ONE (08:46)
[2019-09-07] MEDS ORDERED: Aminophylline 25 MG/ML VIAL ONE (08:47)
[2019-09-07] MEDS: Senna TAB 8.6 mg TAB PO SCH (09:12)
[2019-09-07] MEDS: PIRFENIDONE 801 MG PO SCH ×3 (09:52→17:23)
[2019-09-07] MEDS: Polyethylene Glycol 3350 17 GM PACKET PO SCH ×2 (09:53→21:35)
[2019-09-07] MEDS: Vancomycin 1,000 MG in NS 0.9% 250 ml 250 ML IV SCH ×2 (13:54→22:42)
[2019-09-07] MEDS: Insulin GLARGINE 100 un/ml 10 ml VIAL SUBCUT SCH (17:13)
[2019-09-07] MEDS: ROSUVASTATIN 10 MG PO SCH (20:53)
[2019-09-08 05:49] LABS: Hematocrit 37 % (42-52); Hemoglobin 12.1 g/dL (14.0-18.0); Mean Corpuscular HGB Conc 32 g/dL (31-36); Mean Corpuscular Hemoglobin 27 pg (27-31); Mean Corpuscular Volume 84 fL (80-94); Mean Platelet Volume 6.4 fL (7.4-10.4); Platelet Count 239 10^3/uL (150-450); Red Blood Count 4.42 10^6 /uL (4.18-5.48); Red Cell Distribution Width 16 % (10-15); White Blood Count 5.9 10^3/uL (3.5-10.8)
[2019-09-08 05:51] LABS: ABS Eosinophils 0.1 10^3/ul (0-0.6); ABS Lymphocytes 1.4 10^3/ul (1.0-4.8); ABS Monocytes 0.5 10^3/ul (0-0.8); Eosinophil % 1.9 %; Lymphocyte % 23.3 %
[2019-09-08] MEDS: Vancomycin 1,000 MG in NS 0.9% 250 ml 250 ML IV SCH ×3 (05:56→22:36)
[2019-09-08 06:05] LABS: BUN/Creatinine Ratio 24.3 (8-20); Calcium 8.3 mg/dL (8.6-10.3); EGFR African American 126.2 (>60); EGFR Non-African American 104.3 (>60); Potassium 3.7 mmol/L (3.5-5.0)
[2019-09-08] MEDS: Polyethylene Glycol 3350 17 GM PACKET PO SCH ×2 (08:36→22:31)
[2019-09-08] MEDS: PIRFENIDONE 801 MG PO SCH ×3 (08:38→17:20)
[2019-09-08] MEDS: Senna TAB 8.6 mg TAB PO SCH (08:38)
[2019-09-08] MEDS ORDERED: Lactated Ringers 1000 ml BAG 1,000 ML IV SCH (12:00)
[2019-09-08] MEDS ORDERED: Bupivacaine 0.25% SDV 30 ML ONE (13:21)
[2019-09-08] MEDS ORDERED: Midazolam 2 mg/2 ml VIAL 1 mg/ml 2 ml VIAL (2 mg) ONE (13:32)
[2019-09-08] MEDS ORDERED: fentaNYL 100 mcg/2 ml 50 MCG/ML VIAL ONE (13:32)
[2019-09-08] MEDS ORDERED: Propofol 10 MG/ML 20 ML BTL ONE (13:33)
[2019-09-08] MEDS ORDERED: Lidocaine 2% PF 5 ML VIAL ONE (13:33)
[2019-09-08] MEDS ORDERED: Naloxone 0.4 mg VIAL 0.4 mg/ml 1 ml VIAL IV PRN (13:51)
[2019-09-08] MEDS ORDERED: diPHENhydraMINE IV 50 MG/ML 1 ml VIAL (BENADRYL) IV PRN (13:51)
[2019-09-08] MEDS ORDERED: HYDROmorphone 1 MG/1 ML SYRINGE IV PRN (13:51)
[2019-09-08] MEDS ORDERED: Ondansetron 4 mg VIAL 2 MG/ML 2 ml VIAL IV PRN (13:51)
[2019-09-08] MEDS: Lactated Ringers 1000 ml BAG 1,000 ML IV SCH (16:31)
[2019-09-08] MEDS: Insulin GLARGINE 100 un/ml 10 ml VIAL SUBCUT SCH (17:20)
[2019-09-08] MEDS ORDERED: Dextrose 50% Syringe 50 ml 25 GM/50 ML SYRINGE IV PUSH PRN (22:03)
[2019-09-08] MEDS: oxyCODONE/Acetamin 5/325 mg TAB PO PRN (22:24)
[2019-09-08] MEDS: ROSUVASTATIN 10 MG PO SCH (22:35)
[2019-09-09] MEDS: Lactated Ringers 1000 ml BAG 1,000 ML IV SCH (02:42)
[2019-09-09] MEDS ORDERED: Vancomycin Trough Check NOTE FOLLOW UP ONE (05:30)
[2019-09-09 06:11] LABS: EGFR African American 124.2 (>60); EGFR Non-African American 102.7 (>60)
[2019-09-09 06:34] LABS: Vancomycin Trough 14.9 mcg/mL
[2019-09-09] MEDS: Vancomycin 1,000 MG in NS 0.9% 250 ml 250 ML IV SCH ×2 (06:49→13:38)
[2019-09-09] MEDS: PIRFENIDONE 801 MG PO SCH ×2 (09:17→13:12)
[2019-09-09] MEDS: Polyethylene Glycol 3350 17 GM PACKET PO SCH (09:17)
[2019-09-09] MEDS: Senna TAB 8.6 mg TAB PO SCH (09:19)
[2019-09-09 11:48] VITALS: BP 136/74
[2019-09-09] MEDS: oxyCODONE/Acetamin 5/325 mg TAB PO PRN (13:11)
== END 2019-09-09 16:00 | disposition home or self-care (01) | DRG 854 ==
LOC: ED 13:00 → MEDTELE 15:43 → SSU 09-04 17:20
PROVIDERS: ADMIT Internal Medicine; ATTEND Internal Medicine

== ENCOUNTER 2020-10-16 13:11 | Inpatient (IN) ==
[2020-10-16] MEDS ORDERED: NS 0.9% 1000 ml BAG 1,000 ML IV ONE ×3 (13:17→15:13)
[2020-10-16] MEDS ORDERED: Ondansetron 4 mg VIAL 2 MG/ML 2 ml VIAL IV ONE (13:17)
[2020-10-16] MEDS ORDERED: Iodixanol (CONTRAST) 320 MG/ML 100 ML SDV IV ONE (13:25)
[2020-10-16 13:38] LABS: ABS Lymphocytes 0.2 10^3/ul (1.0-4.8); ABS Neutrophils 4.5 10^3/ul (1.5-7.7); Eosinophil % 0.7 %; Hematocrit 45 % (42-52); Hemoglobin 14.4 g/dL (14.0-18.0); Lymphocyte % 4.3 %; Mean Corpuscular HGB Conc 32 g/dL (31-36); Mean Corpuscular Hemoglobin 28 pg (27-31); Mean Corpuscular Volume 87 fL (80-94); Mean Platelet Volume 6.8 fL (7.4-10.4); Nucleated Red Blood Cells % 0.3; Platelet Count 160 10^3/uL (150-450); Red Blood Count 5.13 10^6 /uL (4.18-5.48); Red Cell Distribution Width 17 % (10-15); White Blood Count 4.8 10^3/uL (3.5-10.8)
[2020-10-16 13:47] LABS: ALT 228 U/L (7-52); AST 356 U/L (13-39); Albumin 3.2 g/dL (3.2-5.2); Albumin/Globulin Ratio 1.4 (1-3); Alkaline Phosphatase 110 U/L (35-149); Anion Gap 8 mmol/L (2-11); Blood Urea Nitrogen 22 mg/dL (6-24); C Reactive Protein 13.71 mg/L (<8.01); CO2 Carbon Dioxide 26 mmol/L (22-32); Calcium 8.5 mg/dL (8.6-10.3); Chloride 106 mmol/L (101-111); EGFR African American 78.8 (>60); EGFR Non-African American 65.1 (>60); Globulin 2.3 g/dL (2-4); Glucose 118 mg/dL (70-100); Magnesium 1.6 mg/dL (1.9-2.7); Potassium 3.2 mmol/L (3.5-5.0); Sodium 140 mmol/L (135-145); Total Protein 5.5 g/dL (6.4-8.9)
[2020-10-16 13:50] LABS: Troponin I 0.07 ng/mL (<0.03)
[2020-10-16] MEDS ORDERED: Magnesium Sulfate 2 gm BAG 2 GM/50 ML BAG IVPB ONE (13:53)
[2020-10-16 14:07] LABS: Alcohol, S < 10 mg/dL (<10)
[2020-10-16] MEDS ORDERED: Piperacillin/Tazobac ADVAN 3.375 GM in NS 0.9% 100 ml BAG 100 ML IV ONE (14:52)
[2020-10-16] MEDS ORDERED: Norepinephrine 16MCG/ML IVPRE 4,000 MCG/250 ML BAG IV ONE ×2 (15:20→17:17)
[2020-10-16] MEDS: Norepinephrine 16MCG/ML IVPRE 4,000 MCG/250 ML BAG IV SCH ×2 (15:30→20:18)
[2020-10-16 16:27] LABS: Urine Appearance Cloudy; Urine Bilirubin Negative (Negative); Urine Blood 1+ (Negative); Urine Color Amber; Urine Glucose 3+(>=500 mg/dL) (Negative); Urine Ketones Negative (Negative); Urine Nitrite Negative (Negative); Urine Protein 1+(30 mg/dL) (Negative); Urine Specific Gravity 1.058 (1.002-1.030); Urine Urobilinogen Negative (Negative)
[2020-10-16 16:30] LABS: Urine Bacteria 1+ (Absent); Urine Red Blood Cell 3+(>10/hpf) (Absent); Urine Squamous Epithelial Cell Present (Absent); Urine White Blood Cell 3+(>20/hpf) (Absent)
[2020-10-16] MEDS ORDERED: KCL 20 MEQ/100 ML IVPREMIX 20 MEQ/100 ML BAG ONE (17:17)
[2020-10-16] MEDS: KCL 20 MEQ/100 ML IVPREMIX 20 MEQ/100 ML BAG IV SCH ×2 (17:36→19:47)
[2020-10-16] MEDS: Hydrocortisone INJ 100 MG/2ML 2 ML VIAL IV SCH (17:36)
[2020-10-16 17:42] LABS: Troponin I 0.11 ng/mL (<0.03)
[2020-10-16] MEDS ORDERED: Zosyn per Pharmacy NOTE FOLLOW UP SCH (18:00)
[2020-10-16] MEDS ORDERED: Phenylephrine IV 50 MG in NS 0.9% 250 ml 245 ML IV SCH (19:00)
[2020-10-16] MEDS ORDERED: Vasopressin 100 UNITS in D5W 250 ml BAG 245 ML IV SCH (19:15)
[2020-10-16] MEDS: Linezolid 600 MG IVPREMIX(*) 600 MG/300 ML BAG IVPB SCH (19:37)
[2020-10-16] MEDS ORDERED: Acetaminophen IV 1 GM/100ML 100 ML IV ONE (19:40)
[2020-10-16] MEDS: Meropenem 2 GM in NS 0.9% 100 ml BAG 100 ML IVPB SCH (20:28)
[2020-10-16] MEDS ORDERED: NOREPINEPHRINE IV SCH (22:00)
[2020-10-16] MEDS ORDERED: NS IV SCH (22:00)
[2020-10-16] MEDS ORDERED: FLUID IV SCH (22:00)
[2020-10-16] MEDS ORDERED: Norepinephrine IV 8 MG in NS 0.9% 500 ml BAG 492 ML IV SCH (23:00)
[2020-10-16 23:02] LABS: Venous Bicarbonate HCO3 21.5 mmol/L (24-28)
[2020-10-16 23:21] LABS: Anion Gap 8 mmol/L (2-11); Blood Urea Nitrogen 26 mg/dL (6-24); CO2 Carbon Dioxide 22 mmol/L (22-32); Calcium 7.6 mg/dL (8.6-10.3); Chloride 110 mmol/L (101-111); EGFR African American 48.5 (>60); EGFR Non-African American 40.1 (>60); Glucose 180 mg/dL (70-100); Potassium 4.3 mmol/L (3.5-5.0); Sodium 140 mmol/L (135-145)
[2020-10-16 23:26] LABS: Troponin I 0.48 ng/mL (<0.03)
[2020-10-17] MEDS: Hydrocortisone INJ 100 MG/2ML 2 ML VIAL IV SCH ×3 (01:39→16:06)
[2020-10-17 02:30] LABS: Troponin I 0.72 ng/mL (<0.03)
[2020-10-17] MEDS ORDERED: Acetaminophen IV 1 GM/100ML 100 ML IVPB ONE (02:50)
[2020-10-17 05:34] LABS: Hematocrit 41 % (42-52); Hemoglobin 12.9 g/dL (14.0-18.0); Mean Corpuscular HGB Conc 32 g/dL (31-36); Mean Corpuscular Hemoglobin 28 pg (27-31); Mean Corpuscular Volume 88 fL (80-94); Mean Platelet Volume 7.7 fL (7.4-10.4); Platelet Count 137 10^3/uL (150-450); Red Blood Count 4.66 10^6 /uL (4.18-5.48); Red Cell Distribution Width 17 % (10-15); White Blood Count 26.5 10^3/uL (3.5-10.8)
[2020-10-17 05:55] LABS: Anion Gap 11 mmol/L (2-11); Blood Urea Nitrogen 32 mg/dL (6-24); CO2 Carbon Dioxide 22 mmol/L (22-32); Calcium 7.7 mg/dL (8.6-10.3); Chloride 110 mmol/L (101-111); EGFR African American 58.3 (>60); EGFR Non-African American 48.2 (>60); Glucose 165 mg/dL (70-100); Phosphorus 4.8 mg/dL (2.5-5.0); Potassium 4.5 mmol/L (3.5-5.0); Sodium 143 mmol/L (135-145)
[2020-10-17 05:58] LABS: Troponin I 0.82 ng/mL (<0.03)
[2020-10-17] MEDS: Meropenem 2 GM in NS 0.9% 100 ml BAG 100 ML IVPB SCH (06:02)
[2020-10-17] MEDS ORDERED: Norepinephrine IV 8 MG in NS 0.9% 500 ml BAG 492 ML IV SCH (08:46)
[2020-10-17] MEDS: Linezolid 600 MG IVPREMIX(*) 600 MG/300 ML BAG IVPB SCH (08:51)
[2020-10-17] MEDS ORDERED: Pantoprazole VIAL 40 MG VIAL IV SCH (09:00)
[2020-10-17] MEDS ORDERED: Perflutren Lipid Microsphere 3 ML VIAL ONE (09:17)
[2020-10-17 11:23] LABS: INR 1.63 (0.82-1.09)
[2020-10-17] MEDS ORDERED: Dextran 70/Hypromellose Tears Eye Drops 15 ml BTL (for Artificials Tears) BOTH EYES PRN (14:38)
[2020-10-17] MEDS ORDERED: Acetaminophen IV 1 GM/100ML 100 ML IV ONE (14:41)
[2020-10-17] MEDS ORDERED: Saline NASAL SPRAY 0.65% BTL BOTH NARES PRN (15:35)
[2020-10-17] MEDS: PIRFENIDONE 801 MG PO SCH ×2 (16:05→20:54)
[2020-10-17] MEDS ORDERED: Senna TAB 8.6 mg TAB PO PRN (16:10)
[2020-10-17] MEDS ORDERED: ASA-APAP-CAFFEINE ES (NF) TAB PO PRN (16:18)
[2020-10-17] MEDS ORDERED: Dextrose 50% Syringe 50 ml 25 GM/50 ML SYRINGE IV PUSH PRN (16:23)
[2020-10-17] MEDS: Cefepime 1 GM in Dextrose 1 GM/50 ML BAG IV SCH (18:40)
[2020-10-17] MEDS ORDERED: Cefepime 1 GM in NS 0.9% 50 ML 50 ML IVPB SCH (19:00)
[2020-10-17 19:09] LABS: Troponin I 0.72 ng/mL (<0.03)
[2020-10-18] MEDS: Cefepime 1 GM in Dextrose 1 GM/50 ML BAG IV SCH ×2 (05:52→17:35)
[2020-10-18 06:25] LABS: Hematocrit 38 % (42-52); Hemoglobin 12.1 g/dL (14.0-18.0); Mean Corpuscular HGB Conc 32 g/dL (31-36); Mean Corpuscular Hemoglobin 28 pg (27-31); Mean Corpuscular Volume 88 fL (80-94); Platelet Count 108 10^3/uL (150-450); Red Blood Count 4.35 10^6 /uL (4.18-5.48); Red Cell Distribution Width 17 % (10-15); White Blood Count 20.5 10^3/uL (3.5-10.8)
[2020-10-18 06:36] LABS: Blood Urea Nitrogen 36 mg/dL (6-24); CO2 Carbon Dioxide 26 mmol/L (22-32); Calcium 8.2 mg/dL (8.6-10.3); Chloride 109 mmol/L (101-111); EGFR African American 99.1 (>60); EGFR Non-African American 81.9 (>60); Glucose 108 mg/dL (70-100); Magnesium 2.2 mg/dL (1.9-2.7); Phosphorus 2.9 mg/dL (2.5-5.0); Sodium 141 mmol/L (135-145)
[2020-10-18 06:43] LABS: Anion Gap 6 mmol/L (2-11)
[2020-10-18] MEDS: Aspirin EC 81 mg TAB.EC (enteric coated) PO SCH (08:53)
[2020-10-18] MEDS: PIRFENIDONE 801 MG PO SCH ×3 (08:56→21:52)
[2020-10-19] MEDS: Cefepime 1 GM in Dextrose 1 GM/50 ML BAG IV SCH ×2 (05:50→17:53)
[2020-10-19 06:09] LABS: Calcium 8.3 mg/dL (8.6-10.3); Potassium 3.8 mmol/L (3.5-5.0)
[2020-10-19 06:15] LABS: EGFR African American 99.1 (>60); EGFR Non-African American 81.9 (>60); Phosphorus 2.2 mg/dL (2.5-5.0)
[2020-10-19 07:02] LABS: Hematocrit 36 % (42-52); Hemoglobin 11.6 g/dL (14.0-18.0); Mean Corpuscular HGB Conc 32 g/dL (31-36); Mean Corpuscular Hemoglobin 28 pg (27-31); Mean Corpuscular Volume 87 fL (80-94); Mean Platelet Volume 8.3 fL (7.4-10.4); Platelet Count 93 10^3/uL (150-450); Red Blood Count 4.13 10^6 /uL (4.18-5.48); Red Cell Distribution Width 17 % (10-15)
[2020-10-19] MEDS ORDERED: Potassium Chlor 10 meq TAB PO ONE (07:31)
[2020-10-19] MEDS: Aspirin EC 81 mg TAB.EC (enteric coated) PO SCH (10:10)
[2020-10-19] MEDS: PIRFENIDONE 801 MG PO SCH ×3 (10:12→22:45)
[2020-10-20 05:08] LABS: Hematocrit 38 % (42-52); Mean Corpuscular HGB Conc 32 g/dL (31-36); Mean Corpuscular Hemoglobin 28 pg (27-31); Mean Corpuscular Volume 88 fL (80-94); Platelet Count 108 10^3/uL (150-450); Red Blood Count 4.29 10^6 /uL (4.18-5.48); Red Cell Distribution Width 17 % (10-15); White Blood Count 10.2 10^3/uL (3.5-10.8)
[2020-10-20 05:26] LABS: Calcium 8.4 mg/dL (8.6-10.3); EGFR African American 101.7 (>60); Magnesium 1.9 mg/dL (1.9-2.7); Phosphorus 2.6 mg/dL (2.5-5.0); Potassium 3.5 mmol/L (3.5-5.0)
[2020-10-20] MEDS: Cefepime 1 GM in Dextrose 1 GM/50 ML BAG IV SCH (06:34)
[2020-10-20] MEDS ORDERED: Potassium Chlor 20 meq TAB.ER PO ONE (07:18)
[2020-10-20] MEDS: Aspirin EC 81 mg TAB.EC (enteric coated) PO SCH (09:01)
[2020-10-20] MEDS: PIRFENIDONE 801 MG PO SCH ×3 (09:03→22:32)
[2020-10-21 04:52] LABS: Hematocrit 41 % (42-52); Hemoglobin 13.5 g/dL (14.0-18.0); Mean Corpuscular HGB Conc 33 g/dL (31-36); Mean Corpuscular Hemoglobin 28 pg (27-31); Mean Corpuscular Volume 86 fL (80-94); Platelet Count 115 10^3/uL (150-450); Red Blood Count 4.76 10^6 /uL (4.18-5.48); Red Cell Distribution Width 16 % (10-15); White Blood Count 7.3 10^3/uL (3.5-10.8)
[2020-10-21 05:12] LABS: Calcium 8.7 mg/dL (8.6-10.3); EGFR African American 125.8 (>60); Magnesium 1.9 mg/dL (1.9-2.7); Potassium 3.4 mmol/L (3.5-5.0)
[2020-10-21] MEDS ORDERED: Potassium Chlor 20 meq TAB.ER PO ONE (07:21)
[2020-10-21] MEDS: PIRFENIDONE 801 MG PO SCH (08:11)
[2020-10-21] MEDS: Aspirin EC 81 mg TAB.EC (enteric coated) PO SCH (08:11)
[2020-10-21 12:19] VITALS: BP 140/98
== END 2020-10-21 13:20 | disposition home or self-care (01) | DRG 871 ==
LOC: ED 13:11 → ICU 16:49 → SSU 10-18 13:39
PROVIDERS: ADMIT Internal Medicine; ATTEND Internal Medicine